=== PATIENT | male | born 1935 | race Caucasian/White ===

== ENCOUNTER → 2018-03-09 | Outpatient (CLI) | payer MEDICARE ==
--- NOTE | 2018-03-09 11:23 | XR ---
EXAMINATION TYPE: XR chest 2V DATE OF EXAM: 03/09/2018 COMPARISON: NONE INDICATION: Bacterial pneumonia, bronchitis TECHNIQUE: Frontal and lateral views of the chest are obtained. FINDINGS: The heart size is normal. The pulmonary vasculature is normal. The lungs are clear. Vascular calcification is noted within the descending thoracic aorta. IMPRESSION: 1. No acute pulmonary process.
== END | disposition home or self-care (01) ==
LOC: RADXRMAIN 10:59
PROVIDERS: ATTEND Family Medicine
DX: J15.9 Unspecified bacterial pneumonia (principal)
CPT/HCPCS: 71046

== ENCOUNTER → 2018-03-29 | Outpatient (CLI) | payer MEDICARE ==
--- NOTE | 2018-03-30 15:09 | ECHOF ---
Referral Reason:R07.89 Chest Pain MEASUREMENTS -------- HEIGHT: 167.6 cm WEIGHT: 95.3 kg BP: 190/77 RVIDd: 3.5 cm (< 3.3) IVSd: 1.7 cm (0.6 - 1.1) LVIDd: 4.1 cm (3.9 - 5.3) LVPWd: 1.8 cm (0.6 - 1.1) IVSs: 2.4 cm LVIDs: 3.3 cm LVPWs: 2.1 cm LA Diam: 3.6 cm (2.7 - 3.8) LAESV Index (A-L): 31.04 ml/m Ao Diam: 3.8 cm (2.0 - 3.7) AV Cusp: 2.3 cm (1.5 - 2.6) MV EXCURSION: 14.425 mm (> 18.000) MV EF SLOPE: 34 mm/s (70 - 150) EPSS: 0.9 cm MV E Juanito: 0.92 m/s MV DecT: 217 ms MV A Juanito: 1.23 m/s MV E/A Ratio: 0.74 AR PHT: 540 ms RAP: 5.00 mmHg RVSP: 26.80 mmHg FINDINGS -------- Sinus rhythm. This was a technically adequate study. The left ventricular size is normal. There is severe concentric left ventricular hypertrophy. Ove rall left ventricular systolic function is mildly impaired with, an EF between 45 - 50 %. Basal inf erior LV wall motion is hypokinetic. Basal inferoseptal LV wall motion is hypokinetic. The right ventricle is mildly enlarged. LA is midly dilated 29-33ml/m2. The right atrium is normal in size. There is mild aortic valve sclerosis. There is mild aortic regurgitation. Mild mitral annular calcification present. There is trace mitral regurgitation. Mild tricuspid regurgitation present. Right ventricular systolic pressure is normal at < 35 mmHg. The pulmonic valve is normal. The aortic root is dilated measuring 3.8cm. Normal inferior vena cava with normal inspiratory collapse consistent with estimated right atrial pre ssure of 5 mmHg. There is no pericardial effusion. CONCLUSIONS -------- 1. Sinus rhythm. 2. This was a technically adequate study. 3. The left ventricular size is normal. 4. There is severe concentric left ventricular hypertrophy. 5. Overall left ventricular systolic function is mildly impaired with, an EF between 45 - 50 %. 6. Basal inferior LV wall motion is hypokinetic. 7. Basal inferoseptal LV wall motion is hypokinetic. 8. The right ventricle is mildly enlarged. 9. LA is midly dilated 29-33ml/m2. 10. The right atrium is normal in size. 11. There is mild aortic valve sclerosis. 12. There is mild aortic regurgitation. 13. Mild mitral annular calcification present. 14. There is trace mitral regurgitation. 15. Mild tricuspid regurgitation present. 16. Right ventricular systolic pressure is normal at < 35 mmHg. 17. The pulmonic valve is normal. 18. The aortic root is dilated measuring 3.8cm. 19. Normal inferior vena cava with normal inspiratory collapse consistent with estimated right atrial pressure of 5 mmHg. 20. There is no pericardial effusion. YARD PIPE GRADER: Izabela Holder RDCS
== END | disposition home or self-care (01) ==
LOC: RADECHMAIN 15:24
PROVIDERS: ATTEND Family Medicine
DX: I08.2 Rheumatic disorders of both aortic and tricuspid valves (principal)
CPT/HCPCS: 93306

== ENCOUNTER → 2019-04-11 | Outpatient (CLI) | payer MEDICARE ==
[2019-04-11 21:22] LABS: Anion Gap 11.3 mmol/L (4.00-12.00); Calcium 8.1 mg/dL (8.7-10.3); Carbon Dioxide 27.7 mmol/L (21.6-31.8); Potassium 3.9 mmol/L (3.5-5.5); Uric Acid 10.1 mg/dL (3.7-8.7)
== END ==
LOC: LABWHC1 14:08
PROVIDERS: ATTEND Family Medicine
DX: M10.9 Gout, unspecified (principal); E87.5 Hyperkalemia; R60.9 Edema, unspecified
CPT/HCPCS: 36415; 80048; 83880; 84550

== ENCOUNTER 2019-05-03 17:57 | Inpatient (IN) | payer MEDICARE ==
[2019-05-03] MEDS ORDERED: SODIUM CHLORIDE 0.9% 500 ML 500 ML IV ONE (18:20)
--- NOTE | 2019-05-03 18:23 | ED ---
Recheck HPI - General Chief Complaint: Recheck/Abnormal Lab/Rx Stated Complaint: High potassium Time Seen by Provider: 05/03/19 18:11 Source: patient, family Mode of arrival: wheelchair Limitations: no limitations - History of Present Illness Initial Comments: 83-year-old male patient presents to the emergency department today sent by his medical coding technician for elevated potassium. Patient states that he had a visit with the medical coding technician today and had labs drawn. States he got a call this evening saying his potassium was 6.6 and he needed to present here for further evaluation. Patient states other than feeling somewhat tired he feels good. Patient states he did not sleep well last night. Denies any muscle cramping, chest pain, shortness of breath, or palpitations. Denies any dizziness or weakness. Patient states that the medical coding technician believes potassium alterations are due to his lisinopril which they are stopping. Patient denies any recent r esthela, fever, chills, abdominal pain, nausea, vomiting, diarrhea, constipation, back pain, numbness, tingling, hematuria, dysuria, urinary urgency, urinary frequency, headache, visual changes, or any other complaints. - Related Data Home Medications Medication Instructions Recorded Confirmed Alendronate Sodium [Fosamax] 70 mg PO Q7D 05/03/19 05/03/19 Clopidogrel [Plavix] 75 mg PO DAILY 05/03/19 05/03/19 Doxazosin [Cardura] 4 mg PO BID 05/03/19 05/03/19 Finasteride [Proscar] 5 mg PO DAILY 05/03/19 05/03/19 Furosemide [Lasix] 20 mg PO DAILY 05/03/19 05/03/19 Levothyroxine Sodium [Synthroid] 50 mcg PO DAILY 05/03/19 05/03/19 Lisinopril [Prinivil] 20 mg PO DAILY 05/03/19 05/03/19 Nebivolol HCl [Bystolic] 5 mg PO DAILY 05/03/19 05/03/19 Simvastatin 40 mg PO DAILY 05/03/19 05/03/19 Temazepam [Restoril] 15 mg PO HS 05/03/19 05/03/19 amLODIPine [Norvasc] 5 mg PO DAILY 05/03/19 05/03/19 rOPINIRole HCL [Requip] 0.5 mg PO HS 05/03/19 05/03/19 Allergies Allergy/AdvReac Type Severity Reaction Status Date / Time zolpidem [From Ambien] Allergy Unknown Verified 05/03/19 18:23 Review of Systems ROS Statement: Those systems with pertinent positive or pertinent negative responses have been documented in the HPI. ROS Other: All systems not noted in ROS Statement are negative. Past Medical History Past Medical History: Cancer, Hypertension Additional Past Medical History / Comment(s): bladder cancer History of Any Multi-Drug Resistant Organisms: None Reported Past Surgical History: Hernia Repair Additional Past Surgical History / Comment(s): kidney- right and left partial removal Past Psychological History: No Psychological Hx Reported Smoking Status: Former smoker Past Alcohol Use History: None Reported Past Drug Use History: None Reported General Exam Limitations: no limitations General appearance: alert, in no apparent distress, other (Well-developed, well- nourished elderly male patient in no acute distress. Vital signs upon presentation are temperature 97.8F, pulse 68, respirations 18, blood pressure 138/56, pulse ox 95% on room air.) Eye exam: Present: normal appearance, PERRL, EOMI. Absent: scleral icterus, conjunctival injection, periorbital swelling ENT exam: Present: normal exam, normal oropharynx, mucous membranes moist Respiratory exam: Present: normal lung sounds bilaterally. Absent: respiratory distress, wheezes, rales, rhonchi, stridor Cardiovascular Exam: Present: regular rate, normal rhythm, normal heart sounds. Absent: systolic murmur, diastolic murmur, rubs, gallop, clicks GI/Abdominal exam: Present: soft, normal bowel sounds. Absent: distended, tenderness, guarding, rebound, rigid Neurological exam: Present: alert, oriented X3, CN II-XII intact Psychiatric exam: Present: normal affect, normal mood Skin exam: Present: warm, dry, intact, normal color. 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 Physical examination is unremarkable. EKG shows normal sinus rhythm. Labs reviewed and did reveal elevated potassium of 6.3. Patient does have evidence of worsening renal function. We will administer medication to decrease potassiu m level. Patient be admitted to the hospital for further monitoring and evaluation by nephrology. - Lab Data Result diagrams: 05/03/19 18:49 05/03/19 18:49 Lab Results 05/03/19 05/03/19 Range/Units 18:49 18:49 WBC 5.5 (3.8-10.6) k/uL RBC 3.74 L (4.30-5.90) m/uL Hgb 11.5 L (13.0-17.5) gm/dL Hct 35.0 L (39.0-53.0) % MCV 93.7 (80.0-100.0) fL MCH 30.7 (25.0-35.0) pg MCHC 32.7 (31.0-37.0) g/dL RDW 14.4 (11.5-15.5) % Plt Count 165 (150-450) k/uL Neutrophils % 74 % Lymphocytes % 16 % Monocytes % 6 % Eosinophils % 2 % Basophils % 0 % Neutrophils # 4.1 (1.3-7.7) k/uL Lymphocytes # 0.9 L (1.0-4.8) k/uL Monocytes # 0.3 (0-1.0) k/uL Eosinophils # 0.1 (0-0.7) k/uL Basophils # 0.0 (0-0.2) k/uL Sodium 142 (137-145) mmol/L Potassium 6.3 H* (3.5-5.1) mmol/L Chloride 112 H (98-107) mmol/L Carbon Dioxide 22 (22-30) mmol/L Anion Gap 8 mmol/L BUN 65 H (9-20) mg/dL Creatinine 3.49 H (0.66-1.25) mg/dL Est GFR (CKD-EPI)AfAm 17 (>60 ml/min/1.73 sqM) Est GFR (CKD-EPI)NonAf 15 (>60 ml/min/1.73 sqM) Glucose 96 (74-99) mg/dL Calcium 8.3 L (8.4-10.2) mg/dL Magnesium 2.4 H (1.6-2.3) mg/dL Total Bilirubin 0.6 (0.2-1.3) mg/dL AST 16 L (17-59) U/L ALT 16 L (21-72) U/L Alkaline Phosphatase 74 (38-126) U/L Total Protein 6.4 (6.3-8.2) g/dL Albumin 4.0 (3.5-5.0) g/dL - EKG Data -: EKG Interpreted by Me EKG Comments: EKG obtained at 1840 shows sinus rhythm with a first-degree AV block. Ventricular rate is 69, AK interval 382, QRS duration 104, QTC 400, QTC 428. No evidence of ST elevation or depression. Disposition Clinical Impression: Hyperkalemia, Acute on chronic renal failure Disposition: ADMITTED IP TO THIS [facility] Condition: Serious Referrals: Tho Harman DO [Primary Care Provider] - 1-2 days Decision to Admit Reason: Admit from EC Decision Date: 05/03/19 Decision Time: 20:08
[2019-05-03 19:18] LABS: Basophils % (A) 0 %; Eosinophils # (A) 0.1 k/uL (0-0.7); Eosinophils % (A) 2 %; HGB 11.5 gm/dL (13.0-17.5); Lymphocytes # (A) 0.9 k/uL (1.0-4.8); Lymphocytes % (A) 16 %; MCH 30.7 pg (25.0-35.0); MCHC 32.7 g/dL (31.0-37.0); MCV 93.7 fL (80.0-100.0); Mean Platelet Volume 7.5; Monocytes # (A) 0.3 k/uL (0-1.0); Monocytes % (A) 6 %; Neutrophils # (A) 4.1 k/uL (1.3-7.7); Neutrophils % (A) 74 %; Platelet Count 165 k/uL (150-450); RBC 3.74 m/uL (4.30-5.90); RDW 14.4 % (11.5-15.5); WBC 5.5 k/uL (3.8-10.6)
[2019-05-03 19:28] LABS: Calcium 8.3 mg/dL (8.4-10.2); Magnesium 2.4 mg/dL (1.6-2.3); Total Bilirubin 0.6 mg/dL (0.2-1.3); Total Protein 6.4 g/dL (6.3-8.2)
[2019-05-03 19:31] LABS: Potassium 6.3 mmol/L (3.5-5.1)
[2019-05-03] MEDS ORDERED: CALCIUM CHLORIDE 100 MG/ML 10 ML SYRINGE IVP STA (19:59)
[2019-05-03] MEDS ORDERED: SODIUM POLYSTYRENE SULFONATE 15 GM/60 ML BOTTLE PO STA (19:59)
[2019-05-03] MEDS ORDERED: DEXTROSE 50% SYRINGE 50 ML IVP STA (19:59)
[2019-05-03] MEDS ORDERED: INSULIN REGULAR 100 UNIT/ML VIAL IV STA (19:59)
[2019-05-03] MEDS ORDERED: NALOXONE 0.4 MG/ML 1 ML VIAL IV PRN (20:05)
[2019-05-03] MEDS: TEMAZEPAM 15 MG CAP PO SCH (22:36)
[2019-05-03] MEDS: DOXAZOSIN 4 MG TAB PO SCH (22:36)
[2019-05-03] MEDS ORDERED: SODIUM CHLORIDE 0.65% NASAL SPRAY 44 ML BTL NASAL PRN (23:00)
[2019-05-04] MEDS: SODIUM POLYSTYRENE SULFONATE 15 GM/60 ML BOTTLE PO SCH ×2 (00:29→08:08)
[2019-05-04 05:36] VITALS: RESP 16
[2019-05-04] MEDS: LEVOTHYROXINE 50 MCG TAB PO SCH (06:36)
[2019-05-04 07:12] LABS: Albumin 3.6 g/dL (3.5-5.0); Calcium 8.7 mg/dL (8.4-10.2); Potassium 5.4 mmol/L (3.5-5.1); Total Bilirubin 0.6 mg/dL (0.2-1.3); Total Protein 5.9 g/dL (6.3-8.2)
[2019-05-04] MEDS: ATORVASTATIN 20 MG TAB PO SCH (08:08)
[2019-05-04] MEDS: amLODIPine 5 MG TAB PO SCH (08:08)
[2019-05-04] MEDS: NEBIVOLOL 5 MG TAB PO SCH (08:08)
[2019-05-04] MEDS: CLOPIDOGREL 75 MG TAB PO SCH (08:08)
[2019-05-04] MEDS: FINASTERIDE 5 MG TAB PO SCH (08:08)
[2019-05-04] MEDS: DOXAZOSIN 4 MG TAB PO SCH ×2 (08:08→20:03)
[2019-05-04] MEDS ORDERED: FUROSEMIDE 20 MG TAB PO SCH (09:00)
[2019-05-04 13:45] LABS: Appearance,Urine Clear (Clear); Bilirubin,Urine Negative (Negative); Blood,Urine Negative (Negative); Color,Urine Light Yellow; Glucose,Urine (UA) Negative (Negative); Ketones,Urine Negative (Negative); Leukocyte Esterase,Urine Negative (Negative); Nitrite,Urine Negative (Negative); PH, Urine 5.5 (5.0-8.0); Protein,Urine Negative (Negative); Specific Gravity,Urine 1.007 (1.001-1.035); Urobilinogen,Urine <2.0 mg/dL (<2.0)
--- NOTE | 2019-05-04 13:46 | XR ---
EXAMINATION TYPE: XR chest 1V DATE OF EXAM: 05/04/2019 COMPARISON: 03/09/2018 HISTORY: Shortness of breath TECHNIQUE: Single frontal view of the chest is obtained. FINDINGS: Assessment left lung base limited due to technique. The heart is prominent. Atheroscleroti c changes aorta. Arthropathy of the shoulders and diffuse osteopenia. No pneumothorax or overt failur e. IMPRESSION: No definite infiltrate as visualized. No overt failure.
--- NOTE | 2019-05-04 14:13 | US ---
EXAMINATION TYPE: US kidneys/renal and bladder DATE OF EXAM: 05/04/2019 COMPARISON: NONE CLINICAL HISTORY: rf. Renal failure, history of bladder and renal cancer, history of multiple bladder and bilateral kidney surgeries, exam done portable. EXAM MEASUREMENTS: Right Kidney: 9.7 x 5.2 x 5.8 cm Left Kidney: 7.6 x 4.4 x 4.7 cm Difficult and limited study due to patient body habitus Right Kidney: multiple cystic areas with largest measuring 2.4 x 3.0 x 2.3cm superior pole Left Kidney: atrophic, limited by rib shadowing Bladder: wnl Bilateral Jets seen: right jet seen, left jet not seen IMPRESSION: 1. The left kidney is atrophic correlate for chronic medical renal disease. 2. There are multiple hypoechoic nodules within the right kidney which do not meet the criteria of si mple cyst by ultrasound. This is most likely technical. 3. No hydronephrosis or nephrolithiasis
--- NOTE | 2019-05-04 14:48 | P.HPIM ---
History of Present Illness H&P Date: 05/04/19 Chief Complaint: Abnormal lab work This is an 83-year-old male patient of Dr. Harman with past medical history of bladder cancer diagnosed 18 years ago status post mass resection, kidney cancer initially diagnosed in 2010 on the left with partial nephrectomy followed by diagnosis on the right in 2013 status post partial robotic resection. Patient states cancers currently are in remission and his oncologist is Dr. Juan. He also has past medical history of carotid artery stenosis status post stent, hypertension, hypothyroidism, hyperlipidemia, restless leg syndrome, gout, chronic kidney disease stage 4. Patient gives history that he saw his integrated circuit fabricator in lab work came back with a high potassium of 6.6 and he was called and instructed to come into the hospital for further evaluation. Patient denies having any muscle cramps, chest pain, shortness of breath, palpitations. No dizziness, lightheadedness or weakness. No change in mental status. Patient denies having any dysuria. He states he does get up in the night to urinate 3-4 times and he relates this to Lasix. He feels that he is entering his bladder with each voiding. Patient came into [facility] emergency [facility] for evaluation. He has been afebrile, pulse ox 95% on room air, blood pressure 138/56, heart rate in the 60s and 70s. Hemoglobin 11.5. Potassium 6.3, BUN 65 and creatinine 3.49, chloride 112. Hemoglobin A1c done in March was 4.8. Patient received 2 doses of Kayexalate, 1 L of IV fluid, D50, regular insulin and calcium chloride. Patient has been resumed on his home medications except for lisinopril which is on hold. Patient was admitted to the cardiac stepdown unit and consult with Dr. Villarreal. Renal ultrasound shows left kidney is atrophic correlate for chronic medical renal disease. Multiple hypoechoic nodules within the right kidney w hich do not meet the criteria for simple cyst. Most likely technical. No hydronephrosis or nephrolithiasis. Chest x-ray shows no definite infiltrate. Review of Systems All systems: negative Constitutional: Denies chills, Denies fever, Denies lethargy, Denies malaise, Denies poor appetite, Denies weakness, Denies weight loss Eyes: denies blurred vision, denies pain Ears, nose, mouth and throat: Denies dysphagia, Denies headache, Denies nasal congestion, Denies nasal discharge, Denies sore throat, Denies vertigo Cardiovascular: Denies chest pain, Denies decreased exercise tolerance, Denies dyspnea on exertion, Denies edema, Denies leg edema, Denies lightheadedness, Denies shortness of breath, Denies syncope Respiratory: Denies cough, Denies cough with sputum, Denies dyspnea, Denies excessive sputum, Denies hemoptysis, Denies home oxygen, Denies wheezing Gastrointestinal: Denies abdominal pain, Denies constipation, Denies diarrhea, Denies loss of appetite, Denies nausea, Denies vomiting Genitourinary: Denies dysuria, Denies flank pain, Denies hematuria, Denies urinary frequency, Denies urinary hesitancy, Denies urinary retention Musculoskeletal: Denies frequent falls, Denies gait dysfunction, Denies muscle weakness, Denies myalgias Integumentary: Denies pruritus, Denies rash, Denies wounds Neurological: Denies aphasia, Denies change in speech, Denies confusion, Denies gait dysfunction, Denies numbness, Denies seizures, Denies weakness Psychiatric: Denies anxiety, Denies depression Endocrine: Denies fatigue, Denies weight change Past Medical History Past Medical History: Cancer, Hyperlipidemia, Hypertension, Thyroid Disorder Additional Past Medical History / Comment(s): bladder cancer, kidney cancer. 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 Past Anesthesia/Blood Transfusion Reactions: Previous Problems w/ Anesthesia Additional Past Anesthesia/Blood Transfusion Reaction / Comment(s): "out of it for 4 days after anesthesia" Past Psychological History: No Psychological Hx Reported Smoking Status: Former smoker Past Alcohol Use History: None Reported Additional Past Alcohol Use History / Comment(s): quit smoking 1968, no illicit drug use, no alcohol use. Patient recently moved to [address] [place] [address]. He has a walker but rarely uses. No nebulizer, no oxygen. Past Drug Use History: None Reported - Past Family History Father Additional Family Medical History / Comment(s): Father from prostate cancer. Mother Additional Family Medical History / Comment(s): Mother from lung cancer. Brother(s) Additional Family Medical History / Comment(s): Patient has 2 brothers one has had these stroke. One brother had kidney cancer unknown reason. Patient has one sister is healthy with no major medical problems. Patient has 2 children, one daughter with hyperlipidemia and one son with history of atrial fibrillation and borderline diabetes. Medications and Allergies Home Medications Medication Instructions Recorded Confirmed Type Alendronate Sodium [Fosamax] 70 mg PO Q7D 05/03/19 05/03/19 History Clopidogrel [Plavix] 75 mg PO DAILY 05/03/19 05/03/19 History Doxazosin [Cardura] 4 mg PO BID 05/03/19 05/03/19 History Finasteride [Proscar] 5 mg PO DAILY 05/03/19 05/03/19 History Furosemide [Lasix] 20 mg PO DAILY 05/03/19 05/03/19 History Levothyroxine Sodium [Synthroid] 50 mcg PO DAILY 05/03/19 05/03/19 History Lisinopril [Prinivil] 20 mg PO DAILY 05/03/19 05/03/19 History Nebivolol HCl [Bystolic] 5 mg PO DAILY 05/03/19 05/03/19 History Simvastatin 40 mg PO DAILY 05/03/19 05/03/19 History Temazepam [Restoril] 15 mg PO HS 05/03/19 05/03/19 History amLODIPine [Norvasc] 5 mg PO DAILY 05/03/19 05/03/19 History rOPINIRole HCL [Requip] 0.5 mg PO HS 05/03/19 05/03/19 History Allergies Allergy/AdvReac Type Severity Reaction Status Date / Time zolpidem [From Ambien] Allergy Unknown Verified 05/03/19 18:23 Physical Exam Vitals: Vital Signs Temp Pulse Pulse Resp BP BP Pulse Ox 05/04/19 05:35 97.8 F 75 16 150/70 96 05/04/19 00:45 74 19 131/68 93 L 05/03/19 21:52 97.9 F 59 L 15 140/69 95 05/03/19 21:11 98 F 80 18 160/77 93 L 05/03/19 20:39 74 18 160/78 97 05/03/19 20:13 98 F 70 18 160/68 95 05/03/19 19:35 67 05/03/19 19:33 68 18 163/76 98 05/03/19 18:03 97.8 F 68 18 138/56 95 Intake and Output 05/03/19 05/04/19 05/04/19 22:59 06:59 14:59 Output Total 550 Balance -550 Output: Urine 550 Other: Voiding Method Toilet Weight 95.254 kg 95.7 kg Gen: This is an 83-year-old obese male. He is resting on the edge of the bed eating lunch and appears to be comfortable and in no acute distress. HEENT: Head is atraumatic, normocephalic. Pupils equal, round. Sclerae is anicteric. NECK: Supple. No JVD. No lymphadenopathy. No thyromegaly. LUNGS: Clear to auscultation. No wheezes or rhonchi. No intercostal retractions. HEART: Regular rate and rhythm. No murmur. ABDOMEN: Soft. Obese. Bowel sounds are present. No masses. No tenderness. No CVA tenderness EXTREMITIES: No pedal edema. No calf tenderness. Positive varicose veins in the lower extremities. NEUROLOGICAL: Patient is awake, alert and oriented x3. Cranial nerves 2 through 12 are grossly intact. Results CBC & Chem 7: 05/03/19 18:49 05/04/19 06:12 Labs: Abnormal Lab Results - Last 24 Hours (Table) 05/03/19 05/03/19 05/04/19 Range/Units 18:49 18:49 06:12 RBC 3.74 L (4.30-5.90) m/uL Hgb 11.5 L (13.0-17.5) gm/dL Hct 35.0 L (39.0-53.0) % Lymphocytes # 0.9 L (1.0-4.8) k/uL Potassium 6.3 H* 5.4 H (3.5-5.1) mmol/L Chloride 112 H 113 H (98-107) mmol/L Carbon Dioxide 21 L (22-30) mmol/L BUN 65 H 59 H (9-20) mg/dL Creatinine 3.49 H 3.22 H (0.66-1.25) mg/dL Calcium 8.3 L (8.4-10.2) mg/dL Magnesium 2.4 H (1.6-2.3) mg/dL AST 16 L 12 L (17-59) U/L ALT 16 L 15 L (21-72) U/L Total Protein 5.9 L (6.3-8.2) g/dL Thrombosis Risk Factor Assmnt - DVT/VTE Prophylaxis DVT/VTE Prophylaxis: Pharmacologic Prophylaxis ordered - Choose All That Apply Any of the Below Risk Factors Present?: Yes Each Factor Represents 1 point: Obesity (BMI >25) Each Risk Factor Represents 3 Points: Age 75 years or older Thrombosis Risk Factor Assessment Total Risk Factor Score: 4 Thrombosis Risk Factor Assessment Level: Moderate Risk Assessment and Plan Plan: 1. Acute kidney injury and chronic kidney disease stage IV. Consult with Dr. Villarreal. Continue to monitor electrolytes and kidney function closely. Lisinopril on hold. 2. Hyperkalemia secondary to acute kidney disease. Patient is status post Kayexalate, D50, insulin and calcium chloride with improvement. Continue to monitor 3. History of kidney cancer status post resection and history of bladder cancer. Continue Proscar 5 mg daily, Cardura 4 mg twice daily. 4. Hypertension, hypertensive cardio vascular disease. Continue Norvasc 5 mg daily, Lasix 20 mg daily, bisystolic 5 mg daily. Hold lisinopril. 5. Hyperlipidemia. Continue Lipitor 20 mg daily. 6. Carotid artery stenosis status post stent on the left and 100% blockage on the right. Continue Plavix 75 mg daily. 7. Restless leg syndrome. Continue Requip 0.5 mg at bedtime. 8. Hypotension. Continue levothyroxine 50 g daily. Check TSH free T4. 9. DVT prophylaxis. Heparin subcu. 10. GI prophylaxis. Pepcid. Patient will be admitted to the hospital for a minimum of 2 night stay. Discharge plan: Most likely return home Impression and plan of care have been directed as dictated by the signing phys natan. Florecita Pedroza nurse practitioner acting as scribe for signing physician.
--- NOTE | 2019-05-04 16:37 | CONS ---
CONSULTATION Patient is an 83-year-old male who was just seen at my office yesterday for initial consultation. Patient has a history of hypertension, hypothyroidism and CHF. He has had bilateral partial nephrectomy previously. We had a prior creatinine of 2.8 on 04/11/2019 and on 03/27/2019. Patient's serum potassium was elevated at 6.0 on 03/27/2019 as outpatient. Repeat labs were done yesterday and his potassium came back at 6.4 with worsening of the creatinine to 3.3, and therefore patient was referred to the hospital. He had been maintained on lisinopril at home prior to admission, which is now discontinued. Blood pressure has not been significantly low and patient denied use of any nonsteroidal anti-inflammatory agents. He states he is feeling slightly better. However, he is mildly short of breath. PAST MEDICAL HISTORY: Past medical history is significant for: 1. Hypothyroidism. 2. CHF, ejection fraction not known. 3. Patient also has BPH. 4. Hypercholesterolemia. 5. Osteoporosis, for which he is maintained on alendronate. 6. Previous history of kidney cancer with bilateral partial nephrectomy. PAST SURGICAL HISTORY: 1. Hernia repair. 2. Bilateral partial nephrectomy. SOCIAL HISTORY: Patient is a former smoker. No history of drug abuse or alcohol abuse. MEDICATIONS: Medications at home prior to admission included: 1. Fosamax. 2. Plavix. 3. Cardura. 4. Proscar. 5. Lasix. 6. Synthroid. 7. Prinivil. 8. Bystolic. 9. Simvastatin. 10.Aspirin. 11.Norvasc. 12.Requip. ALLERGIES: ALLERGIES INCLUDE AMBIEN. REVIEW OF SYSTEMS: As per HPI. Other systems negative. PHYSICAL EXAMINATION: On examination, patient is currently comfortable, awake. He is mildly short of breath, not in any acute distress. Blood pressure was 145/65, heart rate 84 per minute. He is afebrile. EXAMINATION OF THE HEART: S1 and S2. EXAMINATION OF LUNGS: Decreased breath sounds at bases. Occasional crackles are heard. ABDOMEN: Soft, non-tender. EXTREMITIES: Left lower extremity shows no significant edema. SOCIAL WORK THERAPIST exam is grossly intact. LABS: Sodium 143, potassium 5.4, chloride 113. CO2 is 21, BUN 59, serum creatinine 0.32, hemoglobin 11.5 g/dL. ASSESSMENT: 1. Acute kidney injury; rule out obstructive uropathy. There may be a component of acute tubular necrosis as well. Patient is off of lisinopril. Renal function is slightly improved. He is currently not on any IV fluids and I will maintain him off of fluids for now. Will check a chest x-ray to rule out underlying CHF. 2. Hyperkalemia associated with acute kidney injury and use of CYNTHIA inhibitors prior to admission as well as significant increase in potassium intake recently over the past 1-2 weeks. 3. Congestive heart failure, ejection fraction not known. Recently Lasix was increased as outpatient and lower extremity edema has improved. An echocardiogram will be done this admission. 4. Chronic kidney disease; baseline not known. Prior creatinine 2.8 in March of 2019. We do have labs from 2017 which show a creatinine of 2.6, so this may be close to his baseline. 5. History of bladder cancer; not sure if there was an element of kidney cancer as well; status post bilateral partial nephrectomy. PLAN: Check UA. Maintain off of lisinopril. Check chest x-ray. Maintain patient on low- potassium diet. Discontinue the Kayexalate for now. Hold off on the Fosamax as well for now and repeat labs in a.m. I will continue with the Lasix. We can increase it to 40 mg p.o. daily. Thank you for this consultation. Will continue to follow the patient with you during his hospitalization. MMODL / ELENON: [id number] /
[2019-05-04] MEDS: TEMAZEPAM 15 MG CAP PO SCH (20:03)
[2019-05-04] MEDS: HEPARIN SODIUM,PORCINE 5,000 UNIT/ML 1 ML VIAL SQ SCH (20:04)
[2019-05-05] MEDS: LEVOTHYROXINE 50 MCG TAB PO SCH (06:44)
[2019-05-05 07:39] LABS: Calcium 8.8 mg/dL (8.4-10.2); Potassium 4.8 mmol/L (3.5-5.1)
[2019-05-05] MEDS: ATORVASTATIN 20 MG TAB PO SCH (07:46)
[2019-05-05] MEDS: FINASTERIDE 5 MG TAB PO SCH (07:46)
[2019-05-05] MEDS: amLODIPine 5 MG TAB PO SCH (07:46)
[2019-05-05] MEDS: DOXAZOSIN 4 MG TAB PO SCH (07:46)
[2019-05-05] MEDS: HEPARIN SODIUM,PORCINE 5,000 UNIT/ML 1 ML VIAL SQ SCH (07:46)
[2019-05-05] MEDS: CLOPIDOGREL 75 MG TAB PO SCH (07:46)
[2019-05-05] MEDS: NEBIVOLOL 5 MG TAB PO SCH (08:31)
[2019-05-05] MEDS ORDERED: FUROSEMIDE 40 MG TAB PO SCH (09:00)
[2019-05-05] MEDS ORDERED: FAMOTIDINE 20 MG TAB PO SCH (09:00)
--- NOTE | 2019-05-05 09:44 | PN ---
PROGRESS NOTE Patient is seen for followup for acute kidney injury on top of chronic kidney disease. He was admitted with hyperkalemia. Patient's cynthia inhibiters have been discontinued. His renal function has improved with significant improvement in potassium as well. On examination today, blood pressure is 159/72, heart rate is 72 per minute, patient is afebrile. Examination of the heart S1, S2. Examination of the lungs, bilateral breath sounds are heard. Abdomen is soft, nontender. 1 +plus edema is noted. BUYER RENTER exam is grossly intact. LABS: Show sodium of 142, potassium 4.8, chloride 111, BUN 51, serum creatinine 2.8. ASSESSMENT: 1. Acute kidney injury and acute tubular necrosis, currently improved. 2. Chronic kidney disease, mostly secondary to nephrosclerosis. The patient is also noted to have an atrophic left kidney on ultrasound. The. He will continue to need follow up as outpatient. We have a previous creatinine of 2.5 in March. Prior to that, no other labs were available except for a creatinine of about 2.6 in September of 2017. PLAN: Continue to hold off on CYNTHIA inhibitors. Patient can be discharged from nephrology standpoint. Follow up as outpatient in about 2 weeks' time. MMODL / IJN: [id number] /
--- NOTE | 2019-05-05 10:36 | P.CRDCN ---
History of Present Illness Consult date: 05/05/19 History of present illness: This is a 83-year-old male with history of hypothyroidism, hypertension with previous bilateral partial nephrectomy and chronic renal failure who is admitted to the hospital because of lab work showing a potassium of 6.4 with a creatinine of 3.3. Patient was also on lisinopril at home for blood pressure control along with diastolic. On admission patient was found to have sinus rhythm with first- degree heart block. Patient also had periods bradycardia has shown some Wenckebach phenomenon bradycardia. We're asked to see the patient regarding AV block. Patient denies having any cardiac issues in the past. Denied any previous myocardial infarction are normal and cardiac arrhythmias. Since admission patient has received capsulatum. His potassium is coming down to the range of 4. He was also taken off the Bystolic.. So far. Patient hasn't had any high degree AV block. Patient doesn't need any pacemaker at this time. I will keep him off both lisinopril and Bystolic. Patient may be treated with amlodipine for blood pressure control. I'll also get an echo cardiogram. We'll check his thyroid function studies. Further recommendations depend upon the clinical course Review of Systems As per the chart Past Medical History Past Medical History: Cancer, Hyperlipidemia, Hypertension, Thyroid Disorder Additional Past Medical History / Comment(s): bladder cancer, kidney cancer. 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 Past Anesthesia/Blood Transfusion Reactions: Previous Problems w/ Anesthesia Additional Past Anesthesia/Blood Transfusion Reaction / Comment(s): "out of it for 4 days after anesthesia" Past Psychological History: No Psychological Hx Reported Smoking Status: Former smoker Past Alcohol Use History: None Reported Additional Past Alcohol Use History / Comment(s): quit smoking 1968, no illicit drug use, no alcohol use. Patient recently moved to [address] [place] [address]. He has a walker but rarely uses. No nebulizer, no oxygen. Past Drug Use History: None Reported - Past Family History Father Additional Family Medical History / Comment(s): Father from prostate cancer. Mother Additional Family Medical History / Comment(s): Mother from lung cancer. Brother(s) Additional Family Medical History / Comment(s): Patient has 2 brothers one has had these stroke. One brother had kidney cancer unknown reason. Patient has one sister is healthy with no major medical problems. Patient has 2 children, one daughter with hyperlipidemia and one son with history of atrial fibrillation and borderline diabetes. Medications and Allergies Home Medications Medication Instructions Recorded Confirmed Type Alendronate Sodium [Fosamax] 70 mg PO Q7D 05/03/19 05/03/19 History Clopidogrel [Plavix] 75 mg PO DAILY 05/03/19 05/03/19 History Doxazosin [Cardura] 4 mg PO BID 05/03/19 05/03/19 History Finasteride [Proscar] 5 mg PO DAILY 05/03/19 05/03/19 History Furosemide [Lasix] 20 mg PO DAILY 05/03/19 05/03/19 History Levothyroxine Sodium [Synthroid] 50 mcg PO DAILY 05/03/19 05/03/19 History Lisinopril [Prinivil] 20 mg PO DAILY 05/03/19 05/03/19 History Nebivolol HCl [Bystolic] 5 mg PO DAILY 05/03/19 05/03/19 History Simvastatin 40 mg PO DAILY 05/03/19 05/03/19 History Temazepam [Restoril] 15 mg PO HS 05/03/19 05/03/19 History amLODIPine [Norvasc] 5 mg PO DAILY 05/03/19 05/03/19 History rOPINIRole HCL [Requip] 0.5 mg PO HS 05/03/19 05/03/19 History Allergies Allergy/AdvReac Type Severity Reaction Status Date / Time zolpidem [From Ambien] Allergy Unknown Verified 05/03/19 18:23 Physical Exam Vitals: Vital Signs Temp Pulse Resp BP Pulse Ox 05/05/19 08:00 98.2 F 67 16 189/79 95 05/05/19 04:24 97.9 F 77 16 159/72 96 05/04/19 23:39 98.4 F 74 16 166/74 93 L 05/04/19 20:17 16 05/04/19 19:57 98.8 F 70 16 167/77 95 05/04/19 15:42 68 16 05/04/19 15:40 97.2 F L 68 16 146/67 95 05/04/19 11:14 67 16 05/04/19 11:10 98.6 F 67 16 185/74 95 Intake and Output 05/04/19 05/05/19 05/05/19 22:59 06:59 14:59 Intake Total 570 480 Output Total 500 300 Balance 70 180 Intake: IV 10 Invasive Line 1 10 Oral 560 480 Output: Urine 500 300 Other: Voiding Method Toilet Toilet Urinal Urinal # Voids 1 Weight 95 kg GENERAL EXAM: Patient is alert and oriented and doesn't appear to be in any acut e distress HEENT: Normocephalic. Normal reaction of pupils, equal size, normal range of extraocular motion. No erythema or exudates in the throat. NECK: No masses, no nuchal rigidity. CHEST: No chest wall deformity. LUNGS: Diminished air exchange but no wheezing or rhonchi HEART: Distant heart sounds ABDOMEN: No hepatosplenomegaly, normal bowel sounds, no guarding or rigidity. SKIN: No rashes CENTRAL NERVOUS SYSTEM: No focal deficits. EXTREMITIES: No cyanosis, clubbing or edema. Results 05/03/19 18:49 05/05/19 07:07 Comprehensive Metabolic Panel 05/05/19 Range/Units 07:07 Sodium 142 (137-145) mmol/L Potassium 4.8 (3.5-5.1) mmol/L Chloride 111 H (98-107) mmol/L Carbon Dioxide 23 (22-30) mmol/L BUN 51 H (9-20) mg/dL Creatinine 2.81 H (0.66-1.25) mg/dL Glucose 108 H (74-99) mg/dL Calcium 8.8 (8.4-10.2) mg/dL Current Medications Generic Name Dose Route Start Last Admin Trade Name Freq PRN Reason Stop Dose Admin Amlodipine Besylate 5 mg 05/04/19 09:00 05/05/19 07:46 Norvasc PO 5 mg DAILY JAMES Administration Atorvastatin Calcium 20 mg 05/04/19 09:00 05/05/19 07:46 Lipitor PO 20 mg DAILY JAMES Administration Clopidogrel Bisulfate 75 mg 05/04/19 09:00 05/05/19 07:46 Plavix PO 75 mg DAILY JAMES Administration Doxazosin Mesylate 4 mg 05/03/19 21:00 05/05/19 07:46 Cardura PO 4 mg BID JAMES Administration Famotidine 20 mg 05/05/19 09:00 05/05/19 07:46 Pepcid PO 20 mg DAILY JAMES Administration Finasteride 5 mg 05/04/19 09:00 05/05/19 07:46 Proscar PO 5 mg DAILY JAMES Administration Furosemide 40 mg 05/05/19 09:00 05/05/19 07:46 Lasix PO 40 mg DAILY JAMES Administration Heparin Sodium (Porcine) 5,000 unit 05/04/19 21:00 05/05/19 07:46 Heparin SQ 5,000 unit Q12HR JAMES Administration Levothyroxine Sodium 50 mcg 05/04/19 06:30 05/05/19 06:44 Synthroid PO 50 mcg DAILY@0630 JAMES Administration Naloxone HCl 0.2 mg 05/03/19 20:05 Narcan IV Q2M PRN Opioid Reversal Nebivolol 5 mg 05/04/19 09:00 05/05/19 08:31 Bystolic PO Not Given DAILY JAMES Alendronate Sodium [ 70 mg 05/07/19 09:00 Fosamax] 70 Mg PO Q7D JAMES Ropinirole HCl 0.5 mg 05/03/19 21:00 05/04/19 20:04 Requip PO 0.5 mg HS JAMES Administration Sodium Chloride 2 spray 05/03/19 23:00 05/04/19 08:08 Deep Sea NASAL 2 spray QID PRN Administration Congestion Temazepam 15 mg 05/03/19 21:00 05/04/19 20:03 Restoril PO 15 mg HS JAMES Administration Intake and Output 05/04/19 05/05/19 05/05/19 22:59 06:59 14:59 Intake Total 570 480 Output Total 500 300 Balance 70 180 Intake: IV 10 Invasive Line 1 10 Oral 560 480 Output: Urine 500 300 Other: Voiding Method Toilet Toilet Urinal Urinal # Voids 1 Weight 95 kg 05/03/19 18:49 05/05/19 07:07 EKG Interpretations (text) Sinus rhythm with first-degree heart block Assessment and Plan (1) Mobitz (type) I (Wenckebach's) atrioventricular block Current Visit: Yes Status: Acute Code(s): I44.1 - ATRIOVENTRICULAR BLOCK, SECOND DEGREE SNOMED Code(s): 14247063 (2) Essential hypertension Current Visit: Yes Status: Acute Code(s): I10 - ESSENTIAL (PRIMARY) HYPERTENSION SNOMED Code(s): 29597134 (3) Acute on chronic renal failure Current Visit: Yes Status: Acute Code(s): N17.9 - ACUTE KIDNEY FAILURE, UNSPECIFIED; N18.9 - CHRONIC KIDNEY DISEASE, UNSPECIFIED SNOMED Code(s): 132525655 (4) Hyperkalemia Current Visit: Yes Status: Acute Code(s): E87.5 - HYPERKALEMIA SNOMED Code(s): 36303797 Plan: His AV block most probably secondary to combination of medications and also hyperkalemia. Patient may also have intrinsic conduction delay. I will discontinue both Bystolic and also lisinopril. May consider adding hydralazine for blood pressure control. Check thyroid function studies. Echocardiogram. Further recommendations depend upon clinical course
[2019-05-05 11:51] VITALS: TEMP 97.7
[2019-05-05] MEDS ORDERED: hydrALAZINE HCL 25 MG TAB PO STA (11:52)
--- NOTE | 2019-05-05 13:13 | ECHOF ---
Referral Reason:Chest pain and cardiomyopathy MEASUREMENTS -------- HEIGHT: 170.2 cm WEIGHT: 94.8 kg BP: IVSd: 1.4 cm (0.6 - 1.1) LVIDd: 4.7 cm (3.9 - 5.3) LVPWd: 1.7 cm (0.6 - 1.1) IVSs: 1.8 cm LVIDs: 2.9 cm LVPWs: 1.8 cm Ao Diam: 3.5 cm (2.0 - 3.7) AV Cusp: 2.1 cm (1.5 - 2.6) LA Diam: 2.6 cm (2.7 - 3.8) MV EXCURSION: 21.020 mm (> 18.000) MV EF SLOPE: 85 mm/s (70 - 150) EPSS: 0.5 cm MV E Juanito: 1.15 m/s MV DecT: 197 ms MV A Juanito: 1.55 m/s MV E/A Ratio: 0.74 AR PHT: 197 ms RAP: 5.00 mmHg RVSP: 13.09 mmHg FINDINGS -------- Sinus rhythm. This was a technically adequate study. The left ventricular size is normal. There is moderate concentric left ventricular hypertrophy. O verall left ventricular systolic function is mild-moderately impaired with, an EF between 40 - 45 %. Basal inferior LV wall motion is hypokinetic. Basal inferoseptal LV wall motion is hypokinetic. Mid inferior LV wall motion is hypokinetic. The right ventricle is normal in size. The left atrial size is normal. The right atrial size is normal. Aortic valve is trileaflet and is mildly thickened. There is mild aortic regurgitation. Mild mitral annular calcification present. There is trace to mild mitral regurgitation. Trace tricuspid regurgitation present. There is no evidence of pulmonary hypertension. The right ventricular systolic pressure, as measured by Doppler, is 13.09mmHg. There is no pulmonic regurgitation present. The aortic root size is normal. Normal inferior vena cava with normal inspiratory collapse consistent with estimated right atrial pre ssure of 5 mmHg. Echo free space indicative of a pericardial fat pad. CONCLUSIONS -------- 1. Sinus rhythm. 2. This was a technically adequate study. 3. The left ventricular size is normal. 4. There is moderate concentric left ventricular hypertrophy. 5. Overall left ventricular systolic function is mild-moderately impaired with, an EF between 40 - 45 %. 6. Basal inferior LV wall motion is hypokinetic. 7. Basal inferoseptal LV wall motion is hypokinetic. 8. Mid inferior LV wall motion is hypokinetic. 9. The left atrial size is normal. 10. Aortic valve is trileaflet and is mildly thickened. 11. There is mild aortic regurgitation. 12. Mild mitral annular calcification present. 13. There is trace to mild mitral regurgitation. 14. Trace tricuspid regurgitation present. 15. There is no evidence of pulmonary hypertension. 16. There is no pulmonic regurgitation present. 17. The aortic root size is normal. 18. Normal inferior vena cava with normal inspiratory collapse consistent with estimated right atrial pressure of 5 mmHg. 19. Echo free space indicative of a pericardial fat pad. PRODUCTION TECHNOLOGIST: Alicia Dietz RDCS
--- NOTE | 2019-05-05 13:51 | P.DS ---
Providers Date of admission: 05/03/19 20:10 Expected date of discharge: 05/05/19 Attending physician: Martha Garay Consults: 05/03/19 20:06 Consult Physician Routine Consulting Provider: Mariana Villarreal Consult Reason/Comments: Hyperkalemia; Acute on chronic renal failure Do you want consulting provider notified?: Yes 05/05/19 08:23 Consult Physician Routine Consulting Provider: Becka Herrera Consult Reason/Comments: AV block Do you want consulting provider notified?: Yes Primary care physician: Tho Harman [facility] Course: This is an 83-year-old male patient of Dr. Harman with past medical history of bladder cancer diagnosed 18 years ago status post mass resection, kidney cancer initially diagnosed in 2010 on the left with partial nephrectomy followed by diagnosis on the right in 2013 status post partial robotic resection. Patient states cancers currently are in remission and his oncologist is Dr. Juan. He also has past medical history of carotid artery stenosis status post stent, hypertension, hypothyroidism, hyperlipidemia, restless leg syndrome, gout, chronic kidney disease stage 4. Patient gives history that he saw his flight inspector in lab work came back with a high potassium of 6.6 and he was called and instructed to come into the hospital for further evaluation. Patient denies having any muscle cramps, chest pain, shortness of breath, palpitations. No dizziness, lightheadedness or weakness. No change in mental status. Patient denies having any dysuria. He states he does get up in the night to urinate 3-4 times and he relates this to Lasix. He feels that he is entering his bladder with each voiding. Patient came into [facility] emergency center for evaluation. He has been afebrile, pulse ox 95% on room air, blood pressure 138/56, heart rate in the 60s and 70s. Hemoglobin 11.5. Potassium 6.3, BUN 65 and creatinine 3.49, chloride 112. Hemoglobin A1c done in March was 4.8. Patient received 2 doses of Kayexalate, 1 L of IV fluid, D50, regular insulin and calcium chloride. Patient has been resumed on his home medications except for lisinopril which is on hold. Patient was admitted to the cardiac stepdown unit and consult with Dr. Villarreal. Renal ultrasound shows left kidney is atrophic correlate for chronic medical renal disease. Multiple hypoechoic nodules within the right kidney which do not meet the criteria for simple cyst. Most likely technical. No hydronephrosis or nephrolithiasis. Chest x-ray shows no definite infiltrate. 05/05: Repeat lab work this morning reveals potassium of 4.8, sodium 142, chloride 111, CO2 23, BUN 51 and creatinine 2.81. TSH 4.680. Urinalysis negative. Patient has been rechecked by Dr. Villarreal this morning with recommendations to hold CYNTHIA inhibitor and cleared for discharge. Follow-up in the office in 2 weeks. Patient had evidence of acute buttock and first-degree block on monitoring engineer and cardiology consult requested. Bystolic was held this morning. Patient was evaluated by cardiology with recommendations to discontinue Bystolic and start hydralazine 25 mg twice daily. Patient has had no further episodes of heart block. The patient has been cleared for discharge by cardiology. Patient will be discharged home today in stable condition. Discharge diagnoses: 1. Acute kidney injury and chronic kidney disease stage IV. 2. Hyperkalemia secondary to acute kidney disease. 3. History of kidney cancer status post resection and history of bladder cancer. 4. Hypertension, hypertensive cardio vascular disease. 5. Hyperlipidemia. 6. Carotid artery stenosis status post stent on the left and 100% blockage on the right. 7. Restless leg syndrome. 8. Hypotension. Discharge plan: home Impression and plan of care have been directed as dictated by the signing physician. Florecita Pedroza nurse practitioner acting as scribe for signing physician. Patient Condition at Discharge: Good Plan - Discharge Summary Discharge Rx Participant: No New Discharge Prescriptions: New hydrALAZINE HCL [Apresoline] 25 mg PO BID #60 tab Continue Furosemide [Lasix] 20 mg PO DAILY Temazepam [Restoril] 15 mg PO HS Levothyroxine Sodium [Synthroid] 50 mcg PO DAILY Finasteride [Proscar] 5 mg PO DAILY Clopidogrel [Plavix] 75 mg PO DAILY Alendronate Sodium [Fosamax] 70 mg PO Q7D amLODIPine [Norvasc] 5 mg PO DAILY Simvastatin 40 mg PO DAILY Doxazosin [Cardura] 4 mg PO BID rOPINIRole HCL [Requip] 0.5 mg PO HS Discontinued Nebivolol HCl [Bystolic] 5 mg PO DAILY Lisinopril [Prinivil] 20 mg PO DAILY Discharge Medication List Alendronate Sodium [Fosamax] 70 mg PO Q7D 05/03/19 [History] Clopidogrel [Plavix] 75 mg PO DAILY 05/03/19 [History] Doxazosin [Cardura] 4 mg PO BID 05/03/19 [History] Finasteride [Proscar] 5 mg PO DAILY 05/03/19 [History] Furosemide [Lasix] 20 mg PO DAILY 05/03/19 [History] Levothyroxine Sodium [Synthroid] 50 mcg PO DAILY 05/03/19 [History] Simvastatin 40 mg PO DAILY 05/03/19 [History] Temazepam [Restoril] 15 mg PO HS 05/03/19 [History] amLODIPine [Norvasc] 5 mg PO DAILY 05/03/19 [History] rOPINIRole HCL [Requip] 0.5 mg PO HS 05/03/19 [History] hydrALAZINE HCL [Apresoline] 25 mg PO BID #60 tab 05/05/19 [Rx] Follow up Appointment(s)/Referral(s): Tho Harman DO [Primary Care Provider] - 1 Week Mariana Villarreal MD [STAFF PHYSICIAN] - 2 Weeks Patient Instructions/Handouts: Chronic Kidney Disease Diet (GEN), Hyperkalemia (GEN) Discharge Disposition: HOME SELF-CARE
[2019-05-05 14:27] VITALS: BP 155/66; PULSE 75
[2019-05-05] MEDS ORDERED: hydrALAZINE HCL 25 MG TAB PO SCH (21:00)
[2019-05-05] MEDS ORDERED: MELATONIN 5 MG TABLET PO PRN (21:00)
[2019-05-07] MEDS ORDERED: Alendronate Sodium [Fosamax] 70 MG PO SCH (09:00)
--- NOTE | 2019-05-08 13:47 | CDI ---
Documentation Clarification Form Date: 05/08/19 From: Marcy Frankel Phone: If you have a question regarding this query, please contact Pam Sagastume at [phone] between 8am and 5pm. Admit Date: 05/03/2019 8:10:00 PM Patient Name: Lawrence Dwyer Visit Number: [id number] Discharge Date: 05/05/2019 3:54:00 PM ATTENTION: The Clinical Documentation Specialists (CDI) and [facility] Coding Staff appreciate your assistance in clarifying documentation. Please respond to the clarification below the line at the bottom and electronically sign. The CDI & [facility] Coding staff will review the response and follow-up if needed. Please note: Queries are made part of the Legal Health Record. If you have any questions, please contact the author of this message via ITS. SERA Kay/Dr. Martha Garay History of CHF is documented in the H&P an Dr. Villarreal's consult note. History/Risk Factors: Hypertension and chronic kidney disease. Clinical Indicators: No acute clinical indicators VS/Pulse OX: T. 97.8, P. 68, R. 18, BP 138/56 BNP: No tested. Echocardiogram Results: Overall left ventricular systolic function is mild - moderately impaired with an EF between 40 - 45%. Chest X Ray: No definite infiltrate as visualized. No overt failure. Treatment: PO Lasix In your professional opinion, can you please clarify the type of CHF if known? Systolic Heart Failure: Diastolic Heart Failure: Systolic & Diastolic Heart Failure: Unable to Determine Other, please specify MTDD
== END 2019-05-05 15:54 | disposition home or self-care (01) | DRG 683 ==
LOC: EC 17:57 → 3SCARD 20:10
PROVIDERS: ADMIT Family Medicine; ATTEND Family Medicine
DX: N17.9 Acute kidney failure, unspecified (principal); I13.0 Hypertensive heart and chronic kidney disease with heart failure and stage 1 through stage 4 chronic kidney disease, or unspecified chronic kidney disease; N18.4 Chronic kidney disease, stage 4 (severe); I95.9 Hypotension, unspecified; E87.5 Hyperkalemia; I50.9 Heart failure, unspecified; I65.29 Occlusion and stenosis of unspecified carotid artery; I44.1 Atrioventricular block, second degree; E03.9 Hypothyroidism, unspecified; E78.00 Pure hypercholesterolemia, unspecified; E78.5 Hyperlipidemia, unspecified; G25.81 Restless legs syndrome; M81.0 Age-related osteoporosis without current pathological fracture; N40.0 Benign prostatic hyperplasia without lower urinary tract symptoms; E66.9 Obesity, unspecified; M10.9 Gout, unspecified; Z68.32 Body mass index [BMI] 32.0-32.9, adult; Z79.02 Long term (current) use of antithrombotics/antiplatelets; Z79.83 Long term (current) use of bisphosphonates; Z79.890 Hormone replacement therapy; Z79.899 Other long term (current) drug therapy; Z88.8 Allergy status to other drugs, medicaments and biological substances; Z90.5 Acquired absence of kidney; Z85.528 Personal history of other malignant neoplasm of kidney; Z85.51 Personal history of malignant neoplasm of bladder; Z87.891 Personal history of nicotine dependence; Z82.3 Family history of stroke; Z80.51 Family history of malignant neoplasm of kidney; Z80.42 Family history of malignant neoplasm of prostate; Z80.1 Family history of malignant neoplasm of trachea, bronchus and lung
CPT/HCPCS: 36415; 71045; 76770; 80048; 80053; 81003; 83735; 84443; 85025; 93005; 93306; 96361; 96374; 96375; 99285

== ENCOUNTER 2019-09-29 16:26 | Inpatient (IN) | payer MEDICARE ==
[2019-09-29 17:34] LABS: Basophils % (A) 1 %; Eosinophils # (A) 0.1 k/uL (0-0.7); Eosinophils % (A) 2 %; HGB 11.2 gm/dL (13.0-17.5); Lymphocytes # (A) 0.7 k/uL (1.0-4.8); Lymphocytes % (A) 10 %; MCH 31.3 pg (25.0-35.0); MCV 89.3 fL (80.0-100.0); Mean Platelet Volume 8.2; Monocytes # (A) 0.3 k/uL (0-1.0); Monocytes % (A) 4 %; Neutrophils # (A) 5.8 k/uL (1.3-7.7); Neutrophils % (A) 83 %; Platelet Count 153 k/uL (150-450); Poikilocytosis Slight; RBC 3.58 m/uL (4.30-5.90); RDW 15.3 % (11.5-15.5)
[2019-09-29 17:44] LABS: Albumin 3.7 g/dL (3.5-5.0); Calcium 8.2 mg/dL (8.4-10.2); Potassium 3.2 mmol/L (3.5-5.1); Total Bilirubin 0.8 mg/dL (0.2-1.3)
[2019-09-29 18:44] LABS: Appearance,Urine Clear (Clear); Bilirubin,Urine Negative (Negative); Blood,Urine Negative (Negative); Color,Urine Light Yellow; Glucose,Urine (UA) Negative (Negative); Ketones,Urine Negative (Negative); Leukocyte Esterase,Urine Negative (Negative); Nitrite,Urine Negative (Negative); PH, Urine 5.5 (5.0-8.0); Protein,Urine Trace (Negative); Specific Gravity,Urine 1.011 (1.001-1.035); Urobilinogen,Urine <2.0 mg/dL (<2.0)
[2019-09-29] MEDS ORDERED: POTASSIUM CHLORIDE ER 20 MEQ TAB.ER PO STA (20:21)
[2019-09-29] MEDS ORDERED: NALOXONE 0.4 MG/ML 1 ML VIAL IV PRN (20:23)
--- NOTE | 2019-09-29 20:23 | ED ---
General Adult HPI - General Chief complaint: Recheck/Abnormal Lab/Rx Stated complaint: KIDNEY FUNCTION LOW Time Seen by Provider: 09/29/19 16:35 Source: patient Mode of arrival: ambulatory Limitations: no limitations - History of Present Illness Initial comments: The patient is an 84-year-old male with past history of chronic kidney disease presents the emergency department after his emergency service restorer told him to come into the emergency department. He does have a history of bilateral partial nephrectomy secondary to cancer. Also reports a history of bladder cancer. He has had declining kidney function over the past several years. States that was supposed to have someone come to his house today to talk to him about dialysis however they never showed. He had blood work completed in Dr. Harman's office yesterday. This blood work was given to Dr. Villarreal who is his emergency service restorer. She did call and recommended the patient come to the hospital as his kidney function was acutely worsening. He states he's had multiple medication changes recently has been on multiple diuretics for lower extremity edema. States he's been taking them as directed. Denies any new medications. Does not take any NSAIDs [id number]. Denies any symptoms of worsening kidney function. Denies any chest pain or shortness of breath. No lower extremity edema. Denies changes in his urination. No dysuria, retention, hematuria or difficulty voiding. There are no other alleviating, proceeding or modifying factors - Related Data Home Medications Medication Instructions Recorded Confirmed Clopidogrel [Plavix] 75 mg PO DAILY 05/03/19 09/29/19 Doxazosin [Cardura] 4 mg PO BID 05/03/19 09/29/19 Finasteride [Proscar] 5 mg PO DAILY 05/03/19 09/29/19 Levothyroxine Sodium [Synthroid] 50 mcg PO DAILY 05/03/19 09/29/19 Simvastatin 40 mg PO DAILY 05/03/19 09/29/19 Temazepam [Restoril] 15 mg PO HS 05/03/19 09/29/19 rOPINIRole HCL [Requip] 0.5 mg PO HS 05/03/19 09/29/19 Allopurinol [Zyloprim] 100 mg PO DAILY 09/29/19 09/29/19 Furosemide [Lasix] 80 mg PO DAILY 09/29/19 09/29/19 traMADol HCL 50 mg PO DAILY PRN 09/29/19 09/29/19 Previous Rx's Medication Instructions Recorded Metoprolol Tartrate [Lopressor] 25 mg PO DAILY #30 tab 10/02/19 amLODIPine [Norvasc] 10 mg PO DAILY #30 tab 10/02/19 hydrALAZINE HCL [Apresoline] 50 mg PO TID #90 tab 10/02/19 Allergies Allergy/AdvReac Type Severity Reaction Status Date / Time zolpidem [From Ambien] Allergy Unknown Verified 09/29/19 20:05 Review of Systems ROS Statement: Those systems with pertinent positive or pertinent negative responses have been documented in the HPI. ROS Other: All systems not noted in ROS Statement are negative. Past Medical History Past Medical History: Cancer, Hyperlipidemia, Hypertension, Thyroid Disorder Additional Past Medical History / Comment(s): bladder cancer, kidney cancer. 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 Past Anesthesia/Blood Transfusion Reactions: Previous Problems w/ Anesthesia Additional Past Anesthesia/Blood Transfusion Reaction / Comment(s): "out of it for 4 days after anesthesia" Past Psychological History: No Psychological Hx Reported Smoking Status: Former smoker Past Alcohol Use History: None Reported Past Drug Use History: None Reported - Past Family History Father Additional Family Medical History / Comment(s): Father from prostate cancer. Mother Additional Family Medical History / Comment(s): Mother from lung cancer. Brother(s) Additional Family Medical History / Comment(s): Patient has 2 brothers one has had these stroke. One brother had kidney cancer unknown reason. Patient has one sister is healthy with no major medical problems. Patient has 2 children, one daughter with hyperlipidemia and one son with history of atrial fibrillation and borderline diabetes. General Exam Limitations: no limitations General appearance: alert, in no apparent distress Head exam: Present: atraumatic, normocephalic, normal inspection Eye exam: Present: normal appearance, PERRL, EOMI. Absent: scleral icterus, conjunctival injection, periorbital swelling ENT exam: Present: normal exam, mucous membranes moist Neck exam: Present: normal inspection. Absent: tenderness, meningismus, lymphadenopathy Respiratory exam: Present: rales (mild at the bases). Absent: respiratory distress, wheezes, rhonchi, stridor Cardiovascular Exam: Present: regular rate, normal rhythm, normal heart sounds. Absent: systolic murmur, diastolic murmur, rubs, gallop, clicks GI/Abdominal exam: Present: soft, normal bowel sounds. Absent: distended, tenderness, guarding, rebound, rigid Extremities exam: Present: full ROM, normal capillary refill, pedal edema (2+ pedal edema). Absent: tenderness, joint swelling, calf tenderness Back exam: Present: normal inspection Neurological exam: Present: alert, oriented X3, CN II-XII intact Psychiatric exam: Present: normal affect, normal mood Skin exam: Present: warm, dry, intact, normal color. Absent: rash Course Vital Signs 09/29/19 16:32 Temperature 97.4 F L Pulse Rate 78 Respiratory 22 Rate Blood Pressure 162/85 O2 Sat by Pulse 99 Oximetry Medical Decision Making - Medical Decision Making Upon arrival the patient was placed into room 22. A thorough history and physical exam was performed. I did recommend repeating the patient's blood work. White blood cell count is 7. Chemistry shows a creatinine of 4. BUN is 123. Potassium 2.2, chloride 95. Urinalysis is negative. I did discuss these results with the patient. I did replace his potassium. As he was sent over by his emergency service restorer I did recommend admission to the hospital for which the patient did agree. I called and discussed case with Dr. Moreno who accepted admission. I will consult Dr. Villarreal. The patient's will be started on 50 he cc of saline per hour. The patient's was then transferred to the floor in stable condition - Lab Data Result diagrams: 10/01/19 07:34 10/02/19 09:13 Lab Results 09/29/19 09/29/19 09/29/19 Range/Units 17:20 17:20 18:30 WBC 7.0 (3.8-10.6) k/uL RBC 3.58 L (4.30-5.90) m/uL Hgb 11.2 L (13.0-17.5) gm/dL Hct 32.0 L (39.0-53.0) % MCV 89.3 (80.0-100.0) fL MCH 31.3 (25.0-35.0) pg MCHC 35.0 (31.0-37.0) g/dL RDW 15.3 (11.5-15.5) % Plt Count 153 (150-450) k/uL Neutrophils % 83 % Lymphocytes % 10 % Monocytes % 4 % Eosinophils % 2 % Basophils % 1 % Neutrophils # 5.8 (1.3-7.7) k/uL Lymphocytes # 0.7 L (1.0-4.8) k/uL Monocytes # 0.3 (0-1.0) k/uL Eosinophils # 0.1 (0-0.7) k/uL Basophils # 0.0 (0-0.2) k/uL Poikilocytosis Slight Sodium 139 (137-145) mmol/L Potassium 3.2 L (3.5-5.1) mmol/L Chloride 95 L (98-107) mmol/L Carbon Dioxide 30 (22-30) mmol/L Anion Gap 14 mmol/L BUN 123 H* (9-20) mg/dL Creatinine 4.02 H (0.66-1.25) mg/dL Est GFR (CKD-EPI)AfAm 15 (>60 ml/min/1.73 sqM) Est GFR (CKD-EPI)NonAf 13 (>60 ml/min/1.73 sqM) Glucose 207 H (74-99) mg/dL Calcium 8.2 L (8.4-10.2) mg/dL Total Bilirubin 0.8 (0.2-1.3) mg/dL AST 20 (17-59) U/L ALT 34 (21-72) U/L Alkaline Phosphatase 96 (38-126) U/L Creatine Kinase 56 (55-170) U/L Total Protein 6.0 L (6.3-8.2) g/dL Albumin 3.7 (3.5-5.0) g/dL TSH 2.440 (0.465-4.680) mIU/L Urine Color Light Yellow Urine Appearance Clear (Clear) Urine pH 5.5 (5.0-8.0) Ur Specific [place] 1.011 (1.001-1.035) Urine Protein Trace H (Negative) Urine Glucose (UA) Negative (Negative) Urine Ketones Negative (Negative) Urine Blood Negative (Negative) Urine Nitrite Negative (Negative) Urine Bilirubin Negative (Negative) Urine Urobilinogen <2.0 (<2.0) mg/dL Ur Leukocyte Esterase Negative (Negative) Disposition Clinical Impression: Acute on chronic renal failure, Hypokalemia Disposition: ADMITTED IP TO THIS HOSP Condition: Good Is patient prescribed a controlled substance at d/c from ED?: No Decision to Admit Reason: Admit from EC Decision Date: 09/29/19 Decision Time: 20:23
[2019-09-29] MEDS: SODIUM CHLORIDE 0.9% 1,000 ML IV SCH (20:31)
[2019-09-29] MEDS ORDERED: hydrALAZINE HCL 50 MG TAB PO SCH (21:00)
[2019-09-29 21:19] VITALS: BMI 33.7
[2019-09-29] MEDS: DOXAZOSIN 4 MG TAB PO SCH (21:32)
[2019-09-29 21:38] LABS: Glucose,Whole Blood 149 mg/dL (75-99)
[2019-09-29] MEDS: TEMAZEPAM 15 MG CAP PO SCH (22:23)
[2019-09-30] MEDS: amLODIPine 5 MG TAB PO SCH ×2 (04:18→08:30)
[2019-09-30] MEDS: LEVOTHYROXINE 50 MCG TAB PO SCH (05:48)
[2019-09-30 07:01] LABS: Glucose,Whole Blood 136 mg/dL (75-99)
[2019-09-30] MEDS: FINASTERIDE 5 MG TAB PO SCH (07:33)
[2019-09-30] MEDS: METOPROLOL TARTRATE 12.5 MG TAB PO SCH (07:33)
[2019-09-30] MEDS: ALLOPURINOL 100 MG TAB PO SCH (07:33)
[2019-09-30] MEDS: hydrALAZINE HCL 50 MG TAB PO SCH ×3 (07:33→21:29)
[2019-09-30] MEDS: CLOPIDOGREL 75 MG TAB PO SCH (07:34)
[2019-09-30] MEDS: DOXAZOSIN 4 MG TAB PO SCH ×2 (07:34→21:29)
[2019-09-30] MEDS: FAMOTIDINE 20 MG TAB PO SCH (07:34)
[2019-09-30] MEDS: HEPARIN SODIUM,PORCINE 5,000 UNIT/ML 1 ML VIAL SQ SCH ×2 (07:34→21:29)
[2019-09-30 08:32] LABS: Calcium 8.7 mg/dL (8.4-10.2); Potassium 3.2 mmol/L (3.5-5.1)
[2019-09-30 08:34] LABS: Basophils % (A) 0 %; Eosinophils # (A) 0.1 k/uL (0-0.7); Eosinophils % (A) 2 %; HCT 32.3 % (39.0-53.0); HGB 11.1 gm/dL (13.0-17.5); Lymphocytes # (A) 0.9 k/uL (1.0-4.8); Lymphocytes % (A) 13 %; MCH 31.1 pg (25.0-35.0); MCHC 34.4 g/dL (31.0-37.0); MCV 90.3 fL (80.0-100.0); Mean Platelet Volume 6.8; Monocytes # (A) 0.2 k/uL (0-1.0); Monocytes % (A) 3 %; Neutrophils # (A) 5.4 k/uL (1.3-7.7); Neutrophils % (A) 80 %; Platelet Count 143 k/uL (150-450); Poikilocytosis Slight; RBC 3.57 m/uL (4.30-5.90); RDW 15.4 % (11.5-15.5); WBC 6.8 k/uL (3.8-10.6)
[2019-09-30] MEDS ORDERED: POTASSIUM CHLORIDE ER 20 MEQ TAB.ER PO STA (09:33)
--- NOTE | 2019-09-30 10:15 | P.HPIM ---
History of Present Illness H&P Date: 09/30/19 Chief Complaint: worsening renal failure This is an 84-year-old male patient of Dr. Harman with past medical history of bladder cancer diagnosed 18 years ago status post mass resection, kidney cancer initially diagnosed in 2010 on the left with partial nephrectomy followed by diagnosis on the right in 2013 status post partial robotic resection. Patient states cancers currently are in remission and his oncologist is Dr. Juan. He also has past medical history of carotid artery stenosis status post stent, hypertension, hypothyroidism, hyperlipidemia, re stless leg syndrome, gout, chronic kidney disease stage 4, patient was hospitalized at [facility] in 04/2019 for hyperkalemia which was treated and was sent home, he has been having deterioration of his renal function gradually over the years and has been getting diuretics due to increas ed edema and fluid retention due to worsening renal function and he had labs that showed significant deterioration of his renal function and he was asked by his Layer [employer] to go to the ER. patient was seen and was found to have elevated BUN at 122 from 58 and creatinine 4.02 from 2.8 back in 04/2019, was started on IVF at 50 ml per hour with nephrology consult. Review of Systems Constitutional: Reports fatigue, Reports weakness, Reports weight loss Eyes: denies blurred vision, denies bulging eye, denies decreased vision Ears: bilateral: decreased hearing Ears, nose, mouth and throat: Denies dysphagia, Denies neck lump, Denies sore throat Cardiovascular: Reports decreased exercise tolerance, Reports dyspnea on exertion, Reports shortness of breath, Denies chest pain, Denies lightheadedness, Denies syncope Respiratory: Denies congestion, Denies cough with sputum, Denies home oxygen, Denies sleep apnea, Denies snoring, Denies wheezing Gastrointestinal: Reports loss of appetite, Denies abdominal pain, Denies bloating, Denies BRBPR, Denies excessive gas, Denies heartburn, Denies melena, Denies nausea, Denies vomiting Genitourinary: Reports nocturia, Denies dysuria Musculoskeletal: Denies myalgias Musculoskeletal: absent: ankle pain, ankle stiffness, ankle swelling, elbow pain, elbow stiffness, elbow swelling, foot pain, foot stiffness, foot swelling, hand pain, hand stiffness, hand swelling, hip pain, hip stiffness, hip swelling, knee pain, knee stiffness, knee swelling, shoulder pain, shoulder stiffness, shoulder swelling, wrist pain, wrist stiffness, wrist swelling Integumentary: Denies pruritus, Denies rash Neurological: Denies numbness, Denies weakness Psychiatric: Denies anxiety, Denies depression Endocrine: Denies fatigue, Denies weight change Past Medical History Past Medical History: Cancer, Hyperlipidemia, Hypertension, Renal Disease, Thyroid Disorder Additional Past Medical History / Comment(s): bladder cancer, kidney cancer. 100 % blockage in left carotid artery, left 50% blockage with stent repair History of Any Multi-Drug Resistant Organisms: None Reported Past Surgical History: Hernia Repair Additional Past Surgical History / Comment(s): kidney- right and left partial removal, two hernia repairs. Past Anesthesia/Blood Transfusion Reactions: Previous Problems w/ Anesthesia Additional Past Anesthesia/Blood Transfusion Reaction / Comment(s): "out of it for 4 days after anesthesia" Past Psychological History: No Psychological Hx Reported Smoking Status: Former smoker Past Alcohol Use History: None Reported Past Drug Use History: None Reported - Past Family History Father Additional Family Medical History / Comment(s): Father from prostate cancer. Mother Additional Family Medical History / Comment(s): Mother from lung cancer. Brother(s) Additional Family Medical History / Comment(s): Patient has 2 brothers one has had these stroke. One brother had kidney cancer unknown reason. Patient has one sister is healthy with no major medical problems. Patient has 2 children, one daughter with hyperlipidemia and one son with history of atrial fibrillation and borderline diabetes. Medications and Allergies Home Medications Medication Instructions Recorded Confirmed Type Clopidogrel [Plavix] 75 mg PO DAILY 05/03/19 09/29/19 History Doxazosin [Cardura] 4 mg PO BID 05/03/19 09/29/19 History Finasteride [Proscar] 5 mg PO DAILY 05/03/19 09/29/19 History Levothyroxine Sodium [Synthroid] 50 mcg PO DAILY 05/03/19 09/29/19 History Simvastatin 40 mg PO DAILY 05/03/19 09/29/19 History Temazepam [Restoril] 15 mg PO HS 05/03/19 09/29/19 History rOPINIRole HCL [Requip] 0.5 mg PO HS 05/03/19 09/29/19 History Allopurinol [Zyloprim] 100 mg PO DAILY 09/29/19 09/29/19 History Furosemide [Lasix] 80 mg PO DAILY 09/29/19 09/29/19 History Metolazone [Zaroxolyn] 5 mg PO MOWEFR 09/29/19 09/29/19 History Metoprolol Tartrate [Lopressor] 12.5 mg PO DAILY 09/29/19 09/29/19 History Potassium Chloride ER [K-Dur 20] 20 meq PO SA 09/29/19 09/29/19 History hydrALAZINE HCL [Apresoline] 50 mg PO BID 09/29/19 09/29/19 History quiNINE SULFATE 324 mg PO DAILY 09/29/19 09/29/19 History traMADol HCL 50 mg PO DAILY PRN 09/29/19 09/29/19 History Allergies Allergy/AdvReac Type Severity Reaction Status Date / Time zolpidem [From Ambien] Allergy Unknown Verified 09/29/19 20:05 Physical Exam Vitals: Vital Signs Temp Pulse Pulse Resp BP BP BP 09/30/19 04:52 98.0 F 61 20 187/52 163/62 09/30/19 04:16 60 09/30/19 02:33 57 L 09/29/19 20:55 97.3 F L 61 22 09/29/19 16:32 97.4 F L 78 22 162/85 BP BP Pulse Ox 09/30/19 04:52 180/55 95 09/30/19 04:16 180/55 09/30/19 02:33 186/54 09/29/19 20:55 195/62 95 09/29/19 16:32 99 Intake and Output 09/29/19 09/29/19 09/30/19 14:59 22:59 06:59 Output Total 1150 Balance -1150 Output: Urine 1150 Other: Voiding Method Toilet Urinal # Voids 1 2 Weight 94.801 kg - Constitutional General appearance: no acute distress - EENT Eyes: anicteric sclerae, EOMI, PERRLA, no ptosis, no scleral icterus, normal appearance ENT: NA/AT, normal oropharynx, no thrush Ears: bilateral: normal - Neck Neck: no lymphadenopathy, normal ROM, no rigidity, no stridor, no thyromegaly Carotids: bilateral: upstroke delayed Thyroid: bilateral: normal size - Respiratory Respiratory: bilateral: diminished, negative: dullness, rales, rhonchi, wheezing, prolonged expiration, prolonged inspiration - Cardiovascular Rhythm: regular Heart sounds: normal: S1, S2 Abnormal Heart Sounds: systolic murmur, no S3 Gallop - Gastrointestinal General gastrointestinal: normal bowel sounds, soft, no tenderness, no umbilical hernia, no ventral hernia - Integumentary Integumentary: decreased turgor - Neurologic Neurologic: CNII-XII intact - Musculoskeletal Musculoskeletal: generalized weakness, strength equal bilaterally - Psychiatric Psychiatric: A&O x's 3, appropriate affect, intact judgment & insight Results CBC & Chem 7: 09/29/19 17:20 09/29/19 17:20 Labs: Abnormal Lab Results - Last 24 Hours (Table) 09/29/19 09/29/19 09/29/19 Range/Units 17:20 17:20 18:30 RBC 3.58 L (4.30-5.90) m/uL Hgb 11.2 L (13.0-17.5) gm/dL Hct 32.0 L (39.0-53.0) % Lymphocytes # 0.7 L (1.0-4.8) k/uL Potassium 3.2 L (3.5-5.1) mmol/L Chloride 95 L (98-107) mmol/L BUN 123 H* (9-20) mg/dL Creatinine 4.02 H (0.66-1.25) mg/dL Glucose 207 H (74-99) mg/dL POC Glucose (mg/dL) (75-99) mg/dL Calcium 8.2 L (8.4-10.2) mg/dL Total Protein 6.0 L (6.3-8.2) g/dL Urine Protein Trace H (Negative) 09/29/19 Range/Units 21:36 RBC (4.30-5.90) m/uL Hgb (13.0-17.5) gm/dL Hct (39.0-53.0) % Lymphocytes # (1.0-4.8) k/uL Potassium (3.5-5.1) mmol/L Chloride (98-107) mmol/L BUN (9-20) mg/dL Creatinine (0.66-1.25) mg/dL Glucose (74-99) mg/dL POC Glucose (mg/dL) 149 H (75-99) mg/dL Calcium (8.4-10.2) mg/dL Total Protein (6.3-8.2) g/dL Urine Protein (Negative) Thrombosis Risk Factor Assmnt - DVT/VTE Prophylaxis DVT/VTE Prophylaxis: Pharmacologic Prophylaxis ordered, Mechanical Prophylaxis ordered - Choose All That Apply Each Risk Factor Represents 3 Points: Age 75 years or older Thrombosis Risk Factor Assessment Total Risk Factor Score: 3 Thrombosis Risk Factor Assessment Level: Moderate Risk Assessment and Plan Assessment: Assessment and Plan: 1. Acute kidney injury on CKD 4. discontinue lasix and Metolazone and start IVF NS at 50 ml /h. we will consult nephrology and will continue to monitor CMP. 2. Hypokalemia. due to aggresive diuresis. we will replace cautiously. 3. CKD stage 4 . not sure if the patient is a candidate for Hemodialysis with his age , we will discuss with nephrology. 4. History of kidney cancer status post resection and history of bladder cancer. Continue Cardura 4 mg twice daily. 5. Hypertension, hypertensive cardiovascular disease. Continue Norvasc 5 mg daily. 6. Hyperlipidemia. Continue Lipitor 20 mg daily. 7. Carotid artery stenosis status post stent on the left and 100% blockage on the right. Continue Plavix 75 mg daily. 8. Restless leg syndrome. Continue Requip 0.5 mg at bedtime. 9. Hypothyroidism. Continue levothyroxine 50 g daily. 10. DVT prophylaxis. Heparin 5000 units sc Q 12 h. 11. GI prophylaxis. Pepcid 20 mg orally daily. 12. Patient will be admitted to the hospital for a minimum of 2 night stay. 13. Full code.
[2019-09-30 11:37] LABS: Glucose,Whole Blood 129 mg/dL (75-99)
[2019-09-30 16:29] LABS: Glucose,Whole Blood 124 mg/dL (75-99)
[2019-09-30] MEDS: ACETAMINOPHEN TAB 325 MG TAB PO PRN ×2 (16:33→21:29)
[2019-09-30] MEDS: SODIUM CHLORIDE 0.9% 1,000 ML IV SCH (16:38)
--- NOTE | 2019-09-30 17:32 | XR ---
EXAMINATION TYPE: XR chest 2V DATE OF EXAM: 09/30/2019 COMPARISON: 05/04/2019 HISTORY: Short of breath TECHNIQUE: Frontal and lateral views of the chest are obtained. FINDINGS: There is no heart failure nor confluent pneumonic infiltrate. Thoracic aorta is atheromato us. Heart size is normal. There is no pleural effusion. There is slight anterior wedging of a few tho racic vertebra up to 15%. IMPRESSION: No active cardiopulmonary disease. No heart failure seen. No change.
--- NOTE | 2019-09-30 18:41 | CONS ---
CONSULTATION The patient is an 84-year-old male with history of CKD, stage 4, secondary to nephrosclerosis and history of partial nephrectomies. The patient has an atrophic left kidney as well. He was admitted to the hospital as he was noticed to have worsening renal function as outpatient. The patient's serum creatinine was 4.0 on admission yesterday. It is down to 3.69. He is maintained on IV fluids. Previous creatinine was 2.6-2.9 in July of 2019. The patient states he has been voiding okay. He denies use of any nonsteroidal anti-inflammatory agents. The patient has been maintained on diuretics since he has had ongoing lower extremity edema. Diuretics are currently on hold and patient was started on IV fluids this admission. Renal replacement therapy has been discussed with the patient as outpatient. PAST MEDICAL HISTORY: Significant for CKD stage 4 secondary to nephrosclerosis with atrophic left kidney with history of partial left nephrectomy, history of hypertension, hyperlipidemia, bladder cancer, carotid artery stenosis. PAST SURGICAL HISTORY: Partial nephrectomy on the left side and partial nephrectomy on the right side as well. SOCIAL HISTORY: Patient is a former smoker. No history of drug abuse or alcohol abuse. MEDICATIONS: Medications prior to admission include Plavix, Cardura, Proscar, Synthroid, simvastatin, Restoril, Requip, Zyloprim Lasix Zaroxolyn, Lopressor, potassium, hydralazine, tramadol. ALLERGIES: Include AMBIEN. EXAMINATION: Patient is currently comfortable, awake. He is not in any acute distress. Blood pressure was 169/64, heart rate 62 per minute, patient is afebrile. Examination of the heart S1, S2. Examination of the lungs, bilateral breath sounds are heard. Decreased breath sounds at bases. Abdomen is soft, nontender. Examination lower extremities shows edema 1+ bilaterally. 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 Patient is moving all 4 extremities. LABS: Hemoglobin 11.1, sodium 142, potassium 3.2, chloride 100, CO2 is 32, BUN 109, serum creatinine 3.68. UA is unremarkable. ASSESSMENT: 1. Acute kidney injury, possibly prerenal. Renal function has improved with IV hydration. However, patient is hypervolemic. I will check a chest x-ray. I will continue with the saline at 50 mL an hour for now. If there is significant pulmonary vascular congestion, we will discontinue the IV fluids and patient will need to start renal replacement therapy soon. We will also check an ultrasound of the kidneys. His UA is currently unremarkable. 2. Hypokalemia secondary to diuretics. 3. Hypertension, blood pressure is elevated. Continue current medications. If the chest x-ray shows evidence of congestive heart failure I will discontinue the IV fluids. 4. History of renal cell cancer, status post partial nephrectomies bilaterally. PLAN: Check chest x-ray. The patient has been talked to regarding renal replacement therapy. Hopefully we can avoid dialysis this admission. Thank you for this consultation. We will continue to follow the patient with you during his hospitalization. MMODL / IJN: [id number] /
[2019-09-30 20:47] LABS: Glucose,Whole Blood 126 mg/dL (75-99)
[2019-09-30] MEDS: TEMAZEPAM 15 MG CAP PO SCH (21:29)
[2019-10-01] MEDS: ACETAMINOPHEN TAB 325 MG TAB PO PRN (06:12)
[2019-10-01] MEDS: LEVOTHYROXINE 50 MCG TAB PO SCH (06:12)
[2019-10-01] MEDS: METOPROLOL TARTRATE 12.5 MG TAB PO SCH (07:09)
[2019-10-01] MEDS: hydrALAZINE HCL 50 MG TAB PO SCH ×3 (07:09→20:56)
[2019-10-01] MEDS: amLODIPine 5 MG TAB PO SCH (07:09)
[2019-10-01] MEDS: FAMOTIDINE 20 MG TAB PO SCH (07:09)
[2019-10-01] MEDS: ALLOPURINOL 100 MG TAB PO SCH (07:09)
[2019-10-01] MEDS: DOXAZOSIN 4 MG TAB PO SCH ×2 (07:09→20:55)
[2019-10-01] MEDS: CLOPIDOGREL 75 MG TAB PO SCH (07:09)
[2019-10-01] MEDS: FINASTERIDE 5 MG TAB PO SCH (07:09)
[2019-10-01] MEDS: HEPARIN SODIUM,PORCINE 5,000 UNIT/ML 1 ML VIAL SQ SCH ×2 (07:09→20:55)
[2019-10-01 07:44] LABS: Glucose,Whole Blood 156 mg/dL (75-99)
[2019-10-01 08:51] LABS: Basophils % (A) 1 %; Eosinophils # (A) 0.1 k/uL (0-0.7); Eosinophils % (A) 2 %; HCT 31.3 % (39.0-53.0); HGB 10.4 gm/dL (13.0-17.5); Lymphocytes # (A) 0.6 k/uL (1.0-4.8); Lymphocytes % (A) 9 %; MCH 30.5 pg (25.0-35.0); MCHC 33.4 g/dL (31.0-37.0); MCV 91.3 fL (80.0-100.0); Mean Platelet Volume 7.4; Monocytes # (A) 0.3 k/uL (0-1.0); Monocytes % (A) 5 %; Neutrophils # (A) 5.5 k/uL (1.3-7.7); Neutrophils % (A) 83 %; Platelet Count 138 k/uL (150-450); Poikilocytosis Slight; RBC 3.43 m/uL (4.30-5.90); RDW 15.7 % (11.5-15.5); WBC 6.6 k/uL (3.8-10.6)
[2019-10-01 09:00] LABS: Albumin 3.7 g/dL (3.5-5.0); Calcium 8.8 mg/dL (8.4-10.2); Magnesium 2.7 mg/dL (1.6-2.3); Potassium 3.6 mmol/L (3.5-5.1); Total Bilirubin 0.7 mg/dL (0.2-1.3); Total Protein 6.1 g/dL (6.3-8.2)
[2019-10-01] MEDS ORDERED: amLODIPine 5 MG TAB PO STA (09:29)
--- NOTE | 2019-10-01 10:17 | P.PN ---
Subjective Progress Note Date: 10/01/19 This is an 84-year-old male patient of Dr. Harman with past medical history of bladder cancer diagnosed 18 years ago status post mass resection, kidney cancer initially diagnosed in 2010 on the left with partial nephrectomy followed by diagnosis on the right in 2013 status post partial robot ic resection. Patient states cancers currently are in remission and his oncologist is Dr. Juan. He also has past medical history of carotid artery stenosis status post stent, hypertension, hypothyroidism, hyperlipidemia, restless leg syndrome, gout, chronic kidney disease stage 4, patient was h ospitalized at [facility] back in 04/2019 for hyperkalemia which was treated and was sent home, he has been having deterioration of his renal function gradually over the years and has been getting diuretics due to increased edema and fluid retention due to worsening renal function and he had labs that showed significant deterioration of his renal function and he was asked by his Director Dance to go to the ER. patient was seen and was found to have elevated BUN at 122 from 58 and creatinine 4.02 from 2.8 back in 04/2019, was started on IVF at 50 ml per hour with nephrology consult. 10/01: Patient is sitting up in a chair he is complaining of pain in the left big toe thought to be due to gout, he appears a bit short of breath with a denies any chest pain with that he denies any coughing, he is complaining of frequent urination, his weight is 94.8 kg, we will continue to monitor the p atient very closely reviewed his chest x-ray from last night patient may need a dose of Lasix later on this afternoon if he is more short of breath. We will start the patient on Colcrys 0.6 mg orally daily. Review of Systems Constitutional: Reports fatigue, Reports weakness, Reports weight loss Eyes: denies blurred vision, denies bulging eye, denies decreased vision Ears: bilateral: decreased hearing Ears, nose, mouth and throat: Denies dysphagia, Denies neck lump, Denies sore throat Cardiovascular: Reports decreased exercise tolerance, Reports dyspnea on exertion, Reports shortness of breath, Denies chest pain, Denies lightheadedness, Denies syncope Respiratory: Patient appears a bit short of breath today he denies any chest pain he does complain of occasional cough, no hemoptysis, no pleurisy, minimal intercostal retraction. Gastrointestinal: Reports loss of appetite, Denies abdominal pain, Denies bloating, Denies BRBPR, Denies excessive gas, Denies heartburn, Denies melena, Denies nausea, Denies vomiting Genitourinary: Reports nocturia, Denies dysuria, frequent urination. Musculoskeletal: Denies myalgias Musculoskeletal: absent: ankle pain, ankle stiffness, ankle swelling, elbow pain, elbow stiffness, elbow swelling, positive for left big toe pain, foot pain, foot stiffness, foot swelling, hand pain, hand stiffness, hand swelling, hip pain, hip stiffness, hip swelling, knee pain, knee stiffness, knee swelling, shoulder pain, shoulder stiffness, shoulder swelling, wrist pain, wrist stiffness, wrist swelling Integumentary: Denies pruritus, Denies rash Neurological: Denies numbness, Denies weakness Psychiatric: Denies anxiety, Denies depression Endocrine: Denies fatigue, Denies weight change Objective - Vital Signs Vital signs: Vital Signs Temp 97.4 F L 09/30/19 20:05 Pulse 73 09/30/19 23:40 Resp 20 09/30/19 23:40 BP 173/62 09/30/19 23:40 Pulse Ox 95 09/30/19 20:05 Intake & Output 09/30/19 09/30/19 10/01/19 06:59 18:59 06:59 Intake Total 800 Output Total 1150 200 325 Balance -1150 600 -325 Intake: Oral 800 Output: Urine 1150 200 325 Other: Voiding Method Toilet Toilet Toilet Urinal Urinal Urinal # Voids 2 1 # Bowel Movements 1 - Exam - Constitutional General appearance: no acute distress - EENT Eyes: anicteric sclerae, EOMI, PERRLA, no ptosis, no scleral icterus, normal appearance ENT: NA/AT, normal oropharynx, no thrush Ears: bilateral: normal - Neck Neck: no lymphadenopathy, normal ROM, no rigidity, no stridor, no thyromegaly Carotids: bilateral: upstroke delayed Thyroid: bilateral: normal size - Respiratory Respiratory: bilateral: diminished, negative: dullness, rales, rhonchi, wheezing, prolonged expiration, prolonged inspiration - Cardiovascular Rhythm: regular Heart sounds: normal: S1, S2 Abnormal Heart Sounds: systolic murmur, no S3 Gallop - Gastrointestinal General gastrointestinal: normal bowel sounds, soft, no tenderness, no umbilical hernia, no ventral hernia - Integumentary Integumentary: decreased turgor - Neurologic Neurologic: CNII-XII intact - Musculoskeletal Musculoskeletal: generalized weakness, strength equal bilaterally - Psychiatric Psychiatric: A&O x's 3, appropriate affect, intact judgment & insight - Labs CBC & Chem 7: 10/01/19 07:34 10/01/19 07:34 Labs: Abnormal Lab Results - Last 24 Hours (Table) 09/30/19 09/30/19 09/30/19 Range/Units 06:55 07:57 07:57 RBC 3.57 L (4.30-5.90) m/uL Hgb 11.1 L (13.0-17.5) gm/dL Hct 32.3 L (39.0-53.0) % Plt Count 143 L (150-450) k/uL Lymphocytes # 0.9 L (1.0-4.8) k/uL Potassium 3.2 L (3.5-5.1) mmol/L Carbon Dioxide 32 H (22-30) mmol/L BUN 109 H* (9-20) mg/dL Creatinine 3.69 H (0.66-1.25) mg/dL Glucose 180 H (74-99) mg/dL POC Glucose (mg/dL) 136 H (75-99) mg/dL 09/30/19 09/30/19 09/30/19 Range/Units 11:33 16:11 20:45 RBC (4.30-5.90) m/uL Hgb (13.0-17.5) gm/dL Hct (39.0-53.0) % Plt Count (150-450) k/uL Lymphocytes # (1.0-4.8) k/uL Potassium (3.5-5.1) mmol/L Carbon Dioxide (22-30) mmol/L BUN (9-20) mg/dL Creatinine (0.66-1.25) mg/dL Glucose (74-99) mg/dL POC Glucose (mg/dL) 129 H 124 H 126 H (75-99) mg/dL Assessment and Plan Assessment: Assessment and Plan: 1. Acute kidney injury on CKD 4. discontinue lasix and Metolazone and start IVF NS at 50 ml /h. we will continue to monitor the patient CMP continue to monitor the patient with very closely. 2. Hypokalemia. due to aggresive diuresis. we will replace cautiously. 3. CKD stage 4 . not sure if the patient is a candidate for Hemodialysis with his age , we will discuss with nephrology. 4. History of kidney cancer status post resection and history of bladder cancer. Continue Cardura 4 mg twice daily. 5. Hypertension, hypertensive cardiovascular disease. Continue Norvasc 5 mg daily. 6. Hyperlipidemia. Continue Lipitor 20 mg daily. 7. Carotid artery stenosis status post stent on the left and 100% blockage on the right. Continue Plavix 75 mg daily. 8. Restless leg syndrome. Continue Requip 0.5 mg at bedtime. 9. Hypothyroidism. Continue levothyroxine 50 g daily. 10. DVT prophylaxis. Heparin 5000 units sc Q 12 h. 11. GI prophylaxis. Pepcid 20 mg orally daily. 12. Gout of the left big toe. Start Colcrys 0.6 mg orally once every day. 13. Minimal respiratory insufficiency due to worsening renal failure. Monitor the patient respite status may need to have a dose of Lasix later on this afternoon.
--- NOTE | 2019-10-01 10:21 | PN ---
PROGRESS NOTE Patient is seen for followup for chronic kidney disease and acute kidney injury. He has been started on gentle IV hydration. Chest x-ray did not show any evidence of CHF. The patient was complaining of pain in his left big toe, although it does not appear to be they are erythematous or swollen. PHYSICAL EXAMINATION: On examination today, blood pressure was elevated 173/62 last night. This morning 193/62, heart rate 63 per minute. He is afebrile. Examination of the heart S1, S2. EXAMINATION OF LUNGS: Good air entry bilaterally. No crackles or wheezing is heard. ABDOMEN: Soft, nontender. Examination of lower extremities shows trace edema bilaterally. PRECISION LENS GRINDER exam grossly intact. LABORATORY DATA: Study labs show sodium 142, potassium 3.6, BUN 87, creatinine 3.09, hemoglobin 10.4 g/dL. ASSESSMENT: 1. Acute kidney injury, appears to be prerenal currently improving with IV fluids. Will continue with the gentle IV hydration for now. Chest x-ray does not show any evidence of volume overload. 2. Hypokalemia, status post replacement. 3. Hypertension currently uncontrolled. Increase Lopressor to 25 mg twice a day. Patient is maintained on Norvasc and hydralazine as well. Hydralazine can be increased further if needed. MMODL / IJN: [id number] /
[2019-10-01] MEDS: SODIUM CHLORIDE 0.9% 1,000 ML IV SCH (10:51)
[2019-10-01 12:06] LABS: Glucose,Whole Blood 128 mg/dL (75-99)
[2019-10-01 14:44] VITALS: TEMP 97.5
[2019-10-01 16:54] LABS: Glucose,Whole Blood 116 mg/dL (75-99)
[2019-10-01 20:42] LABS: Glucose,Whole Blood 130 mg/dL (75-99)
[2019-10-01] MEDS: TEMAZEPAM 15 MG CAP PO SCH (20:59)
[2019-10-01] MEDS ORDERED: MELATONIN 3 MG TABLET PO SCH (21:00)
[2019-10-02 00:48] VITALS: RESP 20
[2019-10-02] MEDS: LEVOTHYROXINE 50 MCG TAB PO SCH (05:32)
[2019-10-02 06:46] LABS: Glucose,Whole Blood 126 mg/dL (75-99)
[2019-10-02] MEDS: FAMOTIDINE 20 MG TAB PO SCH (07:42)
[2019-10-02] MEDS: CLOPIDOGREL 75 MG TAB PO SCH (07:42)
[2019-10-02] MEDS: FINASTERIDE 5 MG TAB PO SCH (07:42)
[2019-10-02] MEDS: hydrALAZINE HCL 50 MG TAB PO SCH (07:42)
[2019-10-02] MEDS: DOXAZOSIN 4 MG TAB PO SCH (07:42)
[2019-10-02] MEDS: HEPARIN SODIUM,PORCINE 5,000 UNIT/ML 1 ML VIAL SQ SCH (07:43)
[2019-10-02] MEDS: ALLOPURINOL 100 MG TAB PO SCH (07:43)
[2019-10-02] MEDS: SODIUM CHLORIDE 0.9% 1,000 ML IV SCH (07:43)
[2019-10-02 07:58] VITALS: PULSE 88
[2019-10-02] MEDS ORDERED: amLODIPine 10 MG TAB PO SCH (09:00)
[2019-10-02] MEDS ORDERED: METOPROLOL TARTRATE 25 MG TAB PO SCH (09:00)
--- NOTE | 2019-10-02 09:47 | XR ---
EXAMINATION TYPE: XR chest 1V DATE OF EXAM: 10/02/2019 COMPARISON: 09/30/2019 HISTORY: Pulmonary vascular congestion. Shortness of breath. TECHNIQUE: Single frontal view of the chest is obtained. FINDINGS: Mild cephalization is seen. Strand-like bibasilar opacities likely represent atelectasis. Cardiomediastinal silhouette is mildly enlarged. No acute osseous pathology. IMPRESSION: Mild pulmonary vascular congestion and probable bibasilar atelectasis. Consider congesti ve heart failure.
[2019-10-02 09:49] LABS: Albumin 3.6 g/dL (3.5-5.0); Potassium 3.7 mmol/L (3.5-5.1)
[2019-10-02 11:01] VITALS: BP 145/58
--- NOTE | 2019-10-02 13:55 | P.DS ---
Providers Date of admission: 09/29/19 20:25 Expected date of discharge: 10/02/19 Attending physician: Zuhair Moreno Consults: 09/29/19 20:24 Consult Physician Urgent Consulting Provider: Mariana Villarreal Consult Reason/Comments: ara/ckd Do you want consulting provider notified?: Yes Primary care physician: Tho [facility] Course: This is an 84-year-old male patient of Dr. Harman with past medical history of bladder cancer diagnosed 18 years ago status post mass resection, kidney cancer initially diagnosed in 2010 on the left with partial nephrectomy followed by diagnosis on the right in 2013 status post partial robotic resection. Patient states cancers currently are in remission and his oncologist is Dr. Juan. He also has past medical history of carotid artery stenosis status post stent, hypertension, hypothyroidism, hyperlipidemia, restless leg syndrome, gout, chronic kidney disease stage 4, patient was hospitalized at [facility] back in 04/2019 for hyperkalemia which was treated and was sent home, he has been having deterioration of his renal function gradually over the years and has been getting diuretics due to increased edema and fluid retention due to worsening renal function and he had labs that showed significant deterioration of his renal function and he was asked by his Nursing Unit Clerk to go to the ER. patient was seen and was found to have elevated BUN at 122 from 58 and creatinine 4.02 from 2.8 back in 04/2019, was started on IVF at 50 ml per hour with nephrology consult. 10/01: Patient is sitting up in a chair he is complaining of pain in the left big toe thought to be due to gout, he appears a bit short of breath with a denies any chest pain with that he denies any coughing, he is complaining of frequent urination, his weight is 94.8 kg, we will continue to monitor the patient very closely reviewed his chest x-ray from last night patient may need a dose of Lasix later on this afternoon if he is more short of breath. We will start the patient on Colcrys 0.6 mg orally daily. 10/02: Patient is sitting up in a chair. He is noted to have some mild confusion this morning. He has been seen by nephrology and has been cleared for discharge home. Repeat lab work reveals BUN of 71 and creatinine 2.74. Daughter states the patient has appointment tomorrow to be educated about dialysis. They have an appointment on with Dr. Villarreal. Patient will be discharged home today in stable condition. Discharge diagnoses: 1. Acute kidney injury on CKD 4. 2. Hypokalemia. due to aggresive diuresis. 3. CKD stage 4 4. History of kidney cancer status post resection and history of bladder cancer. 5. Hypertension, hypertensive cardiovascular disease. 6. Hyperlipidemia. 7. Carotid artery stenosis status post stent on the left and 100% blockage on the right. 8. Restless leg syndrome. 9. Hypothyroidism. 10. Gout of the left big toe. 11. Minimal respiratory insufficiency due to worsening renal failure. Discharge plan: Home at [facility] Impression and plan of care have been directed as dictated by the signing physician. Florecita Pedroza nurse practitioner acting as scribe for signing physician. Patient Condition at Discharge: Good Plan - Discharge Summary Discharge Rx Participant: No New Discharge Prescriptions: New hydrALAZINE HCL [Apresoline] 50 mg PO TID #90 tab Metoprolol Tartrate [Lopressor] 25 mg PO DAILY #30 tab amLODIPine [Norvasc] 10 mg PO DAILY #30 tab Continue Temazepam [Restoril] 15 mg PO HS Levothyroxine Sodium [Synthroid] 50 mcg PO DAILY Finasteride [Proscar] 5 mg PO DAILY Clopidogrel [Plavix] 75 mg PO DAILY Simvastatin 40 mg PO DAILY Doxazosin [Cardura] 4 mg PO BID rOPINIRole HCL [Requip] 0.5 mg PO HS Furosemide [Lasix] 80 mg PO DAILY Allopurinol [Zyloprim] 100 mg PO DAILY traMADol HCL 50 mg PO DAILY PRN PRN Reason: Pain Discontinued quiNINE SULFATE 324 mg PO DAILY Potassium Chloride ER [K-Dur 20] 20 meq PO SA Metolazone [Zaroxolyn] 5 mg PO MOWEFR hydrALAZINE HCL [Apresoline] 50 mg PO BID Metoprolol Tartrate [Lopressor] 12.5 mg PO DAILY Discharge Medication List Clopidogrel [Plavix] 75 mg PO DAILY 05/03/19 [History] Doxazosin [Cardura] 4 mg PO BID 05/03/19 [History] Finasteride [Proscar] 5 mg PO DAILY 05/03/19 [History] Levothyroxine Sodium [Synthroid] 50 mcg PO DAILY 05/03/19 [History] Simvastatin 40 mg PO DAILY 05/03/19 [History] Temazepam [Restoril] 15 mg PO HS 05/03/19 [History] rOPINIRole HCL [Requip] 0.5 mg PO HS 05/03/19 [History] Allopurinol [Zyloprim] 100 mg PO DAILY 09/29/19 [History] Furosemide [Lasix] 80 mg PO DAILY 09/29/19 [History] traMADol HCL 50 mg PO DAILY PRN 09/29/19 [History] Metoprolol Tartrate [Lopressor] 25 mg PO DAILY #30 tab 10/02/19 [Rx] amLODIPine [Norvasc] 10 mg PO DAILY #30 tab 10/02/19 [Rx] hydrALAZINE HCL [Apresoline] 50 mg PO TID #90 tab 10/02/19 [Rx] Follow up Appointment(s)/Referral(s): Mariana Villarreal MD [STAFF PHYSICIAN] - 10/05/19 Tho Harman DO [Primary Care Provider] - 1 Week Patient Instructions/Handouts: Acute Kidney Injury (DC), Chronic Kidney Disease (DC) Discharge Disposition: HOME SELF-CARE
--- NOTE | 2019-10-02 14:47 | PN ---
PROGRESS NOTE Patient is seen for followup for acute kidney injury on top of chronic kidney disease. He has been maintained on IV fluids, renal function has improved with creatinine down to 2.7 today from 4.0 and 5.0 previously prior to admission. PHYSICAL EXAMINATION: On examination today, the patient has just walked in the hallway. He is mildly short of breath this morning. However, blood pressure this morning was 176/65, heart rate 88 per minute, he is afebrile. Examination of the heart S1, S2. Examination of the lungs, bilateral breath sounds are heard. Abdomen is soft, non-tender. Examination of the lower extremities shows edema 1+ bilaterally. HAND THERMAL CUTTER exam grossly intact. LABS: Show sodium 142, potassium 3.7, BUN 71, creatinine 2.74. ASSESSMENT: 1. Acute kidney injury mainly prerenal, currently improved. 2. Chronic kidney disease, NKF stage IV secondary to partial nephrectomies bilaterally and nephrosclerosis. 3. Hypokalemia, currently replaced. 4. Hypertension, blood pressure was elevated. Expect improvement once saline is discontinued. We can increase the hydralazine as outpatient if blood pressure remains elevated. PLAN: Discontinue IV fluids. Patient can be discharged. Follow up as outpatient in about 1- 2 weeks. MMODL / IJN: [id number] /
== END 2019-10-02 11:57 | disposition home or self-care (01) | DRG 684 ==
LOC: EC 16:26 → 4MS4W 20:25
PROVIDERS: ADMIT Internal Medicine; ATTEND Internal Medicine
DX: N17.9 Acute kidney failure, unspecified (principal); E87.70 Fluid overload, unspecified; I13.10 Hypertensive heart and chronic kidney disease without heart failure, with stage 1 through stage 4 chronic kidney disease, or unspecified chronic kidney disease; N18.4 Chronic kidney disease, stage 4 (severe); G25.81 Restless legs syndrome; E87.6 Hypokalemia; T50.2X5A Adverse effect of carbonic-anhydrase inhibitors, benzothiadiazides and other diuretics, initial encounter; E78.5 Hyperlipidemia, unspecified; E03.9 Hypothyroidism, unspecified; M10.9 Gout, unspecified; R06.89 Other abnormalities of breathing; Z79.02 Long term (current) use of antithrombotics/antiplatelets; Z79.890 Hormone replacement therapy; Z79.899 Other long term (current) drug therapy; Z90.5 Acquired absence of kidney; Z85.528 Personal history of other malignant neoplasm of kidney; Z85.51 Personal history of malignant neoplasm of bladder; Z95.828 Presence of other vascular implants and grafts; Z98.890 Other specified postprocedural states; Z87.891 Personal history of nicotine dependence; Z88.8 Allergy status to other drugs, medicaments and biological substances; Z80.42 Family history of malignant neoplasm of prostate; Z80.1 Family history of malignant neoplasm of trachea, bronchus and lung; Z82.3 Family history of stroke; Z80.51 Family history of malignant neoplasm of kidney; Z83.49 Family history of other endocrine, nutritional and metabolic diseases; Z82.49 Family history of ischemic heart disease and other diseases of the circulatory system; Z83.3 Family history of diabetes mellitus
CPT/HCPCS: 36415; 71045; 71046; 80048; 80053; 81003; 82550; 83735; 84443; 85025; 99284

== ENCOUNTER 2019-10-14 14:58 | Inpatient (IN) | payer MEDICARE ==
--- NOTE | 2019-10-14 15:31 | ED ---
General Adult HPI - General Chief complaint: Neuro Symptoms/Deficit Stated complaint: Syncope Time Seen by Provider: 10/14/19 15:05 Source: patient, family, EMS, RN notes reviewed Mode of arrival: EMS Limitations: altered mental status, physical limitation - History of Present Illness Initial comments: Patient is a pleasant 84-year-old male presenting to the emergency department with family by EMS with concern regarding unresponsive episode. Patient does not recall the episode and states he feels fine. Family states patient became unresponsive for a minute, maybe 2. Patient did have some odd movements and was somewhat concerned about possible seizure. No history of previous seizures. Patient does have history of previous bradycardia and has been evaluated before for possible pacemaker placement. Patient denies any chest pain or dyspnea. Patient denies palpitations. Patient is currently symptom-free. - Related Data Home Medications Medication Instructions Recorded Confirmed Clopidogrel [Plavix] 75 mg PO DAILY 05/03/19 09/29/19 Doxazosin [Cardura] 4 mg PO BID 05/03/19 09/29/19 Finasteride [Proscar] 5 mg PO DAILY 05/03/19 09/29/19 Levothyroxine Sodium [Synthroid] 50 mcg PO DAILY 05/03/19 09/29/19 Simvastatin 40 mg PO DAILY 05/03/19 09/29/19 Temazepam [Restoril] 15 mg PO HS 05/03/19 09/29/19 rOPINIRole HCL [Requip] 0.5 mg PO HS 05/03/19 09/29/19 Allopurinol [Zyloprim] 100 mg PO DAILY 09/29/19 09/29/19 Furosemide [Lasix] 80 mg PO DAILY 09/29/19 09/29/19 traMADol HCL 50 mg PO DAILY PRN 09/29/19 09/29/19 Previous Rx's Medication Instructions Recorded Metoprolol Tartrate [Lopressor] 25 mg PO DAILY #30 tab 10/02/19 amLODIPine [Norvasc] 10 mg PO DAILY #30 tab 10/02/19 hydrALAZINE HCL [Apresoline] 50 mg PO TID #90 tab 10/02/19 Allergies Allergy/AdvReac Type Severity Reaction Status Date / Time zolpidem [From Ambien] Allergy Unknown Verified 09/29/19 20:05 Review of Systems ROS Statement: Those systems with pertinent positive or pertinent negative responses have been documented in the HPI. ROS Other: All systems not noted in ROS Statement are negative. Constitutional: Denies: fever Eyes: Denies: eye pain ENT: Denies: ear pain Respiratory: Denies: cough, dyspnea Cardiovascular: Denies: chest pain, palpitations Endocrine: Denies: fatigue Gastrointestinal: Denies: abdominal pain Genitourinary: Denies: dysuria Skin: Denies: rash Neurological: Reports: as per HPI. Denies: headache, weakness, confusion Past Medical History Past Medical History: Cancer, Hyperlipidemia, Hypertension, Thyroid Disorder Additional Past Medical History / Comment(s): bladder cancer, kidney cancer. 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 Past Anesthesia/Blood Transfusion Reactions: Previous Problems w/ Anesthesia Additional Past Anesthesia/Blood Transfusion Reaction / Comment(s): "out of it for 4 days after anesthesia" Past Psychological History: No Psychological Hx Reported Smoking Status: Former smoker Past Alcohol Use History: None Reported Past Drug Use History: None Reported - Past Family History Father Additional Family Medical History / Comment(s): Father from prostate cancer. Mother Additional Family Medical History / Comment(s): Mother from lung cancer. Brother(s) Additional Family Medical History / Comment(s): Patient has 2 brothers one has had these stroke. One brother had kidney cancer unknown reason. Patient has one sister is healthy with no major medical problems. Patient has 2 children, one daughter with hyperlipidemia and one son with history of atrial fibrillation and borderline diabetes. General Exam Limitations: altered mental status, physical limitation General appearance: alert, in no apparent distress Head exam: Present: atraumatic, normocephalic Eye exam: Present: normal appearance, PERRL ENT exam: Present: normal oropharynx Neck exam: Present: normal inspection Respiratory exam: Present: normal lung sounds bilaterally Cardiovascular Exam: Present: bradycardia Expanded Peripheral pulses: 2+: Radial (R), Radial (L), Dorsalis Pedis (R), Dorsalis Pedis (L) GI/Abdominal exam: Present: soft. Absent: tenderness Extremities exam: Present: normal inspection. Absent: pedal edema, calf tendern ess Neurological exam: Present: alert, oriented X3, CN II-XII intact. Absent: motor sensory deficit Expanded Neurological exam: Present: protecting the airway Patient oriented to: Present: person, place, time Speech: Present: fluid speech Motor strength exam: RUE: 5, LUE: 5, RLE: 5, LLE: 5 Eye Response: (4) open spontaneously Motor Response: (6) obeys commands Verbal Response: (5) oriented Psychiatric exam: Present: normal affect, normal mood Skin exam: Present: normal color Course Vital Signs 10/14/19 10/14/19 10/14/19 15:07 15:32 15:55 Pulse Rate 29 L 38 L 35 L Respiratory 18 18 Rate Blood Pressure 149/89 106/82 110/53 O2 Sat by Pulse 94 L 97 97 Oximetry - Reevaluation(s) Reevaluation #1: 10/14/19 15:28 Case was discussed with Dr. Mccarthy, who will consult 10/14/19 16:31 Patient reevaluated and resting comfortably in bed. Heart rate in 30s. Blood pressure stable. Case was discussed in detail with Dr. Garay, who will admit, Dr. Harvey. She does request consult with Dr. Coronel. She agrees with IV fluid. Also request consult with pulmonary, Dr. Hester. Also request EEG. Patient and family are updated on results and plan. Patient will get mild IV fluid for magnesium. Patient will be given potassium replacement. Lopressor will be held. EKG Findings - EKG Comments: EKG Findings:: Bradycardia, narrow complex with appearance of underlying atrial flutter. Rate 32. QRS 122. QT 436. QTc 464. Normal axis. Septal Q waves. No acute ST change. Medical Decision Making - Medical Decision Making Patient reevaluated. Patient and family updated. Case was crusted detail with Dr. Garay, who will admit for Dr. Harman. - Lab Data Result diagrams: 10/14/19 15:24 10/14/19 15:24 Lab Results 10/14/19 10/14/19 10/14/19 Range/Units 15:24 15:24 15:24 WBC 3.9 (3.8-10.6) k/uL RBC 3.05 L (4.30-5.90) m/uL Hgb 9.7 L (13.0-17.5) gm/dL Hct 28.2 L (39.0-53.0) % MCV 92.5 (80.0-100.0) fL MCH 31.7 (25.0-35.0) pg MCHC 34.2 (31.0-37.0) g/dL RDW 16.4 H (11.5-15.5) % Plt Count 80 L (150-450) k/uL Neutrophils % 86 % Lymphocytes % 6 % Monocytes % 5 % Eosinophils % 1 % Basophils % 1 % Neutrophils # 3.3 (1.3-7.7) k/uL Lymphocytes # 0.3 L (1.0-4.8) k/uL Monocytes # 0.2 (0-1.0) k/uL Eosinophils # 0.0 (0-0.7) k/uL Basophils # 0.0 (0-0.2) k/uL Poikilocytosis Slight Anisocytosis Slight PT 11.3 (9.0-12.0) sec INR 1.1 (<1.2) APTT 24.5 (22.0-30.0) sec Sodium 142 (137-145) mmol/L Potassium 3.2 L (3.5-5.1) mmol/L Chloride 103 (98-107) mmol/L Carbon Dioxide 28 (22-30) mmol/L Anion Gap 11 mmol/L BUN 104 H* (9-20) mg/dL Creatinine 3.97 H (0.66-1.25) mg/dL Est GFR (CKD-EPI)AfAm 15 (>60 ml/min/1.73 sqM) Est GFR (CKD-EPI)NonAf 13 (>60 ml/min/1.73 sqM) Glucose 162 H (74-99) mg/dL Calcium 8.8 (8.4-10.2) mg/dL Magnesium 2.8 H (1.6-2.3) mg/dL Total Bilirubin 0.5 (0.2-1.3) mg/dL AST 42 (17-59) U/L ALT 53 (21-72) U/L Alkaline Phosphatase 69 (38-126) U/L Creatine Kinase 87 (55-170) U/L Troponin I (0.000-0.034) ng/mL Total Protein 5.8 L (6.3-8.2) g/dL Albumin 3.6 (3.5-5.0) g/dL TSH 2.130 (0.465-4.680) mIU/L Free T4 1.30 (0.78-2.19) ng/dL Free T3 pg/mL 2.3 L (2.8-5.3) pg/ml 10/14/19 Range/Units 15:24 WBC (3.8-10.6) k/uL RBC (4.30-5.90) m/uL Hgb (13.0-17.5) gm/dL Hct (39.0-53.0) % MCV (80.0-100.0) fL MCH (25.0-35.0) pg MCHC (31.0-37.0) g/dL RDW (11.5-15.5) % Plt Count (150-450) k/uL Neutrophils % % Lymphocytes % % Monocytes % % Eosinophils % % Basophils % % Neutrophils # (1.3-7.7) k/uL Lymphocytes # (1.0-4.8) k/uL Monocytes # (0-1.0) k/uL Eosinophils # (0-0.7) k/uL Basophils # (0-0.2) k/uL Poikilocytosis Anisocytosis PT (9.0-12.0) sec INR (<1.2) APTT (22.0-30.0) sec Sodium (137-145) mmol/L Potassium (3.5-5.1) mmol/L Chloride (98-107) mmol/L Carbon Dioxide (22-30) mmol/L Anion Gap mmol/L BUN (9-20) mg/dL Creatinine (0.66-1.25) mg/dL Est GFR (CKD-EPI)AfAm (>60 ml/min/1.73 sqM) Est GFR (CKD-EPI)NonAf (>60 ml/min/1.73 sqM) Glucose (74-99) mg/dL Calcium (8.4-10.2) mg/dL Magnesium (1.6-2.3) mg/dL Total Bilirubin (0.2-1.3) mg/dL AST (17-59) U/L ALT (21-72) U/L Alkaline Phosphatase (38-126) U/L Creatine Kinase (55-170) U/L Troponin I 0.042 H* (0.000-0.034) ng/mL Total Protein (6.3-8.2) g/dL Albumin (3.5-5.0) g/dL TSH (0.465-4.680) mIU/L Free T4 (0.78-2.19) ng/dL Free T3 pg/mL (2.8-5.3) pg/ml - Radiology Data Radiology results: image reviewed (Chest x-ray shows mild cardiomegaly and interstitial changes. Possible atelectasis versus early infiltrate.) Critical Care Time Critical Care Time: Yes Total Critical Care Time: 32 Disposition Clinical Impression: Bradycardia, Syncope Disposition: ADMITTED IP TO THIS [facility] Condition: Serious Is patient prescribed a controlled substance at d/c from ED?: No Referrals: Tho Harman DO [Primary Care Provider] - 1-2 days Decision Time: 16:11
[2019-10-14 15:43] LABS: Anisocytosis Slight; Basophils % (A) 1 %; Eosinophils % (A) 1 %; HCT 28.2 % (39.0-53.0); HGB 9.7 gm/dL (13.0-17.5); Lymphocytes # (A) 0.3 k/uL (1.0-4.8); Lymphocytes % (A) 6 %; MCH 31.7 pg (25.0-35.0); MCHC 34.2 g/dL (31.0-37.0); MCV 92.5 fL (80.0-100.0); Mean Platelet Volume 9.7; Monocytes # (A) 0.2 k/uL (0-1.0); Monocytes % (A) 5 %; Neutrophils # (A) 3.3 k/uL (1.3-7.7); Neutrophils % (A) 86 %; Poikilocytosis Slight; RBC 3.05 m/uL (4.30-5.90); RDW 16.4 % (11.5-15.5); WBC 3.9 k/uL (3.8-10.6)
[2019-10-14 15:44] LABS: INR 1.1 (<1.2); Partial Thromboplastin Time 24.5 sec (22.0-30.0); Prothrombin Time 11.3 sec (9.0-12.0)
[2019-10-14 15:47] LABS: Platelet Count 80 k/uL (150-450)
[2019-10-14 15:52] LABS: Albumin 3.6 g/dL (3.5-5.0); Calcium 8.8 mg/dL (8.4-10.2); Magnesium 2.8 mg/dL (1.6-2.3); Potassium 3.2 mmol/L (3.5-5.1); Total Bilirubin 0.5 mg/dL (0.2-1.3); Total Protein 5.8 g/dL (6.3-8.2)
--- NOTE | 2019-10-14 15:55 | XR ---
EXAMINATION TYPE: XR chest 2V DATE OF EXAM: 10/14/2019 COMPARISON: 10/02/2019 HISTORY: 84-year-old male with dysrhythmia TECHNIQUE: AP and lateral views FINDINGS: The heart remains mildly enlarged. Diffuse interstitial prominence. Patchy posterior basilar opacity without effusion or eladia consolidation. IMPRESSION: 1. Mild cardiomegaly and diffuse interstitial changes, correlate to exclude mild pulmonary vascular c ongestion. 2. Mild patchy posterior basilar atelectasis versus early infiltrate.
[2019-10-14 16:08] LABS: T4, Free (Free Thyroxine) 1.3 ng/dL (0.78-2.19)
[2019-10-14] MEDS ORDERED: POTASSIUM CHLORIDE ER 20 MEQ TAB.ER PO STA (16:38)
[2019-10-14] MEDS ORDERED: POTASSIUM CHLORIDE 2 MEQ/ML 20 ML VIAL IVPB STA (16:38)
[2019-10-14] MEDS ORDERED: NALOXONE 0.4 MG/ML 1 ML VIAL IV PRN (16:39)
[2019-10-14] MEDS ORDERED: SODIUM CHLORIDE 0.9% 250 ML IV STA (16:39)
--- NOTE | 2019-10-14 17:00 | CT ---
EXAMINATION TYPE: CT brain wo con DATE OF EXAM: 10/14/2019 COMPARISON: None HISTORY: 84-year-old male with confusion, altered mental status TECHNIQUE: Examination was done in axial plane without intravenous contrast. Coronal and sagittal r econstructions performed. CT DLP: 1083.4 mGycm Automated exposure control for dose reduction was used. FINDINGS: There is no evidence of acute intracranial hemorrhage, acute ischemic changes, mass, mass-effect, or extra-axial fluid collection. There is no effacement of cerebral sulci or basal subarachnoid cister ns. There is no hydrocephalus. There is no midline shift. Lester-white matter distinction is preserv ed. There is moderate generalized supratentorial volume loss. Old left frontal lobe infarct. Additional i nfarct along the superior right occipital lobe, posterior left parietal occipital junction, and right cerebellar hemisphere. Small old cortical infarct left precentral gyrus. Mild/moderate patchy periventricular white matter hypodensities Scattered mild mucosal thickening ethmoid air cells. Mastoid air cells are well pneumatized. Orbits a nd globes are intact. IMPRESSION: 1. Moderate generalized atrophy. 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 2. Mild to moderate changes of chronic small vessel ischemic disease. No acute intracranial abnormali ty seen. If concern for subtle acute ischemia, consider MRI.
[2019-10-14] MEDS: POTASSIUM CHLORIDE 10 MEQ in WATER FOR INJECTION 1 100ML.BAG IVPB SCH ×2 (17:16→19:06)
[2019-10-14] MEDS ORDERED: ATROPINE SULFATE 0.1 MG/ML 10ML SYRINGE ONE (17:50)
[2019-10-14 17:58] LABS: Glucose,Whole Blood 120 mg/dL (75-99)
[2019-10-14] MEDS: SODIUM CHLORIDE 0.9% 1,000 ML IV SCH (19:04)
[2019-10-14 19:35] LABS: Amorphous Sediment,Urine Rare /hpf; Appearance,Urine Cloudy (Clear); Bacteria,Urine Occasional /hpf; Bilirubin,Urine Negative (Negative); Blood,Urine Moderate (Negative); Color,Urine Yellow; Glucose,Urine (UA) Negative (Negative); Hyaline Casts,Urine 9 /lpf (0-2); Ketones,Urine Negative (Negative); Leukocyte Esterase,Urine Negative (Negative); Mucus,Urine Rare /hpf; Nitrite,Urine Negative (Negative); Protein,Urine 1+ (Negative); RBC,Urine >182 /hpf (0-5); Specific Gravity,Urine 1.013 (1.001-1.035); Squamous Epithelial Cell,Urine <1 /hpf (0-4); Urobilinogen,Urine <2.0 mg/dL (<2.0)
[2019-10-15 05:11] LABS: Anisocytosis Slight; Basophils % (A) 1 %; Eosinophils # (A) 0.1 k/uL (0-0.7); Eosinophils % (A) 1 %; HCT 26.1 % (39.0-53.0); HGB 8.8 gm/dL (13.0-17.5); Lymphocytes # (A) 0.4 k/uL (1.0-4.8); Lymphocytes % (A) 9 %; MCH 31.6 pg (25.0-35.0); MCHC 33.7 g/dL (31.0-37.0); MCV 93.8 fL (80.0-100.0); Mean Platelet Volume 9.5; Monocytes # (A) 0.3 k/uL (0-1.0); Monocytes % (A) 6 %; Neutrophils # (A) 3.7 k/uL (1.3-7.7); Neutrophils % (A) 81 %; Poikilocytosis Slight; RBC 2.79 m/uL (4.30-5.90); RDW 16.4 % (11.5-15.5); WBC 4.6 k/uL (3.8-10.6)
[2019-10-15 05:13] LABS: Platelet Count 85 k/uL (150-450)
[2019-10-15 05:36] LABS: Albumin 3.2 g/dL (3.5-5.0); Total Protein 5.3 g/dL (6.3-8.2)
[2019-10-15 05:37] LABS: Calcium 8.4 mg/dL (8.4-10.2); Magnesium 2.8 mg/dL (1.6-2.3); Potassium 3.6 mmol/L (3.5-5.1); Total Bilirubin 0.6 mg/dL (0.2-1.3)
--- NOTE | 2019-10-15 07:17 | XR ---
EXAMINATION TYPE: XR abdomen 1V DATE OF EXAM: 10/15/2019 Comparison: None Clinical History: 84-year-old male Renal Failure Findings: Large body habitus. Multiple surgical clips project at the left paramedian upper abdomen. No dilated small bowel. Scattered mild stool. Vascular calcifications in the pelvis. No definite suspicious calc ifications. Chest reported separately. Impression: Nonobstructive bowel gas pattern. Supine imaging limited for assessment of free air. Mild stool burde n. Large body habitus.
--- NOTE | 2019-10-15 07:57 | XR ---
EXAMINATION TYPE: XR chest 1V DATE OF EXAM: 10/15/2019 COMPARISON: 10/14/2019 HISTORY: 84-year-old male with dysrhythmia TECHNIQUE: Single frontal view of the chest is obtained. FINDINGS: Heart upper limits of normal in size. Mild interstitial prominence. Relative upper lung juan cencies. Focal patchy peripheral left basilar opacity, increased from prior. IMPRESSION: 1. Borderline heart size. Increased patchy left basilar atelectasis/infiltrate, possible trace effusi on. 2. Correlate for possible mild pulmonary vascular congestion superimposed on COPD.
[2019-10-15] MEDS ORDERED: PANTOPRAZOLE 40 MG/10 ML VIAL IV SCH (09:00)
--- NOTE | 2019-10-15 09:32 | P.NPCON ---
History of Present Illness - Reason for Consult acute renal failure, chronic renal failure - History of Present Illness Reason for consultation: Acute kidney injury on chronic kidney disease History of present illness: Patient is a 84-year-old male seen in consultation for acute kidney injury on chronic kidney disease. Patient has chronic kidney disease stage IV with baseline creatinine in the range of 2.6-2.8. Patient presented to the hospital due to an unresponsive episode. He denies losing consciousness. There was concern for seizure activity. Patient's blood pressure has been stable however he's been quite bradycardic. Last night his heart rate dropped down to 19. He is scheduled for possible pacemaker placement tomorrow. Patient's creatinine was 3.97 on admission and is 3.89 today. He is currently maintained on normal saline at 50 mL an hour. Urine output has been about 40 mL an hour. Oral intake is fair. He was taking diuretics at home which are currently held. He denies use of nonsteroidals. No history of diabetes. Denies family history of renal disease. Vital signs are stable. General: The patient appeared well nourished and normally developed. HEENT: Head exam is unremarkable. Neck is without jugular venous distension. LUNGS: Lungs are clear to auscultation and percussion. Breath sounds decreased. HEART: Bradycardic. First and second heart sounds normal. No murmurs, rubs or gallops. ABDOMEN: Abdominal exam reveals normal bowel sounds. Non-tender and non- distended. EXTREMITITES: No clubbing, cyanosis, or edema. Past Medical History Past Medical History: Cancer, Hyperlipidemia, Hypertension, Thyroid Disorder Additional Past Medical History / Comment(s): bladder cancer, kidney cancer. 1 00% blockage in left carotid artery, left 50% blockage with stent repair History of Any Multi-Drug Resistant Organisms: None Reported Past Surgical History: Hernia Repair Additional Past Surgical History / Comment(s): kidney- right and left partial removal, two hernia repairs. Past Anesthesia/Blood Transfusion Reactions: Previous Problems w/ Anesthesia Additional Past Anesthesia/Blood Transfusion Reaction / Comment(s): "out of it for 4 days after anesthesia" Past Psychological History: No Psychological Hx Reported Smoking Status: Former smoker Past Alcohol Use History: None Reported Additional Past Alcohol Use History / Comment(s): quit smoking 1968, no illicit drug use, no alcohol use. Patient recently [place]. He has a walker but rarely uses. No nebulizer, no oxygen. Past Drug Use History: None Reported - Past Family History Father Additional Family Medical History / Comment(s): Father from prostate cancer. Mother Additional Family Medical History / Comment(s): Mother from lung cancer. Brother(s) Additional Family Medical History / Comment(s): Patient has 2 brothers one has had these stroke. One brother had kidney cancer unknown reason. Patient has one sister is healthy with no major medical problems. Patient has 2 children, one daughter with hyperlipidemia and one son with history of atrial fibrillation and borderline diabetes. Medications and Allergies Home Medications Medication Instructions Recorded Confirmed Type Clopidogrel [Plavix] 75 mg PO DAILY 05/03/19 10/14/19 History Doxazosin [Cardura] 4 mg PO BID 05/03/19 10/14/19 History Finasteride [Proscar] 5 mg PO DAILY 05/03/19 10/14/19 History Levothyroxine Sodium [Synthroid] 50 mcg PO DAILY 05/03/19 10/14/19 History Simvastatin 40 mg PO HS 05/03/19 10/14/19 History Temazepam [Restoril] 15 mg PO HS 05/03/19 10/14/19 History rOPINIRole HCL [Requip] 0.5 mg PO HS 05/03/19 10/14/19 History Allopurinol [Zyloprim] 100 mg PO DAILY 09/29/19 10/14/19 History traMADol HCL 50 mg PO DAILY PRN 09/29/19 10/14/19 History hydrALAZINE HCL [Apresoline] 50 mg PO TID #90 tab 10/02/19 10/14/19 Rx Acetaminophen [Tylenol Extra 500 mg PO Q6H PRN 10/14/19 10/14/19 History Strength] Furosemide [Lasix] 40 mg PO BID 10/14/19 10/14/19 History Potassium Chloride ER [K-Dur 20] 20 meq PO Q48H 10/14/19 10/14/19 History Allergies Allergy/AdvReac Type Severity Reaction Status Date / Time zolpidem [From Ambien] Allergy Unknown Verified 10/14/19 17:03 Physical Exam Vitals: Vital Signs Temp Pulse Resp BP Pulse Ox 10/15/19 09:00 49 L 20 123/48 96 10/15/19 08:00 98.2 F 46 L 20 125/44 95 10/15/19 07:00 41 L 20 117/41 95 10/15/19 06:00 39 L 20 118/47 97 10/15/19 05:00 58 L 20 121/47 97 10/15/19 04:00 98.3 F 39 L 20 126/42 96 10/15/19 03:00 49 L 20 136/40 97 10/15/19 02:00 39 L 20 133/46 96 10/15/19 01:00 41 L 20 128/42 96 10/15/19 00:42 96 10/15/19 00:00 97.4 F L 58 L 16 132/45 96 10/14/19 23:00 42 L 16 124/51 96 10/14/19 22:00 52 L 18 115/48 97 10/14/19 21:00 42 L 18 113/68 97 10/14/19 20:00 92.3 F L 27 L 18 107/76 97 10/14/19 19:00 26 L 17 130/42 97 10/14/19 18:50 30 L 20 97 10/14/19 18:44 91.1 F L 10/14/19 18:40 38 L 20 127/85 96 10/14/19 18:30 35 L 20 118/65 98 10/14/19 18:20 35 L 24 118/65 98 10/14/19 18:10 46 L 20 108/70 97 10/14/19 18:00 41 L 16 110/82 97 10/14/19 17:50 31 L 22 129/52 97 10/14/19 17:18 25 L 97 10/14/19 17:05 38 L 20 127/87 97 10/14/19 15:55 35 L 110/53 97 10/14/19 15:32 38 L 18 106/82 97 10/14/19 15:07 29 L 18 149/89 94 L Intake and Output 10/14/19 10/15/19 10/15/19 22:59 06:59 14:59 Intake Total 350 400 150 Output Total 125 295 180 Balance 225 105 -30 Intake: IV 100 100 Potassium Chloride 10 meq 100 In Water For Injection 1 100ml.bag @ 100 mls/hr IVPB Q1HR [facility] Rx#: [id number] Sodium Chloride 0.9% 1, 100 000 ml @ 50 mls/hr IV . Q20H [facility] Rx#:[id number] Intake, IV Titration 250 400 50 Amount Potassium Chloride 10 meq 100 In Water For Injection 1 100ml.bag @ 100 mls/hr IVPB Q1HR [facility] Rx#: [id number] Sodium Chloride 0.9% 1, 150 400 50 000 ml @ 50 mls/hr IV . Q20H [facility] Rx#:[id number] Output: Urine 125 295 180 Other: Voiding Method Indwelling Catheter Indwelling Catheter Weight 97.522 kg 103.5 kg Results - Lab Results Most recent lab results Calcium 8.4 mg/dL (8.4-10.2) 10/15/19 04:51 Magnesium 2.8 mg/dL (1.6-2.3) H 10/15/19 04:51 10/15/19 04:51 10/15/19 04:51 Assessment and Plan Plan: Assessment: 1. Acute kidney injury secondary to ATN secondary to hemodynamic instability. Creatinine was 3.97 on admission and is stable at 3.89 today. 2. Chronic kidney disease stage IV secondary to nephrosclerosis and partial bilateral nephrectomies. Baseline creatinine in the range of 2.6-2.8. 3. Bradycardia. Cardiology following. Potential pacemaker tomorrow. 4. Anemia of chronic kidney disease. Rule out iron deficiency. 5. Chronic systolic CHF with ejection fraction of 40-45%. 6. Hypokalemia secondary to diuretics. Status post replacement. Better. Plan: Maintain normal saline at 50 mL an hour. Avoid nephrotoxins. Potassium being replaced. Continue to monitor renal function and urine output. Check iron studies. Follow-up echocardiogram. Thank you for the consultation. I will continue to follow the patient with you during his hospital stay.
[2019-10-15] MEDS ORDERED: Potassium Replacement Protocol 1 EACH MISC MISCELLANE PRN (09:50)
[2019-10-15] MEDS: POTASSIUM CHLORIDE 10 MEQ in WATER FOR INJECTION 1 100ML.BAG IVPB SCH ×2 (09:54→11:53)
[2019-10-15] MEDS ORDERED: POTASSIUM CHLORIDE ER 20 MEQ TAB.ER PO SCH (10:30)
[2019-10-15] MEDS: SODIUM CHLORIDE 0.9% 1,000 ML IV SCH (11:53)
--- NOTE | 2019-10-15 13:04 | CONS ---
CONSULTATION Mr. Dwyer is an 84-year-old male with history of chronic kidney disease, who presented with an episode of unresponsiveness lasting 1-2 minutes according to the notes. Patient cannot recall that. According to him, he was trying to sit on the chair and the chair closed. He was noted to have significant bradycardia on presentation and his blood pressure was stable. Cardiology consultation was requested. The patient denies any prior cardiac history. He was seen in the hospital in April of this year. At that time he had an echocardiogram that showed an ejection fraction of 40% to 45% with segmental wall motion abnormality and his EKG showed a sinus mechanism with a prominent first-degree AV block. He was evaluated by Dr. Herrera at that time. The patient denies any dizziness or palpitation. He has chronic dyspnea on exertion which according to him has not changed. He denies any clear PND or orthopnea. He has a known history of chronic kidney disease that has been progressive. He had a prior history of kidney cancer and history of carotid obstructive disease. His coronary risk factors are remarkable for history of hypertension, hyperlipidemia. He is on simvastatin 40 mg daily, Lasix 40 mg twice a day, finasteride, doxazosin, Plavix 75 mg daily, allopurinol, hydralazine 50 mg 3 times a day, ropinirole, and tramadol on a p.r.n. basis. REVIEW OF SYSTEMS: RESPIRATORY SYSTEM: He has dyspnea on exertion. No recent wheezing or cough. GI SYSTEM: No recent GI bleed. No peptic ulcer disease. SYSTEM: No dysuria or hematuria. NERVOUS SYSTEM: He denies any seizure. PHYSICAL EXAMINATION: He is an 84-year-old male, alert, no apparent distress. HEAD: Normocephalic. EYES: Sclerae anicteric. NECK: No bruit. LUNGS: Clear to auscultation. HEART: Irregular, regular. S1, S2. No S3 with systolic murmur ejection type heard at the base. No diastolic murmur. ABDOMEN: Soft, nontender. Positive bowel sounds. No organomegaly. EXTREMITIES: 1+ edema bilaterally. LAB DATA: Lab data revealed a BUN and creatinine of 3.89 and 107. Potassium 3.6. His TSH is 2.1. His hemoglobin is 8.8. His EKG shows probable atrial flutter with a slow ventricular response with a rate of 32. On the monitor now he is running in the 50s to 60s. His chest x-ray shows no clear infiltrate. His brain CT revealed moderate generalized atrophy with small-vessel disease. IMPRESSION: 1. Possible episode of loss of consciousness with bradycardia and atrial flutter- fibrillation, new since April of 2019. The patient probably has sick sinus syndrome. 2. Worsening renal failure. 3. History of hypertension. 4. Hyperlipidemia. 5. Prior history of ischemic cardiomyopathy. RECOMMENDATION: I would repeat the echocardiogram. The patient would require permanent pacemaker implantation. I have discussed with him those finding. He will be tentatively undergoing the procedure tomorrow by Dr. Herrera. We will await the input of the renal service. I will hold on anticoagulation until the procedure is done tomorrow. Thank you for this consult. We will follow with you. ILYA / DANITA: [id number] /
--- NOTE | 2019-10-15 13:52 | CONS ---
CONSULTATION DATE OF SERVICE: 10/15/2019 HISTORY OF PRESENT ILLNESS: Patient is an 84-year-old male with a history of chronic kidney disease. He had been hospitalized approximately a month ago for abnormal labs. The patient with a history of bilateral partial nephrectomy for kidney cancer. The patient currently resides at [facility] and yesterday had an episode of syncope which was witnessed by patient's daughter and caregiver. The patient was unresponsive for approximately a minute, maybe 2. Daughter states the patient had body tremors and was shaking during the episode and, again, nonresponsive. The patient was incontinent of urine and stool. Subsequently, patient was brought to the emergency room and found to be significantly bradycardic and was recently being evaluated for possible pacemaker placement. Subsequently, patient was admitted to the ICU for further evaluation and treatment. PAST MEDICAL HISTORY: Significant for bilateral kidney cancer, gout, restless leg syndrome, hyperlipidemia, hypertension, thyroid disorder. The patient does have 100% blockage of the left carotid artery and 50% blockage on the right side with a stent. PAST SURGICAL HISTORY: Significant for hernia repair x2 and partial bilateral nephrectomy. ALLERGIES: Include AMBIEN. MEDICATIONS: Medications patient is on at home include Requip 0.5 mg p.o. q.h.s., Restoril 15 mg p.o. q.h.s., simvastatin 40 mg p.o. q.h.s., K-Dur 20 mEq p.o. q48 hours, Lasix 40 mg p.o. b.i.d., Tylenol Extra Strength 500 mg p.o. q.6 hours p.r.n., tramadol 50 mg p.o. daily p.r.n., hydralazine 50 mg p.o. t.i.d., Synthroid 50 mcg p.o. daily, Proscar 5 mg p.o. daily. Cardura 4 mg p.o. b.i.d., Plavix 75 mg p.o. daily and Zyloprim 100 mg p.o. daily. SOCIAL HISTORY: Patient is a former smoker, quit in 1968. No alcohol use. No illicit drug use. FAMILY HISTORY: Father of prostate cancer. Mother of lung cancer. REVIEW OF SYSTEMS: GENERAL: Negative for any recent fever, chills. Denies any weight loss. HEENT: Negative for headaches or dizziness. Denies any acute visual changes. Denies any difficulty hearing or hearing aids. Denies any rhinitis. Denies sore throat. Does have difficulty swallowing and nursing stated the patient was choking on solid foods this morning. Is tolerating liquids. RESPIRATORY: Positive for shortness of breath with cough. The patient evidently had an episode of bronchitis a few weeks ago for which she was treated by his PCP. CARDIOVASCULAR: Negative for chest pain or palpitations. GI: Negative for abdominal pain, nausea, vomiting, diarrhea, or constipation. : Negative for any hematuria. Patient does admit to some occasional dysuria. ENDOCRINE: Positive for thyroid disease. Negative for diabetes mellitus. MUSCULOSKELETAL: Positive for arthritis. Denies any joint pain at this time. NEUROLOGIC: Negative for any history of seizures. No numbness or tingling to the extremities. PSYCHIATRIC: Negative for any anxiety or depression. PHYSICAL EXAM: VITAL SIGNS: Temp is 98.2, heart rate is 40, respiratory rate is 20, blood pressure is 138/51, O2 sats 95% on 2 L O2 via nasal cannula. HEENT: Head is normocephalic, atraumatic. Pupils equal, pinpoint, round, react to light. Ears and nose, no discharge is noted. Mouth, Mallampati is class 4 with moist mucous membranes. LUNGS: With decreased breath sounds. No clear rales or wheezes. HEART: S1, S2 are heard. Bradycardic. ABDOMEN: Soft. Bowel sounds are heard. EXTREMITIES: With 2+ edema bilaterally. NEUROLOGIC: Patient is awake, alert. LABS: White count 4.6, hemoglobin is 8.8, hematocrit is 26.1 with 85,000 platelets. Sodium is 144, potassium is 3.6, chloride is 106, CO2 is 26, anion gap is 12, BUN is 107, creatinine is 3.89, glucose is 82, calcium is 8.4, magnesium is 2.8, total bilirubin 0.6, AST is 45, ALT is 62, alk phos is 55, total protein 5.3, albumin is 3.2. IMAGING: Chest x-ray shows mild cardiomegaly and diffuse interstitial changes, correlate to exclude pulmonary vascular congestion. Mild patchy posterior basilar atelectasis versus early infiltrate. Repeat chest x-ray this a.m. shows borderline heart size, increased patchy left basilar atelectasis or infiltrate, possible trace effusion. Correlate for possible mild pulmonary vascular congestion superimposed on COPD. 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 Mild to moderate changes of chronic small vessel ischemic disease. No acute intracranial abnormality is seen. Abdominal x-ray, nonobstructive bowel gas pattern. Supine imaging limited for assessment of free air. Mild stool burden. Large body habitus. IMPRESSION: 1. Bradycardia. 2. Syncope versus seizure. 3. Acute on chronic kidney disease. 4. Hypokalemia. PLAN: Will consult Neurology. Will also order a swallow eval for patient's difficulty swallowing per nursing. Supplemental oxygen to maintain oxygen saturation greater than or equal to 92%. Cardiology is on consult and plan is for pacemaker tomorrow. GI and DVT prophylaxis. We will hold off on heparin use, SCDs for DVT prophylaxis. Neuro checks every 2 hours. Nephrology is on consult. The potassium is being replaced. Continue to monitor patient in the ICU. Add incentive spirometry and pulmonary hygiene. Thank you for the consultation. Will follow patient closely with you making further changes as necessary. MMODL / IJN: [id number] /
--- NOTE | 2019-10-15 15:44 | P.HPIM ---
History of Present Illness H&P Date: 10/15/19 Chief Complaint: Syncope, concern for seizures, noted to be severely bradycardic This is an 84-year-old male patient of Dr. Harman with past medical history of bladder cancer diagnosed 18 years ago status post mass resection, kidney cancer initially diagnosed in 2010 on the left with partial nephrectomy followed by diagnosis on the right in 2013 status post partial robotic resection. Patient states cancers currently are in remission and his oncologist is Dr. Juan. He also has past medical history of carotid artery stenosis status post stent, hypertension, hypothyroidism, hyperlipidemia, restless leg syndrome, gout, chronic kidney disease stage 4, he was last admitted from our facility 10/02/2019, was admitted for acute kidney injury on CK D stage IV, hypokalemia, for which hydralazine was dispensed at 50 mg 3 times a day that time, amlodipine 10 mg daily, and metoprolol was increased to 25 mg daily. He now comes in to the emergency room, from [facility] lodge secondary to unresponsiveness, patient was noted to be witnessed to be shaking, arms and upper body, with eyes open, and unresponsive this lasted for approximately 1-2 minutes, is mostly incontinence urinary incontinence, patient was not diagnosed to have any seizure episode in the past, however he comes in with significant bradycardia from the emergency room heart rate in the 19, he also presents with worsening renal function, with a baseline of 2.6-2.8, creatinine on admission is 3.97, he was taking diuretics at home, and is not on any NSAIDs, patient is scheduled to have a pacemaker in the morning, he also complains of new dysphagia, including Jell-O, which is on the current admission. Patient denies any aspirate events, Dry mouth, patient does not have any new focal neurologic deficits including motor dysfunction, or sensory dysfunction. 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 Hester, Dr. Mccarthy cardiology, Dr. Coronel nephrology Review of Systems Constitutional: Reports as per HPI, Reports poor appetite, Denies anorexia, Denies chills, Denies chronic headaches, Denies chronic pain, Denies daytime sleepiness, Denies fatigue, Denies fever, Denies lethargy, Denies malaise, Denies night sweats, Denies sweats, Denies weakness, Denies weight gain, Denies weight loss Ears, nose, mouth and throat: Reports as per HPI Cardiovascular: Reports as per HPI, Reports decreased exercise tolerance, Repo rts shortness of breath, Reports syncope Respiratory: Reports as per HPI, Denies congestion, Denies cough, Denies cough with sputum, Denies dyspnea, Denies excessive sputum, Denies hemoptysis, Denies home oxygen, Denies pain, Denies pain on inspiration, Denies pleurisy, Denies respiratory infections, Denies sleep apnea, Denies snoring, Denies wheezing Gastrointestinal: Reports as per HPI Genitourinary: Reports as per HPI Musculoskeletal: Reports as per HPI, Reports gait dysfunction, Reports limi tation of motion, Denies arm numbness/tingling, Denies atrophy, Denies fractures, Denies frequent falls, Denies hot joints, Denies leg numbness/tingling, Denies loss of height, Denies low back pain, Denies morning stiffness, Denies muscle cramps, Denies muscle weakness, Denies myalgias, Denies neck pain, Denies neck stiffness, Denies prior amputations, Denies redness of joints, Denies shooting arm pain, Denies shooting leg pain Integumentary: Reports as per HPI, Denies acne, Denies boils, Denies brittle nails, Denies change in hair/nails, Denies color changes, Denies darkening of skin, Denies depigmentation, Denies dryness, Denies foot/leg ulcers, Denies growths, Denies hirsutism, Denies lesions, Denies onychomycosis, Denies pruritus, Denies rash, Denies sores, Denies striae, Denies unusual bruising, Denies wounds Neurological: Reports as per HPI, Reports tremors, Denies aphasia, Denies ataxia, Denies balance difficulties, Denies burning pain, Denies change in mentation, Denies change in smell/taste, Denies change in speech, Denies co nfusion, Denies convulsions, Denies double vision, Denies gait dysfunction, Denies head injury, Denies headaches, Denies hearing difficulties, Denies lack of coordination, Denies loss of vision, Denies memory loss, Denies migraines, Denies motor disturbance, Denies numbness, Denies paralysis, Denies paresthesias, Denies seizures, Denies sensory deficit, Denies spasticity, Denies syncope, Denies tic, Denies tingling, Denies transient paralysis, Denies vertigo, Denies weakness, Denies visual changes Psychiatric: Reports as per HPI, Denies anhedonia, Denies anxiety, Denies anxiety attacks, Denies change in appetite, Denies change in libido, Denies change in sleep habits, Denies confusion, Denies depression, Denies difficulty concentrating, Denies disorientation, Denies hallucinations, Denies hopelessness, Denies hypersomnia, Denies insomnia, Denies irritability, Denies memory loss, Denies mood swings, Denies paranoia, Denies sadness/tearfulness, Denies sleep disturbances, Denies suicidal ideation Endocrine: Reports as per HPI Hematologic/Lymphatic: Reports as per HPI Allergic/Immunologic: Reports as per HPI Past Medical History Past Medical History: Cancer, Hyperlipidemia, Hypertension, Thyroid Disorder Additional Past Medical History / Comment(s): bladder cancer, kidney cancer. 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 Past Anesthesia/Blood Transfusion Reactions: Previous Problems w/ Anesthesia Additional Past Anesthesia/Blood Transfusion Reaction / Comment(s): "out of it for 4 days after anesthesia" Past Psychological History: No Psychological Hx Reported Smoking Status: Former smoker Past Alcohol Use History: None Reported Additional Past Alcohol Use History / Comment(s): quit smoking 1968, no illicit drug use, no alcohol use. Patient recently moved [place]. He has a walker but rarely uses. No nebulizer, no oxygen. Past Drug Use History: None Reported - Past Family History Father Additional Family Medical History / Comment(s): Father from prostate cancer. Mother Additional Family Medical History / Comment(s): Mother from lung cancer. Brother(s) Additional Family Medical History / Comment(s): Patient has 2 brothers one has had these stroke. One brother had kidney cancer unknown reason. Patient has one sister is healthy with no major medical problems. Patient has 2 children, one daughter with hyperlipidemia and one son with history of atrial fibrillation and borderline diabetes. Medications and Allergies Home Medications Medication Instructions Recorded Confirmed Type Clopidogrel [Plavix] 75 mg PO DAILY 05/03/19 10/14/19 History Doxazosin [Cardura] 4 mg PO BID 05/03/19 10/14/19 History Finasteride [Proscar] 5 mg PO DAILY 05/03/19 10/14/19 History Levothyroxine Sodium [Synthroid] 50 mcg PO DAILY 05/03/19 10/14/19 History Simvastatin 40 mg PO HS 05/03/19 10/14/19 History Temazepam [Restoril] 15 mg PO HS 05/03/19 10/14/19 History rOPINIRole HCL [Requip] 0.5 mg PO HS 05/03/19 10/14/19 History Allopurinol [Zyloprim] 100 mg PO DAILY 09/29/19 10/14/19 History traMADol HCL 50 mg PO DAILY PRN 09/29/19 10/14/19 History hydrALAZINE HCL [Apresoline] 50 mg PO TID #90 tab 10/02/19 10/14/19 Rx Acetaminophen [Tylenol Extra 500 mg PO Q6H PRN 10/14/19 10/14/19 History Strength] Furosemide [Lasix] 40 mg PO BID 10/14/19 10/14/19 History Potassium Chloride ER [K-Dur 20] 20 meq PO Q48H 10/14/19 10/14/19 History Allergies Allergy/AdvReac Type Severity Reaction Status Date / Time zolpidem [From Ambien] Allergy Unknown Verified 10/14/19 17:03 Physical Exam Vitals: Vital Signs Temp Pulse Resp BP Pulse Ox 10/15/19 11:00 40 L 20 138/51 95 10/15/19 10:00 57 L 20 135/43 96 10/15/19 09:00 49 L 20 123/48 96 10/15/19 08:00 98.2 F 46 L 20 125/44 95 10/15/19 07:00 41 L 20 117/41 95 10/15/19 06:00 39 L 20 118/47 97 10/15/19 05:00 58 L 20 121/47 97 10/15/19 04:00 98.3 F 39 L 20 126/42 96 10/15/19 03:00 49 L 20 136/40 97 10/15/19 02:00 39 L 20 133/46 96 10/15/19 01:00 41 L 20 128/42 96 10/15/19 00:42 96 10/15/19 00:00 97.4 F L 58 L 16 132/45 96 10/14/19 23:00 42 L 16 124/51 96 10/14/19 22:00 52 L 18 115/48 97 10/14/19 21:00 42 L 18 113/68 97 10/14/19 20:00 92.3 F L 27 L 18 107/76 97 10/14/19 19:00 26 L 17 130/42 97 10/14/19 18:50 30 L 20 97 10/14/19 18:44 91.1 F L 10/14/19 18:40 38 L 20 127/85 96 10/14/19 18:30 35 L 20 118/65 98 10/14/19 18:20 35 L 24 118/65 98 10/14/19 18:10 46 L 20 108/70 97 10/14/19 18:00 41 L 16 110/82 97 10/14/19 17:50 31 L 22 129/52 97 10/14/19 17:18 25 L 97 10/14/19 17:05 38 L 20 127/87 97 10/14/19 15:55 35 L 110/53 97 10/14/19 15:32 38 L 18 106/82 97 10/14/19 15:07 29 L 18 149/89 94 L Intake and Output 10/14/19 10/15/19 10/15/19 22:59 06:59 14:59 Intake Total 350 400 600 Output Total 125 295 305 Balance 225 105 295 Intake: IV 100 550 Potassium Chloride 10 meq 100 300 In Water For Injection 1 100ml.bag @ 100 mls/hr IVPB Q1HR [facility] Rx#: [id number] Sodium Chloride 0.9% 1, 250 000 ml @ 50 mls/hr IV . Q20H [facility] Rx#:[id number] Intake, IV Titration 250 400 50 Amount Potassium Chloride 10 meq 100 In Water For Injection 1 100ml.bag @ 100 mls/hr IVPB Q1HR [facility] Rx#: [id number] Sodium Chloride 0.9% 1, 150 400 50 000 ml @ 50 mls/hr IV . Q20H [facility] Rx#:[id number] Output: Urine 125 295 305 Other: Voiding Method Indwelling Catheter Indwelling Catheter Indwelling Catheter Weight 97.522 kg 103.5 kg - Constitutional General appearance: cooperative, no acute distress - EENT Eyes: anicteric sclerae, EOMI, PERRLA, dentition normal, normal appearance ENT: NA/AT, normal oropharynx - Neck Neck: normal ROM - Respiratory Respiratory: bilateral: CTA, negative: dullness, rales, wheezing - Cardiovascular Rhythm: regular Heart sounds: normal: S1, S2 - Gastrointestinal General gastrointestinal: normal bowel sounds - Integumentary Integumentary: normal, normal turgor - Neurologic Neurologic: CNII-XII intact - Musculoskeletal Musculoskeletal: gait normal - Psychiatric Psychiatric: A&O x's 3, appropriate affect Results CBC & Chem 7: 10/15/19 04:51 10/15/19 04:51 Labs: Abnormal Lab Results - Last 24 Hours (Table) 10/14/19 10/14/19 10/14/19 Range/Units 15:24 15:24 15:24 RBC 3.05 L (4.30-5.90) m/uL Hgb 9.7 L (13.0-17.5) gm/dL Hct 28.2 L (39.0-53.0) % RDW 16.4 H (11.5-15.5) % Plt Count 80 L (150-450) k/uL Lymphocytes # 0.3 L (1.0-4.8) k/uL Potassium 3.2 L (3.5-5.1) mmol/L BUN 104 H* (9-20) mg/dL Creatinine 3.97 H (0.66-1.25) mg/dL Glucose 162 H (74-99) mg/dL POC Glucose (mg/dL) (75-99) mg/dL Magnesium 2.8 H (1.6-2.3) mg/dL Troponin I 0.042 H* (0.000-0.034) ng/mL Total Protein 5.8 L (6.3-8.2) g/dL Albumin (3.5-5.0) g/dL Free T3 pg/mL 2.3 L (2.8-5.3) pg/ml Urine Protein (Negative) Urine Blood (Negative) Urine RBC (0-5) /hpf Amorphous Sediment (None) /hpf Urine Bacteria (None) /hpf Hyaline Casts (0-2) /lpf Urine Mucus (None) /hpf 10/14/19 10/14/19 10/15/19 Range/Units 17:47 19:02 04:51 RBC 2.79 L (4.30-5.90) m/uL Hgb 8.8 L (13.0-17.5) gm/dL Hct 26.1 L (39.0-53.0) % RDW 16.4 H (11.5-15.5) % Plt Count 85 L (150-450) k/uL Lymphocytes # 0.4 L (1.0-4.8) k/uL Potassium (3.5-5.1) mmol/L BUN (9-20) mg/dL Creatinine (0.66-1.25) mg/dL Glucose (74-99) mg/dL POC Glucose (mg/dL) 120 H (75-99) mg/dL Magnesium (1.6-2.3) mg/dL Troponin I (0.000-0.034) ng/mL Total Protein (6.3-8.2) g/dL Albumin (3.5-5.0) g/dL Free T3 pg/mL (2.8-5.3) pg/ml Urine Protein 1+ H (Negative) Urine Blood Moderate H (Negative) Urine RBC >182 H (0-5) /hpf Amorphous Sediment Rare H (None) /hpf Urine Bacteria Occasional H (None) /hpf Hyaline Casts 9 H (0-2) /lpf Urine Mucus Rare H (None) /hpf 10/15/19 Range/Units 04:51 RBC (4.30-5.90) m/uL Hgb (13.0-17.5) gm/dL Hct (39.0-53.0) % RDW (11.5-15.5) % Plt Count (150-450) k/uL Lymphocytes # (1.0-4.8) k/uL Potassium (3.5-5.1) mmol/L BUN 107 H* (9-20) mg/dL Creatinine 3.89 H (0.66-1.25) mg/dL Glucose (74-99) mg/dL POC Glucose (mg/dL) (75-99) mg/dL Magnesium 2.8 H (1.6-2.3) mg/dL Troponin I (0.000-0.034) ng/mL Total Protein 5.3 L (6.3-8.2) g/dL Albumin 3.2 L (3.5-5.0) g/dL Free T3 pg/mL (2.8-5.3) pg/ml Urine Protein (Negative) Urine Blood (Negative) Urine RBC (0-5) /hpf Amorphous Sediment (None) /hpf Urine Bacteria (None) /hpf Hyaline Casts (0-2) /lpf Urine Mucus (None) /hpf Laboratory Results WBC 4.6 k/uL (3.8-10.6) 10/15/19 04:51 RBC 2.79 m/uL (4.30-5.90) L 10/15/19 04:51 Hgb 8.8 gm/dL (13.0-17.5) L 10/15/19 04:51 Hct 26.1 % (39.0-53.0) L 10/15/19 04:51 MCV 93.8 fL (80.0-100.0) 10/15/19 04:51 MCH 31.6 pg (25.0-35.0) 10/15/19 04:51 MCHC 33.7 g/dL (31.0-37.0) 10/15/19 04:51 RDW 16.4 % (11.5-15.5) H 10/15/19 04:51 Plt Count 85 k/uL (150-450) L 10/15/19 04:51 Neutrophils % 81 % 10/15/19 04:51 Lymphocytes % 9 % 10/15/19 04:51 Monocytes % 6 % 10/15/19 04:51 Eosinophils % 1 % 10/15/19 04:51 Basophils % 1 % 10/15/19 04:51 Neutrophils # 3.7 k/uL (1.3-7.7) 10/15/19 04:51 Lymphocytes # 0.4 k/uL (1.0-4.8) L 10/15/19 04:51 Monocytes # 0.3 k/uL (0-1.0) 10/15/19 04:51 Eosinophils # 0.1 k/uL (0-0.7) 10/15/19 04:51 Basophils # 0.0 k/uL (0-0.2) 10/15/19 04:51 Poikilocytosis Slight 10/15/19 04:51 Anisocytosis Slight 10/15/19 04:51 PT 11.3 sec (9.0-12.0) 10/14/19 15:24 INR 1.1 (<1.2) 10/14/19 15:24 APTT 24.5 sec (22.0-30.0) 10/14/19 15:24 Sodium 144 mmol/L (137-145) 10/15/19 04:51 Potassium 3.6 mmol/L (3.5-5.1) 10/15/19 04:51 Chloride 106 mmol/L (98-107) 10/15/19 04:51 Carbon Dioxide 26 mmol/L (22-30) 10/15/19 04:51 Anion Gap 12 mmol/L 10/15/19 04:51 BUN 107 mg/dL (9-20) H* 10/15/19 04:51 Creatinine 3.89 mg/dL (0.66-1.25) H 10/15/19 04:51 Est GFR (CKD-EPI)AfAm 15 (>60 ml/min/1.73 sqM) 10/15/19 04:51 Est GFR (CKD-EPI)NonAf 13 (>60 ml/min/1.73 sqM) 10/15/19 04:51 Glucose 82 mg/dL (74-99) 10/15/19 04:51 POC Glucose (mg/dL) 120 mg/dL (75-99) H 10/14/19 17:47 POC Glu Registered Nurse Maternity ID 10/14/19 17:47 Plasma Lactic Acid [place] 0.7 mmol/L (0.7-2.0) 10/14/19 19:27 Calcium 8.4 mg/dL (8.4-10.2) 10/15/19 04:51 Magnesium 2.8 mg/dL (1.6-2.3) H 10/15/19 04:51 Total Bilirubin 0.6 mg/dL (0.2-1.3) 10/15/19 04:51 AST 45 U/L (17-59) 10/15/19 04:51 ALT 62 U/L (21-72) 10/15/19 04:51 Alkaline Phosphatase 55 U/L (38-126) 10/15/19 04:51 Creatine Kinase 87 U/L (55-170) 10/14/19 15:24 Troponin I 0.042 ng/mL (0.000-0.034) H* 10/14/19 15:24 Total Protein 5.3 g/dL (6.3-8.2) L 10/15/19 04:51 Albumin 3.2 g/dL (3.5-5.0) L 10/15/19 04:51 TSH 2.130 mIU/L (0.465-4.680) 10/14/19 15:24 Free T4 1.30 ng/dL (0.78-2.19) 10/14/19 15:24 Free T3 pg/mL 2.3 pg/ml (2.8-5.3) L 10/14/19 15:24 Urine Color Yellow 10/14/19 19:02 Urine Appearance Cloudy (Clear) 10/14/19 19:02 Urine pH 5.0 (5.0-8.0) 10/14/19 19:02 Ur Specific [place] 1.013 (1.001-1.035) 10/14/19 19:02 Urine Protein 1+ (Negative) H 10/14/19 19:02 Urine Glucose (UA) Negative (Negative) 10/14/19 19:02 Urine Ketones Negative (Negative) 10/14/19 19: Urine Blood Moderate (Negative) H 10/14/19 19:02 Urine Nitrite Negative (Negative) 10/14/19 19:02 Urine Bilirubin Negative (Negative) 10/14/19 19:02 Urine Urobilinogen <2.0 mg/dL (<2.0) 10/14/19 19: Ur Leukocyte Esterase Negative (Negative) 10/14/19 19:02 Urine RBC >182 /hpf (0-5) H 10/14/19 19:02 Urine WBC 2 /hpf (0-5) 10/14/19 19:02 Ur Squamous Epith Cells <1 /hpf (0-4) 10/14/19 19:02 Amorphous Sediment Rare /hpf (None) H 10/14/19 19:02 Urine Bacteria Occasional /hpf (None) H 10/14/19 19:02 Hyaline Casts 9 /lpf (0-2) H 10/14/19 19:02 Urine Mucus Rare /hpf (None) H 10/14/19 19:02 Thrombosis Risk Factor Assmnt - DVT/VTE Prophylaxis DVT/VTE Prophylaxis: Pharmacologic Prophylaxis ordered - Choose All That Apply Any of the Below Risk Factors Present?: Yes Each Factor Represents 1 point: Medical pt on bed rest Each Risk Factor Represents 3 Points: Age 75 years or older Thrombosis Risk Factor Assessment Total Risk Factor Score: 4 Thrombosis Risk Factor Assessment Level: Moderate Risk Assessment and Plan Plan: 1. Unresponsiveness, with tonic clonic activity on upper extremity, and body, without any prior history of seizures, cannot rule out seizures is the first episode, however there is also accompanied by severe bradycardia, suspect cardiac etiology for syncope, patient is now in ICU requiring pacemaker placement on 10/16/2019, EEG to be done, consult with Dr. Yañez for which neurology consultation is not available during the weekend . Off beta blockers metoprolol 2. Acute kidney injury on CKD 4. discontinue lasix and Metolazone and start IVF NS at 50 ml /h. we will continue to monitor the patient CMP continue to monitor the patient with very closely known to the nephrology service, no plans for renal replacement therapy at this time. 3. CKD stage 4 with critical azotemia. not sure if the patient is a candidate for Hemodialysis with his age , we will discuss with nephrology. Diuresis on hold, 4. History of kidney cancer status post resection and history of bladder cancer. discontinue Cardura 4 mg twice daily secondary to arrhythmia, continue on Proscar 5. 5. Hypertension, hypertensive cardiovascular disease. Continue hydralazine with parameters, hold Lasix, not on CYNTHIA inhibitor or ARB 6. Symptomatic oral rolf, clotrimazole 5 times a day 10 days 6. Hyperlipidemia. Continue Lipitor 20 mg daily. 7. Carotid artery stenosis status post stent on the left and 100% blockage on the right. Continue Plavix 75 mg daily. 8. Restless leg syndrome. Continue Requip 0.5 mg at bedtime. 9. Hypothyroidism. Continue levothyroxine 50 g daily. 10. DVT prophylaxis. Heparin 5000 units sc Q 12 h. 11. GI prophylaxis. Pepcid 20 mg orally daily. 12. Gout of the left big toe. Start Colcrys 0.6 mg orally once every day. 13. Pancytopenia, with thrombocytopenia platelets currently at 85, might need oncology consultation 14. Microscopic hematuria, noted on urinalysis, monitor
[2019-10-15] MEDS ORDERED: FUROSEMIDE 40 MG TAB PO SCH (16:00)
[2019-10-15] MEDS: hydrALAZINE HCL 50 MG TAB PO SCH ×3 (16:21→21:45)
[2019-10-15] MEDS: CLOTRIMAZOLE TROCHE 10 MG TROCHE MUCOUS MEM SCH ×2 (16:28→20:58)
[2019-10-15 17:07] LABS: Glucose,Whole Blood 116 mg/dL (75-99)
--- NOTE | 2019-10-15 17:28 | CT ---
EXAMINATION TYPE: CT brain wo con DATE OF EXAM: 10/15/2019 COMPARISON: Prior CT brain 10/14/2019 HISTORY: Unequal pupils. CT DLP: 1094.4 mGycm Automated exposure control for dose reduction was used. Helical acquisition through the brain. FINDINGS: No interval change. There is no hemorrhage or hydrocephalus. There is atrophy as on prior exam. Encep halomalacia also noted as on prior. IMPRESSION: NO ACUTE ABNORMALITY. ORBITS SHOW SYMMETRIC. CHRONIC SMALL VESSEL ISCHEMIC CHANGES, AGE RELATED ATROP HY
[2019-10-15 18:24] LABS: Anisocytosis Slight; Basophils % (A) 0 %; Eosinophils # (A) 0.1 k/uL (0-0.7); Eosinophils % (A) 1 %; HCT 28.4 % (39.0-53.0); HGB 9.3 gm/dL (13.0-17.5); Hypochromasia Slight; Lymphocytes # (A) 0.6 k/uL (1.0-4.8); Lymphocytes % (A) 12 %; MCH 31.2 pg (25.0-35.0); MCHC 32.8 g/dL (31.0-37.0); MCV 95.1 fL (80.0-100.0); Monocytes # (A) 0.3 k/uL (0-1.0); Monocytes % (A) 6 %; Neutrophils # (A) 4.4 k/uL (1.3-7.7); Neutrophils % (A) 79 %; Poikilocytosis Slight; RBC 2.98 m/uL (4.30-5.90); RDW 16.4 % (11.5-15.5); WBC 5.6 k/uL (3.8-10.6)
[2019-10-15 18:30] LABS: INR 1.1 (<1.2); Platelet Count 97 k/uL (150-450); Prothrombin Time 11.2 sec (9.0-12.0)
[2019-10-15 18:36] LABS: Calcium 8.4 mg/dL (8.4-10.2); Magnesium 2.8 mg/dL (1.6-2.3); Potassium 3.9 mmol/L (3.5-5.1)
[2019-10-15] MEDS: ATORVASTATIN 20 MG TAB PO SCH (20:58)
[2019-10-15] MEDS ORDERED: DOXAZOSIN 4 MG TAB PO SCH (21:00)
[2019-10-16] MEDS: CLOTRIMAZOLE TROCHE 10 MG TROCHE MUCOUS MEM SCH ×5 (01:09→21:11)
[2019-10-16 05:49] LABS: Anisocytosis Slight; Basophils % (A) 0 %; Eosinophils # (A) 0.1 k/uL (0-0.7); Eosinophils % (A) 1 %; HCT 28.2 % (39.0-53.0); HGB 9.3 gm/dL (13.0-17.5); Lymphocytes # (A) 0.6 k/uL (1.0-4.8); Lymphocytes % (A) 9 %; MCH 31.4 pg (25.0-35.0); MCHC 33.1 g/dL (31.0-37.0); Mean Platelet Volume 8.4; Monocytes # (A) 0.4 k/uL (0-1.0); Monocytes % (A) 6 %; Neutrophils # (A) 5.2 k/uL (1.3-7.7); Neutrophils % (A) 82 %; Poikilocytosis Slight; RBC 2.97 m/uL (4.30-5.90); RDW 16.4 % (11.5-15.5); WBC 6.3 k/uL (3.8-10.6)
[2019-10-16 05:52] LABS: Platelet Count 88 k/uL (150-450)
[2019-10-16 06:00] LABS: Calcium 8.6 mg/dL (8.4-10.2); Potassium 3.8 mmol/L (3.5-5.1)
[2019-10-16] MEDS: LEVOTHYROXINE 50 MCG TAB PO SCH (06:01)
[2019-10-16] MEDS: PANTOPRAZOLE 40 MG TABLET PO SCH (07:48)
--- NOTE | 2019-10-16 08:02 | PN ---
PROGRESS NOTE Mr. Dwyer is an 84-year-old male who presented with a syncopal episode. He was found to be in atrial flutter with slow ventricular response. The patient in the past had sinus mechanism with significant first-degree AV block. He is feeling well this morning. He feels tired. He has a ventricular rate at this time running in the 50s and no longer any significant pauses. There is no evidence of significant hypotension. He continues to be at this time on Lipitor 20 mg daily, Plavix 75 mg daily, hydralazine 50 mg 3 times a day, ropinirole, and Protonix. PHYSICAL EXAMINATION: Blood pressure running in the 150s with the heart rate in the 40s to 50s. LUNGS: With mild decrease in the breath sounds. HEART: Irregular, irregular. S1, S2. No S3. No rub. ABDOMEN: Soft, nontender, obese. EXTREMITIES: No significant edema. LAB DATA: Lab data revealed BUN creatinine 98 and 3.56, potassium 3.8, hemoglobin of 9.3. His troponin is 0.055. IMPRESSION: 1. Syncope with what appears to be sick sinus syndrome. In the past, patient was in sinus mechanism with first-degree AV block. 2. Worsening renal failure. 3. History of hypertension. 4. Prior history of cardiomyopathy. 5. Hypertension. 6. Hyperlipidemia. RECOMMENDATION: From the cardiac standpoint, he will undergo permanent pacemaker implantation today by Dr. Herrera. We will continue to follow his renal function and adjust his medical regimen once his pacemaker is implanted. MMODL / IJN: [id number] /
[2019-10-16] MEDS ORDERED: diphenhydrAMINE 50 MG/ML 1 ML VIAL IVP ONE (08:28)
[2019-10-16] MEDS ORDERED: CLINDAMYCIN 900 MG in DEXTROSE 5% IN WATER 50 ML IVPB ONE ×2 (08:28)
[2019-10-16] MEDS ORDERED: methylPREDNISolone SOD SUCCI 125 MG/2 ML VIAL IV ONE (08:28)
[2019-10-16] MEDS ORDERED: SODIUM CHLORIDE 0.9% 1,000 ML IV SCH ×2 (08:30)
[2019-10-16] MEDS: hydrALAZINE HCL 50 MG TAB PO SCH ×3 (08:58→21:11)
[2019-10-16] MEDS: FINASTERIDE 5 MG TAB PO SCH (08:58)
[2019-10-16] MEDS: ALLOPURINOL 100 MG TAB PO SCH (08:58)
[2019-10-16] MEDS ORDERED: CLOPIDOGREL 75 MG TAB PO SCH (09:00)
[2019-10-16 09:41] LABS: % Iron Saturation 13.28 (15.00-50.00)
--- NOTE | 2019-10-16 10:43 | ECHOF ---
Referral Reason:syncope MEASUREMENTS -------- HEIGHT: 167.6 cm WEIGHT: 105.2 kg BP: 151/57 RVIDd: 3.8 cm (< 3.3) IVSd: 1.5 cm (0.6 - 1.1) LVIDd: 5.2 cm (3.9 - 5.3) LVPWd: 1.6 cm (0.6 - 1.1) IVSs: 2.1 cm LVIDs: 3.2 cm LVPWs: 1.8 cm LA Diam: 4.1 cm (2.7 - 3.8) LAESV Index (A-L): 26.04 ml/m Ao Diam: 4.0 cm (2.0 - 3.7) AV Cusp: 2.3 cm (1.5 - 2.6) MV EXCURSION: 19.371 mm (> 18.000) MV EF SLOPE: 140 mm/s (70 - 150) EPSS: 0.6 cm AR PHT: 475 ms RAP: 5.00 mmHg RVSP: 39.63 mmHg TAPSE: 21.43 mm FINDINGS -------- The rhythm appears to be atrial flutter. This was a technically adequate study. The left ventricular size is normal. There is moderate concentric left ventricular hypertrophy. O verall left ventricular systolic function is mild-moderately impaired with, an EF between 40 - 45 %. The right ventricle is mild to moderately enlarged. Normal LA size by volume 22+/-6 ml/m2. The right atrium is normal in size. Interatrial and interventricular septum intact. There is mild aortic valve sclerosis. There is mild aortic regurgitation. The mitral valve leaflets are mildly thickened. There is trace to mild mitral regurgitation. Mild tricuspid regurgitation present. There is mild pulmonary hypertension. The right ventricular systolic pressure, as measured by Doppler, is 39.63mmHg. The pulmonic valve was not well visualized. The aortic root is dilated measuring 4.0cm. Normal inferior vena cava with normal inspiratory collapse consistent with estimated right atrial pre ssure of 5 mmHg. The inferior vena cava is moderately dilated. There is no pericardial effusion. CONCLUSIONS -------- 1. The rhythm appears to be atrial flutter. 2. This was a technically adequate study. 3. The left ventricular size is normal. 4. There is moderate concentric left ventricular hypertrophy. 5. Overall left ventricular systolic function is mild-moderately impaired with, an EF between 40 - 45 %. 6. The right ventricle is mild to moderately enlarged. 7. Normal LA size by volume 22+/-6 ml/m2. 8. The right atrium is normal in size. 9. Interatrial and interventricular septum intact. 10. There is mild aortic valve sclerosis. 11. There is mild aortic regurgitation. 12. The mitral valve leaflets are mildly thickened. 13. There is trace to mild mitral regurgitation. 14. Mild tricuspid regurgitation present. 15. There is mild pulmonary hypertension. 16. The right ventricular systolic pressure, as measured by Doppler, is 39.63mmHg. 17. The pulmonic valve was not well visualized. 18. The aortic root is dilated measuring 4.0cm. 19. Normal inferior vena cava with normal inspiratory collapse consistent with estimated right atrial pressure of 5 mmHg. 20. The inferior vena cava is moderately dilated. 21. There is no pericardial effusion. MITER SAWYER: Izabela Holder RDCS
--- NOTE | 2019-10-16 11:06 | CDI ---
Documentation Clarification Form Date: 10/16/2019 10:59:15 AM From: Karon MckeeROLAND, CCDS Admit Date: 10/14/2019 4:39:00 PM Patient Name: Lawrence Dwyer Visit Number: [id number] Discharge Date: ATTENTION: The Clinical Documentation Specialists (CDI) and [facility] Coding Staff appreciate your assistance in clarifying documentation. Please respond to the clarification below the line at the bottom and electronically sign. The CDI & [facility] Coding staff will review the response and follow-up if needed. Please note: Queries are made part of the Legal Health Record. If you have any questions, please contact the author of this message via ITS. Dr. Moody Mccarthy: Atrial Flutter is documented in the ED note, the cardiology consult, the History & Physical and a subsequent progress note without further specificity. History/Risk factors: Bladder cancer status post mass resection, kidney cancer status post left with partial nephrectomy, carotid artery stenosis with stent, hypertension, hypothyroidism, hyperlipidemia, restless leg syndrome, gout, & CKD IV. Clinical Indicators: Presented to ED after a syncopal episode at home ([facility]), found to have sick sinus syndrome in need of a pacemaker which is scheduled. EKG/telemetry: R 32 Atrial flutter with variable AV block Treatment: po KCL, IV fluid bolus, IV Kcl, IV fluid rate 50, IV Protonix. Admit to ICU, Pacemaker pending. In your professional opinion, in order to capture the severity of condition; can you please clarify the type of Atrial Flutter if known? xxx Typical/Type I Atypical/Type II Other, please specify Unable to determine (Last Revision: February 2018) MTDD
[2019-10-16] MEDS ORDERED: ceFAZolin 1,000 MG in SODIUM CHLORIDE 0.9% IRRIGATIO 250 ML IRRIGATION ONE (11:15)
[2019-10-16] MEDS ORDERED: IOPAMIDOL-300 50ML BTL IV ONE (11:30)
[2019-10-16] MEDS: SODIUM CHLORIDE 0.9% 1,000 ML IV SCH (11:35)
[2019-10-16] MEDS ORDERED: LIDOCAINE 1% INJ 10MG/ML (20 ML MDV) ONE ×2 (11:36→11:37)
[2019-10-16] MEDS ORDERED: fentaNYL (PF) 50 MCG/ML 2 ML AMP ONE (11:36)
[2019-10-16 11:54] LABS: Ferritin 216.2 ng/mL (22.0-322.0)
[2019-10-16] MEDS ORDERED: fentaNYL (PF) 50 MCG/ML 2 ML AMP IV ONE (11:55)
[2019-10-16] MEDS ORDERED: LIDOCAINE 1% INJ 10MG/ML (20 ML MDV) SQ ONE (12:00)
[2019-10-16] MEDS ORDERED: LIDOCAINE 1% (PF) 10 MG/ML (30 ML SDV) SQ ONE (12:04)
[2019-10-16] MEDS ORDERED: IV FLUID CONTINUATION 800 ML IV ONE (12:05)
[2019-10-16] MEDS ORDERED: ACETAMINOPHEN TAB 325 MG TAB PO PRN (12:34)
--- NOTE | 2019-10-16 12:42 | P.PCN ---
Date of Procedure: 10/16/19 Preoperative Diagnosis: Sick sinus syndrome, syncope Postoperative Diagnosis: The same Procedure(s) Performed: Permanent pacemaker implantation, axillary venography Description of Procedure: HISTORY: This is a 84-year-old gentleman with history of a persistent atrial fibrillation and sick sinus syndrome was admitted to the hospital with an episode of syncope and severe bradycardia with heart rates in the 20s and 30s. A permanent pacemaker implantation is requested. Patient and family were explained the risks and benefits of the procedure. CONSENT:I have discussed the risks, benefits and alternative therapies for the above-mentioned procedure and for both sedation/analgesia as well as necessary blood product administration, if indicated, as they pertain to this patient. The patient has indicated understanding and acceptance of the risks and procedures discussed. PROCEDURE: Patient was brought to the lab in a fasting state. Patient was prepped and draped in the usual fashion. Patient was given IV sedation with fentanyl and Versed. The skin below the left clavicle was infiltrated with lidocaine. An incision was made parallel to deltopectoral groove was deepened until the pectoral fascia was exposed. A pocket was created by blunt dissection and cautery. Axillary venography was performed to delineate the course of the axillary vein. A single venous stick was performed into extrathoracic portion of the axillary vein and a single sheath was advanced over the guidewires and left in subclavian vein. Conscious Sedation: Versed 0mg Fentanyl 12.5 g Duration 40minutes LEADS: VENTRICULAR: This is manufactured by [employer]. Model number is 2088TC/58 cm. The serial number is [id number]. The device: This is manufactured by [employer]. Model number is MRI 1272 and the serial number is [id number]. The ventricular lead is maneuvered l with help of a straight and curved stylets into the left ventricle apical region. Satisfactory position was obtained and threshold measurements were made. THRESHOLDS: VENTRICLE: The minimal patient threshold is 0.75 V at 0.4 ms. The impedance is 800 ohms R-wave: And 0.1 mV The leads and pulse generator remained in the pocket after it was washed with antibiotics. Pocket was closed in the usual fashion. The fascia was closed with 2-0 Prolene ,the subcutaneous tissue was closed with 3-0 Prolene and the skin was closed with 4-0 Prolene. PROGRAMMING: MODE: VVI RATE: 60 OUTPUT: Ventricle: 3.5 V FINAL IMPRESSION: #1 axillary venography #2 successful implantation of the single-chamber pacemaker COMPLICATIONS: None PLAN:. Patient will be admitted to the monitoring unit. Prophylactic antibiotics to be continued. Chest x-ray in the morning
--- NOTE | 2019-10-16 15:21 | P.PN ---
Subjective Progress Note Date: 10/16/19 This is an 84-year-old male patient of Dr. Harman with past medical history of bladder cancer diagnosed 18 years ago status post mass resection, kidney cancer initially diagnosed in 2010 on the left with partial nephrectomy followed by diagnosis on the right in 2013 status post partial robot ic resection. Patient states cancers currently are in remission and his oncologist is Dr. Juan. He also has past medical history of carotid artery stenosis status post stent, hypertension, hypothyroidism, hyperlipidemia, restless leg syndrome, gout, chronic kidney disease stage 4, he was last admitted from our facility 10/02/2019, was admitted for acute kidney injury on CK D stage IV, hypokalemia, for which hydralazine was dispensed at 50 mg 3 times a day that time, amlodipine 10 mg daily, and metoprolol was increased to 25 mg daily. He now comes in to the emergency room, from [facility] lodge secondary to unresponsiveness, patient was noted to be witnessed to be shaking, arms and upper body, with eyes open, and unresponsive this lasted for approximately 1-2 minutes, is mostly incontinence urinary incontinence, patient was not diagnosed to have any seizure episode in the past, however he comes in with significant bradycardia from the emergency room heart rate in the 19, he also presents with worsening renal function, with a baseline of 2.6-2.8, creatinine on admission is 3.97, he was taking diuretics at home, and is not on any NSAIDs, patient is scheduled to have a pacemaker in the morning, he also complains of new dysphagia, including Jell-O, which is on the current admission. Patient denies any aspirate events, Dry mouth, patient does not have any new focal neurologic deficits including motor dysfunction, or sensory dysfunction. 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 Shari Burden cardiology, Dr. Coronel nephrology 10/16: Echocardiogram reveals EF of 40-45% with moderate concentric left ventricular hypertrophy, mild aortic valve sclerosis, mild aortic regurgitation, trace to mild mitral regurgitation, mild tricuspid regurgitation, mild pulmonary hypertension. Patient has undergone permanent pacemaker implantation today with Dr. Herrera for sick sinus syndrome and syncope. He denies any complaints following procedure. His blood pressure has been stable. Pupils are noted to be equal at 2 mm bilaterally. Review Of Systems: Constitutional: No fever, no chills, no night sweats. No weight change. No weakness, fatigue or lethargy. No daytime sleepiness. EENT: No headache. No blurred vision or double vision, no loss of vision. No loss of Hearing, no ringing in the ears, no dizziness. No nasal drainage or congestion. No epistaxis. No sore throat. Lungs: No shortness of breath, cough, no sputum production. No wheezing. Cardiovascular: No chest pain, no lower extremity edema. No palpitations. No paroxysmal nocturnal dyspnea. No orthopnea. No lightheadedness or dizziness. No syncopal episodes. Abdominal: No abdominal pain. No nausea, vomiting. No diarrhea. No constipation. No bloody or tarry stools.. No loss of appetite. Genitourinary: No dysuria, increased frequency, urgency. No urinary retention. Musculoskeletal: No myalgias. No muscle weakness, no gait dysfunction, no frequent falls. No back pain. No neck pain. Integumentary: No wounds, no lesions. No rash or pruritus. No unusual bruising. No change in hair or nails. Neurologic: No aphasia. No facial droop. No change in mentation. No head injury. No headache. No paralysis. No paresthesia. Psychiatric: No depression. No anxiety. No mood swings. Endocrine: No abnormal blood sugars. No weight change. No excessive sweating or thirst. No cold intolerance. Objective - Vital Signs Vital signs: Vital Signs Temp 96.1 F L 10/16/19 08:00 Pulse 38 L 10/16/19 10:00 Resp 21 10/16/19 10:00 BP 139/60 10/16/19 10:00 Pulse Ox 95 10/16/19 10:00 Intake & Output 10/15/19 10/16/19 10/16/19 18:59 06:59 18:59 Intake Total 850 600 250 Output Total 515 555 325 Balance 335 45 -75 Weight 105.6 kg Intake: IV 800 600 250 Potassium Chloride 10 meq 300 In Water For Injection 1 100ml.bag @ 100 mls/hr IVPB Q1HR JAMES Rx#: [id number] Sodium Chloride 0.9% 1, 500 600 250 000 ml @ 50 mls/hr IV . Q20H JAMES Rx#:[id number] Intake, IV Titration 50 Amount Sodium Chloride 0.9% 1, 50 000 ml @ 50 mls/hr IV . Q20H JAMES Rx#:[id number] Output: Urine 515 555 325 Other: Voiding Method Indwelling Catheter Indwelling Catheter Indwelling Catheter - Exam General appearance: cooperative, no acute distress - EENT Eyes: anicteric sclerae, EOMI, PERRLA, dentition normal, normal appearance ENT: NA/AT, normal oropharynx - Neck Neck: normal ROM - Respiratory Respiratory: bilateral: CTA, negative: dullness, rales, wheezing - Cardiovascular Rhythm: regular Heart sounds: normal: S1, S2 - Gastrointestinal General gastrointestinal: normal bowel sounds - Integumentary Integumentary: normal, normal turgor - Neurologic Neurologic: CNII-XII intact - Musculoskeletal Musculoskeletal: gait normal - Psychiatric Psychiatric: A&O x's 3, appropriate affect - Labs CBC & Chem 7: 10/16/19 05:15 10/16/19 05:15 Labs: Abnormal Lab Results - Last 24 Hours (Table) 10/15/19 10/15/19 10/15/19 Range/Units 04:51 16:55 17:31 RBC 2.98 L (4.30-5.90) m/uL Hgb 9.3 L (13.0-17.5) gm/dL Hct 28.4 L (39.0-53.0) % RDW 16.4 H (11.5-15.5) % Plt Count 97 L (150-450) k/uL Lymphocytes # 0.6 L (1.0-4.8) k/uL BUN (9-20) mg/dL Creatinine (0.66-1.25) mg/dL Glucose (74-99) mg/dL POC Glucose (mg/dL) 116 H (75-99) mg/dL Magnesium (1.6-2.3) mg/dL Iron 32 L (65-175) ug/dL % Saturation 13.28 L (15.00-50.00) Troponin I (0.000-0.034) ng/mL 10/15/19 10/15/19 10/16/19 Range/Units 17:31 17:31 05:15 RBC 2.97 L (4.30-5.90) m/uL Hgb 9.3 L (13.0-17.5) gm/dL Hct 28.2 L (39.0-53.0) % RDW 16.4 H (11.5-15.5) % Plt Count 88 L (150-450) k/uL Lymphocytes # 0.6 L (1.0-4.8) k/uL BUN 104 H* (9-20) mg/dL Creatinine 3.78 H (0.66-1.25) mg/dL Glucose 100 H (74-99) mg/dL POC Glucose (mg/dL) (75-99) mg/dL Magnesium 2.8 H (1.6-2.3) mg/dL Iron (65-175) ug/dL % Saturation (15.00-50.00) Troponin I 0.055 H* (0.000-0.034) ng/mL 10/16/19 Range/Units 05:15 RBC (4.30-5.90) m/uL Hgb (13.0-17.5) gm/dL Hct (39.0-53.0) % RDW (11.5-15.5) % Plt Count (150-450) k/uL Lymphocytes # (1.0-4.8) k/uL BUN 98 H (9-20) mg/dL Creatinine 3.56 H (0.66-1.25) mg/dL Glucose (74-99) mg/dL POC Glucose (mg/dL) (75-99) mg/dL Magnesium (1.6-2.3) mg/dL Iron (65-175) ug/dL % Saturation (15.00-50.00) Troponin I (0.000-0.034) ng/mL Microbiology - Last 24 Hours (Table) 10/14/19 19:27 Blood Culture - Preliminary Blood No Growth after 24 hours Assessment and Plan Plan: 1. Unresponsiveness, with tonic clonic activity on upper extremity, and body, without any prior history of seizures, cannot rule out seizures is the first episode, however there is also accompanied by severe bradycardia, suspect cardiac etiology for syncope, patient is that his post pacemaker placement on 10/16/2019, EEG to be done, consult with Dr. Yañez for which neurology c onsultation is not available during the weekend . Off beta blockers metoprolol 2. Acute kidney injury on CKD 4. discontinue lasix and Metolazone and start IVF NS at 50 ml /h. we will continue to monitor the patient CMP continue to monitor the patient with very closely known to the nephrology service, no plans for renal replacement therapy at this time. 3. CKD stage 4 with critical azotemia. not sure if the patient is a candidate for Hemodialysis with his age , we will discuss with nephrology. Diuresis on hold, 4. History of kidney cancer status post resection and history of bladder cance r. discontinue Cardura 4 mg twice daily secondary to arrhythmia, continue on Proscar 5. 5. Hypertension, hypertensive cardiovascular disease. Continue hydralazine with parameters, hold Lasix, not on CYNTHIA inhibitor or ARB 6. Symptomatic oral rolf, clotrimazole 5 times a day 10 days 7. Hyperlipidemia. Continue Lipitor 20 mg daily. 8. Carotid artery stenosis status post stent on the left and 100% blockage on the right. Continue Plavix 75 mg daily. 9. Restless leg syndrome. Continue Requip 0.5 mg at bedtime. 10. Hypothyroidism. Continue levothyroxine 50 g daily. 11. DVT prophylaxis. Heparin 5000 units sc Q 12 h. 12. GI prophylaxis. Pepcid 20 mg orally daily. 13. Gout of the left big toe. Start Colcrys 0.6 mg orally once every day. 14. Pancytopenia, with thrombocytopenia platelets currently at 85, might need oncology consultation 15. Microscopic hematuria, noted on urinalysis, monitor Discharge plan: To be determined Impression and plan of care have been directed as dictated by the signing physician. Florecita Pedroza nurse practitioner acting as scribe for signing physician.
--- NOTE | 2019-10-16 15:25 | P.PN ---
Subjective Progress Note Date: 10/16/19 Principal diagnosis: Severe symptomatic bradycardia, unresponsiveness/loss of consciousness, acute renal failure probably related to hypertension dehydration, chronic kidney disease stage IV, hypertension and is currently vascular disease, likely obstructive sleep apnea, morbid obesity, carotid artery stenosis with stent on the left side and 100% blockage in the right side 10/16/2019, patient seen eval reexamined during the rounds labs reviewed medications reviewed slightly more responsive now patient is under affect of the anesthetic agent for permanent pacemaker placement which she tolerated fairly well hemodynamic status stable, chest x-rays pending, hemoglobin is 9.3, BUN/creatinine improved to 98 and 3.5 Objective - Vital Signs Vital signs: Vital Signs Temp 97.0 F L 10/16/19 14:00 Pulse 60 10/16/19 14:00 Resp 35 H 10/16/19 14:00 BP 144/70 10/16/19 14:00 Pulse Ox 94 L 10/16/19 14:00 Intake & Output 10/15/19 10/16/19 10/16/19 18:59 06:59 18:59 Intake Total 850 600 400 Output Total 515 555 575 Balance 335 45 -175 Weight 105.6 kg Intake: IV 800 600 400 Potassium Chloride 10 meq 300 In Water For Injection 1 100ml.bag @ 100 mls/hr IVPB Q1HR JAMES Rx#: [id number] Sodium Chloride 0.9% 1, 500 600 300 000 ml @ 50 mls/hr IV . Q20H JAMES Rx#:[id number] Intake, IV Titration 50 Amount Sodium Chloride 0.9% 1, 50 000 ml @ 50 mls/hr IV . Q20H JAMES Rx#:[id number] Output: Urine 515 555 575 Other: Voiding Method Indwelling Catheter Indwelling Catheter Indwelling Catheter - Exam - Constitutional General appearance: cooperative, no acute distress - EENT Eyes: anicteric sclerae, EOMI, PERRLA, dentition normal, normal appearance ENT: NA/AT, normal oropharynx - Neck Neck: normal ROM - Respiratory Respiratory: bilateral: CTA, negative: dullness, rales, wheezing - Cardiovascular Rhythm: regular Heart sounds: normal: S1, S2 - Gastrointestinal General gastrointestinal: normal bowel sounds - Integumentary Integumentary: normal, normal turgor - Neurologic Neurologic: CNII-XII intact - Musculoskeletal Musculoskeletal: gait normal - Psychiatric Psychiatric: A&O x's 3, appropriate affect - Labs CBC & Chem 7: 10/16/19 05:15 10/16/19 05:15 Labs: Abnormal Lab Results - Last 24 Hours (Table) 10/15/19 10/15/19 10/15/19 Range/Units 04:51 16:55 17:31 RBC 2.98 L (4.30-5.90) m/uL Hgb 9.3 L (13.0-17.5) gm/dL Hct 28.4 L (39.0-53.0) % RDW 16.4 H (11.5-15.5) % Plt Count 97 L (150-450) k/uL Lymphocytes # 0.6 L (1.0-4.8) k/uL BUN (9-20) mg/dL Creatinine (0.66-1.25) mg/dL Glucose (74-99) mg/dL POC Glucose (mg/dL) 116 H (75-99) mg/dL Magnesium (1.6-2.3) mg/dL Iron 32 L (65-175) ug/dL % Saturation 13.28 L (15.00-50.00) Troponin I (0.000-0.034) ng/mL 10/15/19 10/15/19 10/16/19 Range/Units 17:31 17:31 05:15 RBC 2.97 L (4.30-5.90) m/uL Hgb 9.3 L (13.0-17.5) gm/dL Hct 28.2 L (39.0-53.0) % RDW 16.4 H (11.5-15.5) % Plt Count 88 L (150-450) k/uL Lymphocytes # 0.6 L (1.0-4.8) k/uL BUN 104 H* (9-20) mg/dL Creatinine 3.78 H (0.66-1.25) mg/dL Glucose 100 H (74-99) mg/dL POC Glucose (mg/dL) (75-99) mg/dL Magnesium 2.8 H (1.6-2.3) mg/dL Iron (65-175) ug/dL % Saturation (15.00-50.00) Troponin I 0.055 H* (0.000-0.034) ng/mL 10/16/19 Range/Units 05:15 RBC (4.30-5.90) m/uL Hgb (13.0-17.5) gm/dL Hct (39.0-53.0) % RDW (11.5-15.5) % Plt Count (150-450) k/uL Lymphocytes # (1.0-4.8) k/uL BUN 98 H (9-20) mg/dL Creatinine 3.56 H (0.66-1.25) mg/dL Glucose (74-99) mg/dL POC Glucose (mg/dL) (75-99) mg/dL Magnesium (1.6-2.3) mg/dL Iron (65-175) ug/dL % Saturation (15.00-50.00) Troponin I (0.000-0.034) ng/mL Microbiology - Last 24 Hours (Table) 10/14/19 19:27 Blood Culture - Preliminary Blood No Growth after 24 hours Assessment and Plan Assessment: Severe symptomatic bradycardia Loss of consciousness likely related to severe symptomatic bradycardia Obstructive sleep apnea and sleep disorder breathing Morbid obesity Chronic renal failure stage IV Plan: Continue gentle rehydration Patient status post pacemaker Will avoid diuretics Continue hydralazine Continue Requip Further recommendations pending plan of care as per clinical response of the patient She will definitely need a sleep study on outpatient Time with Patient: Greater than 30
--- NOTE | 2019-10-16 15:51 | P.CNNES ---
History of Present Illness Consult date: 10/16/19 Reason for Consult: Possible seizure, unequal pupils Chief complaint: AMS, physical limitation History of Present Illness: HISTORY OF PRESENT ILLNESS: Thank you for allowing me to evaluate Mr. Lawrence Dwyer. Mr. Dwyer is an 84-year-old man with past medical history of hypertension, hyperlipidemia, bladder cancer, kidney cancer, hypothyroidism, 100% blockage and left carotid artery, who presented to [facility] for concern regarding a unresponsive episode. Patient had a clinically significant bradycardia, for which patient underwent a procedure today to place a pacemaker. Patient doing well at this time. patient with no complaints. Patient states that he was never told he had a stroke, and he was only recently told that he had a heart attack. He remembers have diagnoses of cancer, but not clearly. Patient lives in a shelter home called [facility]. Patient states he started using a walker about 2 years when he started living at the shelter home per facility recommendation and everyone there was using it. however, he noticed that he became more reliant on it with time. Patient denies any headache, nausea, vomiting, double/blurry vision, numbness or tingling. PAST MEDICAL HISTORY: Hypertension, hyperlipidemia, bladder cancer, kidney cancer, hypothyroidism, 100% blockage and left carotid artery PAST SURGICAL HISTORY: Hernia repair, partial nephrectomy HOME MEDICATIONS: Temazepam, levothyroxine, finasteride, Plavix, simvastatin, doxazosin, ropinirole, allopurinol, tramadol, hydralazine, potassium chloride, furosemide, acetaminophen ALLERGIES: Zolpidem SOCIAL HISTORY: Former smoker. FAMILY HISTORY: Father from prostate cancer. Mother from lung cancer. 2 brothers had stroke. REVIEW OF SYSTEMS: The 14 systems are reviewed and no additional points are identified compared to the review of systems documented history and physical PHYSICAL EXAMINATION: VITAL SIGNS: T 97.5 HR 52 RR 20 BP 158/58 O2 sat 95% on 2L via NC GEN.: NAD, pleasant and cooperative HEENT: NCAT, sclera without icterus NECK: Supple, no carotid bruit SKIN AND EXTREMITIES: Warm to touch, no edema NEURO: MENTAL STATUS: Patient alert and oriented to self, place, time. Unable to name the current president. Speech fluent but slightly mumbled, able to name and repeat, following all commands readily. No right and left disorientation, neglect. CRANIAL NERVES II THROUGH XII: II: Pupils are equal and slowly reactive to light symmetrically. No afferent pupillary defect. Visual gonzalez are intact. III, IV, : No ptosis. Extraocular movements full. No nystagmus. V: Facial sensation intact from V1-3. VII. No clear facial asymmetry. VIII: Hearing intact to finger rub bilaterally. IX, X: Symmetric palate elevation. XI: Shoulder shrug intact. XII: Tongue midline without fasciculation or atrophy. MOTOR: Normal bulk/tone. No pronator drift or tremor. Strength is 5/5 in b/l UE, 4+/5 in b/l LE SENSORY: Intact to light touch in all 4 extremities. REFLEXES: 2+ throughout. Toes are downgoing. COORDINATION: Finger to nose intact. No dysmetria. GAIT: deferred DIAGNOSTIC TESTING: LABORATORY: WBC 6.3 hemoglobin 9.3 platelet 88 sodium 140 potassium 3.8 chloride 105 bicarb 24 BUN 98 creatinine 2.56 glucose 97 calcium 8.6 magnesium 2.8 AST 45 ALT 62 alk phos 55 troponin 0.055 TSH 2.130 IMAGING: CT head without contrast 10/14/2019: Moderate generalized atrophy. 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 Chronic small vessel ischemic changes. Age-related atrophy. TTE 10/16/19: Atrial flutter. LV, RA and LA sizes are normal. LV mild to moderately enlarged. EF 40-45%. EKG 10/14/19: Atrial flutter with variable AV block ASSESSMENT: 84-year-old man with past medical history of hypertension, hyperlipidemia, blad levar cancer, kidney cancer, hypothyroidism, 100% blockage and left carotid artery, who presented to [facility] for concern regarding a unresponsive episode, found with significant bradycardia, s/p pacemaker placement on 10/16/19, consulting Neurology for possible seizure and unequal pupils. On exam, patient's pupils are slow to react but equal in size. Unable to get history about seizure from patient, and this event very like was from his cardiac condition. However, on further reviewing of patient's chart, patient with atrial flutter with multiple areas of infarct on CT head, for which patient should be placed on anticoagulation for stroke prevention. however, patient also history of multiple cancers, and hence, metastases to the brain cannot be ruled out. MRI brain w/ and w/o contrast would have been recommended, but patient now with a pacemaker (which can be MRI compatible!). MRI brain will also help in seeing any areas of possible microhemorrhages, for which risk of anticoagulation would be higher. Can also consider antiplatelet therapy for the patient if anticoagulation would pose any increased risk at this time. RECOMMENDATIONS: 1. Routine EEG performed. Awaiting final result 2. MRI brain w/ and w/o contrast 3. CTA Head and Neck w/ and w/o contrast 4. c/w atorvastatin 5. consider starting ASA when patient stable from pacemaker placement 6. Labs: A1C, FLP 7. Neurology will continue to follow 8. Patient needs to follow up with neurologist as outpatient with her 1-2 weeks of discharge Past Medical History Past Medical History: Cancer, Hyperlipidemia, Hypertension, Thyroid Disorder Additional Past Medical History / Comment(s): bladder cancer, kidney cancer. 1 00% blockage in left carotid artery, left 50% blockage with stent repair History of Any Multi-Drug Resistant Organisms: None Reported Past Surgical History: Hernia Repair Additional Past Surgical History / Comment(s): kidney- right and left partial removal, two hernia repairs. Past Anesthesia/Blood Transfusion Reactions: Previous Problems w/ Anesthesia Additional Past Anesthesia/Blood Transfusion Reaction / Comment(s): "out of it for 4 days after anesthesia" Past Psychological History: No Psychological Hx Reported Smoking Status: Former smoker Past Alcohol Use History: None Reported Additional Past Alcohol Use History / Comment(s): quit smoking 1968, no illicit drug use, no alcohol use. Patient recently moved to [place]. He has a walker but rarely uses. No nebulizer, no oxygen. Past Drug Use History: None Reported - Past Family History Father Additional Family Medical History / Comment(s): Father from prostate cancer. Mother Additional Family Medical History / Comment(s): Mother from lung cancer. Brother(s) Additional Family Medical History / Comment(s): Patient has 2 brothers one has had these stroke. One brother had kidney cancer unknown reason. Patient has one sister is healthy with no major medical problems. Patient has 2 children, one daughter with hyperlipidemia and one son with history of atrial fibrillation and borderline diabetes. Medications and Allergies Home Medications Medication Instructions Recorded Confirmed Type Clopidogrel [Plavix] 75 mg PO DAILY 05/03/19 10/14/19 History Doxazosin [Cardura] 4 mg PO BID 05/03/19 10/14/19 History Finasteride [Proscar] 5 mg PO DAILY 05/03/19 10/14/19 History Levothyroxine Sodium [Synthroid] 50 mcg PO DAILY 05/03/19 10/14/19 History Simvastatin 40 mg PO HS 05/03/19 10/14/19 History Temazepam [Restoril] 15 mg PO HS 05/03/19 10/14/19 History rOPINIRole HCL [Requip] 0.5 mg PO HS 05/03/19 10/14/19 History Allopurinol [Zyloprim] 100 mg PO DAILY 09/29/19 10/14/19 History traMADol HCL 50 mg PO DAILY PRN 09/29/19 10/14/19 History hydrALAZINE HCL [Apresoline] 50 mg PO TID #90 tab 10/02/19 10/14/19 Rx Acetaminophen [Tylenol Extra 500 mg PO Q6H PRN 10/14/19 10/14/19 History Strength] Furosemide [Lasix] 40 mg PO BID 10/14/19 10/14/19 History Potassium Chloride ER [K-Dur 20] 20 meq PO Q48H 10/14/19 10/14/19 History Allergies Allergy/AdvReac Type Severity Reaction Status Date / Time zolpidem [From Ambien] Allergy Unknown Verified 10/14/19 17:03 Physical Examination - Vital Signs Vital Signs: Vital Signs Temp Pulse Resp BP Pulse Ox 10/16/19 07:00 54 L 18 160/59 95 10/16/19 06:00 51 L 18 151/57 94 L 10/16/19 05:00 51 L 20 158/60 95 10/16/19 04:00 97.5 F L 52 L 20 158/58 95 10/16/19 03:00 49 L 20 159/55 96 10/16/19 02:00 56 L 20 133/57 95 10/16/19 01:00 49 L 18 148/48 96 10/16/19 00:00 98.0 F 52 L 17 142/49 96 10/15/19 23:00 47 L 21 119/89 96 10/15/19 22:00 49 L 20 138/51 96 10/15/19 21:00 51 L 20 109/93 97 10/15/19 20:00 98.0 F 49 L 20 123/55 96 10/15/19 19:00 52 L 25 H 140/51 96 10/15/19 18:00 57 L 18 164/43 96 10/15/19 17:00 42 L 22 148/46 95 10/15/19 16:00 97.6 F 32 L 16 117/41 96 10/15/19 15:00 30 L 15 112/45 94 L 10/15/19 14:00 39 L 27 H 135/48 95 10/15/19 13:00 53 L 20 142/41 95 10/15/19 12:00 97.8 F 43 L 24 138/51 95 10/15/19 11:00 40 L 20 138/51 95 10/15/19 10:00 57 L 20 135/43 96 Intake and Output 10/15/19 10/16/19 10/16/19 22:59 06:59 14:59 Intake Total 400 400 100 Output Total 275 410 150 Balance 125 -10 -50 Intake: IV 400 400 100 Sodium Chloride 0.9% 1, 400 400 100 000 ml @ 50 mls/hr IV . Q20H [facility] Rx#:[id number] Output: Urine 275 410 150 Other: Voiding Method Indwelling Catheter Indwelling Catheter Weight 105.6 kg Results - Laboratory Findings CBC and BMP: 10/16/19 05:15 10/16/19 05:15 Abnormal Lab Findings: Abnormal Labs 10/14/19 10/14/19 10/14/19 15:24 15:24 15:24 RBC 3.05 L Hgb 9.7 L Hct 28.2 L RDW 16.4 H Plt Count 80 L Lymphocytes # 0.3 L Potassium 3.2 L BUN 104 H* Creatinine 3.97 H Glucose 162 H POC Glucose (mg/dL) Magnesium 2.8 H Troponin I 0.042 H* Total Protein 5.8 L Albumin Free T3 pg/mL 2.3 L Urine Protein Urine Blood Urine RBC Amorphous Sediment Urine Bacteria Hyaline Casts Urine Mucus 10/14/19 10/14/19 10/15/19 17:47 19:02 04:51 RBC 2.79 L Hgb 8.8 L Hct 26.1 L RDW 16.4 H Plt Count 85 L Lymphocytes # 0.4 L Potassium BUN Creatinine Glucose POC Glucose (mg/dL) 120 H Magnesium Troponin I Total Protein Albumin Free T3 pg/mL Urine Protein 1+ H Urine Blood Moderate H Urine RBC >182 H Amorphous Sediment Rare H Urine Bacteria Occasional H Hyaline Casts 9 H Urine Mucus Rare H 10/15/19 10/15/19 10/15/19 04:51 16:55 17:31 RBC 2.98 L Hgb 9.3 L Hct 28.4 L RDW 16.4 H Plt Count 97 L Lymphocytes # 0.6 L Potassium BUN 107 H* Creatinine 3.89 H Glucose POC Glucose (mg/dL) 116 H Magnesium 2.8 H Troponin I Total Protein 5.3 L Albumin 3.2 L Free T3 pg/mL Urine Protein Urine Blood Urine RBC Amorphous Sediment Urine Bacteria Hyaline Casts Urine Mucus 10/15/19 10/15/19 10/16/19 17:31 17:31 05:15 RBC 2.97 L Hgb 9.3 L Hct 28.2 L RDW 16.4 H Plt Count 88 L Lymphocytes # 0.6 L Potassium BUN 104 H* Creatinine 3.78 H Glucose 100 H POC Glucose (mg/dL) Magnesium 2.8 H Troponin I 0.055 H* Total Protein Albumin Free T3 pg/mL Urine Protein Urine Blood Urine RBC Amorphous Sediment Urine Bacteria Hyaline Casts Urine Mucus 10/16/19 05:15 RBC Hgb Hct RDW Plt Count Lymphocytes # Potassium BUN 98 H Creatinine 3.56 H Glucose POC Glucose (mg/dL) Magnesium Troponin I Total Protein Albumin Free T3 pg/mL Urine Protein Urine Blood Urine RBC Amorphous Sediment Urine Bacteria Hyaline Casts Urine Mucus
--- NOTE | 2019-10-16 17:56 | EEG ---
ELECTROENCEPHALOGRAM REPORT PROCEDURE DATE: 10/16/2019. ELECTROENCEPHALOGRAM (EEG) REPORT: TECHNIQUE: A routine 18 channel EEG was performed with video using the 10/20 electrode placement system. HISTORY: Encephalopathy. Patient came to the ER with excessive weakness and fatigue. OTHER MEDICAL HISTORY: Includes hypertension, hyperlipidemia. CURRENT MEDICATIONS: Requip, Protonix, potassium chloride, Synthroid, alprazolam, clotrimazole. STUDY DURATION: 22 minutes. FINDINGS: Please note that portions of the recording were limited in their interpretation by the presence of muscle artifact. BACKGROUND: The background activity consisted of 7 to 8 hertz rhythmic waveforms symmetrically distributed over both posterior quadrants. ACTIVATION: Hyperventilation: Not performed. Photic stimulation: No driving seen. Sleep: None. ABNORMALITIES: Intermittent diffuse 6-7 hertz polymorphic theta range slowing was seen. IMPRESSION: Limited study, abnormal EEG. The intermittent diffuse theta range slowing mentioned above is not epileptiform in nature. In combination with the slow background, these findings indicate mild diffuse cerebral dysfunction. No seizures were recorded. No epileptiform activity was present. Please note the background frequencies did not exceed 8 hertz. Given the patient's age, this can be considered within normal limits. MMODL / IJN: [id number] / MTDD
[2019-10-16] MEDS: ATORVASTATIN 20 MG TAB PO SCH (21:11)
[2019-10-17] MEDS ORDERED: CLOTRIMAZOLE TROCHE 10 MG TROCHE ONE (00:18)
[2019-10-17 05:32] LABS: Anisocytosis Slight; Basophils % (A) 1 %; Eosinophils # (A) 0.1 k/uL (0-0.7); Eosinophils % (A) 1 %; HCT 27.6 % (39.0-53.0); HGB 9.3 gm/dL (13.0-17.5); Lymphocytes # (A) 0.5 k/uL (1.0-4.8); Lymphocytes % (A) 8 %; MCH 31.8 pg (25.0-35.0); MCHC 33.6 g/dL (31.0-37.0); MCV 94.7 fL (80.0-100.0); Mean Platelet Volume 8.8; Monocytes # (A) 0.3 k/uL (0-1.0); Monocytes % (A) 5 %; Neutrophils # (A) 4.9 k/uL (1.3-7.7); Neutrophils % (A) 83 %; Poikilocytosis Slight; RBC 2.91 m/uL (4.30-5.90); RDW 16.4 % (11.5-15.5); WBC 5.9 k/uL (3.8-10.6)
[2019-10-17] MEDS: CLOTRIMAZOLE TROCHE 10 MG TROCHE MUCOUS MEM SCH ×5 (05:32→20:52)
[2019-10-17 05:37] LABS: Calcium 8.7 mg/dL (8.4-10.2); Potassium 3.7 mmol/L (3.5-5.1)
[2019-10-17] MEDS: PANTOPRAZOLE 40 MG TABLET PO SCH (06:34)
[2019-10-17] MEDS: LEVOTHYROXINE 50 MCG TAB PO SCH (06:34)
[2019-10-17] MEDS: SODIUM CHLORIDE 0.9% 1,000 ML IV SCH (06:35)
[2019-10-17 07:58] LABS: Platelet Count 85 k/uL (150-450)
--- NOTE | 2019-10-17 08:10 | PN ---
PROGRESS NOTE Mr. Dwyer is an 84-year-old male who presented with syncopal episode, was found to have atrial flutter with slow ventricular response. He had a permanent pacemaker implantation yesterday. He is feeling much better. His energy is better and he appears to be more awake and alert. Hemodynamically, he is stable. He denies any chest pain. His breathing has been stable. He denies any dizziness or palpitation. He denies any nausea. He continues to be on allopurinol, Lipitor 20 mg daily, finasteride 5 mg daily, hydralazine 50 mg 3 times a day, levothyroxine, ropinirole. PHYSICAL EXAMINATION: Blood pressure running in the 150s with the heart rate in the 60s paced. LUNGS: Clear. HEART: Regular rate and rhythm. S1, S2. No S3 with a systolic murmur. No diastolic murmur. ABDOMEN: Soft, nontender. EXTREMITIES: No significant edema. Pacemaker site clean. LAB DATA: Lab data revealed potassium 3.7, BUN and creatinine 92 and 3.0. Hemoglobin of 9.3. IMPRESSION: 1. Syncope, status post permanent pacemaker implantation. 2. Atrial flutter with sick sinus syndrome and significant bradycardia. 3. History of hypertension. 4. Prior history of cardiomyopathy. 5. History of hypertension. 6. Hyperlipidemia. RECOMMENDATION: From the cardiac standpoint, I will initiate treatment with anticoagulation because of his atrial flutter. I will add to his regimen isosorbide to improve his blood pressure control. We will follow his renal function. Increase his activity. He should be able to be transferred to telemetry floor today and depending on his progress, further recommendation will be made. MMODL / IJN: [id number] /
--- NOTE | 2019-10-17 08:33 | XR ---
EXAMINATION TYPE: XR chest 2V DATE OF EXAM: 10/17/2019 COMPARISON: 10/15/2019 HISTORY: Shortness of breath TECHNIQUE: Frontal and lateral views of the chest are obtained. FINDINGS: Scattered senescent parenchymal changes noted. Hyperinflation compatible with COPD. Patchy right perihilar and right basilar infiltrate noted. Single lead pacer device with distal lead within the right ventricle. No pneumothorax present. Heart size is stable. Mediastinal structures are stable and grossly unremarkable. No evidence for hilar prominence. Degenerative changes dorsal spine. IMPRESSION: Patchy right perihilar and right basilar infiltrate noted. Single lead pacer device with distal lead within the right ventricle. No pneumothorax present.
[2019-10-17] MEDS ORDERED: APIXABAN 2.5 MG TABLET PO SCH (09:00)
[2019-10-17] MEDS ORDERED: ISOSORBIDE MONONITRATE ER 30 MG TAB.ER.24H PO SCH (09:00)
[2019-10-17] MEDS: ALLOPURINOL 100 MG TAB PO SCH (09:32)
[2019-10-17] MEDS: FINASTERIDE 5 MG TAB PO SCH (09:33)
[2019-10-17] MEDS: hydrALAZINE HCL 50 MG TAB PO SCH ×3 (09:33→20:51)
--- NOTE | 2019-10-17 09:52 | P.PN ---
Progress Note - Text Progress Note Date: 10/17/19 SUBJECTIVE/INTERVAL EVENTS: No acute overnight events. Patient states that he got up too fast and felt a bit dizzy, but other than that, no complaints. Denies headache, nausea, vomiting. Having his breakfast. PHYSICAL EXAMINATION: VITAL SIGNS: T 97.7 HR 60 RR 18 BP 156/71 O2 sat 95% on 2L O2 via NC GEN.: NAD, pleasant and cooperative SKIN AND EXTREMITIES: Warm to touch, no edema NEURO: MENTAL STATUS: Patient alert and oriented to self, place, time. Unable to name the current president. Speech fluent but slightly mumbled, able to name and repeat, following all commands readily. No right and left disorientation, neglect. CRANIAL NERVES II THROUGH XII: II: Pupils are equal and slowly reactive to light symmetrically. No afferent pupillary defect. Visual gonzalez are intact. III, IV, : No ptosis. Extraocular movements full. No nystagmus. V: Facial sensation intact from V1-3. VII. No clear facial asymmetry. VIII: Hearing intact to finger rub bilaterally. IX, X: Symmetric palate elevation. XI: Shoulder shrug intact. XII: Tongue midline without fasciculation or atrophy. MOTOR: Normal bulk/tone. No pronator drift or tremor. Strength is 5/5 in b/l UE, 4+/5 in b/l LE SENSORY: Intact to light touch in all 4 extremities. REFLEXES: 2+ throughout. Toes are downgoing. COORDINATION: Finger to nose intact. No dysmetria. GAIT: deferred DIAGNOSTIC TESTING: LABORATORY: WBC 6.3 hemoglobin 9.3 platelet 88 sodium 140 potassium 3.8 chloride 105 bicarb 24 BUN 98 creatinine 2.56 glucose 97 calcium 8.6 magnesium 2.8 AST 45 ALT 62 alk phos 55 troponin 0.055 TSH 2.130 IMAGING: CT head without contrast 10/14/2019: Moderate generalized atrophy. 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 Chronic small vessel ischemic changes. Age-related atrophy. TTE 10/16/19: Atrial flutter. LV, RA and LA sizes are normal. LV mild to moderately enlarged. EF 40-45%. EKG 10/14/19: Atrial flutter with variable AV block EEG: Limited study. Intermittent diffuse theta range slowing which were not epileptiform in nature. In combination with the slow background, these findings indicate mild diffuse cerebral dysfunction. No seizures were recorded. No epileptiform activity was present. ASSESSMENT: 84-year-old man with past medical history of hypertension, hyperlipidemia, bladder cancer, kidney cancer, hypothyroidism, 100% blockage and left carotid artery, who presented to [facility] for concern regarding a unresponsive episode, found with significant bradycardia, s/p pacemaker placement on 10/16/19, consulting Neurology for possible seizure and unequal pupils. On exam, patient's pupils are slow to react but equal in size. Unable to get history about seizure from patient, and this event very like was from his cardiac condition. However, on further reviewing of patient's chart, patient with atrial flutter with multiple areas of infarct on CT head, for which patient should be placed on anticoagulation for stroke prevention. however, patient also history of multiple cancers, and hence, metastases to the brain cannot be ruled out. MRI brain w/ and w/o contrast would have been recommended, but patient now with a pacemaker (which can be MRI compatible!). MRI brain will also help in seeing any areas of possible microhemorrhages, for which risk of anticoagulation would be higher. MRI and MRA cannot be obtained due to pacemaker. Can also consider antiplatelet therapy for the patient if anticoagulation would pose any increased risk at this time. RECOMMENDATIONS: 1. Routine EEG with no seizures. 2. Cannot obtain MRI brain w/ and w/o contrast or MRA due to the hospital MRI being too strong for the pacemaker. 3. Unable to obtain CTA Head and Neck w/ and w/o contrast at this time due to patient's renal function 4. c/w atorvastatin 5. consider starting ASA 81mg qday and Plavix 75mg qday (dual antiplatelet therapy for 3 weeks per POINT trial, then Aspirin 81mg qday only) when patient stable from pacemaker placement 6. Labs: A1C, FLP 7. Patient needs to follow up with neurologist as outpatient with her 1-2 weeks of discharge 8. Neurology will sign off at this time. Please feel free to contact Neurology again if with additional questions or concerns.
--- NOTE | 2019-10-17 09:58 | P.PN ---
Subjective Patient is seen in follow-up for acute kidney injury on chronic kidney disease. Patient has chronic kidney disease stage IV with baseline creatinine in the range of 2.6-2.8. Patient had pacemaker placed yesterday. Oral intake is good. Urine output is good. No vomiting or diarrhea. Denies active chest pain or shortness of breath. Renal function is improving. Creatinine 3.0 today. Vital signs are stable. General: The patient appeared well nourished and normally developed. HEENT: Head exam is unremarkable. Neck is without jugular venous distension. LUNGS: Breath sounds decreased. HEART: Rate and Rhythm are regular. First and second heart sounds normal. No murmurs, rubs or gallops. ABDOMEN: Abdominal exam reveals normal bowel sounds. Non-tender and non- distended. No evidence of peritonitis. EXTREMITITES: No clubbing, cyanosis, or edema. Objective - Vital Signs Vital signs: Vital Signs Temp 97.7 F 10/17/19 04:00 Pulse 60 10/17/19 05:00 Resp 18 10/17/19 04:00 BP 156/71 10/17/19 04:00 Pulse Ox 95 10/17/19 04:00 Intake & Output 10/16/19 10/17/19 10/17/19 18:59 06:59 18:59 Intake Total 600 600 Output Total 745 840 Balance -145 -240 Weight 106 kg Intake: IV 600 600 Sodium Chloride 0.9% 1, 500 500 000 ml @ 50 mls/hr IV . Q20H [facility] Rx#:[id number] ceFAZolin 2 gm In Sodium 100 Chloride 0.9% 50 ml @ 100 mls/hr IVPB ONCE ONE Rx# :[id number] Output: Urine 745 840 Other: Voiding Method Indwelling Catheter Indwelling Catheter - Labs CBC & Chem 7: 10/17/19 04:41 10/17/19 04:41 Labs: Abnormal Lab Results - Last 24 Hours (Table) 10/17/19 10/17/19 Range/Units 04:41 04:41 RBC 2.91 L (4.30-5.90) m/uL Hgb 9.3 L (13.0-17.5) gm/dL Hct 27.6 L (39.0-53.0) % RDW 16.4 H (11.5-15.5) % Plt Count 85 L (150-450) k/uL Lymphocytes # 0.5 L (1.0-4.8) k/uL BUN 92 H (9-20) mg/dL Creatinine 3.00 H (0.66-1.25) mg/dL Glucose 111 H (74-99) mg/dL Microbiology - Last 24 Hours (Table) 10/14/19 19:27 Blood Culture - Preliminary Blood No Growth after 48 hours Assessment and Plan Plan: Assessment: 1. Acute kidney injury secondary to ATN secondary to hemodynamic instability. Creatinine was 3.97 on admission and is down to 3.0 today. 2. Chronic kidney disease stage IV secondary to nephrosclerosis and partial bilateral nephrectomies. Baseline creatinine in the range of 2.6-2.8. 3. Bradycardia. Cardiology following. Status post pacemaker placement on October 16. 4. Anemia of chronic kidney disease. Iron deficiency noted. 5. Chronic systolic CHF with ejection fraction of 40-45%. 6. Hypokalemia secondary to diuretics. Status post replacement. Plan: Hep-Lock IV fluids. Avoid nephrotoxins. Continue to monitor renal function and urine output. IV iron 3 doses. First dose today.
[2019-10-17] MEDS: SODIUM FERRIC GLUCONAT-SUCROSE 125 MG in SODIUM CHLORIDE 0.9% 100 ML IVPB SCH (11:40)
--- NOTE | 2019-10-17 13:06 | P.PN ---
Subjective Progress Note Date: 10/17/19 This is an 84-year-old male patient of Dr. Harman with past medical history of bladder cancer diagnosed 18 years ago status post mass resection, kidney cancer initially diagnosed in 2010 on the left with partial nephrectomy followed by diagnosis on the right in 2013 status post partial robot ic resection. Patient states cancers currently are in remission and his oncologist is Dr. Juan. He also has past medical history of carotid artery stenosis status post stent, hypertension, hypothyroidism, hyperlipidemia, restless leg syndrome, gout, chronic kidney disease stage 4, he was last admitted from our facility 10/02/2019, was admitted for acute kidney injury on CK D stage IV, hypokalemia, for which hydralazine was dispensed at 50 mg 3 times a day that time, amlodipine 10 mg daily, and metoprolol was increased to 25 mg daily. He now comes in to the emergency room, from [facility] secondary to unresponsiveness, patient was noted to be witnessed to be shaking, arms and upper body, with eyes open, and unresponsive this lasted for approximately 1-2 minutes, is mostly incontinence urinary incontinence, patient was not diagnosed to have any seizure episode in the past, however he comes in with significant bradycardia from the emergency room heart rate in the 19, he also presents with worsening renal function, with a baseline of 2.6-2.8, creatinine on admission is 3.97, he was taking diuretics at home, and is not on any NSAIDs, patient is scheduled to have a pacemaker in the morning, he also complains of new dysphagia, including Jell-O, which is on the current admission. Patient denies any aspirate events, Dry mouth, patient does not have any new focal neurologic deficits including motor dysfunction, or sensory dysfunction. 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 Dr. Shari Hester cardiology, Dr. Coronel nephrology 10/16: Echocardiogram reveals EF of 40-45% with moderate concentric left ventricular hypertrophy, mild aortic valve sclerosis, mild aortic regurgitation, trace to mild mitral regurgitation, mild tricuspid regurgitation, mild pulmonary hypertension. Patient has undergone permanent pacemaker implantation today with Dr. Herrera for sick sinus syndrome and syncope. He denies any complaints following procedure. His blood pressure has been stable. Pupils are noted to be equal at 2 mm bilaterally. 10/17: Patient is found sitting in a recliner. He appears to be in no acute distress. He does state that he Quite dizzy when he got up fast this morning which resolved. He continues to have lower extremity edema. He denies any chest pain or shortness of breath. Pacemaker is to be checked today/interrogated. Patient is ordered for Ferrlecit for 3 doses starting today. EEG showed no seizure activity. Neurology recommended starting aspirin 81 mg along with Plavix for 3 week course and follow-up with neurologist as an outpatient. Repeat chest x-ray reveals patchy right perihilar and right basilar infiltrate noted. Pacemaker device. No pneumothorax. Cardiology has increased Imdur and added eliquis for atrial flutter. BUN 92 and creatinine 3.00. He moglobin A1c is pending. Hemoglobin stable at 9.3 and platelets at 85. Discussed discharge planning with the patient and he wants to return home. Patient appears to be quite weak and would benefit for subacute rehab. PT and OT are on and case management following. Anticipate probable discharge to subacute rehab on Wednesday. Review Of Systems: Constitutional: No fever, no chills, no night sweats. No weight change. Reports weakness, fatigue or lethargy. No daytime sleepiness. EENT: No headache. No blurred vision or double vision, no loss of vision. No loss of Hearing, no ringing in the ears, no dizziness. No nasal drainage or congestion. No epistaxis. No sore throat. Lungs: No shortness of breath, cough, no sputum production. No wheezing. Cardiovascular: No chest pain, reports lower extremity edema. No palpitations. No paroxysmal nocturnal dyspnea. No orthopnea. No lightheadedness or dizziness. No syncopal episodes. Abdominal: No abdominal pain. No nausea, vomiting. No diarrhea. No constipation. No bloody or tarry stools.. No loss of appetite. Genitourinary: No dysuria, increased frequency, urgency. No urinary retention. Musculoskeletal: No myalgias. Reports muscle weakness, no gait dysfunction, no frequent falls. No back pain. No neck pain. Integumentary: No wounds, no lesions. No rash or pruritus. No unusual bruising. No change in hair or nails. Neurologic: No aphasia. No facial droop. No change in mentation. No head injury. No headache. No paralysis. No paresthesia. Psychiatric: No depression. No anxiety. No mood swings. Endocrine: No abnormal blood sugars. No weight change. No excessive sweating or thirst. No cold intolerance. Objective - Vital Signs Vital signs: Vital Signs Temp 97.8 F 10/17/19 08:00 Pulse 60 10/17/19 08:00 Resp 28 H 10/17/19 08:00 BP 138/99 10/17/19 08:00 Pulse Ox 93 L 10/17/19 08:00 Intake & Output 10/16/19 10/17/19 10/17/19 18:59 06:59 18:59 Intake Total 600 600 200 Output Total 745 840 325 Balance -145 -240 -125 Weight 106 kg Intake: IV 600 600 200 Sodium Chloride 0.9% 1, 500 500 200 000 ml @ 50 mls/hr IV . Q20H [facility] Rx#:[id number] ceFAZolin 2 gm In Sodium 100 Chloride 0.9% 50 ml @ 100 mls/hr IVPB ONCE ONE Rx# :[id number] Output: Urine 745 840 325 Other: Voiding Method Indwelling Catheter Indwelling Catheter Indwelling Catheter - Exam General appearance: cooperative, no acute distress, family at bedside - EENT Eyes: anicteric sclerae, EOMI, PERRLA, dentition normal, normal appearance ENT: NA/AT, normal oropharynx - Neck Neck: normal ROM - Respiratory Respiratory: bilateral: CTA, negative: dullness, rales, wheezing - Cardiovascular Rhythm: regular Heart sounds: normal: S1, S2 - Gastrointestinal General gastrointestinal: normal bowel sounds - Integumentary Integumentary: normal, normal turgor - Neurologic Neurologic: CNII-XII intact - Musculoskeletal Musculoskeletal: Generalized weakness - Psychiatric Psychiatric: A&O x's 3, appropriate affect - Labs CBC & Chem 7: 10/17/19 04:41 10/17/19 04:41 Labs: Abnormal Lab Results - Last 24 Hours (Table) 10/17/19 10/17/19 Range/Units 04:41 04:41 RBC 2.91 L (4.30-5.90) m/uL Hgb 9.3 L (13.0-17.5) gm/dL Hct 27.6 L (39.0-53.0) % RDW 16.4 H (11.5-15.5) % Plt Count 85 L (150-450) k/uL Lymphocytes # 0.5 L (1.0-4.8) k/uL BUN 92 H (9-20) mg/dL Creatinine 3.00 H (0.66-1.25) mg/dL Glucose 111 H (74-99) mg/dL Microbiology - Last 24 Hours (Table) 10/14/19 19:27 Blood Culture - Preliminary Blood No Growth after 48 hours Assessment and Plan Plan: 1. Unresponsiveness and syncope status post permanent pacemaker implantation, with tonic clonic activity on upper extremity, and body, without any prior history of seizures, cannot rule out seizures is the first episode, status post post pacemaker placement on 10/16/2019, EEG normal, neurology consult appreciated. Recommend Plavix and aspirin. 2. Acute kidney injury on CKD 4. Nephrology consult appreciated. 3. CKD stage 4 . Nephrology following. 4. History of kidney cancer status post resection and history of bladder cancer. Continue on Proscar 5. 5. Hypertension, hypertensive cardiovascular disease. Continue hydralazine with parameters, hold Lasix, not on CYNTHIA inhibitor or ARB 6. Symptomatic oral rolf, clotrimazole 5 times a day 10 days 7. Hyperlipidemia. Continue Lipitor 20 mg daily. 8. Carotid artery stenosis status post stent on the left and 100% blockage on the right. Continue Plavix 75 mg daily. 9. Restless leg syndrome. Continue Requip 0.5 mg at bedtime. 10. Hypothyroidism. Continue levothyroxine 50 g daily. 11. DVT prophylaxis. Heparin 5000 units sc Q 12 h. 12. GI prophylaxis. Pepcid 20 mg orally daily. 13. Gout of the left big toe. Start Colcrys 0.6 mg orally once every day. 14. Pancytopenia, with thrombocytopenia platelets currently at 85, might need oncology consultation 15. Microscopic hematuria, noted on urinalysis, monitor 16. Anemia of chronic disease. Ferrlecit 3 doses. 17. Atrial flutter, typical. Cardiology was started on eliquis. Discharge plan: Subacute rehab on Wednesday Impression and plan of care have been directed as dictated by the signing ally judgeian. Florecita Pedroza nurse practitioner acting as scribe for signing physician.
[2019-10-17] MEDS: CEPHALEXIN 500 MG CAP PO SCH (20:51)
[2019-10-17] MEDS: ATORVASTATIN 20 MG TAB PO SCH (20:51)
[2019-10-17] MEDS ORDERED: ALPRAZolam 0.25 MG TAB PO STA (22:07)
[2019-10-18] MEDS: CLOTRIMAZOLE TROCHE 10 MG TROCHE MUCOUS MEM SCH ×5 (00:21→20:21)
[2019-10-18 05:56] LABS: Calcium 8.9 mg/dL (8.4-10.2); Potassium 3.8 mmol/L (3.5-5.1)
[2019-10-18] MEDS: LEVOTHYROXINE 50 MCG TAB PO SCH (06:38)
[2019-10-18] MEDS: PANTOPRAZOLE 40 MG TABLET PO SCH (06:38)
[2019-10-18] MEDS ORDERED: FUROSEMIDE 10 MG/ML 4 ML VIAL IV STA (07:07)
--- NOTE | 2019-10-18 07:35 | PN ---
PROGRESS NOTE Mr. Dwyer is an 84-year-old male who presented with a syncopal episode, was found to have atrial flutter with slow ventricular response, underwent permanent pacemaker implantation. He is paced almost 100% of the time. He is feeling reasonably well, although he continues to be dyspneic on exertion. The plan is to be transferred to rehab. He denies any chest pain, but he feels tired. He has no dizziness, palpitation. He has no nausea. He continues to be at this time on Allopurinol, Lipitor 20 mg daily, hydralazine 50 mg 3 times a day, isosorbide mononitrate 30 mg daily, ropinirole. He had bleeding at the site of the device yesterday, so anticoagulation was held. PHYSICAL EXAMINATION: Blood pressure 150/60 with a heart rate in the 60s. LUNGS: With crackles at the bases. HEART: S1, S2. No S3. No rub. ABDOMEN: Soft, obese, nontender. EXTREMITIES: +1 to 2 edema bilaterally. LAB DATA: Revealed BUN and creatinine at 93 and 2.94, improved compared to yesterday. The potassium is 3.8. IMPRESSION: 1. Syncope with sick sinus syndrome. 2. Status post permanent pacemaker implantation. 3. Chronic kidney disease, stabilizing. 4. History of hypertension. 5. History of ischemic cardiomyopathy. RECOMMENDATION: I will decrease in the dose of IV diuretic at this time. Continue to follow his renal function. Will re-initiate the anticoagulation from tomorrow. Depending on his progress, further recommendation will be made. MMODL / IJN: [id number] /
[2019-10-18] MEDS: ALLOPURINOL 100 MG TAB PO SCH (07:46)
[2019-10-18] MEDS: FINASTERIDE 5 MG TAB PO SCH (07:46)
[2019-10-18] MEDS: ISOSORBIDE MONONITRATE ER 60 MG TAB.ER.24H PO SCH (07:46)
[2019-10-18] MEDS: hydrALAZINE HCL 50 MG TAB PO SCH ×3 (07:46→20:20)
[2019-10-18] MEDS: CEPHALEXIN 500 MG CAP PO SCH (07:46)
[2019-10-18] MEDS: SODIUM FERRIC GLUCONAT-SUCROSE 125 MG in SODIUM CHLORIDE 0.9% 100 ML IVPB SCH (08:15)
--- NOTE | 2019-10-18 11:00 | P.PN ---
Subjective Patient is seen in follow-up for acute kidney injury on chronic kidney disease. Patient has chronic kidney disease stage IV with baseline creatinine in the range of 2.6-2.8. Patient had pacemaker placed on October 16. Oral intake is good. Urine output is good. No vomiting or diarrhea. Denies active chest pain or shortness of breath. Renal function is stable. Creatinine 2.94 today. Vital signs are stable. General: The patient appeared well nourished and normally developed. HEENT: Head exam is unremarkable. Neck is without jugular venous distension. LUNGS: Breath sounds decreased. HEART: Rate and Rhythm are regular. First and second heart sounds normal. No murmurs, rubs or gallops. ABDOMEN: Abdominal exam reveals normal bowel sounds. Non-tender and non- distended. No evidence of peritonitis. EXTREMITITES: 1+ edema. Objective - Vital Signs Vital signs: Vital Signs Temp 97.5 F L 10/18/19 04:00 Pulse 60 10/18/19 04:00 Resp 20 10/18/19 05:00 BP 154/61 10/18/19 04:00 Pulse Ox 95 10/18/19 04:00 Intake & Output 10/17/19 10/18/19 10/18/19 18:59 06:59 18:59 Intake Total 200 600 Output Total 650 865 Balance -450 -265 Weight 103.8 kg Intake: IV 200 600 Sodium Chloride 0.9% 1, 200 600 000 ml @ 50 mls/hr IV . Q20H [facility] Rx#:[id number] Output: Urine 650 865 Other: Voiding Method Indwelling Catheter Indwelling Catheter - Labs CBC & Chem 7: 10/17/19 04:41 10/18/19 04:57 Labs: Abnormal Lab Results - Last 24 Hours (Table) 10/18/19 Range/Units 04:57 BUN 93 H (9-20) mg/dL Creatinine 2.94 H (0.66-1.25) mg/dL Glucose 105 H (74-99) mg/dL Microbiology - Last 24 Hours (Table) 10/14/19 19:27 Blood Culture - Preliminary Blood No Growth after 72 hours Assessment and Plan Plan: Assessment: 1. Acute kidney injury secondary to ATN secondary to hemodynamic instability. Creatinine was 3.97 on admission and is stable at 2.94 today. 2. Chronic kidney disease stage IV secondary to nephrosclerosis and partial bilateral nephrectomies. Baseline creatinine in the range of 2.6-2.8. 3. Bradycardia/sick sinus syndrome. Cardiology following. Status post pacemaker placement on October 16. 4. Anemia of chronic kidney disease. Iron deficiency noted. 5. Chronic systolic CHF with ejection fraction of 40-45%. 6. Hypokalemia secondary to diuretics. Status post replacement. 7. Volume overload. Plan: Start Lasix 40 mg IV once daily. Avoid nephrotoxins. Continue to monitor renal function and urine output. IV iron 3 doses. Second dose today.
--- NOTE | 2019-10-18 13:55 | P.PN ---
Subjective Progress Note Date: 10/18/19 This is an 84-year-old male patient of Dr. Harman with past medical history of bladder cancer diagnosed 18 years ago status post mass resection, kidney cancer initially diagnosed in 2010 on the left with partial nephrectomy followed by diagnosis on the right in 2013 status post partial robot ic resection. Patient states cancers currently are in remission and his oncologist is Dr. Juan. He also has past medical history of carotid artery stenosis status post stent, hypertension, hypothyroidism, hyperlipidemia, restless leg syndrome, gout, chronic kidney disease stage 4, he was last admitted from our facility 10/02/2019, was admitted for acute kidney injury on CK D stage IV, hypokalemia, for which hydralazine was dispensed at 50 mg 3 times a day that time, amlodipine 10 mg daily, and metoprolol was increased to 25 mg daily. He now comes in to the emergency room, from [facility] secondary to unresponsiveness, patient was noted to be witnessed to be shaking, arms and upper body, with eyes open, and unresponsive this lasted for approximately 1-2 minutes, is mostly incontinence urinary incontinence, patient was not diagnosed to have any seizure episode in the past, however he comes in with significant bradycardia from the emergency room heart rate in the 19, he also presents with worsening renal function, with a baseline of 2.6-2.8, creatinine on admission is 3.97, he was taking diuretics at home, and is not on any NSAIDs, patient is scheduled to have a pacemaker in the morning, he also complains of new dysphagia, including Jell-O, which is on the current admission. Patient denies any aspirate events, Dry mouth, patient does not have any new focal neurologic deficits including motor dysfunction, or sensory dysfunction. 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 Dr. Shari Hester cardiology, Dr. Coronel nephrology 10/16: Echocardiogram reveals EF of 40-45% with moderate concentric left ventricular hypertrophy, mild aortic valve sclerosis, mild aortic regurgitation, trace to mild mitral regurgitation, mild tricuspid regurgitation, mild pulmonary hypertension. Patient has undergone permanent pacemaker implantation today with Dr. Herrera for sick sinus syndrome and syncope. He denies any complaints following procedure. His blood pressure has been stable. Pupils are noted to be equal at 2 mm bilaterally. 10/17: Patient is found sitting in a recliner. He appears to be in no acute distress. He does state that he Quite dizzy when he got up fast this morning which resolved. He continues to have lower extremity edema. He denies any chest pain or shortness of breath. Pacemaker is to be checked today/interrogated. Patient is ordered for Ferrlecit for 3 doses starting today. EEG showed no seizure activity. Neurology recommended starting aspirin 81 mg along with Plavix for 3 week course and follow-up with neurologist as an outpatient. Repeat chest x-ray reveals patchy right perihilar and right basilar infiltrate noted. Pacemaker device. No pneumothorax. Cardiology has increased Imdur and added eliquis for atrial flutter. BUN 92 and creatinine 3.00. He moglobin A1c is pending. Hemoglobin stable at 9.3 and platelets at 85. Discussed discharge planning with the patient and he wants to return home. Patient appears to be quite weak and would benefit for subacute rehab. PT and OT are on and case management following. Anticipate probable discharge to subacute rehab on Wednesday. 10/18: Patient remains in intensive care unit as an overflow for cardiac stepdown unit. He denies having any chest pain or shortness of breath but has shortness of breath with activity. He denies any dizziness or lightheadedness. No nausea. He continues to have lower extremity edema. Repeat creatinine is 2.94 and BUN 93, hemoglobin is 9.3, potassium 3.8. Blood culture showing no growth after 72 hours. Umanzor catheter is in place. Blood pressure 154/61, heart rate 60, pulse ox 95% on room air, afebrile. Dr. Coronel has ordered IV Lasix 40 mg once daily and he is receiving a second dose of Ferrlecit today. The patient and family are agreeable for discharge to [facility] which is scheduled for Wednesday. Review Of Systems: Constitutional: No fever, no chills, no night sweats. No weight change. Reports weakness, fatigue or lethargy. No daytime sleepiness. EENT: No headache. No blurred vision or double vision, no loss of vision. No loss of Hearing, no ringing in the ears, no dizziness. No nasal drainage or congestion. No epistaxis. No sore throat. Lungs: No shortness of breath, cough, no sputum production. No wheezing. Reports dyspnea on exertion. Cardiovascular: No chest pain, reports lower extremity edema. No palpitations. No paroxysmal nocturnal dyspnea. No orthopnea. No lightheadedness or dizziness. No syncopal episodes. Abdominal: No abdominal pain. No nausea, vomiting. No diarrhea. No constipation. No bloody or tarry stools.. No loss of appetite. Genitourinary: No dysuria, increased frequency, urgency. No urinary retention. Musculoskeletal: No myalgias. Reports muscle weakness, no gait dysfunction, no frequent falls. No back pain. No neck pain. Integumentary: No wounds, no lesions. No rash or pruritus. No unusual bruising. No change in hair or nails. Neurologic: No aphasia. No facial droop. No change in mentation. No head injury. No headache. No paralysis. No paresthesia. Psychiatric: No depression. No anxiety. No mood swings. Endocrine: No abnormal blood sugars. No weight change. No excessive sweating or thirst. No cold intolerance. Objective - Vital Signs Vital signs: Vital Signs Temp 97.5 F L 10/18/19 04:00 Pulse 60 10/18/19 04:00 Resp 20 10/18/19 05:00 BP 154/61 10/18/19 04:00 Pulse Ox 95 10/18/19 04:00 Intake & Output 10/17/19 10/18/19 10/18/19 18:59 06:59 18:59 Intake Total 200 600 Output Total 650 865 Balance -450 -265 Weight 103.8 kg Intake: IV 200 600 Sodium Chloride 0.9% 1, 200 600 000 ml @ 50 mls/hr IV . Q20H [facility] Rx#:[id number] Output: Urine 650 865 Other: Voiding Method Indwelling Catheter Indwelling Catheter - Exam General appearance: cooperative, no acute distress, patient is resting in bed, family at bedside - EENT Eyes: anicteric sclerae, EOMI, PERRLA, dentition normal, normal appearance ENT: NA/AT, normal oropharynx - Neck Neck: normal ROM - Respiratory Respiratory: bilateral: CTA, negative: dullness, rales, wheezing - Cardiovascular Rhythm: regular Heart sounds: normal: S1, S2 - Gastrointestinal General gastrointestinal: normal bowel sounds - Integumentary Integumentary: normal, normal turgor - Neurologic Neurologic: CNII-XII intact - Musculoskeletal Musculoskeletal: Generalized weakness - Psychiatric Psychiatric: A&O x's 3, appropriate affect - Labs CBC & Chem 7: 10/17/19 04:41 10/18/19 04:57 Labs: Abnormal Lab Results - Last 24 Hours (Table) 10/18/19 Range/Units 04:57 BUN 93 H (9-20) mg/dL Creatinine 2.94 H (0.66-1.25) mg/dL Glucose 105 H (74-99) mg/dL Microbiology - Last 24 Hours (Table) 10/14/19 19:27 Blood Culture - Preliminary Blood No Growth after 72 hours Assessment and Plan Plan: 1. Unresponsiveness and syncope status post permanent pacemaker implantation, with tonic clonic activity on upper extremity, and body, without any prior history of seizures, cannot rule out seizures is the first episode, status post post pacemaker placement on 10/16/2019, EEG normal, neurology consult appreciated. Recommend Plavix and aspirin. 2. Acute kidney injury on CKD 4. Nephrology consult appreciated. Lasix 40 mg IV daily. 3. CKD stage 4. Nephrology following. 4. History of kidney cancer status post resection and history of bladder cancer. Continue on Proscar 5. 5. Hypertension, hypertensive cardiovascular disease. Continue hydralazine 50 mg 3 times daily, Lasix, not on CYNTHIA inhibitor or ARB 6. Symptomatic oral rolf, clotrimazole 5 times a day 10 days 7. Hyperlipidemia. Continue Lipitor 20 mg daily. 8. Carotid artery stenosis status post stent on the left and 100% blockage on the right. Continue Plavix 75 mg daily. 9. Restless leg syndrome. Continue Requip 0.5 mg at bedtime. 10. Hypothyroidism. Continue levothyroxine 50 g daily. 11. DVT prophylaxis. Heparin 5000 units sc Q 12 h. 12. GI prophylaxis. Pepcid 20 mg orally daily. 13. Gout of the left big toe. Start Colcrys 0.6 mg orally once every day. 14. Pancytopenia, with thrombocytopenia platelets currently at 85, might need oncology consultation 15. Microscopic hematuria, noted on urinalysis, monitor 16. Anemia of chronic disease. Ferrlecit 3 doses. 17. Atrial flutter, typical. Cardiology was started on eliquis. Discharge plan: [facility] on Wednesday Impression and plan of care have been directed as dictated by the signing ally [email or web address]. Florecita Pedroza nurse practitioner acting as scribe for signing physician.
--- NOTE | 2019-10-18 14:13 | P.PN ---
Subjective Progress Note Date: 10/17/19 Principal diagnosis: Severe symptomatic bradycardia, unresponsiveness/loss of consciousness, acute renal failure probably related to hypertension dehydration, chronic kidney disease stage IV, hypertension and is currently vascular disease, likely obstructive sleep apnea, morbid obesity, carotid artery stenosis with stent on the left side and 100% blockage in the right side 10/17/2019, patient seen eval examined during the rounds in ICU, undergoing some physical therapy overall tired is still intermittently dizzy patient is status post pacemaker chest x-ray performed revealed patchy infiltrate predominantly in the right basal area and some perihilar infiltrate cannot be excluded, likely appears to be related to fluid overload and CHF as patient has no fever and white cell count within normal limit Will observe it 10/16/2019, patient seen eval reexamined during the rounds labs reviewed medications reviewed slightly more responsive now patient is under affect of the anesthetic agent for permanent pacemaker placement which she tolerated fairly well hemodynamic status stable, chest x-rays pending, hemoglobin is 9.3, BUN/creatinine improved to 98 and 3.5 Objective - Vital Signs Vital signs: Vital Signs Temp 97.7 F 10/17/19 16:00 Pulse 60 10/17/19 16:00 Resp 12 10/17/19 16:00 BP 142/62 10/17/19 16:00 Pulse Ox 96 10/17/19 16:00 Intake & Output 10/16/19 10/17/19 10/17/19 18:59 06:59 18:59 Intake Total 600 600 200 Output Total 745 840 475 Balance -145 -240 -275 Weight 106 kg Intake: IV 600 600 200 Sodium Chloride 0.9% 1, 500 500 200 000 ml @ 50 mls/hr IV . Q20H [facility] Rx#:[id number] ceFAZolin 2 gm In Sodium 100 Chloride 0.9% 50 ml @ 100 mls/hr IVPB ONCE ONE Rx# :[id number] Output: Urine 745 840 475 Other: Voiding Method Indwelling Catheter Indwelling Catheter Indwelling Catheter - Exam - Constitutional General appearance: cooperative, no acute distress - EENT Eyes: anicteric sclerae, EOMI, PERRLA, dentition normal, normal appearance ENT: NA/AT, normal oropharynx - Neck Neck: normal ROM - Respiratory Respiratory: bilateral: CTA, negative: dullness, rales, wheezing - Cardiovascular Rhythm: regular Heart sounds: normal: S1, S2 - Gastrointestinal General gastrointestinal: normal bowel sounds - Integumentary Integumentary: normal, normal turgor - Neurologic Neurologic: CNII-XII intact - Musculoskeletal Musculoskeletal: gait normal - Psychiatric Psychiatric: A&O x's 3, appropriate affect - Labs CBC & Chem 7: 10/17/19 04:41 10/18/19 04:57 Labs: Abnormal Lab Results - Last 24 Hours (Table) 10/17/19 10/17/19 Range/Units 04:41 04:41 RBC 2.91 L (4.30-5.90) m/uL Hgb 9.3 L (13.0-17.5) gm/dL Hct 27.6 L (39.0-53.0) % RDW 16.4 H (11.5-15.5) % Plt Count 85 L (150-450) k/uL Lymphocytes # 0.5 L (1.0-4.8) k/uL BUN 92 H (9-20) mg/dL Creatinine 3.00 H (0.66-1.25) mg/dL Glucose 111 H (74-99) mg/dL Microbiology - Last 24 Hours (Table) 10/14/19 19:27 Blood Culture - Preliminary Blood No Growth after 48 hours Assessment and Plan Assessment: Severe symptomatic bradycardia Loss of consciousness likely related to severe symptomatic bradycardia Obstructive sleep apnea and sleep disorder breathing Morbid obesity Chronic renal failure stage IV Plan: Continue gentle rehydration Patient status post pacemaker Will avoid diuretics Continue hydralazine Continue Requip Further recommendations pending plan of care as per clinical response of the patient She will definitely need a sleep study on outpatient Time with Patient: Greater than 30
[2019-10-18 14:15] LABS: Hemoglobin A1C 4.9 % (4.0-6.0)
--- NOTE | 2019-10-18 14:15 | P.PN ---
Subjective Progress Note Date: 10/18/19 Principal diagnosis: Severe symptomatic bradycardia, unresponsiveness/loss of consciousness, acute renal failure probably related to hypertension dehydration, chronic kidney disease stage IV, hypertension and is currently vascular disease, likely obstructive sleep apnea, morbid obesity, carotid artery stenosis with stent on the left side and 100% blockage in the right side 10/18/2019, patient seen eval examined and labs reviewed medications reviewed cough congestion shortness of breath is better now patient is more awake and alert denies any chest pain undergoing physical therapy 10/17/2019, patient seen eval examined during the rounds in ICU, undergoing some physical therapy overall tired is still intermittently dizzy patient is status post pacemaker chest x-ray performed revealed patchy infiltrate predominantly in the right basal area and some perihilar infiltrate cannot be excluded, likely appears to be related to fluid overload and CHF as patient has no fever and white cell count within normal limit Will observe it 10/16/2019, patient seen eval reexamined during the rounds labs reviewed medications reviewed slightly more responsive now patient is under affect of the anesthetic agent for permanent pacemaker placement which she tolerated fairly well hemodynamic status stable, chest x-rays pending, hemoglobin is 9.3, BUN/creatinine improved to 98 and 3.5 Objective - Vital Signs Vital signs: Vital Signs Temp 97.5 F L 10/18/19 04:00 Pulse 60 10/18/19 04:00 Resp 20 10/18/19 05:00 BP 154/61 10/18/19 04:00 Pulse Ox 95 10/18/19 04:00 Intake & Output 10/17/19 10/18/19 10/18/19 18:59 06:59 18:59 Intake Total 200 600 Output Total 650 865 Balance -450 -265 Weight 103.8 kg Intake: IV 200 600 Sodium Chloride 0.9% 1, 200 600 000 ml @ 50 mls/hr IV . Q20H [facility] Rx#:[id number] Output: Urine 650 865 Other: Voiding Method Indwelling Catheter Indwelling Catheter - Exam - Constitutional General appearance: cooperative, no acute distress - EENT Eyes: anicteric sclerae, EOMI, PERRLA, dentition normal, normal appearance ENT: NA/AT, normal oropharynx - Neck Neck: normal ROM - Respiratory Respiratory: bilateral: CTA, negative: dullness, rales, wheezing - Cardiovascular Rhythm: regular Heart sounds: normal: S1, S2 - Gastrointestinal General gastrointestinal: normal bowel sounds - Integumentary Integumentary: normal, normal turgor - Neurologic Neurologic: CNII-XII intact - Musculoskeletal Musculoskeletal: gait normal - Psychiatric Psychiatric: A&O x's 3, appropriate affect - Labs CBC & Chem 7: 10/17/19 04:41 10/18/19 04:57 Labs: Abnormal Lab Results - Last 24 Hours (Table) 10/18/19 Range/Units 04:57 BUN 93 H (9-20) mg/dL Creatinine 2.94 H (0.66-1.25) mg/dL Glucose 105 H (74-99) mg/dL Microbiology - Last 24 Hours (Table) 10/14/19 19:27 Blood Culture - Preliminary Blood No Growth after 72 hours Assessment and Plan Assessment: Severe symptomatic bradycardia Loss of consciousness likely related to severe symptomatic bradycardia Obstructive sleep apnea and sleep disorder breathing Morbid obesity Chronic renal failure stage IV Plan: Continue gentle rehydration Patient status post pacemaker Will avoid diuretics Continue hydralazine Continue Requip Further recommendations pending plan of care as per clinical response of the patient She will definitely need a sleep study on outpatient Time with Patient: Greater than 30
[2019-10-18] MEDS: CEPHALEXIN 250 MG CAP PO SCH ×2 (17:13→21:13)
[2019-10-18] MEDS: ATORVASTATIN 20 MG TAB PO SCH (20:21)
[2019-10-19] MEDS: CLOTRIMAZOLE TROCHE 10 MG TROCHE MUCOUS MEM SCH ×5 (00:32→21:42)
[2019-10-19] MEDS ORDERED: SODIUM CHLORIDE 0.65% NASAL SPRAY 44 ML BTL NASAL PRN (05:00)
[2019-10-19 05:51] LABS: Anisocytosis Slight; HCT 28.1 % (39.0-53.0); HGB 9.4 gm/dL (13.0-17.5); MCH 31.6 pg (25.0-35.0); MCHC 33.5 g/dL (31.0-37.0); MCV 94.2 fL (80.0-100.0); Mean Platelet Volume 9.8; Poikilocytosis Slight; RBC 2.98 m/uL (4.30-5.90); RDW 16.3 % (11.5-15.5)
[2019-10-19 05:58] LABS: Platelet Count 95 k/uL (150-450)
[2019-10-19 06:36] LABS: Calcium 9.2 mg/dL (8.4-10.2); Potassium 4.1 mmol/L (3.5-5.1)
[2019-10-19] MEDS: PANTOPRAZOLE 40 MG TABLET PO SCH (06:51)
[2019-10-19] MEDS: LEVOTHYROXINE 50 MCG TAB PO SCH (06:52)
[2019-10-19] MEDS ORDERED: hydrALAZINE HCL 25 MG TAB PO STA (07:06)
--- NOTE | 2019-10-19 07:14 | XR ---
EXAMINATION TYPE: XR chest 1V DATE OF EXAM: 10/19/2019 CLINICAL HISTORY: Difficulty breathing progress study. TECHNIQUE: Single AP portable upright view of the chest is obtained. COMPARISON: Chest x-ray from 2 days earlier and older studies. FINDINGS: Cardiomegaly with single lead pacemaker is redemonstrated. Chronic parenchymal change with persistent reticulonodular opacities periHilar level bilaterally. Persistent small to tiny bilateral pleural effusions. Osseous structures are intact. IMPRESSION: Cardiomegaly with small to tiny bilateral pleural effusions and central edema and/or less likely acute infiltrates. Correlate for fluid overload state on background chronic parenchymal gu e. No significant change from most recent x-ray.
[2019-10-19] MEDS: FUROSEMIDE 10 MG/ML 4 ML VIAL IV SCH (08:29)
[2019-10-19] MEDS: APIXABAN 2.5 MG TABLET PO SCH ×2 (08:29→21:41)
[2019-10-19] MEDS: ALLOPURINOL 100 MG TAB PO SCH (08:29)
[2019-10-19] MEDS: FINASTERIDE 5 MG TAB PO SCH (08:30)
[2019-10-19] MEDS: CEPHALEXIN 250 MG CAP PO SCH ×3 (08:30→21:42)
[2019-10-19] MEDS: hydrALAZINE HCL 25 MG TAB PO SCH ×3 (08:30→21:42)
[2019-10-19] MEDS: ISOSORBIDE MONONITRATE ER 60 MG TAB.ER.24H PO SCH (08:31)
[2019-10-19] MEDS: SODIUM FERRIC GLUCONAT-SUCROSE 125 MG in SODIUM CHLORIDE 0.9% 100 ML IVPB SCH (08:53)
--- NOTE | 2019-10-19 09:19 | P.PN ---
Subjective Progress Note Date: 10/19/19 Principal diagnosis: This 84-year-old male was admitted with syncope and possible seizures. Was noted to be bradycardic. He has acute kidney injury secondary to prerenal state and is slowly improving. Currently he is on oxygen and short of breath. He looks tired and weak says his appetite is good. Complaining of cough. No chest pain. No dizziness. Blood pressure is maintained approximately in the 140-160 range. Urine output was 1900 mL for the last 24 hours. He is Lasix 40 IV daily, and has 2+ edema. The chest x-ray is suggestive congestive heart failure History of present illness: Patient is a 84-year-old male seen in consultation for acute kidney injury on [facility] kidney disease. Patient has chronic kidney disease stage IV with baseline creatinine in the range of 2.6-2.8, his had partial nephrectomies on both sides supposedly. Patient presented to the hospital due to an unresponsive episode. He denies losing consciousness. There was concern for seizure activity. Patient's blood pressure has been stable however he's been quite bradycardic. Last night his heart rate dropped down to 19. He is scheduled for possible pacemaker placement tomorrow. Patient's creatinine was 3.97 on admission and is 3.89 today. He is currently maintained on normal saline at 50 mL an hour. Urine output has been about 40 mL an hour. Oral intake is fair. He was taking diuretics at home which are currently held. He denies use of nonsteroidals. No history of diabetes. Denies family history of renal disease. Objective - Vital Signs Vital signs: Vital Signs Temp 98.2 F 10/19/19 04:00 Pulse 61 10/19/19 04:00 Resp 23 10/19/19 04:00 BP 156/78 10/19/19 04:00 Pulse Ox 91 L 10/19/19 04:00 Intake & Output 10/18/19 10/19/19 10/19/19 18:59 06:59 18:59 Intake Total 400 100 Output Total 850 1050 275 Balance -450 -8630 -175 Weight 105.3 kg Intake: IV 100 Sodium Ferric Gluconat- 100 Sucrose 125 mg In Sodium Chloride 0.9% 100 ml @ 100 mls/hr IVPB DAILY [facility] Rx#:[id number] Intake, IV Titration 100 Amount Sodium Ferric Gluconat- 100 Sucrose 125 mg In Sodium Chloride 0.9% 100 ml @ 100 mls/hr IVPB DAILY [facility] Rx#:[id number] Oral 300 Output: Urine 850 1050 275 Other: Voiding Method Indwelling Catheter Indwelling Catheter On examination awake alert short of breath on nasal cannula oxygen. HEENT exam no JVP noted neck is supple no facial asymmetry Lungs are significant for diminished breath sounds bilaterally. Occasional crackles heard Heart sounds are unremarkable for any murmur rub gallop Abdomen soft nontender obese Extremity exam was 2+ edema Neurologically awake alert oriented but generalized weakness - Labs CBC & Chem 7: 10/19/19 05:35 10/19/19 05:35 Labs: Abnormal Lab Results - Last 24 Hours (Table) 10/19/19 10/19/19 Range/Units 05:35 05:35 RBC 2.98 L (4.30-5.90) m/uL Hgb 9.4 L (13.0-17.5) gm/dL Hct 28.1 L (39.0-53.0) % RDW 16.3 H (11.5-15.5) % Plt Count 95 L (150-450) k/uL BUN 97 H (9-20) mg/dL Creatinine 2.97 H (0.66-1.25) mg/dL Glucose 120 H (74-99) mg/dL Microbiology - Last 24 Hours (Table) 10/14/19 19:27 Blood Culture - Preliminary Blood No Growth after 96 hours Assessment and Plan Assessment: Impression 1. Acute kidney injury secondary to prerenal from bradycardia. Creatinine peaked at 3.97 on 1122, and Slowly Has Come down to 2.97 This Morning. 2. Chronic Kidney Disease Stage IV Secondary to a Full Sclerosis and Partial Bilateral Nephrectomies, with a Baseline Creatinine off 2.6 at Its Best Recently Dated 08/17/2019. 3. Congestive heart failure. 4. Significant edema. 5. Bradycardia, atrial flutter 6 sinus syndrome cardiomyopathy ejection fraction is 40%, status post pacemaker implantation 10/16/2019. 6. Anemia with iron deficiency iron saturation was 13% dated 1120 1419, status post Ferrlecit given 1 dose 125 mg today 10/19/2019 Admission 1. Extra dose of Lasix 40 mg IV. 2. Monitor lites been creatinine 3. Strict I's and O's
[2019-10-19] MEDS ORDERED: FUROSEMIDE 10 MG/ML 4 ML VIAL IV STA ×2 (10:11→18:43)
[2019-10-19] MEDS ORDERED: LORazepam 2 MG/ML INJ IV STA ×2 (10:44→13:33)
[2019-10-19 11:08] LABS: Allen Test Performed? Yes
--- NOTE | 2019-10-19 11:09 | P.PN ---
Subjective Progress Note Date: 10/19/19 This is an 84-year-old male patient of Dr. Harman with past medical history of bladder cancer diagnosed 18 years ago status post mass resection, kidney cancer initially diagnosed in 2010 on the left with partial nephrectomy followed by diagnosis on the right in 2013 status post partial robotic resection. Patient states cancers currently are in remission and his oncologist is Dr. Juan. He also has past medical history of carotid artery stenosis status post stent, hypertension, hypothyroidism, hyperlipidemia, restless leg syndrome, gout, chronic kidney disease stage 4, he was last a dmitted from our facility 10/02/2019, was admitted for acute kidney injury on CK D stage IV, hypokalemia, for which hydralazine was dispensed at 50 mg 3 times a day that time, amlodipine 10 mg daily, and metoprolol was increased to 25 mg daily. He now comes in to the emergency room, from [facility] secondary to unresponsiveness, patient was noted to be witnessed to be shaking, arms and upper body, with eyes open, and unresponsive this lasted for approximately 1-2 minutes, is mostly incontinence urinary incontinence, patient was not diagnosed to have any seizure episode in the past, however he comes in with significant bradycardia from the emergency room heart rate in the 19, he also presents with worsening renal function, with a baseline of 2.6-2.8, creatinine on admission is 3.97, he was taking diuretics at home, and is not on any NSAIDs, patient is scheduled to have a pacemaker in the morning, he also complains of new dysphagia, including Jell-O, which is on the current admission. Patient denies any aspirate events, Dry mouth, patient does not have any new focal neurologic deficits including motor dysfunction, or sensory dysfunction. 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 Hester, Dr. Mccarthy cardiology, Dr. Coronel nephrology 10/16: Echocardiogram reveals EF of 40-45% with moderate concentric left ventricular hypertrophy, mild aortic valve sclerosis, mild aortic regurgitation, trace to mild mitral regurgitation, mild tricuspid regurgitation, mild pulmonary hypertension. Patient has undergone permanent pacemaker implantation today with Dr. Herrera for sick sinus syndrome and syncope. He denies any complaints following procedure. His blood pressure has been stable. Pupils are noted to be equal at 2 mm bilaterally. 10/17: Patient is found sitting in a recliner. He appears to be in no acute distress. He does state that he Quite dizzy when he got up fast this morning which resolved. He continues to have lower extremity edema. He denies any chest pain or shortness of breath. Pacemaker is to be checked today/interrogated. Patient is ordered for Ferrlecit for 3 doses starting today. EEG showed no seizure activity. Neurology recommended starting aspirin 81 mg along with Plavix for 3 week course and follow-up with neurologist as an outpatient. Repeat chest x-ray reveals patchy right perihilar and right basilar infiltrate noted. Pacemaker device. No pneumothorax. Cardiology has increased Imdur and added eliquis for atrial flutter. BUN 92 and creatinine 3.00. Hem oglobin A1c is pending. Hemoglobin stable at 9.3 and platelets at 85. Discussed discharge planning with the patient and he wants to return home. Patient appears to be quite weak and would benefit for subacute rehab. PT and OT are on and case management following. Anticipate probable discharge to subacute rehab on Wednesday. 10/18: Patient remains in intensive care unit as an overflow for cardiac stepdown unit. He denies having any chest pain or shortness of breath but has shortness of breath with activity. He denies any dizziness or lightheadedness. No nausea. He continues to have lower extremity edema. Repeat creatinine is 2.94 and BUN 93, hemoglobin is 9.3, potassium 3.8. Blood culture showing no growth after 72 hours. Umanzor catheter is in place. Blood pressure 154/61, heart rate 60, pulse ox 95% on room air, afebrile. Dr. Coronel has ordered IV Lasix 40 mg once daily and he is receiving a second dose of Ferrlecit today. The patient and family are agreeable for discharge to [facility] which is scheduled for Wednesday. 10/19: Patient remains in intensive care and overflow for cardiac stepdown unit. Patient is tachypneic. Complaining of shortness of breath with activity. P atient is also complaining of restless legs. Patient appears anxious. Patient denies any nausea. He continues to have lower extremity edema. WBC 7.0, hemoglobin 9.4, platelets 95, potassium 4.1, BUN 97, creatinine 2.97. Patient is afebrile, blood pressure 162/64, pulse ox is 91% on 2 L respirations are 25 with labored breathing noted. Review Of Systems: Constitutional: No fever, no chills, no night sweats. No weight change. Reports weakness, fatigue or lethargy. No daytime sleepiness. EENT: No headache. No blurred vision or double vision, no loss of vision. No loss of Hearing, no ringing in the ears, no dizziness. No nasal drainage or congestion. No epistaxis. No sore throat. Lungs: Reports shortness of breath, no cough, no sputum production. No wheezing. Reports dyspnea on exertion. Cardiovascular: No chest pain, reports lower extremity edema. No palpitations. No paroxysmal nocturnal dyspnea. No orthopnea. No lightheadedness or dizziness. No syncopal episodes. Abdominal: No abdominal pain. No nausea, vomiting. No diarrhea. No constipation. No bloody or tarry stools.. No loss of appetite. Genitourinary: No dysuria, increased frequency, urgency. No urinary retention. Musculoskeletal: No myalgias. Reports muscle weakness, no gait dysfunction, no frequent falls. No back pain. No neck pain. Integumentary: No wounds, no lesions. No rash or pruritus. No unusual bruising. No change in hair or nails. Neurologic: No aphasia. No facial droop. No change in mentation. No head injury. No headache. No paralysis. No paresthesia. Psychiatric: No depression. No anxiety. No mood swings. Endocrine: No abnormal blood sugars. No weight change. No excessive sweating or thirst. No cold intolerance. Objective - Vital Signs Vital signs: Vital Signs Temp 98.2 F 10/19/19 04:00 Pulse 61 10/19/19 04:00 Resp 23 10/19/19 04:00 BP 156/78 10/19/19 04:00 Pulse Ox 91 L 11/28/19 04:00 Intake & Output 10/18/19 10/19/19 10/19/19 18:59 06:59 18:59 Intake Total 400 100 Output Total 850 1050 275 Balance -450 -1050 -175 Weight 105.3 kg Intake: IV 100 Sodium Ferric Gluconat- 100 Sucrose 125 mg In Sodium Chloride 0.9% 100 ml @ 100 mls/hr IVPB DAILY [facility] Rx#:[id number] Intake, IV Titration 100 Amount Sodium Ferric Gluconat- 100 Sucrose 125 mg In Sodium Chloride 0.9% 100 ml @ 100 mls/hr IVPB DAILY [facility] Rx#:[id number] Oral 300 Output: Urine 850 1050 275 Other: Voiding Method Indwelling Catheter Indwelling Catheter - Exam General Appearance: Alert, cooperative, moderate distress, appears stated age. Neck HEENT: Supple, no lymphadenopathy, no thyroid enlargement, no carotid bruits. Lungs: Diminished and wheezing. No crackles or rhonchi noted deformity Chest Wall: Chest wall normal expansion with shallow inspiration no tenderness and no deformity was found on exam, no costochondral pain or discomfort. Heart: Regular rate and rhythm, S1, S2 normal, no murmur, rub or gallop. Back: Symmetric, no curvature, ROM normal, no CVA tenderness. Abdomen: Soft, non-tender, no rebound or rigidity, no hepatosplenomegaly. Extremities: Extremities normal, atraumatic, no cyanosis, 1+ pedal edema bila teral. Pulses: 2+ and symmetric. Skin: Skin color, texture, tugor normal, no rashes or lesions. Neurologic: Alert oriented x3 cranial nerves II through XII intact, no motor deficit, - Labs CBC & Chem 7: 10/19/19 05:35 10/19/19 05:35 Labs: Abnormal Lab Results - Last 24 Hours (Table) 10/19/19 10/19/19 Range/Units 05:35 05:35 RBC 2.98 L (4.30-5.90) m/uL Hgb 9.4 L (13.0-17.5) gm/dL Hct 28.1 L (39.0-53.0) % RDW 16.3 H (11.5-15.5) % Plt Count 95 L (150-450) k/uL BUN 97 H (9-20) mg/dL Creatinine 2.97 H (0.66-1.25) mg/dL Glucose 120 H (74-99) mg/dL Microbiology - Last 24 Hours (Table) 10/14/19 19:27 Blood Culture - Preliminary Blood No Growth after 96 hours Assessment and Plan Plan: 1. Unresponsiveness and syncope status post permanent pacemaker implantation, with tonic clonic activity on upper extremity, and body, without any prior history of seizures, cannot rule out seizures is the first episode, status post post pacemaker placement on 10/16/2019, EEG normal, neurology consult a ppreciated. Recommend Plavix and aspirin. 2. Acute kidney injury on CKD 4. Nephrology consult appreciated. Lasix 40 mg IV daily. 3. CKD stage 4. Nephrology following. 4. tachypneic. Draw ABGs, Ativan 0.5 mg now and 0.5 mg daily at bedtime 5. Hypertension, hypertensive cardiovascular disease. Continue hydralazine 50 mg 3 times daily, Lasix, not on CYNTHIA inhibitor or ARB 6. Symptomatic oral rolf, clotrimazole 5 times a day 10 days 7. Hyperlipidemia. Continue Lipitor 20 mg daily. 8. Carotid artery stenosis status post stent on the left and 100% blockage on the right. Continue Plavix 75 mg daily. 9. Restless leg syndrome. Continue Requip 0.5 mg at bedtime. Ativan 0.5 mg daily at bedtime, 10. Hypothyroidism. Continue levothyroxine 50 g daily. 11. DVT prophylaxis. Heparin 5000 units sc Q 12 h. 12. GI prophylaxis. Pepcid 20 mg orally daily. 13. Gout of the left big toe. Start Colcrys 0.6 mg orally once every day. 14. Pancytopenia, with thrombocytopenia platelets currently at 85, might need oncology consultation 15. Microscopic hematuria, noted on urinalysis, monitor 16. Anemia of chronic disease. Ferrlecit 3 doses. 17. Atrial flutter, typical. Cardiology was started on eliquis. 18. History of kidney cancer status post resection and history of bladder cancer. Continue on Proscar 5. Discharge plan: [facility] on Wednesday Impression and plan of care have been directed as dictated by the signing physician. Kirstin Duran nurse practitioner acting as scribe for signing physician.
[2019-10-19 11:22] LABS: ABG Glucose Whole Blood 117 mg/dL (75-99); ABG HCO3 27 mmol/L (21-25); ABG Hematocrit 27 % (34.0-46.0); ABG Ionized Calcium 4.6 mg/dL (4.5-5.3); ABG Lactic Acid Whole Blood 1.6 mmol/L (0.5-1.6); ABG Oxygen Saturation 99.3 % (94-97); ABG PCO2 40 mmHg (35-45); ABG PH 7.45 (7.35-7.45); ABG PO2 116 mmHg (83-108); ABG Potassium Whole Blood 3.9 mmol/L (3.4-4.5); ABG Sodium Whole Blood 138 mmol/L (135-146); ABG TCO2 29 mmol/L (19-24)
--- NOTE | 2019-10-19 13:14 | PN ---
PROGRESS NOTE Lawrence is an 84-year-old gentleman who is in the intensive care unit with syncope. He was found to be in atrial flutter with slow ventricular rate, underwent permanent pacemaker. He is feeling well and is currently awaiting transfer to rehab. EXAM: He is comfortable at rest. Vital signs is stable. Chest exam reveals diminished air entry with wheezing. Heart exam reveals first and second heart sounds. No gallop. Exam of extremities reveals 1+ edema bilaterally. LAB: Show a hemoglobin of 9.4, BUN is 97, creatinine is 2.9. The patient is currently on Eliquis 2.5 b.i.d., Lipitor, Lasix, hydralazine, Imdur and Synthroid. ASSESSMENT: 1. Syncope secondary to bradycardia. 2. Status post permanent pacemaker. 3. Renal insufficiency. 4. Cardiomyopathy. PLAN: Patient will resume the Eliquis that he was on. Yesterday the Eliquis was held because of some bleeding at the pacer site. MMODL / IJN: [id number] /
[2019-10-19 14:37] LABS: ABG Base Excess 4.3 mmol/L; ABG Glucose Whole Blood 88 mg/dL (75-99); ABG HCO3 29 mmol/L (21-25); ABG Hematocrit 29 % (34.0-46.0); ABG Ionized Calcium 4.7 mg/dL (4.5-5.3); ABG Lactic Acid Whole Blood 0.5 mmol/L (0.5-1.6); ABG Oxygen Saturation 98.3 % (94-97); ABG PCO2 40 mmHg (35-45); ABG PH 7.46 (7.35-7.45); ABG PO2 94 mmHg (83-108); ABG Potassium Whole Blood 3.8 mmol/L (3.4-4.5); ABG Sodium Whole Blood 139 mmol/L (135-146); ABG TCO2 30 mmol/L (19-24); Allen Test Performed? Yes
--- NOTE | 2019-10-19 14:47 | XR ---
EXAMINATION TYPE: XR chest 1V DATE OF EXAM: 10/19/2019 CLINICAL HISTORY: Increasing shortness of breath. TECHNIQUE: Single AP portable upright view of the chest is obtained. COMPARISON: Chest x-ray from earlier today and older studies FINDINGS: Overlying EKG leads are redemonstrated. Cardiomegaly with single lead pacemaker an atherosc lerotic aorta is redemonstrated. Chronic parenchymal change with persistent reticulonodular opacities perihilar level felt improved. Persistent small to tiny right pleural effusion. Small left pleural e ffusion and associated left basilar atelectasis and/or infiltrate. Osseous structures are intact. IMPRESSION: Improving central perihilar reticulonodular edema and/or infiltrates bilaterally. Backgro und chronic parenchymal changes and cardiomegaly with small to tiny left greater than right pleural e ffusions. Persistent left basilar acute atelectasis and/or infiltrate.
[2019-10-19] MEDS: ATORVASTATIN 20 MG TAB PO SCH (21:41)
[2019-10-20] MEDS: CLOTRIMAZOLE TROCHE 10 MG TROCHE MUCOUS MEM SCH ×5 (00:14→21:07)
[2019-10-20] MEDS: LORazepam 2 MG/ML INJ IV PRN ×2 (00:14→18:37)
[2019-10-20 03:52] LABS: Anisocytosis Slight; Basophils % (A) 0 %; Eosinophils # (A) 0.2 k/uL (0-0.7); Eosinophils % (A) 2 %; HCT 25.9 % (39.0-53.0); HGB 8.9 gm/dL (13.0-17.5); Lymphocytes # (A) 0.4 k/uL (1.0-4.8); Lymphocytes % (A) 6 %; MCHC 34.4 g/dL (31.0-37.0); Mean Platelet Volume 7.6; Monocytes # (A) 0.3 k/uL (0-1.0); Monocytes % (A) 5 %; Neutrophils # (A) 5.6 k/uL (1.3-7.7); Neutrophils % (A) 85 %; Platelet Count 100 k/uL (150-450); Poikilocytosis Slight; RBC 2.78 m/uL (4.30-5.90); RDW 16.3 % (11.5-15.5); WBC 6.6 k/uL (3.8-10.6)
[2019-10-20 04:23] LABS: Calcium 8.9 mg/dL (8.4-10.2)
[2019-10-20 04:34] LABS: Potassium 3.5 mmol/L (3.5-5.1)
[2019-10-20] MEDS: LEVOTHYROXINE 50 MCG TAB PO SCH (07:01)
[2019-10-20] MEDS: PANTOPRAZOLE 40 MG TABLET PO SCH (07:01)
[2019-10-20] MEDS: ALLOPURINOL 100 MG TAB PO SCH (08:06)
[2019-10-20] MEDS: CEPHALEXIN 250 MG CAP PO SCH ×3 (08:06→21:07)
[2019-10-20] MEDS: APIXABAN 2.5 MG TABLET PO SCH ×2 (08:06→21:07)
[2019-10-20] MEDS: FUROSEMIDE 10 MG/ML 4 ML VIAL IV SCH (08:07)
[2019-10-20] MEDS: hydrALAZINE HCL 25 MG TAB PO SCH ×3 (08:07→21:07)
[2019-10-20] MEDS: FINASTERIDE 5 MG TAB PO SCH (08:07)
[2019-10-20] MEDS: ISOSORBIDE MONONITRATE ER 60 MG TAB.ER.24H PO SCH (08:07)
[2019-10-20] MEDS: SODIUM FERRIC GLUCONAT-SUCROSE 125 MG in SODIUM CHLORIDE 0.9% 100 ML IVPB SCH (08:28)
--- NOTE | 2019-10-20 09:59 | P.PN ---
Subjective Progress Note Date: 10/20/19 Principal diagnosis: This 84-year-old male was admitted with syncope and possible seizures. Was noted to be bradycardic. He has acute kidney injury secondary to prerenal state secondary to congestive heart failure and bradycardia and is slowly improving. Currently he is on oxygen and short of breath, has improved though. He does look weak and tired. Denies any cough. No dizziness. His chest x-ray has improved. His creatinine is nearly down to baseline of 1.9 History of present illness: Patient is a 84-year-old male seen in consultation for acute kidney injury on chronic kidney disease. Patient has chronic kidney disease stage IV with baseline creatinine in the range of 2.6-2.8, his had partial nephrectomies on both sides supposedly. Patient presented to the hospital due to an unresponsive episode. He denies losing consciousness. There was concern for seizure activity. Patient's blood pressure has been stable however he's been quite bradycardic. Last night his heart rate dropped down to 19. He is scheduled for possible pacemaker placement tomorrow. Patient's creatinine was 3.97 on admission and is 3.89 today. He is currently maintained on normal saline at 50 mL an hour. Urine output has been about 40 mL an hour. Oral intake is fair. He was taking diuretics at home which are currently held. He denies use of nonsteroidals. No history of diabetes. Denies family history of renal disease. Objective - Vital Signs Vital signs: Vital Signs Temp 96.8 F L 10/20/19 08:00 Pulse 71 10/20/19 08:00 Resp 25 H 10/20/19 08:00 BP 166/60 10/20/19 08:00 Pulse Ox 94 L 10/20/19 08:00 Intake & Output 10/19/19 10/20/19 10/20/19 18:59 06:59 18:59 Intake Total 100 400 Output Total 1200 1400 350 Balance -1100 -1400 50 Weight 100.7 kg Intake: IV 100 100 Sodium Ferric Gluconat- 100 100 Sucrose 125 mg In Sodium Chloride 0.9% 100 ml @ 100 mls/hr IVPB DAILY [facility] Rx#:[id number] Oral 300 Output: Urine 1200 1400 350 Other: Voiding Method Indwelling Catheter Indwelling Catheter Indwelling Catheter On examination is awake alert oriented comfortable. HEENT exam no JVP neck is supple no facial asymmetry Heart sounds are unremarkable he is paced Lungs are clear to auscultation with an occasional end expiratory wheeze and an occasional crackle with fairly good air entry bilaterally Abdomen is soft nontender no masses felt Extremity examination reveals minimal edema Neurologically awake alert oriente. He has generalized weakness though comfortable - Labs CBC & Chem 7: 10/20/19 03:16 10/20/19 03:16 Labs: Abnormal Lab Results - Last 24 Hours (Table) 10/19/19 10/19/19 10/19/19 Range/Units 11:22 13:43 14:32 RBC (4.30-5.90) m/uL Hgb (13.0-17.5) gm/dL Hct (39.0-53.0) % RDW (11.5-15.5) % Plt Count (150-450) k/uL Lymphocytes # (1.0-4.8) k/uL ABG pH 7.46 H (7.35-7.45) ABG pO2 116 H (83-108) mmHg ABG HCO3 27 H 29 H (21-25) mmol/L ABG Total CO2 29 H 30 H (19-24) mmol/L ABG O2 Saturation 99.3 H 98.3 H (94-97) % ABG Hematocrit 27 L 29 L (34.0-46.0) % ABG Glucose 117 H (75-99) mg/dL Hemoglobin 8.9 L 9.4 L (13.0-17.5) gm/dL BUN (9-20) mg/dL Creatinine (0.66-1.25) mg/dL Troponin I 0.062 H* (0.000-0.034) ng/mL Arterial Blood Glucose 117 H (75-99) mg/dL 10/20/19 10/20/19 Range/Units 03:16 03:16 RBC 2.78 L (4.30-5.90) m/uL Hgb 8.9 L (13.0-17.5) gm/dL Hct 25.9 L (39.0-53.0) % RDW 16.3 H (11.5-15.5) % Plt Count 100 L (150-450) k/uL Lymphocytes # 0.4 L (1.0-4.8) k/uL ABG pH (7.35-7.45) ABG pO2 (83-108) mmHg ABG HCO3 (21-25) mmol/L ABG Total CO2 (19-24) mmol/L ABG O2 Saturation (94-97) % ABG Hematocrit (34.0-46.0) % ABG Glucose (75-99) mg/dL Hemoglobin (13.0-17.5) gm/dL BUN 98 H (9-20) mg/dL Creatinine 2.91 H (0.66-1.25) mg/dL Troponin I (0.000-0.034) ng/mL Arterial Blood Glucose (75-99) mg/dL Microbiology - Last 24 Hours (Table) 10/14/19 19:27 Blood Culture - Preliminary Blood No Growth after 120 hours Assessment and Plan Assessment: Impression 1. Acute kidney injury secondary to prerenal from bradycardia, and's congestive heart failure. Creatinine peaked at 3.97 on 10/14/2019 and is down to 2.9 which is nearly his baseline . 2. Chronic Kidney Disease Stage IV Secondary to nephrosclerosis , with a Baseline Creatinine off 2.6 at Its Best Recently Dated 08/17/2019. 3. Congestive heart failure. improved 4. Significant edema. Improved 5. Bradycardia, atrial flutter 6 sinus syndrome cardiomyopathy ejection fraction is 40%, status post pacemaker implantation 10/16/2019. 6. Anemia with iron deficiency iron saturation was 13% dated [id number], status post Ferrlecit given 1 dose 125 mg 10/19/2019 Admission 1. change IV Lasix to torsemide 40 mg a day 2. of KCl 30 mEq by mouth every hour 2 doses. 3 Monitor lites been creatinine 4. Strict I's and O's
[2019-10-20] MEDS ORDERED: POTASSIUM CHLORIDE ER 20 MEQ TAB.ER PO STA (10:30)
[2019-10-20] MEDS: TORSEMIDE 20 MG TAB PO SCH (10:31)
[2019-10-20] MEDS: predniSONE 20 MG TAB PO SCH (10:31)
[2019-10-20 11:18] VITALS: BMI 35.8
--- NOTE | 2019-10-20 11:40 | P.PN ---
Subjective Progress Note Date: 10/20/19 This is an 84-year-old male patient of Dr. Harman with past medical history of bladder cancer diagnosed 18 years ago status post mass resection, kidney cancer initially diagnosed in 2010 on the left with partial nephrectomy followed by diagnosis on the right in 2013 status post partial robot ic resection. Patient states cancers currently are in remission and his oncologist is Dr. Juan. He also has past medical history of carotid artery stenosis status post stent, hypertension, hypothyroidism, hyperlipidemia, restless leg syndrome, gout, chronic kidney disease stage 4, he was last admitted from our facility 10/02/2019, was admitted for acute kidney injury on CK D stage IV, hypokalemia, for which hydralazine was dispensed at 50 mg 3 times a day that time, amlodipine 10 mg daily, and metoprolol was increased to 25 mg daily. He now comes in to the emergency room, from [facility] lodge secondary to unresponsiveness, patient was noted to be witnessed to be shaking, arms and upper body, with eyes open, and unresponsive this lasted for approximately 1-2 minutes, is mostly incontinence urinary incontinence, patient was not diagnosed to have any seizure episode in the past, however he comes in with significant bradycardia from the emergency room heart rate in the 19, he also presents with worsening renal function, with a baseline of 2.6-2.8, creatinine on admission is 3.97, he was taking diuretics at home, and is not on any NSAIDs, patient is scheduled to have a pacemaker in the morning, he also complains of new dysphagia, including Jell-O, which is on the current admission. Patient denies any aspirate events, Dry mouth, patient does not have any new focal neurologic deficits including motor dysfunction, or sensory dysfunction. 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 Dr. Shari Hester cardiology, Dr. Coronel nephrology 10/16: Echocardiogram reveals EF of 40-45% with moderate concentric left ventricular hypertrophy, mild aortic valve sclerosis, mild aortic regurgitation, trace to mild mitral regurgitation, mild tricuspid regurgitation, mild pulmonary hypertension. Patient has undergone permanent pacemaker implantation today with Dr. Herrera for sick sinus syndrome and syncope. He denies any complaints following procedure. His blood pressure has been stable. Pupils are noted to be equal at 2 mm bilaterally. 10/17: Patient is found sitting in a recliner. He appears to be in no acute distress. He does state that he Quite dizzy when he got up fast this morning which resolved. He continues to have lower extremity edema. He denies any chest pain or shortness of breath. Pacemaker is to be checked today/interrogated. Patient is ordered for Ferrlecit for 3 doses starting today. EEG showed no seizure activity. Neurology recommended starting aspirin 81 mg along with Plavix for 3 week course and follow-up with neurologist as an outpatient. Repeat chest x-ray reveals patchy right perihilar and right basilar infiltrate noted. Pacemaker device. No pneumothorax. Cardiology has increased Imdur and added eliquis for atrial flutter. BUN 92 and creatinine 3.00. He moglobin A1c is pending. Hemoglobin stable at 9.3 and platelets at 85. Discussed discharge planning with the patient and he wants to return home. Patient appears to be quite weak and would benefit for subacute rehab. PT and OT are on and case management following. Anticipate probable discharge to subacute rehab on Wednesday. 10/18: Patient remains in intensive care unit as an overflow for cardiac stepdown unit. He denies having any chest pain or shortness of breath but has shortness of breath with activity. He denies any dizziness or lightheadedness. No nausea. He continues to have lower extremity edema. Repeat creatinine is 2.94 and BUN 93, hemoglobin is 9.3, potassium 3.8. Blood culture showing no growth after 72 hours. Umanzor catheter is in place. Blood pressure 154/61, heart rate 60, pulse ox 95% on room air, afebrile. Dr. Coronel has ordered IV Lasix 40 mg once daily and he is receiving a second dose of Ferrlecit today. The patient and family are agreeable for discharge to [facility] which is scheduled for Wednesday. 10/19: Patient remains in intensive care and overflow for cardiac stepdown unit. Patient is tachypneic. Complaining of shortness of breath with activity. Patient is also complaining of restless legs. Patient appears anxious. Patient denies any nausea. He continues to have lower extremity edema. WBC 7.0, hemoglobin 9.4, platelets 95, potassium 4.1, BUN 97, creatinine 2.97. Patient is afebrile, blood pressure 162/64, pulse ox is 91% on 2 L respirations are 25 with labored breathing noted. 10/20: Patient continues to wait for bed on the cardiac stepdown unit. Patient's tachypnea is improved today. Apparently he was doing well during the night. He was on BiPAP currently on 3 L nasal cannula and maintaining good O2 saturations. Patient states his anxiety is much improved and decreased "jumping legs" sensation. He continues to have wheezing. We will add in some prednisone and patient will need to have outpatient PFTs. Patient denies any previous history of COPD or asthma. Patient continues to have significant weakness and discharge plan will be to [facility]. Nephrology is changing Lasix to torsemide. Urine output is around 40 miles per hour. Review Of Systems: Constitutional: No fever, no chills, no night sweats. No weight change. Reports weakness, fatigue or lethargy. No daytime sleepiness. EENT: No headache. No blurred vision or double vision, no loss of vision. No loss of Hearing, no ringing in the ears, no dizziness. No nasal drainage or congestion. No epistaxis. No sore throat. Lungs: Reports shortness of breath, no cough, no sputum production. Reports wheezing. Reports dyspnea on exertion. Cardiovascular: No chest pain, reports lower extremity edema. No palpitations. No paroxysmal nocturnal dyspnea. No orthopnea. No lightheadedness or dizziness. No syncopal episodes. Abdominal: No abdominal pain. No nausea, vomiting. No diarrhea. No constipation. No bloody or tarry stools.. No loss of appetite. Genitourinary: No dysuria, increased frequency, urgency. No urinary retention. Musculoskeletal: No myalgias. Reports muscle weakness, no gait dysfunction, no frequent falls. No back pain. No neck pain. Integumentary: No wounds, no lesions. No rash or pruritus. No unusual bruising. No change in hair or nails. Neurologic: No aphasia. No facial droop. No change in mentation. No head injury. No headache. No paralysis. No paresthesia. Reports restless leg Psychiatric: No depression. No anxiety. No mood swings. Endocrine: No abnormal blood sugars. No weight change. No excessive sweating or thirst. No cold intolerance. Objective - Vital Signs Vital signs: Vital Signs Temp 96.8 F L 10/20/19 08:00 Pulse 71 10/20/19 08:00 Resp 25 H 10/20/19 08:00 BP 166/60 10/20/19 08:00 Pulse Ox 94 L 10/20/19 08:00 Intake & Output 10/19/19 10/20/19 10/20/19 18:59 06:59 18:59 Intake Total 100 400 Output Total 1200 1400 350 Balance -1100 -1400 50 Weight 100.7 kg Intake: IV 100 100 Sodium Ferric Gluconat- 100 100 Sucrose 125 mg In Sodium Chloride 0.9% 100 ml @ 100 mls/hr IVPB DAILY [facility] Rx#:[id number] Oral 300 Output: Urine 1200 1400 350 Other: Voiding Method Indwelling Catheter Indwelling Catheter Indwelling Catheter - Exam General Appearance: Alert, cooperative, moderate distress, appears stated age. Neck HEENT: Supple, no lymphadenopathy, no thyroid enlargement, no carotid bruits. Lungs: Diminished and wheezing. No crackles or rhonchi noted deformity Chest Wall: Chest wall normal expansion with shallow inspiration no tenderness and no deformity was found on exam, no costochondral pain or discomfort. Heart: Regular rate and rhythm, S1, S2 normal, no murmur, rub or gallop. Back: Symmetric, no curvature, ROM normal, no CVA tenderness. Abdomen: Soft, non-tender, no rebound or rigidity, no hepatosplenomegaly. Extremities: Extremities normal, atraumatic, no cyanosis, 1+ pedal edema bilateral. Pulses: 2+ and symmetric. Skin: Skin color, texture, tugor normal, no rashes or lesions. Neurologic: Alert oriented x3 cranial nerves II through XII intact, no motor deficit, - Labs CBC & Chem 7: 10/20/19 03:16 10/20/19 03:16 Labs: Abnormal Lab Results - Last 24 Hours (Table) 10/19/19 10/19/1919 Range/Units 11:22 13:43 14:32 RBC (4.30-5.90) m/uL Hgb (13.0-17.5) gm/dL Hct (39.0-53.0) % RDW (11.5-15.5) % Plt Count (150-450) k/uL Lymphocytes # (1.0-4.8) k/uL ABG pH 7.46 H (7.35-7.45) ABG pO2 116 H (83-108) mmHg ABG HCO3 27 H 29 H (21-25) mmol/L ABG Total CO2 29 H 30 H (19-24) mmol/L ABG O2 Saturation 99.3 H 98.3 H (94-97) % ABG Hematocrit 27 L 29 L (34.0-46.0) % ABG Glucose 117 H (75-99) mg/dL Hemoglobin 8.9 L 9.4 L (13.0-17.5) gm/dL BUN (9-20) mg/dL Creatinine (0.66-1.25) mg/dL Troponin I 0.062 H* (0.000-0.034) ng/mL Arterial Blood Glucose 117 H (75-99) mg/dL 10/20/19 10/20/19 Range/Units 03:16 03:16 RBC 2.78 L (4.30-5.90) m/uL Hgb 8.9 L (13.0-17.5) gm/dL Hct 25.9 L (39.0-53.0) % RDW 16.3 H (11.5-15.5) % Plt Count 100 L (150-450) k/uL Lymphocytes # 0.4 L (1.0-4.8) k/uL ABG pH (7.35-7.45) ABG pO2 (83-108) mmHg ABG HCO3 (21-25) mmol/L ABG Total CO2 (19-24) mmol/L ABG O2 Saturation (94-97) % ABG Hematocrit (34.0-46.0) % ABG Glucose (75-99) mg/dL Hemoglobin (13.0-17.5) gm/dL BUN 98 H (9-20) mg/dL Creatinine 2.91 H (0.66-1.25) mg/dL Troponin I (0.000-0.034) ng/mL Arterial Blood Glucose (75-99) mg/dL Microbiology - Last 24 Hours (Table) 10/14/19 19:27 Blood Culture - Preliminary Blood No Growth after 120 hours Assessment and Plan Plan: 1. Unresponsiveness and syncope status post permanent pacemaker implantation, with tonic clonic activity on upper extremity, and body, without any prior history of seizures, cannot rule out seizures is the first episode, status post post pacemaker placement on 10/16/2019, EEG normal, neurology consult appreciated. Recommend Plavix and aspirin. 2. Acute kidney injury on CKD 4. Nephrology consult appreciated. Lasix changed to torsemide. 3. CKD stage 4. Nephrology following. 4. tachypneic. Draw ABGs, Ativan 0.5 mg now and 0.5 mg daily at bedtime 5. Hypertension, hypertensive cardiovascular disease. Continue hydralazine increased to 75 mg 3 times daily, Lasix changed to torsemide, Imdur 60 mg daily 6. Symptomatic oral rolf, clotrimazole 5 times a day 10 days 7. Hyperlipidemia. Continue Lipitor 20 mg daily. 8. Carotid artery stenosis status post stent on the left and 100% blockage on the right. Continue Plavix 75 mg daily. 9. Restless leg syndrome. Continue Requip 0.5 mg at bedtime. Ativan 0.5 mg daily at bedtime, 10. Hypothyroidism. Continue levothyroxine 50 g daily. 11. DVT prophylaxis. Heparin 5000 units sc Q 12 h. 12. GI prophylaxis. Pepcid 20 mg orally daily. 13. Gout of the left big toe. Start Colcrys 0.6 mg orally once every day. 14. Pancytopenia, with thrombocytopenia might need oncology consultation 15. Microscopic hematuria, noted on urinalysis, monitor 16. Anemia of chronic disease. Ferrlecit 3 doses. 17. Atrial flutter, typical. Cardiology started on eliquis. 18. History of kidney cancer status post resection and history of bladder cancer. Continue on Proscar 5. 19. Wheezing without diagnosis of COPD or asthma. Patient started on prednisone 40 mg daily. Discharge plan: [facility] on Wednesday Impression and plan of care have been directed as dictated by the signing physician. Florecita Pedroza nurse practitioner acting as scribe for signing physician.
--- NOTE | 2019-10-20 11:56 | P.PN ---
Subjective Progress Note Date: 10/20/19 Principal diagnosis: Severe symptomatic bradycardia, unresponsiveness/loss of consciousness, acute renal failure probably related to hypertension dehydration, chronic kidney disease stage IV, hypertension and is currently vascular disease, likely obstructive sleep apnea, morbid obesity, carotid artery stenosis with stent on the left side and 100% blockage in the right side 10/20/2019, patient seen eval reexamined during the rounds labs reviewed medications reviewed care plan discussed with the patient and staff at length patient is sitting upright on chair breathing comfortably but remains tachypneic, more awake and alert, patient has been on bronchodilator therapy along with the steroid, last chest x-ray performed yesterday shows improving perihilar edema and infiltrate as well as effusion 10/18/2019, patient seen eval examined and labs reviewed medications reviewed cough congestion shortness of breath is better now patient is more awake and alert denies any chest pain undergoing physical therapy 10/17/2019, patient seen eval examined during the rounds in ICU, undergoing some physical therapy overall tired is still intermittently dizzy patient is status post pacemaker chest x-ray performed revealed patchy infiltrate predominantly in the right basal area and some perihilar infiltrate cannot be excluded, likely appears to be related to fluid overload and CHF as patient has no fever and white cell count within normal limit Will observe it 10/16/2019, patient seen eval reexamined during the rounds labs reviewed medications reviewed slightly more responsive now patient is under affect of the anesthetic agent for permanent pacemaker placement which she tolerated fairly well hemodynamic status stable, chest x-rays pending, hemoglobin is 9.3, BUN/creatinine improved to 98 and 3.5 Objective - Vital Signs Vital signs: Vital Signs Temp 96.8 F L 10/20/19 08:00 Pulse 71 10/20/19 08:00 Resp 25 H 10/20/19 08:00 BP 166/60 10/20/19 08:00 Pulse Ox 94 L 10/20/19 08:00 Intake & Output 10/19/19 10/20/19 10/20/19 18:59 06:59 18:59 Intake Total 100 400 Output Total 1200 1400 350 Balance -1100 -1400 50 Weight 100.7 kg 100.7 kg Intake: IV 100 100 Sodium Ferric Gluconat- 100 100 Sucrose 125 mg In Sodium Chloride 0.9% 100 ml @ 100 mls/hr IVPB DAILY [facility] Rx#:[id number] Oral 300 Output: Urine 1200 1400 350 Other: Voiding Method Indwelling Catheter Indwelling Catheter Indwelling Catheter - Exam - Constitutional General appearance: cooperative, no acute distress - EENT Eyes: anicteric sclerae, EOMI, PERRLA, dentition normal, normal appearance ENT: NA/AT, normal oropharynx - Neck Neck: normal ROM - Respiratory Respiratory: bilateral: CTA, negative: dullness, rales, wheezing - Cardiovascular Rhythm: regular Heart sounds: normal: S1, S2 - Gastrointestinal General gastrointestinal: normal bowel sounds - Integumentary Integumentary: normal, normal turgor - Neurologic Neurologic: CNII-XII intact - Musculoskeletal Musculoskeletal: gait normal - Psychiatric Psychiatric: A&O x's 3, appropriate affect - Labs CBC & Chem 7: 10/20/19 03:16 10/20/19 03:16 Labs: Abnormal Lab Results - Last 24 Hours (Table) 10/19/19 10/19/19 10/20/19 Range/Units 13:43 14:32 03:16 RBC 2.78 L (4.30-5.90) m/uL Hgb 8.9 L (13.0-17.5) gm/dL Hct 25.9 L (39.0-53.0) % RDW 16.3 H (11.5-15.5) % Plt Count 100 L (150-450) k/uL Lymphocytes # 0.4 L (1.0-4.8) k/uL ABG pH 7.46 H (7.35-7.45) ABG HCO3 29 H (21-25) mmol/L ABG Total CO2 30 H (19-24) mmol/L ABG O2 Saturation 98.3 H (94-97) % ABG Hematocrit 29 L (34.0-46.0) % Hemoglobin 9.4 L (13.0-17.5) gm/dL BUN (9-20) mg/dL Creatinine (0.66-1.25) mg/dL Troponin I 0.062 H* (0.000-0.034) ng/mL 10/20/19 Range/Units 03:16 RBC (4.30-5.90) m/uL Hgb (13.0-17.5) gm/dL Hct (39.0-53.0) % RDW (11.5-15.5) % Plt Count (150-450) k/uL Lymphocytes # (1.0-4.8) k/uL ABG pH (7.35-7.45) ABG HCO3 (21-25) mmol/L ABG Total CO2 (19-24) mmol/L ABG O2 Saturation (94-97) % ABG Hematocrit (34.0-46.0) % Hemoglobin (13.0-17.5) gm/dL BUN 98 H (9-20) mg/dL Creatinine 2.91 H (0.66-1.25) mg/dL Troponin I (0.000-0.034) ng/mL Microbiology - Last 24 Hours (Table) 10/14/19 19:27 Blood Culture - Preliminary Blood No Growth after 120 hours Assessment and Plan Assessment: Likely COPD with exacerbation Congestive heart failure and acute pulmonary edema due to symptomatic bradycardia Severe symptomatic bradycardia Loss of consciousness likely related to severe symptomatic bradycardia Obstructive sleep apnea and sleep disorder breathing Morbid obesity Chronic renal failure stage IV Plan: Continue steroids with bronchodilator Continue BiPAP each night and when necessary during the day Increase activity as tolerated Patient status post pacemaker Will avoid diuretics Continue hydralazine Continue Requip Further recommendations pending plan of care as per clinical response of the patient She will definitely need a sleep study on outpatient Time with Patient: Greater than 30
[2019-10-20] MEDS: METOPROLOL SUCCINATE (ER) 50 MG TAB.ER.24H PO SCH (12:06)
--- NOTE | 2019-10-20 12:24 | PN ---
PROGRESS NOTE Lawrence is an 84-year-old gentleman with complex and multiple medical problems including syncope secondary to bradycardia for which she had a permanent pacemaker, renal insufficiency and cardiomyopathy. This morning, he is feeling much better. Denies any chest pain or difficulty in breathing. PHYSICAL EXAMINATION: On exam, afebrile. Heart rate is 70 beats per minute. Blood pressure is 166/60. Respiratory rate is 18. Chest exam reveals good air entry bilaterally. Heart exam reveals first and second heart sounds. No gallop. Exam of extremities reveals mild edema. Peripheral pulses are felt. ASSESSMENT: 1. Syncope, status post permanent pacemaker placement. 2. Persistent atrial fibrillation. 3. Hypertension. PLAN: Patient is currently on Eliquis, Lipitor, Apresoline. Blood pressure is poorly controlled. I am going to add Toprol-XL 50 mg daily for optimal control of blood pressure. MMODL / IJN: [id number] /
[2019-10-20] MEDS: ATORVASTATIN 20 MG TAB PO SCH (21:07)
[2019-10-21] MEDS: CLOTRIMAZOLE TROCHE 10 MG TROCHE MUCOUS MEM SCH ×5 (02:24→20:34)
[2019-10-21] MEDS: LEVOTHYROXINE 50 MCG TAB PO SCH (06:42)
[2019-10-21] MEDS: PANTOPRAZOLE 40 MG TABLET PO SCH (06:42)
[2019-10-21] MEDS: ALLOPURINOL 100 MG TAB PO SCH (07:44)
[2019-10-21] MEDS: APIXABAN 2.5 MG TABLET PO SCH ×2 (07:44→20:34)
[2019-10-21] MEDS: ISOSORBIDE MONONITRATE ER 60 MG TAB.ER.24H PO SCH (07:44)
[2019-10-21] MEDS: METOPROLOL SUCCINATE (ER) 50 MG TAB.ER.24H PO SCH (07:44)
[2019-10-21] MEDS: hydrALAZINE HCL 25 MG TAB PO SCH ×3 (07:44→21:55)
[2019-10-21] MEDS: TORSEMIDE 20 MG TAB PO SCH (07:45)
[2019-10-21] MEDS: FINASTERIDE 5 MG TAB PO SCH (07:45)
[2019-10-21] MEDS: predniSONE 20 MG TAB PO SCH (07:45)
[2019-10-21] MEDS ORDERED: POTASSIUM CHLORIDE ER 20 MEQ TAB.ER PO STA (09:54)
--- NOTE | 2019-10-21 09:55 | P.PN ---
Subjective Patient is seen in follow-up for acute kidney injury on chronic kidney disease. Patient has chronic kidney disease stage IV with baseline creatinine in the range of 2.6-2.8. Patient had pacemaker placed on October 16. Oral intake is good. Urine output is good. No vomiting or diarrhea. Renal function is stable. Creatinine 2.91 today. Currently maintained on torsemide 40 mg once daily. Vital signs are stable. General: The patient appeared well nourished and normally developed. HEENT: Head exam is unremarkable. Neck is without jugular venous distension. LUNGS: Breath sounds decreased. HEART: Rate and Rhythm are regular. First and second heart sounds normal. No murmurs, rubs or gallops. ABDOMEN: Abdominal exam reveals normal bowel sounds. Non-tender and non- distended. No evidence of peritonitis. EXTREMITITES: 1+ edema. Objective - Vital Signs Vital signs: Vital Signs Temp 96.7 F L 10/21/19 07:52 Pulse 60 10/21/19 07:52 Resp 19 10/21/19 07:52 BP 133/73 10/21/19 07:52 Pulse Ox 96 10/21/19 07:52 Intake & Output 10/20/19 10/21/19 10/21/19 18:59 06:59 18:59 Intake Total 800 660 Output Total 1125 720 Balance -325 -720 660 Weight 100.7 kg 97.8 kg Intake: IV 100 Sodium Ferric Gluconat- 100 Sucrose 125 mg In Sodium Chloride 0.9% 100 ml @ 100 mls/hr IVPB DAILY [facility] Rx#:[id number] Oral 700 660 Output: Urine 1125 720 Other: Voiding Method Indwelling Catheter Indwelling Catheter - Labs CBC & Chem 7: 10/20/19 03:16 10/20/19 03:16 Labs: Microbiology - Last 24 Hours (Table) 10/14/19 19:27 Blood Culture - Final Blood No Growth after 144 hours Assessment and Plan Plan: Assessment: 1. Acute kidney injury secondary to ATN secondary to hemodynamic instability. Creatinine was 3.97 on admission and is stable at 2.91 today. 2. Chronic kidney disease stage IV secondary to nephrosclerosis and partial bilateral nephrectomies. Baseline creatinine in the range of 2.6-2.8. 3. Bradycardia/sick sinus syndrome. Cardiology following. Status post pacemaker placement on October 16. 4. Anemia of chronic kidney disease. Iron deficiency noted. Status post 3 doses of IV iron. 5. Chronic systolic CHF with ejection fraction of 40-45%. 6. Hypokalemia secondary to diuretics. 7. Volume overload. Maintained on torsemide. Plan: Maintain torsemide 40 mg once daily. Replace potassium. 40 mEq today. Avoid nephrotoxins. Continue to monitor renal function and urine output. Add Aranesp.
[2019-10-21] MEDS ORDERED: DARBEPOETIN ALFA 40 MCG/0.4 ML SYRINGE SQ SCH (10:00)
--- NOTE | 2019-10-21 10:12 | P.PN ---
Subjective Progress Note Date: 10/21/19 Principal diagnosis: Severe symptomatic bradycardia, unresponsiveness/loss of consciousness, acute renal failure probably related to hypertension dehydration, chronic kidney disease stage IV, hypertension and is currently vascular disease, likely obstructive sleep apnea, morbid obesity, carotid artery stenosis with stent on the left side and 100% blockage in the right side 10/21/2019, patient seen and evaluated examined during the rounds labs reviewed medications reviewed care plan discussed with the respiratory therapist, patient somnolent but arousable he had refused BiPAP machine last night did not use it he is on supplemental oxygen, saturation is 96% on 3 L, labs pending from today 10/20/2019, patient seen eval reexamined during the rounds labs reviewed medications reviewed care plan discussed with the patient and staff at length patient is sitting upright on chair breathing comfortably but remains tachypneic, more awake and alert, patient has been on bronchodilator therapy along with the steroid, last chest x-ray performed yesterday shows improving perihilar edema and infiltrate as well as effusion 10/18/2019, patient seen eval examined and labs reviewed medications reviewed cough congestion shortness of breath is better now patient is more awake and alert denies any chest pain undergoing physical therapy 10/17/2019, patient seen eval examined during the rounds in ICU, undergoing some physical therapy overall tired is still intermittently dizzy patient is status post pacemaker chest x-ray performed revealed patchy infiltrate predominantly in the right basal area and some perihilar infiltrate cannot be excluded, likely appears to be related to fluid overload and CHF as patient has no fever and white cell count within normal limit Will observe it 10/16/2019, patient seen eval reexamined during the rounds labs reviewed medications reviewed slightly more responsive now patient is under affect of the anesthetic agent for permanent pacemaker placement which she tolerated fairly well hemodynamic status stable, chest x-rays pending, hemoglobin is 9.3, BUN/creatinine improved to 98 and 3.5 Objective - Vital Signs Vital signs: Vital Signs Temp 96.7 F L 10/21/19 07:52 Pulse 60 10/21/19 07:52 Resp 19 10/21/19 07:52 BP 133/73 10/21/19 07:52 Pulse Ox 96 10/21/19 07:52 Intake & Output 10/20/19 10/21/19 10/21/19 18:59 06:59 18:59 Intake Total 800 660 Output Total 1125 720 Balance -325 -720 660 Weight 100.7 kg 97.8 kg Intake: IV 100 Sodium Ferric Gluconat- 100 Sucrose 125 mg In Sodium Chloride 0.9% 100 ml @ 100 mls/hr IVPB DAILY [facility] Rx#:[id number] Oral 700 660 Output: Urine 1125 720 Other: Voiding Method Indwelling Catheter Indwelling Catheter - Exam - Constitutional General appearance: cooperative, no acute distress - EENT Eyes: anicteric sclerae, EOMI, PERRLA, dentition normal, normal appearance ENT: NA/AT, normal oropharynx - Neck Neck: normal ROM - Respiratory Respiratory: bilateral: CTA, negative: dullness, rales, wheezing - Cardiovascular Rhythm: regular Heart sounds: normal: S1, S2 - Gastrointestinal General gastrointestinal: normal bowel sounds - Integumentary Integumentary: normal, normal turgor - Neurologic Neurologic: CNII-XII intact - Musculoskeletal Musculoskeletal: gait normal - Psychiatric Psychiatric: A&O x's 3, appropriate affect - Labs CBC & Chem 7: 10/20/19 03:16 10/20/19 03:16 Labs: Microbiology - Last 24 Hours (Table) 10/14/19 19:27 Blood Culture - Final Blood No Growth after 144 hours Assessment and Plan Assessment: Likely COPD with exacerbation Congestive heart failure and acute pulmonary edema due to symptomatic bradycardia Severe symptomatic bradycardia Component of obesity hypoventilation syndrome Loss of consciousness likely related to severe symptomatic bradycardia Obstructive sleep apnea and sleep disorder breathing Morbid obesity Chronic renal failure stage IV Plan: Continue steroids with bronchodilator Continue BiPAP each night and when necessary during the day, patient has been noncompliant will follow Increase activity as tolerated Patient status post pacemaker Will avoid diuretics Continue hydralazine Continue Requip Further recommendations pending plan of care as per clinical response of the patient She will definitely need a sleep study on outpatient Time with Patient: Greater than 30
--- NOTE | 2019-10-21 11:27 | PN ---
PROGRESS NOTE FOLLOW-UP NOTE: Lawrence is an 84-year-old gentleman with complex and multiple medical problems, including syncope for which he underwent permanent pacemaker, renal insufficiency and cardiomyopathy. His main complaint this morning is that he is not able to sleep. He denies chest pain. Still has leg edema. The blood pressures are better controlled with adjusting his medication. On exam, heart rate is 60 beats per minute. Blood pressure is 133/73, respiratory rate is 18. Chest exam reveals good air entry bilaterally. Heart exam reveals first and second heart sounds. No gallop. Examination of extremities reveals bilateral 1+ pitting edema. Labs show a BUN of 98, creatinine of 2.9. Current medications include Eliquis 2.5 b.i.d., Lipitor 20 daily, Apresoline 75 t.i.d., Toprol-XL 50 mg daily, K-Dur and Demadex. ASSESSMENT: 1. Syncope secondary to bradycardia, status post permanent pacemaker. 2. Hypertension. 3. Renal insufficiency. 4. Cardiomyopathy. Will continue with current medications. MMODL / IJN: [id number] /
[2019-10-21 11:38] LABS: Magnesium 2.6 mg/dL (1.6-2.3); Potassium 4.4 mmol/L (3.5-5.1)
--- NOTE | 2019-10-21 13:22 | P.PN ---
Subjective Progress Note Date: 10/21/19 This is an 84-year-old male patient of Dr. Harman with past medical history of bladder cancer diagnosed 18 years ago status post mass resection, kidney cancer initially diagnosed in 2010 on the left with partial nephrectomy followed by diagnosis on the right in 2013 status post partial robot ic resection. Patient states cancers currently are in remission and his oncologist is Dr. Juan. He also has past medical history of carotid artery stenosis status post stent, hypertension, hypothyroidism, hyperlipidemia, restless leg syndrome, gout, chronic kidney disease stage 4, he was last admitted from our facility 10/02/2019, was admitted for acute kidney injury on CK D stage IV, hypokalemia, for which hydralazine was dispensed at 50 mg 3 times a day that time, amlodipine 10 mg daily, and metoprolol was increased to 25 mg daily. He now comes in to the emergency room, from [facility] lodge secondary to unresponsiveness, patient was noted to be witnessed to be shaking, arms and upper body, with eyes open, and unresponsive this lasted for approximately 1-2 minutes, is mostly incontinence urinary incontinence, patient was not diagnosed to have any seizure episode in the past, however he comes in with significant bradycardia from the emergency room heart rate in the 19, he also presents with worsening renal function, with a baseline of 2.6-2.8, creatinine on admission is 3.97, he was taking diuretics at home, and is not on any NSAIDs, patient is scheduled to have a pacemaker in the morning, he also complains of new dysphagia, including Jell-O, which is on the current admission. Patient denies any aspirate events, Dry mouth, patient does not have any new focal neurologic deficits including motor dysfunction, or sensory dysfunction. 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 Dr. Shari Hester cardiology, Dr. Coronel nephrology 10/16: Echocardiogram reveals EF of 40-45% with moderate concentric left ventricular hypertrophy, mild aortic valve sclerosis, mild aortic regurgitation, trace to mild mitral regurgitation, mild tricuspid regurgitation, mild pulmonary hypertension. Patient has undergone permanent pacemaker implantation today with Dr. Herrera for sick sinus syndrome and syncope. He denies any complaints following procedure. His blood pressure has been stable. Pupils are noted to be equal at 2 mm bilaterally. 10/17: Patient is found sitting in a recliner. He appears to be in no acute distress. He does state that he Quite dizzy when he got up fast this morning which resolved. He continues to have lower extremity edema. He denies any chest pain or shortness of breath. Pacemaker is to be checked today/interrogated. Patient is ordered for Ferrlecit for 3 doses starting today. EEG showed no seizure activity. Neurology recommended starting aspirin 81 mg along with Plavix for 3 week course and follow-up with neurologist as an outpatient. Repeat chest x-ray reveals patchy right perihilar and right basilar infiltrate noted. Pacemaker device. No pneumothorax. Cardiology has increased Imdur and added eliquis for atrial flutter. BUN 92 and creatinine 3.00. He moglobin A1c is pending. Hemoglobin stable at 9.3 and platelets at 85. Discussed discharge planning with the patient and he wants to return home. Patient appears to be quite weak and would benefit for subacute rehab. PT and OT are on and case management following. Anticipate probable discharge to subacute rehab on Wednesday. 10/18: Patient remains in intensive care unit as an overflow for cardiac stepdown unit. He denies having any chest pain or shortness of breath but has shortness of breath with activity. He denies any dizziness or lightheadedness. No nausea. He continues to have lower extremity edema. Repeat creatinine is 2.94 and BUN 93, hemoglobin is 9.3, potassium 3.8. Blood culture showing no growth after 72 hours. Umanzor catheter is in place. Blood pressure 154/61, heart rate 60, pulse ox 95% on room air, afebrile. Dr. Coronel has ordered IV Lasix 40 mg once daily and he is receiving a second dose of Ferrlecit today. The patient and family are agreeable for discharge to [facility] which is scheduled for Wednesday. 10/19: Patient remains in intensive care and overflow for cardiac stepdown unit. Patient is tachypneic. Complaining of shortness of breath with activity. Patient is also complaining of restless legs. Patient appears anxious. Patient denies any nausea. He continues to have lower extremity edema. WBC 7.0, hemoglobin 9.4, platelets 95, potassium 4.1, BUN 97, creatinine 2.97. Patient is afebrile, blood pressure 162/64, pulse ox is 91% on 2 L respirations are 25 with labored breathing noted. 10/20: Patient continues to wait for bed on the cardiac stepdown unit. Patient's tachypnea is improved today. Apparently he was doing well during the night. He was on BiPAP currently on 3 L nasal cannula and maintaining good O2 saturations. Patient states his anxiety is much improved and decreased "jumping legs" sensation. He continues to have wheezing. We will add in some prednisone and patient will need to have outpatient PFTs. Patient denies any previous history of COPD or asthma. Patient continues to have significant weakness and discharge plan will be to [facility]. Nephrology is changing Lasix to torsemide. Urine output is around 40 miles per hour. 10/21 patient sitting by the bedside. Complains of fatigue and tiredness but is denying any shortness of breath adjustment. Patient did wear BiPAP intermittently but refuses to wear it continuously. Patient has a hemoglobin of 8.9. Creatinine is increased from 2.9-3.52 with a BUN 110 likely secondary to initiation of steroid.. Patient continues to have wheezing will continue prednisone for now. Nephrology to adjust patient's Lasix dose Review Of Systems: Constitutional: No fever, no chills, no night sweats. No weight change. Reports weakness, fatigue or lethargy. No daytime sleepiness. EENT: No headache. No blurred vision or double vision, no loss of vision. No l oss of Hearing, no ringing in the ears, no dizziness. No nasal drainage or congestion. No epistaxis. No sore throat. Lungs: Reports shortness of breath, no cough, no sputum production. Reports whe ezing. Reports dyspnea on exertion. Cardiovascular: No chest pain, reports lower extremity edema. No palpitations. No paroxysmal nocturnal dyspnea. No orthopnea. No lightheadedness or dizziness. No syncopal episodes. Abdominal: No abdominal pain. No nausea, vomiting. No diarrhea. No constip ation. No bloody or tarry stools.. No loss of appetite. Genitourinary: No dysuria, increased frequency, urgency. No urinary retention. Musculoskeletal: No myalgias. Reports muscle weakness, no gait dysfunction, no frequent falls. No back pain. No neck pain. Integumentary: No wounds, no lesions. No rash or pruritus. No unusual bruising. No change in hair or nails. Neurologic: No aphasia. No facial droop. No change in mentation. No head injury. No headache. No paralysis. No paresthesia. Reports restless leg Psychiatric: No depression. No anxiety. No mood swings. Endocrine: No abnormal blood sugars. No weight change. No excessive sweating or thirst. No cold intolerance. Objective - Vital Signs Vital signs: Vital Signs Temp 96.9 F L 10/21/19 12:00 Pulse 61 10/21/19 12:00 Resp 20 10/21/19 12:00 BP 153/58 10/21/19 12:00 Pulse Ox 95 10/21/19 12:00 Intake & Output 10/20/19 10/21/19 10/21/19 18:59 06:59 18:59 Intake Total 800 660 Output Total 1125 720 Balance -325 -720 660 Weight 100.7 kg 97.8 kg Intake: IV 100 Sodium Ferric Gluconat- 100 Sucrose 125 mg In Sodium Chloride 0.9% 100 ml @ 100 mls/hr IVPB DAILY [facility] Rx#:[id number] Oral 700 660 Output: Urine 1125 720 Other: Voiding Method Indwelling Catheter Indwelling Catheter - Exam General Appearance: Alert, cooperative, moderate distress, appears stated age. Neck HEENT: Supple, no lymphadenopathy, no thyroid enlargement, no carotid bruits. Lungs: Diminished and wheezing. No crackles or rhonchi noted deformity Chest Wall: Chest wall normal expansion with shallow inspiration no tenderness and no deformity was found on exam, no costochondral pain or discomfort. Heart: Regular rate and rhythm, S1, S2 normal, no murmur, rub or gallop. Back: Symmetric, no curvature, ROM normal, no CVA tenderness. Abdomen: Soft, non-tender, no rebound or rigidity, no hepatosplenomegaly. Extremities: Extremities normal, atraumatic, no cyanosis, 1+ pedal edema bilateral. Pulses: 2+ and symmetric. Skin: Skin color, texture, tugor normal, no rashes or lesions. Neurologic: Alert oriented x3 cranial nerves II through XII intact, no motor deficit, - Labs CBC & Chem 7: 10/20/19 03:16 10/21/19 10:42 Labs: Abnormal Lab Results - Last 24 Hours (Table) 10/21/19 Range/Units 10:42 BUN 110 H* (9-20) mg/dL Creatinine 3.52 H (0.66-1.25) mg/dL Glucose 142 H (74-99) mg/dL Magnesium 2.6 H (1.6-2.3) mg/dL Microbiology - Last 24 Hours (Table) 10/14/19 19:27 Blood Culture - Final Blood No Growth after 144 hours Assessment and Plan Plan: 1. Unresponsiveness and syncope status post permanent pacemaker implantation, with tonic clonic activity on upper extremity, and body, without any prior history of seizures, cannot rule out seizures is the first episode, status post post pacemaker placement on 10/16/2019, EEG normal, neurology consult a ppreciated. Recommend Plavix and aspirin. 2. Acute kidney injury on CKD 4. Nephrology consult appreciated. Lasix changed to torsemide. 3. CKD stage 4. Nephrology following. 4. tachypneic. Draw ABGs, Ativan 0.5 mg now and 0.5 mg daily at bedtime 5. Hypertension, hypertensive cardiovascular disease. Continue hydralazine increased to 75 mg 3 times daily, Lasix changed to torsemide, Imdur 60 mg daily 6. Symptomatic oral rolf, clotrimazole 5 times a day 10 days 7. Hyperlipidemia. Continue Lipitor 20 mg daily. 8. Carotid artery stenosis status post stent on the left and 100% blockage on the right. Continue Plavix 75 mg daily. 9. Restless leg syndrome. Continue Requip 0.5 mg at bedtime. Ativan 0.5 mg daily at bedtime, 10. Hypothyroidism. Continue levothyroxine 50 g daily. 11. DVT prophylaxis. Heparin 5000 units sc Q 12 h. 12. GI prophylaxis. Pepcid 20 mg orally daily. 13. Gout of the left big toe. Start Colcrys 0.6 mg orally once every day. 14. Pancytopenia, with thrombocytopenia might need oncology consultation 15. Microscopic hematuria, noted on urinalysis, monitor 16. Anemia of chronic disease. Ferrlecit 3 doses. 17. Atrial flutter, typical. Cardiology started on eliquis. 18. History of kidney cancer status post resection and history of bladder cancer. Continue on Proscar 5. 19. Wheezing without diagnosis of COPD or asthma. Likely secondary to fluid. Patient started on prednisone 40 mg daily. Discharge plan: [facility] on Wednesday
[2019-10-21] MEDS: ATORVASTATIN 20 MG TAB PO SCH (20:34)
[2019-10-21] MEDS: LORazepam 2 MG/ML INJ IV PRN (21:56)
[2019-10-22] MEDS: CLOTRIMAZOLE TROCHE 10 MG TROCHE MUCOUS MEM SCH ×5 (03:10→23:02)
[2019-10-22 06:21] LABS: Calcium 8.5 mg/dL (8.4-10.2); Magnesium 2.5 mg/dL (1.6-2.3); Potassium 4.5 mmol/L (3.5-5.1)
[2019-10-22] MEDS: LEVOTHYROXINE 50 MCG TAB PO SCH (06:36)
[2019-10-22] MEDS: PANTOPRAZOLE 40 MG TABLET PO SCH (06:36)
[2019-10-22] MEDS: hydrALAZINE HCL 25 MG TAB PO SCH ×3 (09:19→23:01)
[2019-10-22] MEDS: FINASTERIDE 5 MG TAB PO SCH (09:19)
[2019-10-22] MEDS: APIXABAN 2.5 MG TABLET PO SCH ×2 (09:19→23:01)
[2019-10-22] MEDS: ISOSORBIDE MONONITRATE ER 60 MG TAB.ER.24H PO SCH (09:19)
[2019-10-22] MEDS: predniSONE 20 MG TAB PO SCH (09:20)
[2019-10-22] MEDS: ALLOPURINOL 100 MG TAB PO SCH (09:20)
[2019-10-22] MEDS: TORSEMIDE 20 MG TAB PO SCH (09:20)
[2019-10-22] MEDS: METOPROLOL SUCCINATE (ER) 50 MG TAB.ER.24H PO SCH (09:20)
--- NOTE | 2019-10-22 10:11 | P.PN ---
Subjective Progress Note Date: 10/22/19 Principal diagnosis: Severe symptomatic bradycardia, unresponsiveness/loss of consciousness, acute renal failure probably related to hypertension dehydration, chronic kidney disease stage IV, hypertension and is currently vascular disease, likely obstructive sleep apnea, morbid obesity, carotid artery stenosis with stent on the left side and 100% blockage in the right side 10/22/2019, patient seen eval reexamined during the rounds labs reviewed medications reviewed care plan discussed with the patient at length patient is relatively more awake today he did use his BiPAP machine for a few hours last night a shunt has been emphasized to use it on a regular basis he has mild bilateral wheezing and diffuse edema throughout which remains stable 10/21/2019, patient seen and evaluated examined during the rounds labs reviewed medications reviewed care plan discussed with the respiratory therapist, patient somnolent but arousable he had refused BiPAP machine last night did not use it he is on supplemental oxygen, saturation is 96% on 3 L, labs pending from today 10/20/2019, patient seen eval reexamined during the rounds labs reviewed medications reviewed care plan discussed with the patient and staff at length patient is sitting upright on chair breathing comfortably but remains tachypneic, more awake and alert, patient has been on bronchodilator therapy along with the steroid, last chest x-ray performed yesterday shows improving perihilar edema and infiltrate as well as effusion 10/18/2019, patient seen eval examined and labs reviewed medications reviewed c ough congestion shortness of breath is better now patient is more awake and alert denies any chest pain undergoing physical therapy 10/17/2019, patient seen eval examined during the rounds in ICU, undergoing some physical therapy overall tired is still intermittently dizzy patient is status post pacemaker chest x-ray performed revealed patchy infiltrate predominantly in the right basal area and some perihilar infiltrate cannot be excluded, likely appears to be related to fluid overload and CHF as patient has no fever and white cell count within normal limit Will observe it 10/16/2019, patient seen eval reexamined during the rounds labs reviewed medications reviewed slightly more responsive now patient is under affect of the anesthetic agent for permanent pacemaker placement which she tolerated fairly well hemodynamic status stable, chest x-rays pending, hemoglobin is 9.3, BUN/creatinine improved to 98 and 3.5 Objective - Vital Signs Vital signs: Vital Signs Temp 97 F L 10/22/19 04:37 Pulse 60 10/22/19 08:25 Resp 20 10/22/19 08:25 BP 154/60 10/22/19 08:25 Pulse Ox 95 10/22/19 08:25 Intake & Output 10/21/19 10/22/19 10/22/19 18:59 06:59 18:59 Intake Total 900 240 Output Total 200 100 Balance 700 140 Weight 99.5 kg Intake: Oral 900 240 Output: Urine 200 100 Other: Voiding Method Urinal # Voids 1 1 # Bowel Movements 3 - Exam - Constitutional General appearance: cooperative, no acute distress - EENT Eyes: anicteric sclerae, EOMI, PERRLA, dentition normal, normal appearance ENT: NA/AT, normal oropharynx - Neck Neck: normal ROM - Respiratory Respiratory: bilateral: CTA, negative: dullness, rales, wheezing - Cardiovascular Rhythm: regular Heart sounds: normal: S1, S2 - Gastrointestinal General gastrointestinal: normal bowel sounds - Integumentary Integumentary: normal, normal turgor - Neurologic Neurologic: CNII-XII intact - Musculoskeletal Musculoskeletal: gait normal - Psychiatric Psychiatric: A&O x's 3, appropriate affect - Labs CBC & Chem 7: 10/20/19 03:16 10/22/19 05:34 Labs: Abnormal Lab Results - Last 24 Hours (Table) 10/21/19 10/22/19 Range/Units 10:42 05:34 BUN 110 H* 123 H* (9-20) mg/dL Creatinine 3.52 H 3.63 H (0.66-1.25) mg/dL Glucose 142 H 113 H (74-99) mg/dL Magnesium 2.6 H 2.5 H (1.6-2.3) mg/dL Assessment and Plan Assessment: Likely COPD with exacerbation Congestive heart failure and acute pulmonary edema due to symptomatic bradycardia Severe symptomatic bradycardia Component of obesity hypoventilation syndrome Loss of consciousness likely related to severe symptomatic bradycardia Obstructive sleep apnea and sleep disorder breathing Morbid obesity Chronic renal failure stage IV Plan: Continue steroids with bronchodilator Continue BiPAP each night and when necessary during the day, patient has been noncompliant will follow Increase activity as tolerated Patient status post pacemaker Will avoid diuretics Continue hydralazine Continue Requip Further recommendations pending plan of care as per clinical response of the patient She will definitely need a sleep study on outpatient Time with Patient: Greater than 30
--- NOTE | 2019-10-22 12:08 | PN ---
PROGRESS NOTE Lawrence is an 84-year-old gentleman who is admitted to hospital with syncope, underwent permanent pacemaker. Continues to have issues with renal insufficiency, not being able to sleep and general musculoskeletal weakness. On exam he is afebrile. Heart rate is 60 beats per minute. Blood pressure is 150/60, respirations 18. Chest exam reveals good air entry bilaterally. Heart exam reveals first and second heart sounds. Abdomen is soft. Exam of extremities reveals bilateral moderate edema. Labs showed that the hemoglobin is 8.9. His BUN is 123, creatinine is 3.6. Current medications include Eliquis 2.5 b.i.d., Lipitor 20 daily, Apresoline, Imdur, Toprol-XL, Protonix and Demadex. Patient's diuretics have been managed by the chartered financial analyst. ASSESSMENT: 1. Syncope status post permanent pacemaker. 2. Renal insufficiency. 3. Cardiomyopathy. 4. Hypertension. 5. Congestive heart failure. PLAN: We will continue current medications. Please increase his activity. He probably needs medications to help with his sleep. MMODL / IJN: [id number] /
--- NOTE | 2019-10-22 12:30 | P.PN ---
Subjective Patient is seen in follow-up for acute kidney injury on chronic kidney disease. Patient has chronic kidney disease stage IV with baseline creatinine in the range of 2.6-2.8. Patient had pacemaker placed on October 16. Oral intake is good. Urine output is good - 1.8 L in the last 24 hours. No vomiting or diarrhea. Renal function worsening the last 2 days. Creatinine 3.63 today. Currently maintained on torsemide 40 mg once daily. Daughter present at bedside. Blood pressure stable. Vital signs are stable. General: The patient appeared well nourished and normally developed. HEENT: Head exam is unremarkable. Neck is without jugular venous distension. LUNGS: Breath sounds decreased. HEART: Rate and Rhythm are regular. First and second heart sounds normal. No murmurs, rubs or gallops. ABDOMEN: Abdominal exam reveals normal bowel sounds. Non-tender and non- distended. No evidence of peritonitis. EXTREMITITES: 1+ edema. Objective - Vital Signs Vital signs: Vital Signs Temp 97 F L 10/22/19 04:37 Pulse 60 10/22/19 08:25 Resp 20 10/22/19 08:25 BP 154/60 10/22/19 08:25 Pulse Ox 95 10/22/19 08:25 Intake & Output 10/21/19 10/22/19 10/22/19 18:59 06:59 18:59 Intake Total 900 240 Output Total 200 100 Balance 700 140 Weight 99.5 kg Intake: Oral 900 240 Output: Urine 200 100 Other: Voiding Method Urinal # Voids 1 1 # Bowel Movements 3 - Labs CBC & Chem 7: 10/20/19 03:16 10/22/19 05:34 Labs: Abnormal Lab Results - Last 24 Hours (Table) 10/22/19 Range/Units 05:34 BUN 123 H* (9-20) mg/dL Creatinine 3.63 H (0.66-1.25) mg/dL Glucose 113 H (74-99) mg/dL Magnesium 2.5 H (1.6-2.3) mg/dL Assessment and Plan Plan: Assessment: 1. Acute kidney injury secondary to ATN secondary to cardiorenal syndrome. Renal function worsening the last 2 days. Creatinine 3.63 today. Elevated BUN which is due to acute renal failure as well as steroids. 2. Chronic kidney disease stage IV secondary to nephrosclerosis and partial bilateral nephrectomies. Baseline creatinine in the range of 2.6-2.8. 3. Bradycardia/sick sinus syndrome. Cardiology following. Status post pacemaker placement on October 16. 4. Anemia of chronic kidney disease. Iron deficiency noted. Status post 3 doses of IV iron. Maintained on Aranesp. 5. Chronic systolic CHF with ejection fraction of 40-45%. 6. Hypokalemia secondary to diuretics. 7. Volume overload. Maintained on torsemide. Plan: Decreased torsemide to 20 mg once daily. Repeat chest x-ray. Avoid nephrotoxins. Continue to monitor renal function and urine output. Monitor serial postvoid residuals to make sure no underlying urinary retention.
--- NOTE | 2019-10-22 13:08 | P.PN ---
Subjective Progress Note Date: 10/22/19 This is an 84-year-old male patient of Dr. Harman with past medical history of bladder cancer diagnosed 18 years ago status post mass resection, kidney cancer initially diagnosed in 2010 on the left with partial nephrectomy followed by diagnosis on the right in 2013 status post partial robot ic resection. Patient states cancers currently are in remission and his oncologist is Dr. Juan. He also has past medical history of carotid artery stenosis status post stent, hypertension, hypothyroidism, hyperlipidemia, restless leg syndrome, gout, chronic kidney disease stage 4, he was last admitted from our facility 10/02/2019, was admitted for acute kidney injury on CK D stage IV, hypokalemia, for which hydralazine was dispensed at 50 mg 3 times a day that time, amlodipine 10 mg daily, and metoprolol was increased to 25 mg daily. He now comes in to the emergency room, from [facility] lodge secondary to unresponsiveness, patient was noted to be witnessed to be shaking, arms and upper body, with eyes open, and unresponsive this lasted for approximately 1-2 minutes, is mostly incontinence urinary incontinence, patient was not diagnosed to have any seizure episode in the past, however he comes in with significant bradycardia from the emergency room heart rate in the 19, he also presents with worsening renal function, with a baseline of 2.6-2.8, creatinine on admission is 3.97, he was taking diuretics at home, and is not on any NSAIDs, patient is scheduled to have a pacemaker in the morning, he also complains of new dysphagia, including Jell-O, which is on the current admission. Patient denies any aspirate events, Dry mouth, patient does not have any new focal neurologic deficits including motor dysfunction, or sensory dysfunction. 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 Dr. Shari Hester cardiology, Dr. Coronel nephrology 10/16: Echocardiogram reveals EF of 40-45% with moderate concentric left ventricular hypertrophy, mild aortic valve sclerosis, mild aortic regurgitation, trace to mild mitral regurgitation, mild tricuspid regurgitation, mild pulmonary hypertension. Patient has undergone permanent pacemaker implantation today with Dr. Herrera for sick sinus syndrome and syncope. He denies any complaints following procedure. His blood pressure has been stable. Pupils are noted to be equal at 2 mm bilaterally. 10/17: Patient is found sitting in a recliner. He appears to be in no acute distress. He does state that he Quite dizzy when he got up fast this morning which resolved. He continues to have lower extremity edema. He denies any chest pain or shortness of breath. Pacemaker is to be checked today/interrogated. Patient is ordered for Ferrlecit for 3 doses starting today. EEG showed no seizure activity. Neurology recommended starting aspirin 81 mg along with Plavix for 3 week course and follow-up with neurologist as an outpatient. Repeat chest x-ray reveals patchy right perihilar and right basilar infiltrate noted. Pacemaker device. No pneumothorax. Cardiology has increased Imdur and added eliquis for atrial flutter. BUN 92 and creatinine 3.00. He moglobin A1c is pending. Hemoglobin stable at 9.3 and platelets at 85. Discussed discharge planning with the patient and he wants to return home. Patient appears to be quite weak and would benefit for subacute rehab. PT and OT are on and case management following. Anticipate probable discharge to subacute rehab on Wednesday. 10/18: Patient remains in intensive care unit as an overflow for cardiac stepdown unit. He denies having any chest pain or shortness of breath but has shortness of breath with activity. He denies any dizziness or lightheadedness. No nausea. He continues to have lower extremity edema. Repeat creatinine is 2.94 and BUN 93, hemoglobin is 9.3, potassium 3.8. Blood culture showing no growth after 72 hours. Umanzor catheter is in place. Blood pressure 154/61, heart rate 60, pulse ox 95% on room air, afebrile. Dr. Coronel has ordered IV Lasix 40 mg once daily and he is receiving a second dose of Ferrlecit today. The patient and family are agreeable for discharge to [facility] which is scheduled for Wednesday. 10/19: Patient remains in intensive care and overflow for cardiac stepdown unit. Patient is tachypneic. Complaining of shortness of breath with activity. Patient is also complaining of restless legs. Patient appears anxious. Patient denies any nausea. He continues to have lower extremity edema. WBC 7.0, hemoglobin 9.4, platelets 95, potassium 4.1, BUN 97, creatinine 2.97. Patient is afebrile, blood pressure 162/64, pulse ox is 91% on 2 L respirations are 25 with labored breathing noted. 10/20: Patient continues to wait for bed on the cardiac stepdown unit. Patient's tachypnea is improved today. Apparently he was doing well during the night. He was on BiPAP currently on 3 L nasal cannula and maintaining good O2 saturations. Patient states his anxiety is much improved and decreased "jumping legs" sensation. He continues to have wheezing. We will add in some prednisone and patient will need to have outpatient PFTs. Patient denies any previous history of COPD or asthma. Patient continues to have significant weakness and discharge plan will be to [facility]. Nephrology is changing Lasix to torsemide. Urine output is around 40 miles per hour. 10/21 patient sitting by the bedside. Complains of fatigue and tiredness but is denying any shortness of breath adjustment. Patient did wear BiPAP intermittently but refuses to wear it continuously. Patient has a hemoglobin of 8.9. Creatinine is increased from 2.9-3.52 with a BUN 110 likely secondary to initiation of steroid.. Patient continues to have wheezing will continue prednisone for now. Nephrology to adjust patient's Lasix dose 10/22 patient's in the bedside. Complains of weakness but denies any shortness of breath or chest pain. Patient's creatinine has worsened since yesterday at 3.62 with increase in BUN on IV iron currently of on arinesp. Review Of Systems: Constitutional: No fever, no chills, no night sweats. No weight change. Reports weakness, fatigue or lethargy. No daytime sleepiness. EENT: No headache. No blurred vision or double vision, no loss of vision. No loss of Hearing, no ringing in the ears, no dizziness. No nasal drainage or congestion. No epistaxis. No sore throat. Lungs: Reports shortness of breath, no cough, no sputum production. Reports wheezing. Reports dyspnea on exertion. Cardiovascular: No chest pain, reports lower extremity edema. No palpitations. No paroxysmal nocturnal dyspnea. No orthopnea. No lightheadedness or dizziness. No syncopal episodes. Abdominal: No abdominal pain. No nausea, vomiting. No diarrhea. No constipation. No bloody or tarry stools.. No loss of appetite. Genitourinary: No dysuria, increased frequency, urgency. No urinary retention. Musculoskeletal: No myalgias. Reports muscle weakness, no gait dysfunction, no frequent falls. No back pain. No neck pain. Integumentary: No wounds, no lesions. No rash or pruritus. No unusual bruising. No change in hair or nails. Neurologic: No aphasia. No facial droop. No change in mentation. No head injury. No headache. No paralysis. No paresthesia. Reports restless leg Psychiatric: No depression. No anxiety. No mood swings. Endocrine: No abnormal blood sugars. No weight change. No excessive sweating or thirst. No cold intolerance. Objective - Vital Signs Vital signs: Vital Signs Temp 97 F L 10/22/19 04:37 Pulse 60 10/22/19 08:25 Resp 20 10/22/19 08:25 BP 154/60 10/22/19 08:25 Pulse Ox 95 10/22/19 08:25 Intake & Output 10/21/19 10/22/19 10/22/19 18:59 06:59 18:59 Intake Total 900 240 Output Total 200 100 Balance 700 140 Weight 99.5 kg Intake: Oral 900 240 Output: Urine 200 100 Other: Voiding Method Urinal # Voids 1 1 # Bowel Movements 3 - Exam General Appearance: Alert, cooperative, moderate distress, appears stated age. Neck HEENT: Supple, no lymphadenopathy, no thyroid enlargement, no carotid bruits. Lungs: Diminished and wheezing. No crackles or rhonchi noted deformity Chest Wall: Chest wall normal expansion with shallow inspiration no tenderness and no deformity was found on exam, no costochondral pain or discomfort. Heart: Regular rate and rhythm, S1, S2 normal, no murmur, rub or gallop. Back: Symmetric, no curvature, ROM normal, no CVA tenderness. Abdomen: Soft, non-tender, no rebound or rigidity, no hepatosplenomegaly. Extremities: Extremities normal, atraumatic, no cyanosis, 1+ pedal edema bilat eral. Pulses: 2+ and symmetric. Skin: Skin color, texture, tugor normal, no rashes or lesions. Neurologic: Alert oriented x3 cranial nerves II through XII intact, no motor deficit, - Labs CBC & Chem 7: 10/20/19 03:16 10/22/19 05:34 Labs: Abnormal Lab Results - Last 24 Hours (Table) 10/22/19 Range/Units 05:34 BUN 123 H* (9-20) mg/dL Creatinine 3.63 H (0.66-1.25) mg/dL Glucose 113 H (74-99) mg/dL Magnesium 2.5 H (1.6-2.3) mg/dL Assessment and Plan Plan: 1. Unresponsiveness and syncope status post permanent pacemaker implantation, with tonic clonic activity on upper extremity, and body, without any prior history of seizures, cannot rule out seizures is the first episode, status post post pacemaker placement on 10/16/2019, EEG normal, neurology consult appreciated. Recommend Plavix and aspirin. 2. Acute kidney injury on CKD 4. Nephrology consult appreciated. Lasix changed to torsemide. 3. CKD stage 4. Nephrology following. 4. tachypneic. Draw ABGs, Ativan 0.5 mg now and 0.5 mg daily at bedtime 5. Hypertension, hypertensive cardiovascular disease. Continue hydralazine increased to 75 mg 3 times daily, Lasix changed to torsemide, Imdur 60 mg daily 6. Symptomatic oral rolf, clotrimazole 5 times a day 10 days 7. Hyperlipidemia. Continue Lipitor 20 mg daily. 8. Carotid artery stenosis status post stent on the left and 100% blockage on the right. Continue Plavix 75 mg daily. 9. Restless leg syndrome. Continue Requip 0.5 mg at bedtime. Ativan 0.5 mg daily at bedtime, 10. Hypothyroidism. Continue levothyroxine 50 g daily. 11. DVT prophylaxis. Heparin 5000 units sc Q 12 h. 12. GI prophylaxis. Pepcid 20 mg orally daily. 13. Gout of the left big toe. Start Colcrys 0.6 mg orally once every day. 14. Pancytopenia, with thrombocytopenia might need oncology consultation status post IV iron 3 doses currently onAranesp 15. Microscopic hematuria, noted on urinalysis, monitor 16. Anemia of chronic disease. Ferrlecit 3 doses. on arenesp 17. Atrial flutter, typical. Cardiology started on eliquis. 18. History of kidney cancer status post resection and history of bladder cancer. Continue on Proscar 5. 19. Wheezing without diagnosis of COPD or asthma. Likely secondary to fluid. Patient started on prednisone 40 mg daily. Discharge plan: [facility] on Wednesday
[2019-10-22] MEDS ORDERED: TEMAZEPAM 15 MG CAP PO PRN (13:33)
[2019-10-22] MEDS: IPRATROPIUM-ALBUTEROL 3 ML NEB INHALATION SCH ×2 (15:19→19:15)
[2019-10-22] MEDS: ATORVASTATIN 20 MG TAB PO SCH (23:01)
[2019-10-23 04:18] VITALS: TEMP 96.2
[2019-10-23 06:18] LABS: Potassium 4.5 mmol/L (3.5-5.1)
[2019-10-23 06:19] LABS: Calcium 8.2 mg/dL (8.4-10.2); Magnesium 2.6 mg/dL (1.6-2.3)
[2019-10-23] MEDS: CLOTRIMAZOLE TROCHE 10 MG TROCHE MUCOUS MEM SCH ×4 (06:50→17:07)
[2019-10-23] MEDS: PANTOPRAZOLE 40 MG TABLET PO SCH (06:53)
[2019-10-23] MEDS: LEVOTHYROXINE 50 MCG TAB PO SCH (06:53)
[2019-10-23] MEDS: IPRATROPIUM-ALBUTEROL 3 ML NEB INHALATION SCH ×2 (07:09→13:41)
[2019-10-23] MEDS: APIXABAN 2.5 MG TABLET PO SCH (08:03)
[2019-10-23] MEDS: predniSONE 20 MG TAB PO SCH (08:03)
[2019-10-23] MEDS: METOPROLOL SUCCINATE (ER) 50 MG TAB.ER.24H PO SCH (08:03)
[2019-10-23] MEDS: ALLOPURINOL 100 MG TAB PO SCH (08:03)
[2019-10-23] MEDS: hydrALAZINE HCL 25 MG TAB PO SCH ×2 (08:03→17:06)
[2019-10-23] MEDS: ISOSORBIDE MONONITRATE ER 60 MG TAB.ER.24H PO SCH (08:03)
[2019-10-23] MEDS: FINASTERIDE 5 MG TAB PO SCH (08:03)
--- NOTE | 2019-10-23 08:43 | XR ---
EXAMINATION TYPE: XR chest 1V DATE OF EXAM: 10/23/2019 CLINICAL HISTORY: Difficulty breathing progress study. TECHNIQUE: Single AP portable upright view of the chest is obtained. COMPARISON: Chest x-ray from October 19, 2019 FINDINGS: Reticulonodular interstitial changes bilaterally with improving right midlung opacity but persistent left basilar opacity. Persistent cardiomegaly with single lead pacemaker and atherosclerot ic and ectatic aorta. Multilevel spurring in the spine. Persistent small to tiny bilateral pleural ef fusions IMPRESSION: Chronic parenchymal change and cardiomegaly with tiny bilateral pleural effusions and mor e focal left basilar acute infiltrate and/or atelectasis are all redemonstrated. Resolving right midl johanna edema and/or infiltrate noted.
[2019-10-23] MEDS ORDERED: TORSEMIDE 20 MG TAB PO SCH (09:00)
[2019-10-23 09:18] VITALS: RESP 18
--- NOTE | 2019-10-23 10:44 | PN ---
PROGRESS NOTE Mr. Dwyer is an 84-year-old male who presented with evidence of syncope and atrial flutter and fibrillation with slow ventricular response, underwent permanent pacemaker implantation. He is feeling a little bit stronger today. He feels he still has the peripheral edema. He has no chest pain. He has dyspnea. No dizziness. No palpitation. He continues to be at this time on Eliquis 2.5 mg twice a day, Lipitor 20 mg daily, hydralazine 75 mg 3 times a day, isosorbide mononitrate 60 mg daily, levothyroxine, metoprolol succinate 50 mg daily, prednisone 40 mg daily, and furosemide 20 mg a day. PHYSICAL EXAMINATION: Blood pressure 139/60 with a heart rate in 90s. LUNGS: With crackles at the bases. HEART: Irregular, regular, S1, S2. No S3 with systolic murmur, no diastolic murmur, no rub. ABDOMEN: Soft, obese, nontender. EXTREMITIES: +2 edema bilaterally. LAB DATA: Revealed a BUN and creatinine of 133 and 3.74, potassium 4.5. IMPRESSION: 1. Status post permanent pacemaker implantation for tachy-héctor syndrome and syncope. 2. Worsening renal failure. 3. History of hypertension. 4. History of ischemic cardiomyopathy. 5. History of hypertension. RECOMMENDATION: From the cardiac standpoint, will continue present therapy. Will follow his renal function. Patient will be transferred to rehab and depending on his progress, further recommendation will be made. MMODL / IJN: [id number] /
--- NOTE | 2019-10-23 11:58 | P.DS ---
Providers Date of admission: 10/14/19 16:39 Expected date of discharge: 10/23/19 Attending physician: Martha Garay Consults: 10/14/19 16:34 Consult Physician Urgent Consulting Provider: Jake Coronel Consult Reason/Comments: crf Do you want consulting provider notified?: Yes 10/14/19 16:39 Consult Physician Stat Consulting Provider: Shelton Hester Consult Reason/Comments: Critical care Do you want consulting provider notified?: Yes Consult Physician Stat Consulting Provider: Moody Mccarthy Consult Reason/Comments: bradycardia Do you want consulting provider notified?: Already Contacted 10/15/19 11:53 Consult Physician Routine Consulting Provider: Shmuel Clinton Consult Reason/Comments: possible seizure Do you want consulting provider notified?: Yes 10/15/19 17:38 Consult Physician Routine Consulting Provider: Josseline Head Consult Reason/Comments: Possible seizure, unequal pupils. Do you want consulting provider notified?: Yes Primary care physician: [facility] Course: This is an 84-year-old male patient of Dr. Harman with past medical history of bladder cancer diagnosed 18 years ago status post mass resection, kidney cancer initially diagnosed in 2010 on the left with partial nephrectomy followed by diagnosis on the right in 2013 status post partial robotic resection. Patient states cancers currently are in remission and his oncologist is Dr. Juan. He also has past medical history of carotid artery stenosis status post stent, hypertension, hypothyroidism, hyperlipidemia, restless leg syndrome, gout, chronic kidney disease stage 4, he was last admitted from our facility 10/02/2019, was admitted for acute kidney injury on CK D stage IV, hypokalemia, for which hydralazine was dispensed at 50 mg 3 times a day that time, amlodipine 10 mg daily, and metoprolol was increased to 25 mg daily. He now comes in to the emergency room, from [facility] lodge secondary to unresponsiveness, patient was noted to be witnessed to be shaking, arms and upper body, with eyes open, and unresponsive this lasted for approximately 1-2 minutes, is mostly incontinence urinary incontinence, patient was not diagnosed to have any seizure episode in the past, however he comes in with significant bradycardia from the emergency room heart rate in the 19, he also presents with worsening renal function, with a baseline of 2.6-2.8, creatinine on admission is 3.97, he was taking diuretics at home, and is not on any NSAIDs, patient is scheduled to have a pacemaker in the morning, he also complains of new dysphagia, including Jell-O, which is on the current admission. Patient denies any aspirate events, Dry mouth, patient does not have any new focal neurologic deficits including motor dysfunction, or sensory dysfunction. 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 Hester, Dr. Mccarthy cardiology, Dr. Coronel nephrology 10/16: Echocardiogram reveals EF of 40-45% with moderate concentric left ventricular hypertrophy, mild aortic valve sclerosis, mild aortic regurgitation, trace to mild mitral regurgitation, mild tricuspid regurgitation, mild pulmonary hypertension. Patient has undergone permanent pacemaker implantation today with Dr. Herrera for sick sinus syndrome and syncope. He denies any complaints following procedure. His blood pressure has been stable. Pupils are noted to be equal at 2 mm bilaterally. 10/17: Patient is found sitting in a recliner. He appears to be in no acute distress. He does state that he Quite dizzy when he got up fast this morning which resolved. He continues to have lower extremity edema. He denies any chest pain or shortness of breath. Pacemaker is to be checked today/interrogated. Patient is ordered for Ferrlecit for 3 doses starting today. EEG showed no seizure activity. Neurology recommended starting aspirin 81 mg along with Plavix for 3 week course and follow-up with neurologist as an outpatient. Repeat chest x-ray reveals patchy right perihilar and right basilar infiltrate noted. Pacemaker device. No pneumothorax. Cardiology has increased Imdur and added eliquis for atrial flutter. BUN 92 and creatinine 3.00. Hemoglobin A1c is pending. Hemoglobin stable at 9.3 and platelets at 85. Discussed discharge planning with the patient and he wants to return home. Patient appears to be quite weak and would benefit for subacute rehab. PT and OT are on and case management following. Anticipate probable discharge to subacute rehab on Wednesday. 10/18: Patient remains in intensive care unit as an overflow for cardiac stepdown unit. He denies having any chest pain or shortness of breath but has shortness of breath with activity. He denies any dizziness or lightheadedness. No nausea. He continues to have lower extremity edema. Repeat creatinine is 2.94 and BUN 93, hemoglobin is 9.3, potassium 3.8. Blood culture showing no growth after 72 hours. Umanzor catheter is in place. Blood pressure 154/61, heart rate 60, pulse ox 95% on room air, afebrile. Dr. Coronel has ordered IV Lasix 40 mg once daily and he is receiving a second dose of Ferrlecit today. The patient and family are agreeable for discharge to [facility] which is scheduled for Wednesday. 10/19: Patient remains in intensive care and overflow for cardiac stepdown unit. Patient is tachypneic. Complaining of shortness of breath with activity. Patient is also complaining of restless legs. Patient appears anxious. Patient denies any nausea. He continues to have lower extremity edema. WBC 7.0, hemoglobin 9.4, platelets 95, potassium 4.1, BUN 97, creatinine 2.97. Patient is afebrile, blood pressure 162/64, pulse ox is 91% on 2 L respirations are 25 with labored breathing noted. 10/20: Patient continues to wait for bed on the cardiac stepdown unit. Patient's tachypnea is improved today. Apparently he was doing well during the night. He was on BiPAP currently on 3 L nasal cannula and maintaining good O2 saturations. Patient states his anxiety is much improved and decreased "jumping legs" sensation. He continues to have wheezing. We will add in some prednisone and patient will need to have outpatient PFTs. Patient denies any previous history of COPD or asthma. Patient continues to have significant weakness and discharge plan will be to [facility]. Nephrology is changing Lasix to torsemide. Urine output is around 40 miles per hour. 10/21 patient sitting by the bedside. Complains of fatigue and tiredness but is denying any shortness of breath adjustment. Patient did wear BiPAP intermittently but refuses to wear it continuously. Patient has a hemoglobin of 8.9. Creatinine is increased from 2.9-3.52 with a BUN 110 likely secondary to initiation of steroid.. Patient continues to have wheezing will continue prednisone for now. Nephrology to adjust patient's Lasix dose 10/22 patient's in the bedside. Complains of weakness but denies any shortness of breath or chest pain. Patient's creatinine has worsened since yesterday at 3.62 with increase in BUN on IV iron currently of on arinesp. 10/23: Patient is seen today under the cardiac stepdown unit. Repeat chest x-ray reveals chronic parenchymal change in cardiomegaly with tiny bilateral pleural effusions and more focal left basilar acute infiltrate and/or atelectasis are all redemonstrated. Resolving right midlung edema and/or infiltrate noted. Patient was seen by Dr. Mccarthy this morning with recommendations to continue current medications. Pacemaker is stable. Patient continues to have lower extremity edema. Patient is eating and drinking well and has good urine output. He is currently on torsemide 20 mg daily. Patient will need clearance from Dr. Hester for discharge. Patient is still scheduled for discharge to [facility] today in stable condition. Discharge diagnoses: 1. Unresponsiveness and syncope status post permanent pacemaker implantation 2. Acute kidney injury on CKD 4. 3. CKD stage 4. 4. Wheezing secondary to possible COPD exacerbation. No previous diagnosis of COPD. 5. Hypertension, hypertensive cardiovascular disease. 6. Symptomatic oral rolf 7. Hyperlipidemia. 8. Carotid artery stenosis status post stent on the left and 100% blockage on the right. 9. Restless leg syndrome. 10. Hypothyroidism. 11. Gout of the left big toe. 12. Bicytopenia with thrombocytopenia and anemia 13. Microscopic hematuria, noted on urinalysis 14. Anemia of chronic renal disease. 15. Atrial flutter, typical. 16. History of kidney cancer status post resection and history of bladder cancer. 17. Possible obstructive sleep apnea. Patient have outpatient sleep study. Discharge plan: [facility] on Wednesday Impression and plan of care have been directed as dictated by the signing physician. Florecita Pedroza nurse practitioner acting as scribe for signing physician. Patient Condition at Discharge: Good Plan - Discharge Summary Discharge Rx Participant: Yes New Discharge Prescriptions: New hydrALAZINE HCL [Apresoline] 75 mg PO TID tab Torsemide [Demadex] 20 mg PO DAILY tab Ipratropium-Albuterol Nebulize [Duoneb 0.5 mg-3 mg/3 ml Soln] 3 ml INHALATION RT-TID ampul.neb Apixaban [Eliquis] 2.5 mg PO BID tablet Isosorbide Mononitrate ER [Imdur] 60 mg PO DAILY tab.er.24h Clotrimazole Pedro [Mycelex Pedro] 10 mg MUCOUS MEM 5XD #25 pedro predniSONE 0 mg PO DIRECTED #30 tab Epoetin Naresh [Procrit] 20,000 unit SQ WEEKLY #1 vial Pantoprazole [Protonix] 40 mg PO AC-BRKFST tablet. rOPINIRole HCL [Requip] 1 mg PO HS tab Metoprolol Succinate (ER) [Toprol XL] 50 mg PO DAILY tab.er.24h Continue Levothyroxine Sodium [Synthroid] 50 mcg PO DAILY Finasteride [Proscar] 5 mg PO DAILY Simvastatin 40 mg PO HS Allopurinol [Zyloprim] 100 mg PO DAILY Acetaminophen [Tylenol Extra Strength] 500 mg PO Q6H PRN PRN Reason: Pain traMADol HCL 50 mg PO DAILY PRN #3 tab PRN Reason: Pain Discontinued Temazepam [Restoril] 15 mg PO HS Clopidogrel [Plavix] 75 mg PO DAILY Doxazosin [Cardura] 4 mg PO BID rOPINIRole HCL [Requip] 0.5 mg PO HS hydrALAZINE HCL [Apresoline] 50 mg PO TID #90 tab Potassium Chloride ER [K-Dur 20] 20 meq PO Q48H Furosemide [Lasix] 40 mg PO BID Discharge Medication List Finasteride [Proscar] 5 mg PO DAILY 05/03/19 [History] Levothyroxine Sodium [Synthroid] 50 mcg PO DAILY 05/03/19 [History] Simvastatin 40 mg PO HS 05/03/19 [History] Allopurinol [Zyloprim] 100 mg PO DAILY 09/29/19 [History] Acetaminophen [Tylenol Extra Strength] 500 mg PO Q6H PRN 10/14/19 [History] Apixaban [Eliquis] 2.5 mg PO BID tablet 10/23/19 [Rx] Clotrimazole Pedro [Mycelex Pedro] 10 mg MUCOUS MEM 5XD #25 pedro 10/23/19 [Rx] Epoetin Naresh [Procrit] 20,000 unit SQ WEEKLY #1 vial 10/23/19 [Rx] Ipratropium-Albuterol Nebulize [Duoneb 0.5 mg-3 mg/3 ml Soln] 3 ml INHALATION RT-TID ampul.neb 10/23/19 [Rx] Isosorbide Mononitrate ER [Imdur] 60 mg PO DAILY tab.er.24h 10/23/19 [Rx] Metoprolol Succinate (ER) [Toprol XL] 50 mg PO DAILY tab.er.24h 10/23/19 [Rx] Pantoprazole [Protonix] 40 mg PO AC-BRKFST tablet.dr 10/23/19 [Rx] Torsemide [Demadex] 20 mg PO DAILY tab 10/23/19 [Rx] hydrALAZINE HCL [Apresoline] 75 mg PO TID tab 10/23/19 [Rx] predniSONE 0 mg PO DIRECTED #30 tab 10/23/19 [Rx] rOPINIRole HCL [Requip] 1 mg PO HS tab 10/23/19 [Rx] traMADol HCL 50 mg PO DAILY PRN #3 tab 10/23/19 [Rx] Follow up Appointment(s)/Referral(s): Tho Harman DO [Primary Care Provider] - 1-2 days Shelton Hester MD [STAFF PHYSICIAN] - 1 Week Discharge Disposition: TRANSFER TO SNF/ECF
[2019-10-23 13:49] VITALS: PULSE 60
--- NOTE | 2019-10-23 14:18 | P.PN ---
Subjective Patient is seen in follow-up for acute kidney injury on chronic kidney disease. Patient has chronic kidney disease stage IV with baseline creatinine in the range of 2.6-2.8. Patient had pacemaker placed on October 16. Oral intake is good. Urine output is good. No vomiting or diarrhea. Renal function is slightly worse. Creatinine 3.74 today. Dose of torsemide was decreased to 20 mg once daily yesterday. Daughter present at bedside. Blood pressure stable. Vital signs are stable. General: The patient appeared well nourished and normally developed. HEENT: Head exam is unremarkable. Neck is without jugular venous distension. LUNGS: Breath sounds decreased. HEART: Rate and Rhythm are regular. First and second heart sounds normal. No murmurs, rubs or gallops. ABDOMEN: Abdominal exam reveals normal bowel sounds. Non-tender and non- distended. No evidence of peritonitis. EXTREMITITES: 1+ edema. Objective - Vital Signs Vital signs: Vital Signs Temp 96.2 F L 10/23/19 03:56 Pulse 60 10/23/19 13:51 Resp 18 10/23/19 08:00 BP 139/67 10/23/19 08:00 Pulse Ox 93 L 10/23/19 07:09 Intake & Output 10/22/19 10/23/19 10/23/19 18:59 06:59 18:59 Intake Total 832 Output Total 101 1 325 Balance 731 -1 -325 Weight 99.1 kg Intake: Oral 832 Output: Urine 1 1 325 Post Void Residual 100 Other: Voiding Method Urinal # Voids 3 # Bowel Movements 1 1 - Labs CBC & Chem 7: 10/20/19 03:16 10/23/19 05:39 Labs: Abnormal Lab Results - Last 24 Hours (Table) 10/23/19 Range/Units 05:39 Sodium 136 L (137-145) mmol/L Chloride 96 L (98-107) mmol/L BUN 133 H* (9-20) mg/dL Creatinine 3.74 H (0.66-1.25) mg/dL Calcium 8.2 L (8.4-10.2) mg/dL Magnesium 2.6 H (1.6-2.3) mg/dL Assessment and Plan Plan: Assessment: 1. Acute kidney injury secondary to ATN secondary to cardiorenal syndrome. Renal function worsening the last 3 days. Elevated BUN which is due to acute renal failure as well as steroids. Creatinine 3.74 today. 2. Chronic kidney disease stage IV secondary to nephrosclerosis and partial bilateral nephrectomies. Baseline creatinine in the range of 2.6-2.8. 3. Bradycardia/sick sinus syndrome. Cardiology following. Status post pacemaker placement on October 16. 4. Anemia of chronic kidney disease. Iron deficiency noted. Status post 3 doses of IV iron. Maintained on Aranesp. 5. Chronic systolic CHF with ejection fraction of 40-45%. 6. Hypokalemia secondary to diuretics. Better. 7. Volume overload. Maintained on torsemide. Better. Plan: Maintain torsemide 20 mg once daily. Avoid nephrotoxins. Continue to monitor renal function and urine output. Anticipate discharge soon. Repeat BMP in 2-3 days. Follow up outpatient in the next 1-2 weeks.
[2019-10-23 14:57] VITALS: BP 123/65
--- NOTE | 2019-10-23 16:26 | P.PN ---
Subjective Progress Note Date: 10/23/19 Principal diagnosis: Severe symptomatic bradycardia, unresponsiveness/loss of consciousness, acute renal failure probably related to hypertension dehydration, chronic kidney disease stage IV, hypertension and is currently vascular disease, likely obstructive sleep apnea, morbid obesity, carotid artery stenosis with stent on the left side and 100% blockage in the right side 10/23/2019, patient seen eval examined during the rounds labs reviewed medications reviewed patient has been more awake and alert has diffuse some BiPAP last night, would recommend discharging patient to ECF on BiPAP to be used each night and when necessary during the day, will do a sleep study and ou tpatient basis 10/22/2019, patient seen eval reexamined during the rounds labs reviewed medications reviewed care plan discussed with the patient at length patient is relatively more awake today he did use his BiPAP machine for a few hours last night a shunt has been emphasized to use it on a regular basis he has mild bilateral wheezing and diffuse edema throughout which remains stable 10/21/2019, patient seen and evaluated examined during the rounds labs reviewed medications reviewed care plan discussed with the respiratory therapist, patient somnolent but arousable he had refused BiPAP machine last night did not use it he is on supplemental oxygen, saturation is 96% on 3 L, labs pending from today 10/20/2019, patient seen eval reexamined during the rounds labs reviewed medications reviewed care plan discussed with the patient and staff at length patient is sitting upright on chair breathing comfortably but remains tachypneic, more awake and alert, patient has been on bronchodilator therapy along with the steroid, last chest x-ray performed yesterday shows improving perihilar edema and infiltrate as well as effusion 10/18/2019, patient seen eval examined and labs reviewed medications reviewed cough congestion shortness of breath is better now patient is more awake and alert denies any chest pain undergoing physical therapy 10/17/2019, patient seen eval examined during the rounds in ICU, undergoing some physical therapy overall tired is still intermittently dizzy patient is status post pacemaker chest x-ray performed revealed patchy infiltrate predominantly in the right basal area and some perihilar infiltrate cannot be excluded, likely appears to be related to fluid overload and CHF as patient has no fever and white cell count within normal limit Will observe it 10/16/2019, patient seen eval reexamined during the rounds labs reviewed medications reviewed slightly more responsive now patient is under affect of the anesthetic agent for permanent pacemaker placement which she tolerated fairly well hemodynamic status stable, chest x-rays pending, hemoglobin is 9.3, BUN/creatinine improved to 98 and 3.5 Objective - Vital Signs Vital signs: Vital Signs Temp 96.2 F L 10/23/19 03:56 Pulse 60 10/23/19 13:51 Resp 18 10/23/19 12:00 BP 123/65 10/23/19 12:00 Pulse Ox 92 L 10/23/19 12:00 Intake & Output 10/22/19 10/23/19 10/23/19 18:59 06:59 18:59 Intake Total 832 240 Output Total 101 1 325 Balance 731 -1 -85 Weight 99.1 kg Intake: Oral 832 240 Output: Urine 1 1 325 Post Void Residual 100 Other: Voiding Method Urinal # Voids 3 # Bowel Movements 1 1 - Exam - Constitutional General appearance: cooperative, no acute distress - EENT Eyes: anicteric sclerae, EOMI, PERRLA, dentition normal, normal appearance ENT: NA/AT, normal oropharynx - Neck Neck: normal ROM - Respiratory Respiratory: bilateral: CTA, negative: dullness, rales, wheezing - Cardiovascular Rhythm: regular Heart sounds: normal: S1, S2 - Gastrointestinal General gastrointestinal: normal bowel sounds - Integumentary Integumentary: normal, normal turgor - Neurologic Neurologic: CNII-XII intact - Musculoskeletal Musculoskeletal: gait normal - Psychiatric Psychiatric: A&O x's 3, appropriate affect - Labs CBC & Chem 7: 10/20/19 03:16 10/23/19 05:39 Labs: Abnormal Lab Results - Last 24 Hours (Table) 10/23/19 Range/Units 05:39 Sodium 136 L (137-145) mmol/L Chloride 96 L (98-107) mmol/L BUN 133 H* (9-20) mg/dL Creatinine 3.74 H (0.66-1.25) mg/dL Calcium 8.2 L (8.4-10.2) mg/dL Magnesium 2.6 H (1.6-2.3) mg/dL Assessment and Plan Assessment: Likely COPD with exacerbation Congestive heart failure and acute pulmonary edema due to symptomatic bradycardia Severe symptomatic bradycardia Component of obesity hypoventilation syndrome Loss of consciousness likely related to severe symptomatic bradycardia Obstructive sleep apnea and sleep disorder breathing Morbid obesity Chronic renal failure stage IV Plan: Continue steroids with bronchodilator Continue BiPAP each night and when necessary during the day, patient has been noncompliant will follow Increase activity as tolerated Patient status post pacemaker Will avoid diuretics Continue hydralazine Continue Requip Further recommendations pending plan of care as per clinical response of the patient She will definitely need a sleep study on outpatient Time with Patient: Greater than 30
== END 2019-10-23 17:44 | DRG 242 ==
LOC: EC 14:58 → 2SICU 16:39 → 3SCARD 10-20 21:56
PROVIDERS: ADMIT Family Medicine; ATTEND Family Medicine
PROC: 02HL3JZ Insertion of Pacemaker Lead into Left Ventricle, Percutaneous Approach (ICD-10-PCS; 2019-10-16)
PROC: B51N1ZZ Fluoroscopy of Left Upper Extremity Veins using Low Osmolar Contrast (ICD-10-PCS; 2019-10-16)
PROC: 0JH604Z Insertion of Pacemaker, Single Chamber into Chest Subcutaneous Tissue and Fascia, Open Approach (ICD-10-PCS; principal; 2019-10-16 14:50)
DX: I49.5 Sick sinus syndrome (principal); N17.0 Acute kidney failure with tubular necrosis; I13.0 Hypertensive heart and chronic kidney disease with heart failure and stage 1 through stage 4 chronic kidney disease, or unspecified chronic kidney disease; I50.22 Chronic systolic (congestive) heart failure; I48.3 Typical atrial flutter; B37.0 Candidal stomatitis; D61.818 Other pancytopenia; E66.2 Morbid (severe) obesity with alveolar hypoventilation; I48.19 Other persistent atrial fibrillation; J44.1 Chronic obstructive pulmonary disease with (acute) exacerbation; N18.4 Chronic kidney disease, stage 4 (severe); I65.21 Occlusion and stenosis of right carotid artery; Z85.51 Personal history of malignant neoplasm of bladder; Z85.528 Personal history of other malignant neoplasm of kidney; D50.9 Iron deficiency anemia, unspecified; D63.1 Anemia in chronic kidney disease; E03.9 Hypothyroidism, unspecified; Z68.35 Body mass index [BMI] 35.0-35.9, adult; E78.5 Hyperlipidemia, unspecified; E86.0 Dehydration; E87.6 Hypokalemia; F41.9 Anxiety disorder, unspecified; G25.81 Restless legs syndrome; I25.5 Ischemic cardiomyopathy; I44.0 Atrioventricular block, first degree; M10.9 Gout, unspecified; R31.29 Other microscopic hematuria; R32 Unspecified urinary incontinence; T50.2X5A Adverse effect of carbonic-anhydrase inhibitors, benzothiadiazides and other diuretics, initial encounter; Z79.01 Long term (current) use of anticoagulants; Z79.02 Long term (current) use of antithrombotics/antiplatelets; Z79.890 Hormone replacement therapy; Z79.899 Other long term (current) drug therapy; Z80.1 Family history of malignant neoplasm of trachea, bronchus and lung; Z80.42 Family history of malignant neoplasm of prostate; Z80.51 Family history of malignant neoplasm of kidney; Z82.3 Family history of stroke; Z87.891 Personal history of nicotine dependence; Z90.5 Acquired absence of kidney; Z90.6 Acquired absence of other parts of urinary tract; Z88.8 Allergy status to other drugs, medicaments and biological substances; R13.10 Dysphagia, unspecified; I08.3 Combined rheumatic disorders of mitral, aortic and tricuspid valves; R40.2362 Coma scale, best motor response, obeys commands, at arrival to emergency department; R40.2142 Coma scale, eyes open, spontaneous, at arrival to emergency department; R40.2252 Coma scale, best verbal response, oriented, at arrival to emergency department
CPT/HCPCS: 33207; 36415; 36600; 70450; 71045; 71046; 74018; 80048; 80053; 80061; 81001; 82550; 82728; 82805; 83036; 83540; 83550; 83605; 83735; 84439; 84443; 84481; 84484; 85025; 85027; 85610; 85730; 87040; 93005; 93306; 94640; 94660; 94760; 95816; 96365; 99291

== ENCOUNTER 2019-10-30 08:21 | Inpatient (IN) | payer MEDICARE ==
[2019-10-30] MEDS ORDERED: PIPERACILLIN-TAZOBACTAM 3.375 GM in SODIUM CHLORIDE 0.9% 100 ML IVPB STA (08:40)
[2019-10-30] MEDS ORDERED: SODIUM CHLORIDE 0.9% 1,000 ML IV ONE ×3 (08:41→12:00)
[2019-10-30] MEDS ORDERED: VANCOMYCIN IV PER PHARMACY 1 EACH MISC MISCELLANE PRN (08:41)
[2019-10-30] MEDS ORDERED: MIDAZOLAM HCL 50 MG in SODIUM CHLORIDE 0.9% 40 ML IV SCH (08:45)
[2019-10-30] MEDS ORDERED: VANCOMYCIN 2,000 MG in SODIUM CHLORIDE 0.9% 500 ML 500 ML IVPB STA (08:46)
[2019-10-30 08:49] VITALS: PULSE 60
[2019-10-30 08:49] LABS: VBG PH 7.21 (7.31-7.41)
--- NOTE | 2019-10-30 08:52 | ED ---
General Adult HPI - General Stated complaint: altered Time Seen by Provider: 10/30/19 08:25 Source: EMS, RN notes reviewed, old records reviewed Mode of arrival: EMS Limitations: altered mental status - History of Present Illness Initial comments: 84-year-old male brought in for altered mental status, hypoxia, hypotension. Patient is not able to contribute to history. History is obtained from EMS. [facility], baseline mental status is alert and oriented times to "EMS. He has been somewhat more lethargic over the past several days. According to EMS he does have chronic kidney disease and has been recommended to receive hemodialysis but has not received hemodialysis today. He had a recent pacemaker placement. He is currently being treated for pneumonia. Patient was found to be hypoxic and hypotensive by EMS transported as a priority 1. - Related Data Home Medications Medication Instructions Recorded Confirmed Finasteride [Proscar] 5 mg PO DAILY@00 05/03/19 10/30/19 Levothyroxine Sodium [Synthroid] 50 mcg PO DAILY@59905/03/19 10/30/19 Simvastatin 40 mg PO HS@209905/03/19 10/30/19 Acetaminophen [Tylenol Extra 500 mg PO Q6H PRN 10/14/19 10/30/19 Strength] ALPRAZolam [Xanax] 0.25 mg PO BID PRN 10/30/19 10/30/19 Allopurinol [Zyloprim] 300 mg PO DAILY@89910/30/19 10/30/19 Apixaban [Eliquis] 2.5 mg PO BID@899,209910/30/19 10/30/19 Epoetin Naresh [Procrit] 20,000 unit SQ MO 10/30/19 10/30/19 Ipratropium-Albuterol Nebulize 3 ml INHALATION RT-Q8H 10/30/19 10/30/19 [Duoneb 0.5 mg-3 mg/3 ml Soln] Isosorbide Mononitrate ER [Imdur] 60 mg PO DAILY@89910/30/19 10/30/19 Melatonin 5 mg PO HS PRN 10/30/19 10/30/19 Metoprolol Succinate (ER) [Toprol 50 mg PO DAILY@89910/30/19 10/30/19 XL] Midodrine HCl [ProAmatine] 10 mg PO TID@0900,1300,2100 10/30/19 10/30/19 Moxifloxacin HCl [Avelox] 400 mg PO DAILY@0900 10/30/19 10/30/19 Pantoprazole [Protonix] 40 mg PO DAILY@0600 10/30/19 10/30/19 Torsemide [Demadex] 20 mg PO DAILY@0900 10/30/19 10/30/19 guaiFENesin [Mucinex] 600 mg PO TID 10/30/19 10/30/19 hydrALAZINE HCL [Apresoline] 75 mg PO Q8H 10/30/19 10/30/19 predniSONE See Taper PO DAILY 10/30/19 10/30/19 rOPINIRole HCL [Requip] 1 mg PO HS@2100 10/30/19 10/30/19 Previous Rx's Medication Instructions Recorded Clotrimazole Pedro [Mycelex 10 mg MUCOUS MEM 5XD #25 pedro 10/23/19 Pedro] traMADol HCL 50 mg PO DAILY PRN #3 tab 10/23/19 Allergies Allergy/AdvReac Type Severity Reaction Status Date / Time zolpidem [From Ambien] Allergy Unknown Verified 10/30/19 09:01 Review of Systems ROS Statement: Those systems with pertinent positive or pertinent negative responses have been documented in the HPI. ROS Other: All systems not noted in ROS Statement are negative. Past Medical History Past Medical History: Cancer, Hyperlipidemia, Hypertension, Renal Disease, Thyroid Disorder Additional Past Medical History / Comment(s): bladder cancer, kidney cancer. 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 Past Anesthesia/Blood Transfusion Reactions: Previous Problems w/ Anesthesia Additional Past Anesthesia/Blood Transfusion Reaction / Comment(s): "out of it for 4 days after anesthesia" Past Psychological History: No Psychological Hx Reported, Unable to Obtain Smoking Status: Former smoker Past Alcohol Use History: None Reported Past Drug Use History: None Reported - Past Family History Father Additional Family Medical History / Comment(s): Father from prostate cancer. Mother Additional Family Medical History / Comment(s): Mother from lung cancer. Brother(s) Additional Family Medical History / Comment(s): Patient has 2 brothers one has had these stroke. One brother had kidney cancer unknown reason. Patient has one sister is healthy with no major medical problems. Patient has 2 children, one daughter with hyperlipidemia and one son with history of atrial fibrillation and borderline diabetes. General Exam Limitations: altered mental status General appearance: obtunded Head exam: Present: atraumatic, normocephalic Eye exam: Absent: PERRL (Right pupil 4 mm and unreactive, left pupil 3 mm and sluggish) ENT exam: Present: mucous membranes dry, other Neck exam: Present: normal inspection Respiratory exam: Present: respiratory distress, wheezes, rales, rhonchi, decreased breath sounds Cardiovascular Exam: Present: regular rate, normal rhythm GI/Abdominal exam: Present: soft, distended. Absent: tenderness Extremities exam: Present: other (Patient has multiple skin tears throughout his extremities. He has severe ecchymosis and swelling to the left upper extremity. Distal pulses are thready) Neurological exam: Absent: motor sensory deficit (Confused, combative, moving all extremities) Skin exam: Present: pallor. Absent: warm, intact, cyanosis Course Vital Signs 10/30/19 10/30/19 10/30/19 08:44 09:05 09:49 Temperature 86.6 F L 86.4 F L Pulse Rate 60 60 60 Respiratory 16 16 18 Rate Blood Pressure 60/45 92/61 110/72 O2 Sat by Pulse 100 100 100 Oximetry EKG Findings - EKG Comments: EKG Findings:: EKG: Paced rhythm rate is 60, NE interval 200, QRS duration 66, QTC 466 Procedures - Intubation Sedative: Versed Mg Given: 5 Paralytic: Rocuronium Mg Given: 50 Laryngoscope: [place] Size: 3 ET Tube Size: 7.5 ET Tube Uncuffed: No Tube Secured Depth (cm): 24 Tube Secured Location: lips Tube Placement Confirmation: visualized tube passing through cords, equal breath sounds bilaterally, no breath sounds over epigastrium, confirmation by capnometry Patient Tolerated Procedure: well Intubation Complications: none Medical Decision Making - Medical Decision Making 84-year-old male presenting with altered mental status, hypotension and hypoxia. Patient is initially evaluated, is combative moving all extremities, he has very abnormal vitals including blood pressure in the 60s systolic he has thready carotid pulse. He is cool to the touch. He is hypoxic and has a cord temperature at 86 rectally. He's intubated upon arrival. IV access is established. He is initiated on IV hydration and IV antibiotics. Laboratory testing reveals significant abnormalities, he has a down trending hemoglobin of 7.7 from 8.9. He has a worsening creatinine and BUN. He has a potassium of 6.0 which is treated. He has a mild troponin elevation. Chest x- ray shows large right middle lobe pneumonia. Patient does respond IV hydrations with improved blood pressure. Thyroid studies have been added given the very low core temperature. These are pending. Diagnosis: Healthcare associated pneumonia, sepsis, anemia, hyperkalemia, acute on chronic renal failure, respiratory failure requiring intubation. Case discussed with both the admitting physician and the patient care. - Lab Data Result diagrams: 10/30/19 08:30 10/30/19 08:30 Lab Results 10/30/19 10/30/19 10/30/19 Range/Units 08:30 08:30 08:30 WBC 7.7 (3.8-10.6) k/uL RBC 2.30 L (4.30-5.90) m/uL Hgb 7.7 L (13.0-17.5) gm/dL Hct 22.8 L (39.0-53.0) % MCV 99.1 D (80.0-100.0) fL MCH 33.3 (25.0-35.0) pg MCHC 33.6 (31.0-37.0) g/dL RDW 19.4 H (11.5-15.5) % Plt Count 91 L (150-450) k/uL Neutrophils % 92 % Lymphocytes % 4 % Monocytes % 3 % Eosinophils % 1 % Basophils % 0 % Neutrophils # 7.1 (1.3-7.7) k/uL Lymphocytes # 0.3 L (1.0-4.8) k/uL Monocytes # 0.2 (0-1.0) k/uL Eosinophils # 0.1 (0-0.7) k/uL Basophils # 0.0 (0-0.2) k/uL Manual Slide Review Performed Hypochromasia Moderate Poikilocytosis Slight Anisocytosis Slight Macrocytosis Slight PT (9.0-12.0) sec INR (<1.2) APTT (22.0-30.0) sec VBG pH (7.31-7.41) VBG pCO2 (37-51) mmHg VBG HCO3 (24-28) mmol/L Sodium 141 (137-145) mmol/L Potassium 6.0 H (3.5-5.1) mmol/L Chloride 104 (98-107) mmol/L Carbon Dioxide 23 (22-30) mmol/L Anion Gap 14 mmol/L BUN 204 H* (9-20) mg/dL Creatinine 4.80 H (0.66-1.25) mg/dL Est GFR (CKD-EPI)AfAm 12 (>60 ml/min/1.73 sqM) Est GFR (CKD-EPI)NonAf 10 (>60 ml/min/1.73 sqM) Glucose 126 H (74-99) mg/dL Plasma Lactic Acid Elver 1.0 (0.7-2.0) mmol/L Calcium 6.9 L (8.4-10.2) mg/dL Magnesium 3.1 H (1.6-2.3) mg/dL Total Bilirubin 0.9 (0.2-1.3) mg/dL AST 48 (17-59) U/L ALT 42 (21-72) U/L Alkaline Phosphatase 86 (38-126) U/L Troponin I (0.000-0.034) ng/mL NT-Pro-B Natriuret Pep pg/mL Total Protein 5.2 L (6.3-8.2) g/dL Albumin 3.2 L (3.5-5.0) g/dL 10/30/19 10/30/19 10/30/19 Range/Units 08:30 08:30 08:30 WBC (3.8-10.6) k/uL RBC (4.30-5.90) m/uL Hgb (13.0-17.5) gm/dL Hct (39.0-53.0) % MCV (80.0-100.0) fL MCH (25.0-35.0) pg MCHC (31.0-37.0) g/dL RDW (11.5-15.5) % Plt Count (150-450) k/uL Neutrophils % % Lymphocytes % % Monocytes % % Eosinophils % % Basophils % % Neutrophils # (1.3-7.7) k/uL Lymphocytes # (1.0-4.8) k/uL Monocytes # (0-1.0) k/uL Eosinophils # (0-0.7) k/uL Basophils # (0-0.2) k/uL Manual Slide Review Hypochromasia Poikilocytosis Anisocytosis Macrocytosis PT 12.5 H (9.0-12.0) sec INR 1.2 H (<1.2) APTT 28.4 (22.0-30.0) sec VBG pH (7.31-7.41) VBG pCO2 (37-51) mmHg VBG HCO3 (24-28) mmol/L Sodium (137-145) mmol/L Potassium (3.5-5.1) mmol/L Chloride (98-107) mmol/L Carbon Dioxide (22-30) mmol/L Anion Gap mmol/L BUN (9-20) mg/dL Creatinine (0.66-1.25) mg/dL Est GFR (CKD-EPI)AfAm (>60 ml/min/1.73 sqM) Est GFR (CKD-EPI)NonAf (>60 ml/min/1.73 sqM) Glucose (74-99) mg/dL Plasma Lactic Acid Elver (0.7-2.0) mmol/L Calcium (8.4-10.2) mg/dL Magnesium (1.6-2.3) mg/dL Total Bilirubin (0.2-1.3) mg/dL AST (17-59) U/L ALT (21-72) U/L Alkaline Phosphatase (38-126) U/L Troponin I 0.041 H* (0.000-0.034) ng/mL NT-Pro-B Natriuret Pep 9480 pg/mL Total Protein (6.3-8.2) g/dL Albumin (3.5-5.0) g/dL 10/30/19 Range/Units 08:30 WBC (3.8-10.6) k/uL RBC (4.30-5.90) m/uL Hgb (13.0-17.5) gm/dL Hct (39.0-53.0) % MCV (80.0-100.0) fL MCH (25.0-35.0) pg MCHC (31.0-37.0) g/dL RDW (11.5-15.5) % Plt Count (150-450) k/uL Neutrophils % % Lymphocytes % % Monocytes % % Eosinophils % % Basophils % % Neutrophils # (1.3-7.7) k/uL Lymphocytes # (1.0-4.8) k/uL Monocytes # (0-1.0) k/uL Eosinophils # (0-0.7) k/uL Basophils # (0-0.2) k/uL Manual Slide Review Hypochromasia Poikilocytosis Anisocytosis Macrocytosis PT (9.0-12.0) sec INR (<1.2) APTT (22.0-30.0) sec VBG pH 7.21 L (7.31-7.41) VBG pCO2 58 H (37-51) mmHg VBG HCO3 22 L (24-28) mmol/L Sodium (137-145) mmol/L Potassium (3.5-5.1) mmol/L Chloride (98-107) mmol/L Carbon Dioxide (22-30) mmol/L Anion Gap mmol/L BUN (9-20) mg/dL Creatinine (0.66-1.25) mg/dL Est GFR (CKD-EPI)AfAm (>60 ml/min/1.73 sqM) Est GFR (CKD-EPI)NonAf (>60 ml/min/1.73 sqM) Glucose (74-99) mg/dL Plasma Lactic Acid Elver (0.7-2.0) mmol/L Calcium (8.4-10.2) mg/dL Magnesium (1.6-2.3) mg/dL Total Bilirubin (0.2-1.3) mg/dL AST (17-59) U/L ALT (21-72) U/L Alkaline Phosphatase (38-126) U/L Troponin I (0.000-0.034) ng/mL NT-Pro-B Natriuret Pep pg/mL Total Protein (6.3-8.2) g/dL Albumin (3.5-5.0) g/dL Critical Care Time Critical Care Time: Yes Total Critical Care Time: 35 Disposition Clinical Impression: Hyperkalemia, Acute on chronic renal failure, HCAP (healthcare-associated pneumonia), Sepsis, Respiratory failure with hypoxia Disposition: ADMITTED IP TO THIS [facility] Condition: Serious Is patient prescribed a controlled substance at d/c from ED?: No Referrals: Martha Garay MD [STAFF PHYSICIAN] - 1-2 days Decision to Admit Reason: Admit from EC Decision Date: 10/30/19 Decision Time: 10:00
--- NOTE | 2019-10-30 08:59 | XR ---
EXAMINATION TYPE: XR chest 1V portable DATE OF EXAM: 10/30/2019 COMPARISON: 10/23/2019 HISTORY: Line and tube placement TECHNIQUE: Single frontal view of the chest is obtained. FINDINGS: Endotracheal tube is satisfactorily placed at the aortic arch approximately 2.7 cm in the jl. Enteric tube is also satisfactorily placed with its fenestrated portion beyond the gastroesop hageal junction. New reticular and alveolar opacities of the right midlung are seen with chronic diff use interstitial prominence. Cardia mediastinal silhouette is enlarged with single lead left-sided ca rdiac device. No sizable pleural effusion or pneumothorax. Osseous structures are grossly intact. IMPRESSION: 1. Appropriately placed enteric and endotracheal tubes. 2. New focal right midlung consolidation suspicious for unifocal pneumonia. Underlying chronic inters titial prominence.
[2019-10-30 09:00] LABS: INR 1.2 (<1.2); Partial Thromboplastin Time 28.4 sec (22.0-30.0); Prothrombin Time 12.5 sec (9.0-12.0)
[2019-10-30] MEDS ORDERED: AZITHROMYCIN 500 MG in SODIUM CHLORIDE 0.9% 250 ML IVPB STA (09:03)
[2019-10-30] MEDS ORDERED: ROCURONIUM BROMIDE 10 MG/ML 10 ML VIAL IV STA ×2 (09:03→09:16)
[2019-10-30] MEDS ORDERED: MIDAZOLAM 1 MG/ML 5 ML VIAL IV STA (09:04)
[2019-10-30 09:05] LABS: Anisocytosis Slight; Basophils % (A) 0 %; Eosinophils # (A) 0.1 k/uL (0-0.7); Eosinophils % (A) 1 %; HCT 22.8 % (39.0-53.0); HGB 7.7 gm/dL (13.0-17.5); Hypochromasia Moderate; Lymphocytes # (A) 0.3 k/uL (1.0-4.8); Lymphocytes % (A) 4 %; MCH 33.3 pg (25.0-35.0); MCHC 33.6 g/dL (31.0-37.0); Macrocytosis Slight; Mean Platelet Volume 10.8; Monocytes # (A) 0.2 k/uL (0-1.0); Monocytes % (A) 3 %; Neutrophils # (A) 7.1 k/uL (1.3-7.7); Neutrophils % (A) 92 %; Poikilocytosis Slight; RDW 19.4 % (11.5-15.5); WBC 7.7 k/uL (3.8-10.6)
[2019-10-30 09:06] LABS: MCV 99.1 fL (80.0-100.0)
[2019-10-30 09:08] LABS: Albumin 3.2 g/dL (3.5-5.0); Calcium 6.9 mg/dL (8.4-10.2); Magnesium 3.1 mg/dL (1.6-2.3); Total Bilirubin 0.9 mg/dL (0.2-1.3); Total Protein 5.2 g/dL (6.3-8.2)
[2019-10-30] MEDS ORDERED: HYDROCORTISONE SUCCINATE 100 MG/2 ML VIAL IV STA (09:17)
[2019-10-30 09:35] LABS: Platelet Count 91 k/uL (150-450)
[2019-10-30] MEDS ORDERED: CALCIUM GLUCONATE 1 GM in SODIUM CHLORIDE 0.9% 100 ML IVPB ONE (09:37)
[2019-10-30] MEDS ORDERED: SODIUM POLYSTYRENE SULFONATE 15 GM/60 ML BOTTLE PO ONE (09:37)
[2019-10-30] MEDS ORDERED: ALBUTEROL NEB (CONC) 2.5 MG/0.5 ML INHALATION ONE (09:37)
[2019-10-30] MEDS ORDERED: NALOXONE 0.4 MG/ML 1 ML VIAL IV PRN (09:38)
--- NOTE | 2019-10-30 09:49 | CT ---
EXAMINATION TYPE: CT brain wo con DATE OF EXAM: 10/30/2019 COMPARISON: 10/15/2019 HISTORY: Altered mental status CT DLP: 1121.4 mGycm Automated exposure control for dose reduction was used. FINDINGS: Moderate generalized degenerative change noted. Areas of encephalomalacia involving the left frontal lobe stable. Areas of low attenuation involving the basal ganglia most typical remote lacunar infarct . No midline shift or mass effect. No acute hemorrhage. Changes of chronic sinusitis noted. Nonspecific areas of low-attenuation the white matter are similar to the prior exam and suggestive of remote ischemia. IMPRESSION: 1. Degenerative change with no acute hemorrhage. Nonspecific changes involving the white matter most typical of remote ischemia. If there is concern for acute ischemia correlate with MRI as clinically w arranted.
[2019-10-30 10:24] LABS: ABG Base Excess -6.6 mmol/L; ABG HCO3 19 mmol/L (21-25); ABG Oxygen Saturation 94.4 % (94-97); ABG PCO2 37 mmHg (35-45); ABG PH 7.33 (7.35-7.45); ABG PO2 73 mmHg (83-108); ABG TCO2 21 mmol/L (19-24); Allen Test Performed? Yes
[2019-10-30 11:23] LABS: Glucose,Whole Blood 177 mg/dL (75-99)
[2019-10-30] MEDS: NOREPINEPHRINE 4 MG in SODIUM CHLORIDE 0.9% 250 ML IV SCH ×2 (11:50→15:50)
[2019-10-30] MEDS ORDERED: PROPOFOL 1,000 MG in EMPTY BAG 1 BAG IV SCH (12:15)
--- NOTE | 2019-10-30 12:40 | P.HPIM ---
History of Present Illness H&P Date: 10/30/19 This is an 84-year-old male patient of Dr. Harman with past medical history of bladder cancer diagnosed 18 years ago status post mass resection, kidney cancer initially diagnosed in 2010 on the left with partial nephrectomy followed by diagnosis on the right in 2013 status post partial robotic resection. Cancers currently are in remission and his oncologist is Dr. Juan. He also has past medical history of carotid artery stenosis status post stent, hypertension, hypothyroidism, hyperlipidemia, restless leg syndrome, gout, chronic kidney disease stage 4. His last hospitalization was October 14 through October 23 which time he was treated for syncopal episodes with variable heart block status post pacemaker implantation on October 16. Patient was discharged to [facility]. Family states that for the past couple days he has not been eating very much and has had change in mental status gradually worsening and started having hallucinations and becoming combative. Patient was found unresponsive this morning, obtunded, hypoxic and hypothermic. Patient was brought into [facility] emergency center was found to have a temperature of 86.6, heart rate 60, blood pressure 60/45, patient was emergently intubated and placed on mechanical ventilation. He was started on IV fluids, antibiotics for possible right middle lobe pneumonia on chest x-ray. BUN 24, creatinine 4.8, white count was 7.7, hemoglobin 7.7, platelet count 81. Potassium 6.0, blood sugar 126. Lactic acid 1.0, troponin 0.041, proBNP 9480. PH was 7.21, pCO2 58 and bicarb 22 on venous gas. Patient admitted to the intensive care unit and consult requested with Dr. Hester. Review of Systems ROS unobtainable: due to endotracheal tube, due to mental status Past Medical History Past Medical History: Cancer, Hyperlipidemia, Hypertension, Renal Disease, Thyroid Disorder Additional Past Medical History / Comment(s): bladder cancer, kidney cancer. 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 Past Anesthesia/Blood Transfusion Reactions: Previous Problems w/ Anesthesia Additional Past Anesthesia/Blood Transfusion Reaction / Comment(s): "out of it for 4 days after anesthesia" Past Psychological History: No Psychological Hx Reported, Unable to Obtain Smoking Status: Former smoker Past Alcohol Use History: None Reported Past Drug Use History: None Reported - Past Family History Father Additional Family Medical History / Comment(s): Father from prostate cancer. Mother Additional Family Medical History / Comment(s): Mother from lung cancer. Brother(s) Additional Family Medical History / Comment(s): Patient has 2 brothers one has had these stroke. One brother had kidney cancer unknown reason. Patient has one sister is healthy with no major medical problems. Patient has 2 children, one daughter with hyperlipidemia and one son with history of atrial fibrillation and borderline diabetes. Medications and Allergies Home Medications Medication Instructions Recorded Confirmed Type Finasteride [Proscar] 5 mg PO DAILY@0900 05/03/19 10/30/19 History Levothyroxine Sodium [Synthroid] 50 mcg PO DAILY@0600 05/03/19 10/30/19 History Simvastatin 40 mg PO HS@2100 05/03/19 10/30/19 History Acetaminophen [Tylenol Extra 500 mg PO Q6H PRN 10/14/19 10/30/19 History Strength] Clotrimazole Pedro [Mycelex 10 mg MUCOUS MEM 5XD #25 pedro 10/23/19 10/30/19 Rx Pedro] traMADol HCL 50 mg PO DAILY PRN #3 tab 10/23/19 10/30/19 Rx ALPRAZolam [Xanax] 0.25 mg PO BID PRN 10/30/19 10/30/19 History Allopurinol [Zyloprim] 300 mg PO DAILY@0900 10/30/19 10/30/19 History Apixaban [Eliquis] 2.5 mg PO BID@0900,2100 10/30/19 10/30/19 History Epoetin Naresh [Procrit] 20,000 unit SQ MO 10/30/19 10/30/19 History Ipratropium-Albuterol Nebulize 3 ml INHALATION RT-Q8H 10/30/19 10/30/19 History [Duoneb 0.5 mg-3 mg/3 ml Soln] Isosorbide Mononitrate ER [Imdur] 60 mg PO DAILY@0900 10/30/19 10/30/19 History Melatonin 5 mg PO HS PRN 10/30/19 10/30/19 History Metoprolol Succinate (ER) [Toprol 50 mg PO DAILY@0900 10/30/19 10/30/19 History XL] Midodrine HCl [ProAmatine] 10 mg PO TID@0900,1300,2100 10/30/19 10/30/19 History Moxifloxacin HCl [Avelox] 400 mg PO DAILY@0900 10/30/19 10/30/19 History Pantoprazole [Protonix] 40 mg PO DAILY@0600 10/30/19 10/30/19 History Torsemide [Demadex] 20 mg PO DAILY@0900 10/30/19 10/30/19 History guaiFENesin [Mucinex] 600 mg PO TID 10/30/19 10/30/19 History hydrALAZINE HCL [Apresoline] 75 mg PO Q8H 10/30/19 10/30/19 History predniSONE See Taper PO DAILY 10/30/19 10/30/19 History rOPINIRole HCL [Requip] 1 mg PO HS@2100 10/30/19 10/30/19 History Allergies Allergy/AdvReac Type Severity Reaction Status Date / Time zolpidem [From Ambien] Allergy Unknown Verified 10/30/19 09:01 Physical Exam Vitals: Vital Signs Temp Pulse Resp BP Pulse Ox 10/30/19 09:49 86.4 F L 60 18 110/72 100 10/30/19 09:05 86.6 F L 60 16 92/61 100 10/30/19 08:44 60 16 60/45 100 Intake and Output 10/29/19 10/30/19 10/30/19 22:59 06:59 14:59 Other: Weight 105.324 kg Gen: This is an 84-year-old obese male. He is seen on the ER stretcher. Bare blanket is in place. Blood pressure is 89/61. Daughter at the bedside. HEENT: Head is atraumatic, normocephalic. Pupils equal, round. Sclerae is anicteric. NECK: Supple. No JVD. No lymphadenopathy. No thyromegaly. LUNGS: Coarse breath sounds bilaterally. No intercostal retractions. HEART: Regular rate and rhythm. Systolic murmur at the left sternal border. ABDOMEN: Soft. Bowel sounds are present. No masses. No tenderness. EXTREMITIES: Generalized anasarca, lower extremity mottling. NEUROLOGICAL: Patient is unresponsive. Results CBC & Chem 7: 10/30/19 08:30 10/30/19 08:30 Labs: Abnormal Lab Results - Last 24 Hours (Table) 10/30/19 10/30/19 10/30/19 Range/Units 08:30 08:30 08:30 RBC 2.30 L (4.30-5.90) m/uL Hgb 7.7 L (13.0-17.5) gm/dL Hct 22.8 L (39.0-53.0) % RDW 19.4 H (11.5-15.5) % Plt Count 91 L (150-450) k/uL Lymphocytes # 0.3 L (1.0-4.8) k/uL PT 12.5 H (9.0-12.0) sec INR 1.2 H (<1.2) VBG pH (7.31-7.41) VBG pCO2 (37-51) mmHg VBG HCO3 (24-28) mmol/L Potassium 6.0 H (3.5-5.1) mmol/L BUN 204 H* (9-20) mg/dL Creatinine 4.80 H (0.66-1.25) mg/dL Glucose 126 H (74-99) mg/dL Calcium 6.9 L (8.4-10.2) mg/dL Magnesium 3.1 H (1.6-2.3) mg/dL Troponin I (0.000-0.034) ng/mL Total Protein 5.2 L (6.3-8.2) g/dL Albumin 3.2 L (3.5-5.0) g/dL 10/30/19 10/30/19 Range/Units 08:30 08:30 RBC (4.30-5.90) m/uL Hgb (13.0-17.5) gm/dL Hct (39.0-53.0) % RDW (11.5-15.5) % Plt Count (150-450) k/uL Lymphocytes # (1.0-4.8) k/uL PT (9.0-12.0) sec INR (<1.2) VBG pH 7.21 L (7.31-7.41) VBG pCO2 58 H (37-51) mmHg VBG HCO3 22 L (24-28) mmol/L Potassium (3.5-5.1) mmol/L BUN (9-20) mg/dL Creatinine (0.66-1.25) mg/dL Glucose (74-99) mg/dL Calcium (8.4-10.2) mg/dL Magnesium (1.6-2.3) mg/dL Troponin I 0.041 H* (0.000-0.034) ng/mL Total Protein (6.3-8.2) g/dL Albumin (3.5-5.0) g/dL Thrombosis Risk Factor Assmnt - DVT/VTE Prophylaxis DVT/VTE Prophylaxis: Mechanical Prophylaxis ordered Assessment and Plan Plan: 1. Acute hypoxic respiratory failure requiring intubation and mechanical ventilation. Consult with Dr. Hester. 2. Metabolic and hypoxic encephalopathy secondary to acute kidney injury, se psis and respiratory failure. 3. Sepsis with septic shock secondary to right middle lobe pneumonia, possible aspiration pneumonia. Continue Zosyn and vancomycin. 4. Acute kidney injury on CKD 4. Nephrology consult appreciated. 5. Recent hospitalization status post pacemaker for AV block. Consult cardiology. 5. Hypertension, hypertensive cardiovascular disease. All blood pressure medic ations on hold due to hypotension 7. Hyperlipidemia. Hold Lipitor 20 mg daily. 8. Carotid artery stenosis status post stent on the left and 100% blockage on the right. Hold Plavix 75 mg daily. 9. Restless leg syndrome. Hold Requip 0.5 mg at bedtime. 10. Hypothyroidism. Hold levothyroxine 50 g daily. 11. DVT prophylaxis. SCDs and CHRISTINE hose due to thrombocytopenia 12. GI prophylaxis. Protonix IV. 14. Anemia of chronic kidney disease. 17. Atrial flutter, typical. 18. History of kidney cancer status post resection and history of bladder cancer. Patient will be admitted to the hospital for a minimum of 4 night stay. CODE STATUS: Full code Prognosis: Poor Discharge plan: [facility] return Impression and plan of care have been directed as dictated by the signing p hysician. Florecita Pedroza nurse practitioner acting as scribe for signing physician.
[2019-10-30] MEDS ORDERED: SODIUM CHLORIDE 0.9% 1,000 ML IV SCH (13:00)
--- NOTE | 2019-10-30 13:26 | P.CNPUL ---
History of Present Illness Consult date: 10/30/19 (Critical care time spent 60 minutes) Reason for consult: dyspnea, hypoxemia, pneumonia, obstructive sleep apnea Chief complaint: Brought in ED with altered mental status hypoxia and hypotension History of present illness: This is a 84-year-old morbidly obese male with obesity hypoventilation likely along with the history of severe symptomatic bradycardia requiring pacemaker insertion and previous hospitalization patient has been using BiPAP intermittently with some good response in fact patient was discharged to [facility] on [facility], it is not clear patient has been using BiPAP on a regular basis, patient was lethargic for the last several days but came into the hospital hypothermic, his chest x-ray showed right perihilar infiltrate rate likely aspiration pneumonia due to altered mental status, his white cell count is normal hemoglobin 7.7 platelet count 91,000 PT/INR is normal his ABG post intubation we will send 0.33 pCO2 37 pO2 of 73, preintubation venous ABG revealed CO2 of 58 pH of 7.2, potassium was noted to be 6 BUN/creatinine went up to 204/4.8, patient has no urine output Review of Systems ROS unobtainable: due to endotracheal tube, due to mental status Past Medical History Past Medical History: Cancer, Hyperlipidemia, Hypertension, Renal Disease, Thyroid Disorder Additional Past Medical History / Comment(s): bladder cancer, kidney cancer. 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 Past Anesthesia/Blood Transfusion Reactions: Previous Problems w/ Anesthesia Additional Past Anesthesia/Blood Transfusion Reaction / Comment(s): "out of it for 4 days after anesthesia" Past Psychological History: No Psychological Hx Reported, Unable to Obtain Smoking Status: Former smoker Past Alcohol Use History: None Reported Past Drug Use History: None Reported - Past Family History Father Additional Family Medical History / Comment(s): Father from prostate cancer. Mother Additional Family Medical History / Comment(s): Mother from lung cancer. Brother(s) Additional Family Medical History / Comment(s): Patient has 2 brothers one has had these stroke. One brother had kidney cancer unknown reason. Patient has one sister is healthy with no major medical problems. Patient has 2 children, one daughter with hyperlipidemia and one son with history of atrial fibrillation and borderline diabetes. Medications and Allergies Home Medications Medication Instructions Recorded Confirmed Type Finasteride [Proscar] 5 mg PO DAILY@0900 05/03/19 10/30/19 History Levothyroxine Sodium [Synthroid] 50 mcg PO DAILY@0600 05/03/19 10/30/19 History Simvastatin 40 mg PO HS@2100 05/03/19 10/30/19 History Acetaminophen [Tylenol Extra 500 mg PO Q6H PRN 10/14/19 10/30/19 History Strength] Clotrimazole Elle [Mycelex 10 mg MUCOUS MEM 5XD #25 elle 10/23/19 10/30/19 Rx Elle] traMADol HCL 50 mg PO DAILY PRN #3 tab 10/23/19 10/30/19 Rx ALPRAZolam [Xanax] 0.25 mg PO BID PRN 10/30/19 10/30/19 History Allopurinol [Zyloprim] 300 mg PO DAILY@0910/30/19 10/30/19 History Apixaban [Eliquis] 2.5 mg PO BID@0900,2100 10/30/19 10/30/19 History Epoetin Naresh [Procrit] 20,000 unit SQ MO 10/30/19 10/30/19 History Ipratropium-Albuterol Nebulize 3 ml INHALATION RT-Q8H 10/30/19 10/30/19 History [Duoneb 0.5 mg-3 mg/3 ml Soln] Isosorbide Mononitrate ER [Imdur] 60 mg PO DAILY@0900 10/30/19 10/30/19 History Melatonin 5 mg PO HS PRN 10/30/19 10/30/19 History Metoprolol Succinate (ER) [Toprol 50 mg PO DAILY@00 10/30/19 10/30/19 History XL] Midodrine HCl [ProAmatine] 10 mg PO TID@0900,1300,2100 10/30/19 10/30/19 History Moxifloxacin HCl [Avelox] 400 mg PO DAILY@0900 10/30/19 10/30/19 History Pantoprazole [Protonix] 40 mg PO DAILY@0600 10/30/19 10/30/19 History Torsemide [Demadex] 20 mg PO DAILY@0900 10/30/19 10/30/19 History guaiFENesin [Mucinex] 600 mg PO TID 10/30/19 10/30/19 History hydrALAZINE HCL [Apresoline] 75 mg PO Q8H 10/30/19 10/30/19 History predniSONE See Taper PO DAILY 10/30/19 10/30/19 History rOPINIRole HCL [Requip] 1 mg PO HS@2100 10/30/19 10/30/19 History Allergies Allergy/AdvReac Type Severity Reaction Status Date / Time zolpidem [From Ambien] Allergy Unknown Verified 10/30/19 09:01 Physical Exam Vitals: Vital Signs Temp Pulse Resp BP Pulse Ox 10/30/19 12:15 60 18 95/61 99 10/30/19 12:00 60 14 64/39 99 10/30/19 11:45 60 20 61/44 99 10/30/19 11:30 30 F L 60 14 82/58 100 10/30/19 10:33 86.3 F L 60 18 99/70 100 10/30/19 09:49 86.4 F L 60 18 110/72 100 10/30/19 09:05 86.6 F L 60 16 92/61 100 10/30/19 08:44 60 16 60/45 100 Intake and Output 10/29/19 10/30/19 10/30/19 22:59 06:59 14:59 Intake Total 603.344 Output Total 0 Balance 603.344 Intake: IV 600 Sodium Chloride 0.9% 1, 100 000 ml @ 999 mls/hr IV . Q1H1M ONE Rx#:[id number] Vancomycin 2,000 mg In 500 Sodium Chloride 0.9% 500 ml 500 ml @ 167 mls/hr IVPB ONCE ONE Rx#: [id number] Intake, IV Titration 3.344 Amount Norepinephrine 4 mg In 3.344 Sodium Chloride 0.9% 250 ml @ 0.05 MCG/KG/MIN 20. 064 mls/hr IV .[id number] [facility] Rx#:[id number] Output: Urine 0 Other: Weight 105.324 kg - Constitutional General appearance: disheveled, morbidly obese - EENT Eyes: normal appearance Ears: bilateral: normal - Neck Neck: normal ROM Carotids: bilateral: upstroke normal Thyroid: negative: normal size - Respiratory Respiratory: bilateral: diminished, rales, negative: CTA, dullness, rhonchi, wheezing - Cardiovascular Rhythm: regular Heart sounds: normal: S1, S2 - Gastrointestinal General gastrointestinal: decreased bowel sounds, distended Intubated and nonverbal and noncommunicative sedated Results - Laboratory Findings CBC and BMP: 10/30/19 08:30 10/30/19 08:30 ABG ABG pH 7.33 (7.35-7.45) L 10/30/19 10:17 ABG pCO2 37 mmHg (35-45) 10/30/19 10:17 ABG pO2 73 mmHg (83-108) L 10/30/19 10:17 ABG O2 Saturation 94.4 % (94-97) 10/30/19 10:17 PT/INR, D-dimer PT 12.5 sec (9.0-12.0) H 10/30/19 08:30 INR 1.2 (<1.2) H 10/30/19 08:30 Abnormal lab findings: Abnormal Labs 10/30/19 10/30/19 10/30/19 08:30 08:30 08:30 RBC 2.30 L Hgb 7.7 L Hct 22.8 L RDW 19.4 H Plt Count 91 L Lymphocytes # 0.3 L PT 12.5 H INR 1.2 H ABG pH ABG pO2 ABG HCO3 VBG pH VBG pCO2 VBG HCO3 Potassium 6.0 H BUN 204 H* Creatinine 4.80 H Glucose 126 H POC Glucose (mg/dL) Calcium 6.9 L Magnesium 3.1 H Troponin I Total Protein 5.2 L Albumin 3.2 L 10/30/19 10/30/19 10/30/19 08:30 08:30 10:17 RBC Hgb Hct RDW Plt Count Lymphocytes # PT INR ABG pH 7.33 L ABG pO2 73 L ABG HCO3 19 L VBG pH 7.21 L VBG pCO2 58 H VBG HCO3 22 L Potassium BUN Creatinine Glucose POC Glucose (mg/dL) Calcium Magnesium Troponin I 0.041 H* Total Protein Albumin 10/30/19 11:11 RBC Hgb Hct RDW Plt Count Lymphocytes # PT INR ABG pH ABG pO2 ABG HCO3 VBG pH VBG pCO2 VBG HCO3 Potassium BUN Creatinine Glucose POC Glucose (mg/dL) 177 H Calcium Magnesium Troponin I Total Protein Albumin - Diagnostic Findings Chest x-ray: report reviewed, image reviewed (Dense right perihilar infiltrate) Assessment and Plan Assessment: Severe sepsis and septic shock due to aspiration pneumonia Altered mental status due to obesity hypoventilation severe obstructive sleep apnea Acute on chronic renal failure Congestive heart failure likely acute on chronic diastolic heart failure Morbid obesity Hyperkalemia Fluid overload Plan: Broad-spectrum antibiotics Vent support Vasopressors Repeat labs Patient will need nephrology consultation in hemodialysis urgent basis I have detailed discussion with the family family is leaning towards comfort management and withdrawal support, patient will be made no code, and they do not want any hemodialysis according to the POA that's what patient would like Time with Patient: Greater than 30
[2019-10-30 16:16] VITALS: BP 81/42; RESP 18; TEMP 95.5
[2019-10-30] MEDS ORDERED: MORPHINE SULFATE 2 MG/ML SYRINGE IV PRN ×2 (16:47→18:00)
[2019-10-30] MEDS ORDERED: MORPHINE SULFATE (100 MG/2 ML) 100 MG in SODIUM CHLORIDE 0.9% 100 ML IV SCH ×2 (17:00→18:00)
[2019-10-30] MEDS ORDERED: CHLORHEXIDINE GLUCONATE 15 ML CUP MUCOUS MEM SCH (21:00)
[2019-10-30] MEDS ORDERED: PIPERACILLIN-TAZOBACTAM 3.375 GM in SODIUM CHLORIDE 0.9% 100 ML IVPB SCH (21:00)
[2019-10-31] MEDS ORDERED: VANCOMYCIN 2,000 MG in SODIUM CHLORIDE 0.9% 500 ML 500 ML IVPB ONE (09:00)
== END 2019-10-30 16:49 | disposition hospice, inpatient (51) | DRG 871 ==
LOC: EC 08:21 → 2SICU 09:38
PROVIDERS: ADMIT Internal Medicine; ATTEND Internal Medicine
PROC: 5A1935Z Respiratory Ventilation, Less than 24 Consecutive Hours (ICD-10-PCS; principal; 2019-10-30)
PROC: 0BH17EZ Insertion of Endotracheal Airway into Trachea, Via Natural or Artificial Opening (ICD-10-PCS; 2019-10-30)
DX: A41.9 Sepsis, unspecified organism (principal); I50.33 Acute on chronic diastolic (congestive) heart failure; J69.0 Pneumonitis due to inhalation of food and vomit; J96.01 Acute respiratory failure with hypoxia; R65.21 Severe sepsis with septic shock; G93.41 Metabolic encephalopathy; E66.2 Morbid (severe) obesity with alveolar hypoventilation; G93.1 Anoxic brain damage, not elsewhere classified; I13.0 Hypertensive heart and chronic kidney disease with heart failure and stage 1 through stage 4 chronic kidney disease, or unspecified chronic kidney disease; I48.3 Typical atrial flutter; N17.9 Acute kidney failure, unspecified; N18.4 Chronic kidney disease, stage 4 (severe); D69.6 Thrombocytopenia, unspecified; E87.5 Hyperkalemia; I65.29 Occlusion and stenosis of unspecified carotid artery; D63.1 Anemia in chronic kidney disease; E03.9 Hypothyroidism, unspecified; E78.5 Hyperlipidemia, unspecified; G25.81 Restless legs syndrome; I44.30 Unspecified atrioventricular block; M10.9 Gout, unspecified; Z51.5 Encounter for palliative care; Z79.01 Long term (current) use of anticoagulants; Z79.02 Long term (current) use of antithrombotics/antiplatelets; Z79.890 Hormone replacement therapy; Z79.899 Other long term (current) drug therapy; Z79.52 Long term (current) use of systemic steroids; Z85.51 Personal history of malignant neoplasm of bladder; Z85.528 Personal history of other malignant neoplasm of kidney; Z90.5 Acquired absence of kidney; Z95.0 Presence of cardiac pacemaker; Z87.891 Personal history of nicotine dependence; Z88.8 Allergy status to other drugs, medicaments and biological substances; Z80.1 Family history of malignant neoplasm of trachea, bronchus and lung; Z80.42 Family history of malignant neoplasm of prostate; Z80.51 Family history of malignant neoplasm of kidney; Z82.3 Family history of stroke
CPT/HCPCS: 31500; 36415; 36600; 70450; 71045; 80053; 82803; 82805; 83605; 83735; 83880; 84443; 84484; 85025; 85610; 85730; 87040; 87070; 87077; 87186; 87205; 94002; 96365; 96367; 96368; 96375; 99291

== ENCOUNTER 2019-10-30 15:37 | Inpatient (IN) | payer MEDICAID ==
[2019-10-30] MEDS ORDERED: ATROPINE OPHTH SOLN 1% 5ML BTL SUBLINGUAL PRN (15:48)
[2019-10-30] MEDS ORDERED: MORPHINE SULFATE 2 MG/ML SYRINGE IV PRN (15:48)
[2019-10-30] MEDS ORDERED: HALOPERIDOL LACTATE 5 MG/ML 1 ML VIAL IM PRN (15:48)
[2019-10-30] MEDS ORDERED: LORazepam 2 MG/ML INJ IV PRN (15:48)
[2019-10-30] MEDS ORDERED: ACETAMINOPHEN SUPPOSITORY 650 MG SUPP RECTAL PRN (15:48)
[2019-10-30] MEDS ORDERED: MORPHINE SULFATE (100 MG/2 ML) 100 MG in SODIUM CHLORIDE 0.9% 100 ML IV SCH (16:00)
--- NOTE | 2019-10-30 16:31 | CONS ---
CONSULTATION Mr. Smiley is an 84-year-old gentleman who is seen for cardiac evaluation. This patient's medical records reviewed. The patient's old charts were reviewed. This patient just recently was in the hospital with syncope. The patient was in atrial flutter fib with slow ventricular rate and underwent permanent pacemaker and subsequently was discharged home to the [facility] about a week ago. For last couple of days, patient has been progressively deteriorating, became hypotensive, hypoxic and in respiratory distress and patient was brought to the emergency room. In the emergency room, patient was in septic shock with a blood pressure of 60. Chest x-ray is suggestive of extensive right middle and lower lobe infiltrate. Pacemaker is working normally. Patient was intubated. Currently patient is on Levophed to maintain the blood pressure. Patient's old medications are reviewed. PHYSICAL EXAMINATION: At present reveals an 84-year-old gentleman who is intubated. The patient is hypothermic and he is getting warm blankets. The blood pressure is 90/70. HEENT examination is negative. HEART: First and second heart sounds are heard. LUNGS examination revealed bilateral crackles. ABDOMEN: Soft. EXTREMITIES: Peripheral pulses are not felt. LABORATORY DATA: The patient's BUN is 204. Creatinine is 4.8. FINAL IMPRESSION: This patient is admitted with extensive fulminating right lower lobe pneumonia. Patient has evidence of sepsis and acute on chronic renal failure. The patient's pacemaker is working normally. The patient's overall prognosis is extremely guarded and this was discussed with the family members. MMNICHOLASL / ELENON: [id number] /
== END 2019-10-30 20:20 | disposition expired | DRG 951 ==
LOC: 2SICU 16:51
PROVIDERS: ADMIT Internal Medicine; ATTEND Internal Medicine
DX: Z51.5 Encounter for palliative care (principal); A41.9 Sepsis, unspecified organism; J69.0 Pneumonitis due to inhalation of food and vomit; R65.21 Severe sepsis with septic shock; J96.01 Acute respiratory failure with hypoxia; G93.41 Metabolic encephalopathy; N17.9 Acute kidney failure, unspecified; N18.4 Chronic kidney disease, stage 4 (severe); G93.1 Anoxic brain damage, not elsewhere classified; I48.3 Typical atrial flutter; I13.0 Hypertensive heart and chronic kidney disease with heart failure and stage 1 through stage 4 chronic kidney disease, or unspecified chronic kidney disease; Z66 Do not resuscitate; I65.29 Occlusion and stenosis of unspecified carotid artery; I48.91 Unspecified atrial fibrillation; D63.1 Anemia in chronic kidney disease; M10.9 Gout, unspecified; E66.9 Obesity, unspecified; E03.9 Hypothyroidism, unspecified; E78.5 Hyperlipidemia, unspecified; G25.81 Restless legs syndrome; Z79.01 Long term (current) use of anticoagulants; Z79.890 Hormone replacement therapy; Z79.899 Other long term (current) drug therapy; Z85.51 Personal history of malignant neoplasm of bladder; Z85.528 Personal history of other malignant neoplasm of kidney; Z90.5 Acquired absence of kidney; Z95.0 Presence of cardiac pacemaker; Z68.34 Body mass index [BMI] 34.0-34.9, adult; Z82.3 Family history of stroke; Z80.51 Family history of malignant neoplasm of kidney; Z80.42 Family history of malignant neoplasm of prostate; Z80.1 Family history of malignant neoplasm of trachea, bronchus and lung; Z82.49 Family history of ischemic heart disease and other diseases of the circulatory system